=== PATIENT | male | born 1965 | race Hispanic/Latino ===

== ENCOUNTER 2016-11-30 11:39 | Emergency (ER) | payer MEDICARE ==
[2016-11-30 12:13] VITALS: TEMP 98.6; O2SAT 97; BMI 21.6
[2016-11-30] MEDS ORDERED: Albuterol-Ipratrop 3 mg / 0.5 (3 ml) UD IH STA ×2 (12:16→12:18)
[2016-11-30] MEDS ORDERED: Albuterol-Ipratrop 3 mg / 0.5 (3 ml) UD INH STA (12:16)
[2016-11-30] MEDS ORDERED: Sodium Chloride 0.9% 1,000 ML IV STA (12:16)
--- NOTE | 2016-11-30 12:21 | ED PDOC ---
HPI: SOB/CHF/COPD Time Seen by Provider: 11/30/16 11:58 Chief Complaint (Nursing): Chest Pain Chief Complaint (Provider): Chest pain and dyspnea History Per: Patient History/Exam Limitations: no limitations Onset/Duration Of Symptoms: Days (yesterday) Current Symptoms Are (Timing): Still Present Additional Complaint(s): Chest pain to the right. Dyspnea. Cough. No weakness, headaches, dizziness. Has green phlegm. No leg pain. No abd pain, nausea, vomit. Past Medical History Reviewed: Nursing Documentation, Vital Signs Vital Signs: Last Vital Signs Temp 98.6 F 11/30/16 12:10 Pulse 98 H 11/30/16 12:13 Resp 18 11/30/16 12:13 BP 120/60 11/30/16 12:13 Pulse Ox 97 11/30/16 12:27 - Medical History PMH: Arthritis (bilat knee), Diabetes (type II), HTN - Family History Family History: States: Unknown Family Hx - Social History Current smoker - smoking cessation education provided: No Alcohol: None - Immunization History Hx Tetanus Toxoid Vaccination: No Hx Influenza Vaccination: No Hx Pneumococcal Vaccination: No - Home Medications Home Medications: Ambulatory Orders Medication Instructions Recorded Insulin Lispro Protamin/Lispro 100 unit SQ ASDIR #5 insuln.pen 11/25/15 [Humalog Mix 75-25 Kwikpen] Naproxen 500 mg PO Q12 #15 tab 05/07/16 Tobramycin [Tobrex] 5 ml OP QID #1 bottle 07/30/16 Naproxen [Naprosyn] 500 mg PO BID PRN #15 tablet 09/08/16 Sulfamethoxazole/Trimethoprim 1 tab PO BID #19 tab 09/08/16 [Bactrim DS 800 mg-160 mg] Cephalexin [Keflex] 500 mg PO BID #14 capsule 11/09/16 - Allergies Allergies/Adverse Reactions: Allergies Allergy/AdvReac Type Severity Reaction Status Date / Time acetaminophen [From Percocet] Allergy RASH Verified 11/21/15 19:37 codeine Allergy RASH Verified 11/21/15 19:37 oxycodone HCl [From Percocet] Allergy RASH Verified 11/21/15 19:37 Review of Systems ROS Statement: Except As Marked, All Systems Reviewed And Found Negative Cardiovascular: Positive for: Chest Pain Respiratory: Positive for: Cough, Shortness of Breath, Sputum Physical Exam - Reviewed Nursing Documentation Reviewed: Yes Vital Signs Reviewed: Yes - Physical Exam Appears: Positive for: Uncomfortable Head Exam: Positive for: ATRAUMATIC, NORMAL INSPECTION, NORMOCEPHALIC Skin: Positive for: Normal Color, Warm, DRY Eye Exam: Positive for: EOMI, Normal appearance, PERRL ENT: Positive for: Normal ENT Inspection. Negative for: Nasal Congestion, Pharyngeal Erythema Neck: Positive for: Normal, Painless ROM, Supple Cardiovascular/Chest: Positive for: Regular Rate, Rhythm. Negative for: Chest Non Tender (r mid lateral chest mild), Edema Respiratory: Positive for: Decreased Breath Sounds. Negative for: Wheezing Gastrointestinal/Abdominal: Positive for: Normal Exam, Bowel Sounds, Soft. Negative for: Tenderness Back: Positive for: Normal Inspection. Negative for: L CVA Tenderness, R CVA Tenderness Extremity: Positive for: Normal ROM. Negative for: Tenderness, Pedal Edema Neurologic/Psych: Positive for: Alert, Oriented - Laboratory Results Result Diagrams: 11/30/16 12:43 11/30/16 12:43 Interpretation Of Abn Labs: 17 wbc, 2.1 lactate, 7.33 ph, 653 glucose - ECG ECG: Positive for: Interpreted By Me, Viewed By Me ECG Rhythm: Positive for: Normal QRS, Normal ST Segment, Sinus Rhythm O2 Sat by Pulse Oximetry: 97 Pulse Ox Interpretation: Normal - Progress ED Course And Treament: Pt. refusing to get further treatment or evaluation. Aware of possible or decreased functioning. Mom at bedside and understands pt. is at risk and needs treatment. Pt. is aaox3. Has capacity to make decisions. In no distress. No dyspnea. Speaking in full sentences. Will ama. Mini mental status exam intact. - Critical Care Total Time (In Min): 30 Documented Critical Care: Time excludes all time spent performint seperately billable procedures Disposition - Clinical Impression Clinical Impression: DKA (diabetic ketoacidoses), Dyspnea - Patient ED Disposition Is Patient to be Admitted: No Counseled Patient/Family Regarding: Studies Performed, Diagnosis - Disposition Referrals: [facility] [Outside] - 11/30/16 Disposition: Against Medical Advice Disposition Time: 14:28 Condition: FAIR Additional Instructions: You are going against medical advice. You can or have decreased functioning from your breathing issues and high blood sugar. You should return right away for further evaluation and treatment. Instructions: Diabetic Ketoacidosis (ED), Dyspnea (ED)
[2016-11-30] MEDS ORDERED: Albuterol-Ipratrop 3 mg / 0.5 (3 ml) UD ONE (12:34)
[2016-11-30 13:01] LABS: BASO % 0.3 % (0.0-2.0); EOS % 0.3 % (0.0-4.0); HEMATOCRIT 43.1 % (35.0-51.0); LYMPH # 1.7 K/uL (1.0-4.3); LYMPH % 9.8 % (20.0-40.0); MEAN CELL VOLUME 85.1 fl (80.0-94.0); MEAN CORPUSCULAR HEMOGLOBIN 27.8 pg (27.0-31.0); MEAN CORPUSCULAR HGB CONC 32.7 g/dL (33.0-37.0); MEAN PLATELET VOLUME 8.7 fl (7.2-11.7); MONO # 0.9 K/uL (0.0-0.8); MONO % 5.5 % (0.0-10.0); NEUT # 14.3 K/uL (1.8-7.0); NEUT % 84.1 % (50.0-75.0); NRBC % 0.1 % (0.0-0.0); PLATELET COUNT 329 K/uL (130-400); RED CELL DISTRIBUTION WIDTH 14.8 % (11.5-14.5)
[2016-11-30 13:16] LABS: ALB/GLOB RATIO 1.4 (1.0-2.1); ALCOHOL SERUM < 10 mg/dl (0-10); ALKALINE PHOSPHATASE 116 U/L (38-126); ALT/SGPT 21 U/L (21-72); AST/SGOT 14 U/L (17-59); BILIRUBIN,TOTAL 0.5 mg/dl (0.2-1.3); BLOOD UREA NITROGEN 14 mg/dl (9-20); CALCIUM 9.6 mg/dL (8.4-10.2); CARBON DIOXIDE 20 mmol/L (22-30); CHLORIDE 92 mmol/L (98-107); GFR AFRICAN-AMERICAN > 60; PHOSPHOROUS 3.4 mg/dl (2.5-4.5); POTASSIUM 4.9 MMOL/L (3.6-5.0); SODIUM 130 mmol/l (132-148); TOTAL PROTEIN 7.3 G/DL (6.3-8.2)
[2016-11-30 13:17] LABS: PARTIAL THROMBOPLASTIN TIME 28.7 SECONDS (23.3-32.5)
[2016-11-30 13:34] LABS: GLUCOSE,RANDOM 653 mg/dL (75-110)
[2016-11-30 13:44] VITALS: BP 120/60; PULSE 98; RESP 18
--- NOTE | 2016-11-30 13:51 | RAD ---
HISTORY: Sepsis Patient COMPARISON: Mild basilar atelectasis FINDINGS: LUNGS: No active pulmonary disease. PLEURA: No significant pleural effusion identified, no pneumothorax apparent. CARDIOVASCULAR: Normal. OSSEOUS STRUCTURES: No significant abnormalities. VISUALIZED UPPER ABDOMEN: Normal. OTHER FINDINGS: None. IMPRESSION: Mild basilar atelectasis
[2016-11-30 13:56] LABS: NEUTROPHIL 84 % (42-75); TOTAL CELLS COUNTED 100
[2016-11-30 14:09] LABS: ABG ALLEN TEST YES; ARTERIAL BLOOD GAS HCO3 18.6 mmol/L (21-28); ARTERIAL BLOOD GAS PH 7.33 (7.35-7.45); ARTERIAL BLOOD GAS PO2 96 mm/Hg (80-100)
--- NOTE | 2016-12-03 19:08 | CARD ---
APPROVED REPORT EKG Measurement Heart [id number] CO [id number] <Conclusion> Normal sinus rhythm Right atrial enlargement Possible Inferior infarct, age undetermined Abnormal ECG
== END 2016-11-30 14:35 | disposition left against medical advice (07) ==
LOC: H.ER 11:39
DX: R06.00 Dyspnea, unspecified (principal); E13.10 Other specified diabetes mellitus with ketoacidosis without coma; I10 Essential (primary) hypertension; Z79.4 Long term (current) use of insulin; R07.89 Other chest pain
CPT/HCPCS: 36600; 71010; 80053; 82803; 82948; 83735; 83880; 84100; 84484; 85025; 85610; 85730; 87040; 87804; 93005; 94640; 96374; 96375; 99283; G0480; J1885; J2930; J7040

== ENCOUNTER 2016-12-02 20:58 | Inpatient (IN) | payer MEDICARE ==
[2016-12-02 20:58] VITALS: BMI 21.6
[2016-12-02] MEDS ORDERED: Sodium Chloride 0.9% 2,000 ML IV STA (21:31)
--- NOTE | 2016-12-02 21:49 | ED PDOC ---
HPI: Chest Pain Time Seen by Provider: 12/02/16 21:14 Chief Complaint (Nursing): Shortness Of Breath Chief Complaint (Provider): Chest pain History Per: Patient History/Exam Limitations: no limitations Onset/Duration Of Symptoms: Days (5x days) Current Symptoms Are (Timing): Still Present Severity: Moderate Associated Symptoms: Other (cough productive of green phlegm) Additional Complaint(s): 51 year old male with a pertinent medical history of IDDM presents to the ED with complaints of right sided chest pain that started 5x days ago with associated symptoms of a cough productive of green phlegm and hyperglycemia. He reports that his glucose levels are never normal and always in the 300-500 rang despite using insulin. He reports that he came to the ED with the same complaints but left AMA because he was not being fed. He denies having a fever and chills. PMD: [facility] Past Medical History Reviewed: Historical Data, Nursing Documentation, Vital Signs Vital Signs: Last Vital Signs Temp 98.0 F 12/02/16 21:06 Pulse 84 12/02/16 21:06 Resp 20 12/02/16 21:15 BP 115/68 12/02/16 21:06 Pulse Ox 98 12/02/16 21:58 - Medical History PMH: Arthritis (bilat knee), Diabetes (type II), HTN - Surgical History Surgical History: Hernia Repair (umbilical) - Family History Family History: States: Unknown Family Hx, Diabetes (Father) - Social History Current smoker - smoking cessation education provided: Yes Alcohol: None Drugs: Denies - Immunization History Hx Tetanus Toxoid Vaccination: No Hx Influenza Vaccination: No Hx Pneumococcal Vaccination: No - Home Medications Home Medications: Ambulatory Orders Medication Instructions Recorded Insulin Lispro Protamin/Lispro 35 unit SQ ACHS 12/02/16 [Humalog Mix 75-25 Kwikpen] - Allergies Allergies/Adverse Reactions: Allergies Allergy/AdvReac Type Severity Reaction Status Date / Time acetaminophen [From Percocet] Allergy RASH Verified 12/02/16 22:56 codeine Allergy RASH Verified 12/02/16 22:56 oxycodone HCl [From Percocet] Allergy RASH Verified 12/02/16 22:56 Review of Systems ROS Statement: Except As Marked, All Systems Reviewed And Found Negative Constitutional: Negative for: Fever, Chills Cardiovascular: Positive for: Chest Pain (right sided) Respiratory: Positive for: Cough (productive of green phlegm) Physical Exam - Reviewed Nursing Documentation Reviewed: Yes Vital Signs Reviewed: Yes - Physical Exam Appears: Positive for: Non-toxic, No Acute Distress. Negative for: Well ( dissheveled, cachectic) Head Exam: Positive for: ATRAUMATIC, NORMOCEPHALIC Skin: Positive for: Normal Color, Warm, Dry Eye Exam: Positive for: Normal appearance Neck: Positive for: Normal Cardiovascular/Chest: Positive for: Regular Rate, Rhythm. Negative for: Chest Non Tender (right side chest tenderness to palpation) Respiratory: Positive for: Crackles (scattered crackles). Negative for: Respiratory Distress Neurologic/Psych: Positive for: Alert, Oriented (3x) - Laboratory Results Result Diagrams: 12/02/16 21:50 12/02/16 21:50 - ECG O2 Sat by Pulse Oximetry: 98 (RA) Pulse Ox Interpretation: Normal Medical Decision Making Medical Decision Makin:14 Initial impression: 51 year old male with right sided chest pain and a cough. Differential diagnoses include but are not limited to musculoskeletal chest pain with possible DKA. Initial plan: * VBG shock panel * CMP * drug screen urinary * ketone serum * lipase * troponin I * CBC * pt/ptt * XRay chest 1 view * IV NS 2,000ml IV 1,000mls/hr * toradol 15mg IVP * urinalysis * reevaluation 2330: Pt improving. Not in DKA (ketones in urine likely 2/2 to dehdration), no anion gap or acidosis. Pt. developing R sided consolidation, will treat for CAP and admit for IV Abx, IVF. Spoke with Dr. Brandy Mitchell regarding admission. Scribe Attestation: Documented by Radha Barrientos, acting as a scribe for Amandeep Tabares MD. Provider Scribe Attestation: All medical record entries made by the Scribe were at my direction and personally dictated by me. I have reviewed the chart and agree that the record accurately reflects my personal performance of the history, physical exam, medical decision making, and the department course for this patient. I have also personally directed, reviewed, and agree with the discharge instructions and disposition. Disposition - Clinical Impression Clinical Impression: Pneumonia, Hyperglycemia - Patient ED Disposition Is Patient to be Admitted: No - Disposition Disposition Time: 23:30 Condition: STABLE
[2016-12-02 22:02] LABS: BASO # 0.1 K/uL (0.0-0.2); BASO % 0.5 % (0.0-2.0); EOS # 0.1 K/uL (0.0-0.7); EOS % 0.6 % (0.0-4.0); LYMPH # 1.3 K/uL (1.0-4.3); LYMPH % 11.1 % (20.0-40.0); MEAN CELL VOLUME 83.7 fl (80.0-94.0); MEAN CORPUSCULAR HEMOGLOBIN 27.4 pg (27.0-31.0); MEAN CORPUSCULAR HGB CONC 32.7 g/dL (33.0-37.0); MEAN PLATELET VOLUME 8.1 fl (7.2-11.7); MONO # 0.5 K/uL (0.0-0.8); MONO % 4.3 % (0.0-10.0); NEUT # 9.6 K/uL (1.8-7.0); NEUT % 83.5 % (50.0-75.0); RED CELL DISTRIBUTION WIDTH 14.4 % (11.5-14.5); WHITE BLOOD COUNT 11.5 K/uL (4.8-10.8)
[2016-12-02 22:03] LABS: VENOUS BLOOD GAS BASE EXCESS 3.9 mmol/L (0.0-2.0); VENOUS BLOOD GAS PCO2 51 mmHg (40-60); VENOUS BLOOD PH 7.38 (7.32-7.43)
[2016-12-02 22:19] LABS: ALB/GLOB RATIO 1.3 (1.0-2.1); ALKALINE PHOSPHATASE 119 U/L (38-126); ALT/SGPT 26 U/L (21-72); AST/SGOT 17 U/L (17-59); BILIRUBIN,TOTAL 0.3 mg/dl (0.2-1.3); BLOOD UREA NITROGEN 11 mg/dl (9-20); CALCIUM 9.2 mg/dL (8.4-10.2); CARBON DIOXIDE 26 mmol/L (22-30); CHLORIDE 90 mmol/L (98-107); GFR AFRICAN-AMERICAN > 60; LIPASE 80 U/L (23-300); PARTIAL THROMBOPLASTIN TIME 25.5 SECONDS (23.3-32.5); POTASSIUM 5.5 MMOL/L (3.6-5.0); SODIUM 129 mmol/l (132-148); TOTAL PROTEIN 6.6 G/DL (6.3-8.2)
[2016-12-02 22:22] LABS: GLUCOSE,RANDOM 592 mg/dL (75-110)
[2016-12-02] MEDS ORDERED: Insulin Regular 100 units/ml IV STA (22:23)
[2016-12-02 22:30] LABS: RBC URINE 3 /hpf (0-3); URINE BACTERIA FEW (<OCC); URINE BILIRUBIN NEGATIVE (NEGATIVE); URINE BLOOD NEGATIVE (NEGATIVE); URINE COLOR STRAW (YELLOW); URINE GLUCOSE (UA) >=500 mg/dL (Normal); URINE KETONE 20 mg/dL (NEGATIVE); URINE LEUKOCYTE ESTERASE NEG Leu/uL (Negative); URINE PROTEIN NEGATIVE (NEGATIVE); URINE UROBILINOGEN 0.2-1.0 mg/dL (0.2-1.0)
[2016-12-02] MEDS ORDERED: Azithromycin 500 MG in Sodium Chloride 0.9% 250 ML IVPB STA (22:48)
[2016-12-03] MEDS ORDERED: Dextrose 50% SYRINGE Inj (50 ml) IV PRN (00:42)
[2016-12-03] MEDS ORDERED: Glucagon Recombinant 1 mg Inj IM PRN (00:42)
[2016-12-03] MEDS ORDERED: Insulin Regular 100 units/ml ONE (00:59)
[2016-12-03] MEDS ORDERED: Sodium Chloride 0.9% 1,000 ML IV SCH (01:00)
--- NOTE | 2016-12-03 01:00 | CP.PCM.HP ---
History of Present Illness - History of Present Illness History of Present Illness: 51 y/o male with history of IDDM presented to ED with complaints of right sided chest pain that started 5x days ago with associated symptoms of a cough productive of green phlegm and hyperglycemia. He reports that his glucose levels are never normal and always in the 300-500 rang despite using insulin. He reports that he came to the ED with the same complaints but left AMA because he was not being fed. Went to see and examine pt at bedside on med-surge, reports he feels fine now and does not want stay in the hospital. reports ED nurse told him his sugar is now down to 300 and he no longer have chest pain, does not want to stay at the hospital and as a matter of fact he made a mistake coming to the ED in the first place. Present on Admission - Present on Admission Any Indicators Present on Admission: Yes History of Uncontrolled Diabetes: Yes Review of Systems - Review of Systems All systems: reviewed and no additional remarkable complaints except Review of Systems: per HPI Past Patient History - Infectious Disease Hx of Infectious Diseases: None - Past Social History Alcohol: None Drugs: Denies - CARDIAC Hx Hypertension: Yes - ENDOCRINE/METABOLIC Hx Diabetes Mellitus Type 2: Yes - INTEGUMENTARY Hx Eczema: Yes - MUSCULOSKELETAL/RHEUMATOLOGICAL Hx Arthritis: Yes (bilat knee) - PSYCHIATRIC Hx Substance Use: No (quit 20+ years ago) - SURGICAL HISTORY Hx Herniorrhaphy: Yes Other/Comment: Left 5th toe. Right knee - ANESTHESIA Hx Anesthesia: Yes Hx Anesthesia Reactions: No Hx Malignant Hyperthermia: No Meds Allergies/Adverse Reactions: Allergies Allergy/AdvReac Type Severity Reaction Status Date / Time acetaminophen [From Percocet] Allergy RASH Verified 12/02/16 22:56 codeine Allergy RASH Verified 12/02/16 22:56 oxycodone HCl [From Percocet] Allergy RASH Verified 12/02/16 22:56 Physical Exam - Constitutional Appears: No Acute Distress - Head Exam Head Exam: NORMOCEPHALIC - ENT Exam ENT Exam: Mucous Membranes Dry - Respiratory Exam Respiratory Exam: Rales, NORMAL BREATHING PATTERN. absent: Wheezes, Respiratory Distress - Cardiovascular Exam Cardiovascular Exam: REGULAR RHYTHM, +S1, +S2 - GI/Abdominal Exam GI & Abdominal Exam: Normal Bowel Sounds, Soft. absent: Tenderness - Extremities Exam Extremities exam: Negative for: calf tenderness, pedal edema - Neurological Exam Neurological exam: Alert, Oriented x3 Results - Vital Signs Recent Vital Signs: Last Vital Signs Temp 98.0 F 12/02/16 21:06 Pulse 84 12/02/16 21:06 Resp 20 12/02/16 21:15 BP 115/68 12/02/16 21:06 Pulse Ox 98 12/02/16 23:49 - Labs Result Diagrams: 12/02/16 21:50 12/02/16 21:50 Assessment & Plan - Assessment and Plan (Free Text) Assessment: 51 y/o male with pmhx of IDDM being admitted for hyperglycemia and pneumonia Plan: Risk associated with leaving against medical advised addressed with pt. pt expressed understanding. AMA formed signed at 03:21am pt escorted off floor Initial plan as ordered Hyperglycemia: Not in DKA SSI accucheck IVF Pneumonia ceftriaxone plus Azithromycin f/u blood culture
[2016-12-03 01:06] VITALS: BP 112/57; PULSE 67; RESP 16; TEMP 98.2; O2SAT 97
[2016-12-03] MEDS ORDERED: Insulin Regular 100 units/ml SC SCH (07:30)
[2016-12-03] MEDS ORDERED: Azithromycin 500 MG in Sodium Chloride 0.9% 250 ML IVPB SCH (09:00)
[2016-12-03] MEDS ORDERED: Enoxaparin 40 mg Syringe SC SCH (09:00)
[2016-12-03] MEDS ORDERED: cefTRIAXone 2 GM in Sodium Chloride 0.9% 100 ML IVPB SCH (09:00)
--- NOTE | 2016-12-03 09:29 | RAD ---
PROCEDURE: CHEST RADIOGRAPH, 1 VIEW HISTORY: R sided CP COMPARISON: Comparison made with prior study 11/30/2016 FINDINGS: LUNGS: Patchy right lower lobe infiltrate. Mild left basilar atelectasis questionable small left-sided effusions. PLEURA: No no apparent pneumothorax CARDIOVASCULAR: Normal. OSSEOUS STRUCTURES: No significant abnormalities. VISUALIZED UPPER ABDOMEN: Normal. OTHER FINDINGS: None. IMPRESSION: Patchy right lower lobe infiltrate. Mild left basilar atelectasis questionable small left-sided effusions. This report was placed in PA review folder for followup
--- NOTE | 2016-12-03 18:43 | CARD ---
APPROVED REPORT EKG Measurement Heart [id number] <Conclusion> Sinus rhythm with short DE Otherwise normal ECG
== END 2016-12-03 03:35 | disposition left against medical advice (07) | DRG 637 ==
LOC: H.ER 20:58 → H.ERHOLD 23:35 → H.MEDSURG1 12-03 03:03
PROVIDERS: ADMIT Family Medicine; ATTEND Family Medicine
DX: E11.65 Type 2 diabetes mellitus with hyperglycemia (principal); J18.9 Pneumonia, unspecified organism; I10 Essential (primary) hypertension; Z79.4 Long term (current) use of insulin; Z88.6 Allergy status to analgesic agent; Z88.5 Allergy status to narcotic agent; M17.0 Bilateral primary osteoarthritis of knee

== ENCOUNTER 2016-12-20 17:09 | Emergency (ER) | payer MEDICARE ==
[2016-12-20 17:09] VITALS: BMI 21.6
[2016-12-20 17:24] VITALS: BP 108/67; PULSE 92; RESP 18; TEMP 99; O2SAT 95
[2016-12-20] MEDS ORDERED: Sodium Chloride 0.9% 1,000 ML IV STA (17:49)
--- NOTE | 2016-12-20 17:59 | ED PDOC ---
HPI: General Adult Time Seen by Provider: 12/20/16 17:35 Chief Complaint (Nursing): Med Refill Chief Complaint (Provider): Med Refill History Per: Patient History/Exam Limitations: no limitations Onset/Duration Of Symptoms: Days (x21) Additional Complaint(s): Braxton Villarreal, 51 year old male presents to the ED on 12/20/16 for a medication refill. The patient reports a couple of weeks ago his doctor changed his insulin dosage and administered Metformin. When the patient went to corn picker his insulin, he found out that his insurance didn't cover his insulin and went without insulin for 3 weeks. The patient has been taking 500 mg of Metformin BID and reports increased urination and thirst. He was told by his clinic to come to the ED today due to his symptoms. Past Medical History Reviewed: Historical Data, Nursing Documentation, Vital Signs Vital Signs: Last Vital Signs Temp 99 F 12/20/16 17:20 Pulse 92 H 12/20/16 17:20 Resp 18 12/20/16 17:20 BP 108/67 12/20/16 17:20 Pulse Ox 95 12/20/16 18:14 - Medical History PMH: Arthritis (bilat knee), Diabetes (type II), HTN, Rheumatoid Arthritis - Surgical History Surgical History: Hernia Repair (umbilical) - Family History Family History: States: Unknown Family Hx, Diabetes (Father) - Immunization History Hx Tetanus Toxoid Vaccination: No Hx Influenza Vaccination: No Hx Pneumococcal Vaccination: No - Home Medications Home Medications: Ambulatory Orders Medication Instructions Recorded Insulin Lispro Protamin/Lispro 35 unit SQ ACHS 12/02/16 [Humalog Mix 75-25 Kwikpen] - Allergies Allergies/Adverse Reactions: Allergies Allergy/AdvReac Type Severity Reaction Status Date / Time acetaminophen [From Percocet] Allergy RASH Verified 12/02/16 22:56 codeine Allergy RASH Verified 12/02/16 22:56 oxycodone HCl [From Percocet] Allergy RASH Verified 12/02/16 22:56 Review of Systems ROS Statement: Except As Marked, All Systems Reviewed And Found Negative ENT: Positive for: Other (increased thirst ) Genitourinary Male: Positive for: Other (increased urination) Physical Exam - Reviewed Nursing Documentation Reviewed: Yes Vital Signs Reviewed: Yes - Physical Exam Appears: Positive for: Non-toxic, No Acute Distress Head Exam: Positive for: ATRAUMATIC, NORMOCEPHALIC Neurologic/Psych: Positive for: Alert, Oriented (x3) - ECG O2 Sat by Pulse Oximetry: 95 (RA) Pulse Ox Interpretation: Normal Medical Decision Making Medical Decision Making: Initial Impression: Medication Refill Initial Plan: * COMP Metabolic Panel Stat-declined due to time constraints * CBC (With Differential) Sta-declined due to time constraints * Sodium Chloride 0.9% 1,000 ml IV 1,000 mls/hr-declined due to time constraints * Urinalysis Stat -no evidence of Ketones. * Insulin Human Regular 8 units SC Stat * Reevaluation- FS improved after 15 mins of medication admin, however still over 400. Pt made strictly aware that BS is still eleated however pt states that he will get insulin from the pharmacy and refuses to stay longer for treatment. pt denies dizziness, SOB, [place], abd pain or vision changes. no N/V upon d./c The Midlevel Provider contacted the [facility] and spoke to Dr. Rodriguez to plan administration and treatment with an appropriate and affordable insulin dosage for the patient. The patient is resistant to wait for full lab results but is willing to give urine for a urinalysis. The patient is willing to undergo a repeat finger stick and agrees to treatment with an insulin injection. adivsed to continue metformin. Pt made aware that he has an insurance deductible that needs to be met. pt will contact insurance. Scribe Attestation: Documented by Gavi Ruffin, acting as a scribe for Christie Rodrigues PA-C. Provider Scribe Attestation: All medical record entries made by the Scribe were at my direction and personally dictated by me. I have reviewed the chart and agree that the record accurately reflects my personal performance of the history, physical exam, medical decision making, and the department course for this patient. I have also personally directed, reviewed, and agree with the discharge instructions and disposition. Disposition - Clinical Impression Clinical Impression: Hyperglycemia - Patient ED Disposition Is Patient to be Admitted: No Counseled Patient/Family Regarding: Need For Followup - Disposition Disposition: Routine/Home Disposition Time: 18:26 Condition: FAIR Instructions: How to Check Your Blood Sugar (ED), Diabetic Ketoacidosis (ED)
[2016-12-20] MEDS ORDERED: Insulin Regular 100 units/ml SC STA (18:05)
[2016-12-20 18:14] LABS: RBC URINE 7 /hpf (0-3); URINE BILIRUBIN NEGATIVE (NEGATIVE); URINE BLOOD SMALL (NEGATIVE); URINE COLOR YELLOW (YELLOW); URINE GLUCOSE (UA) >=500 mg/dL (Normal); URINE KETONE NEGATIVE (NEGATIVE); URINE LEUKOCYTE ESTERASE NEG Leu/uL (Negative); URINE PROTEIN NEGATIVE (NEGATIVE); URINE UROBILINOGEN 0.2-1.0 mg/dL (0.2-1.0)
== END 2016-12-20 18:31 | disposition home or self-care (01) ==
LOC: H.ER 17:09
DX: E11.9 Type 2 diabetes mellitus without complications (principal); I10 Essential (primary) hypertension

== ENCOUNTER 2017-04-23 17:05 | Inpatient (IN) | payer MEDICARE ==
[2017-04-23 17:06] VITALS: BMI 21.6
[2017-04-23 17:16] VITALS: TEMP 97.9
[2017-04-23] MEDS ORDERED: Sodium Chloride 0.9% 1,000 ML IV STA ×2 (17:29→19:00)
[2017-04-23] MEDS ORDERED: Iohexol 240 (50 ml) PO ONE (17:39)
[2017-04-23] MEDS ORDERED: Iohexol 240 (50 ml) ONE (17:48)
[2017-04-23 17:53] LABS: BASO # 0.1 K/uL (0.0-0.2); BASO % 0.7 % (0.0-2.0); EOS # 0.4 K/uL (0.0-0.7); EOS % 4.6 % (0.0-4.0); HEMATOCRIT 44.1 % (35.0-51.0); LYMPH # 2.1 K/uL (1.0-4.3); LYMPH % 24.6 % (20.0-40.0); MEAN CORPUSCULAR HEMOGLOBIN 28.3 pg (27.0-31.0); MEAN CORPUSCULAR HGB CONC 33.7 g/dL (33.0-37.0); MEAN PLATELET VOLUME 8.8 fl (7.2-11.7); MONO # 0.3 K/uL (0.0-0.8); MONO % 3.9 % (0.0-10.0); NEUT # 5.5 K/uL (1.8-7.0); NEUT % 66.2 % (50.0-75.0); RED CELL DISTRIBUTION WIDTH 14.5 % (11.5-14.5); WHITE BLOOD COUNT 8.4 K/uL (4.8-10.8)
[2017-04-23 17:59] LABS: VENOUS BLOOD GAS BASE EXCESS 2.5 mmol/L (0.0-2.0); VENOUS BLOOD GAS PCO2 37 mmHg (40-60); VENOUS BLOOD PH 7.46 (7.32-7.43)
[2017-04-23 17:59] LABS: ALB/GLOB RATIO 1.6 (1.0-2.1); ALKALINE PHOSPHATASE 93 U/L (38-126); ALT/SGPT 25 U/L (21-72); AST/SGOT 14 U/L (17-59); BILIRUBIN,TOTAL 0.4 mg/dl (0.2-1.3); BLOOD UREA NITROGEN 20 mg/dl (9-20); CALCIUM 9.1 mg/dL (8.4-10.2); CARBON DIOXIDE 24 mmol/L (22-30); CHLORIDE 97 mmol/L (98-107); GFR AFRICAN-AMERICAN > 60; POTASSIUM 4.9 MMOL/L (3.6-5.0); SODIUM 133 mmol/l (132-148); TOTAL PROTEIN 6.5 G/DL (6.3-8.2)
[2017-04-23 18:07] LABS: GLUCOSE,RANDOM 578 mg/dL (75-110)
[2017-04-23] MEDS ORDERED: Insulin Regular 100 units/ml SC STA (18:10)
--- NOTE | 2017-04-23 18:20 | ED PDOC ---
Hyperglycemia/Hypoglycemia Time Seen by Provider: 04/23/17 17:28 Chief Complaint (Nursing): High Blood Sugar : The patient does not have any of the infectious symptoms listed except for those marked. Additional Complaint(s): 51yo M in ED with DM neuropathy and DM hx of DKA and PNA in ED with "couple days " of uncontrolled BP with associated increased blurred vision. states he is complaint with metoformin and insulin regimen. denies nausea vomiting fever dizziness or abd pain. Against Medical Advice - AMA Patient Left Against Medical Advice: The patient declines admission to the hospital and wishes to leave the Emergency Department. This action is against my medical advice. This decision was made with informed refusal. The patient was told that admission to the hospital is necessary. Explanation of the reasons why were discussed. The risks of leaving were explained to the patient and include, but are not limited to, worsening of known or currently unknown conditions, permanent disability and from undiagnosed or untreated conditions. The patient has the capacity to make this informed decision and understands my explanation of the current medical problem and risks of leaving. The patient voluntarily accepts these risks and signed an AMA form documenting our conversation. The patient was given the opportunity to ask questions and reconsider. The patient was encouraged to return to the Emergency Department at any time for further care. Past Medical History Reviewed: Historical Data, Nursing Documentation, Vital Signs Vital Signs: Last Vital Signs Temp 97.9 F 04/23/17 17:14 Pulse 109 H 04/23/17 17:14 Resp 18 04/23/17 17:14 BP 117/85 04/23/17 17:14 Pulse Ox 99 04/23/17 17:14 - Medical History PMH: Arthritis (bilat knee), Diabetes (type II), HTN, Rheumatoid Arthritis - Surgical History Surgical History: Hernia Repair (umbilical) - Family History Family History: States: Unknown Family Hx, Diabetes (Father) - Immunization History Hx Tetanus Toxoid Vaccination: No Hx Influenza Vaccination: No Hx Pneumococcal Vaccination: No - Home Medications Home Medications: Ambulatory Orders Medication Instructions Recorded Insulin Lispro Protamin/Lispro 35 unit SQ ACHS 12/02/16 [Humalog Mix 75-25 Kwikpen] - Allergies Allergies/Adverse Reactions: Allergies Allergy/AdvReac Type Severity Reaction Status Date / Time acetaminophen [From Percocet] Allergy RASH Verified 12/02/16 22:56 codeine Allergy RASH Verified 12/02/16 22:56 oxycodone HCl [From Percocet] Allergy RASH Verified 12/02/16 22:56 Review of Systems ROS Statement: Except As Marked, All Systems Reviewed And Found Negative Constitutional: Positive for: Weakness Gastrointestinal: Negative for: Nausea, Vomiting, Abdominal Pain Musculoskeletal: Positive for: Foot Pain Physical Exam - Reviewed Nursing Documentation Reviewed: Yes Vital Signs Reviewed: Yes - Physical Exam Appears: Positive for: Non-toxic, No Acute Distress, Uncomfortable Skin: Positive for: Normal Color, Warm, DRY Eye Exam: Positive for: EOMI, PERRL, Other (dec vision, ) ENT: Positive for: Normal ENT Inspection Neck: Positive for: Normal, Painless ROM Cardiovascular/Chest: Positive for: Regular Rate, Rhythm Respiratory: Positive for: CNT, Normal Breath Sounds Gastrointestinal/Abdominal: Positive for: Bowel Sounds, Soft, Tenderness (LLQ tenderess with gaurding), Guarding. Negative for: Distended Back: Positive for: Normal Inspection. Negative for: L CVA Tenderness, R CVA Tenderness Extremity: Positive for: Normal ROM Neurologic/Psych: Positive for: Alert, Oriented - Laboratory Results Result Diagrams: 04/23/17 17:45 04/23/17 17:45 - ECG O2 Sat by Pulse Oximetry: 99 - Radiology X-Ray: Interpreted by Nd X-Ray Interpretation: Infiltrates (mild right middle lobe-improved from previous xray) - Progress ED Course And Treament: PT with elevated FS in ED >450. PT given IV fluids and CBC/CMP(pt refused ABG), VBG. VBG shows no acidosis however lactate is elevated Pt given insulin provided to pt. with repeat FS/CMP/Lacate. PT will get CT scab of abd and chest xray. morhpine for pain Orders Category Date Time Status ARTERIAL BLOOD GAS SHOCK PANEL Stat BG 04/23/17 17:30 Stop Req VBG Shock Panel [VENOUS BLOOD GAS SHOCK PANEL] Stat BG 04/23/17 17:50 Completed ABD PELVIS PO & IV CONTRAST [CT] Stat CT 04/23/17 17:41 Ordered ELECTROCARDIOGRAM Stat Cardiology 04/23/17 17:36 Ordered COMP METABOLIC PANEL Stat Chem 04/23/17 17:45 Completed COMP METABOLIC PANEL Stat Chem 04/23/17 20:17 Uncollected LACT ACID, PLASMA Stat Chem 04/23/17 22:17 Uncollected OSMOLALITY,SERUM Stat Chem 04/23/17 18:17 Uncollected EKG-ED [EDNURTX] STAT ED Care 04/23/17 17:37 Active CHEST TWO VIEWS (PA/LAT) [RAD] Stat Exams 04/23/17 17:39 Ordered CBC (WITH DIFFERENTIAL) Stat WAYNE 04/23/17 17:45 Completed Insulin Human Regular [HumuLIN R] Med 04/23/17 18:10 Stat 5.4431 units SC STAT STA Iohexol [Omnipaque 240 (50 ML)] Med 04/23/17 17:48 Discontinued 50 ml .ROUTE .STK-MED ONE Iohexol [Omnipaque 240 (50 ML)] Med 04/23/17 17:39 Discontinued 50 ml PO ONCE ONE Ketorolac [Toradol] Med 04/23/17 18:15 Stat 30 mg IVP STAT STA Sodium Chloride 0.9% 1,000 ml Med 04/23/17 17:29 Active IV 1,000 mls/hr Copyist ONCE NURSING 04/23/17 17:37 Active IV Insertion (Saline Lock) ONCE NURSING 04/23/17 17:37 Active Glucose, Blood, POC ACCU-CHECK Pt Care 04/23/17 18:35 Ordered Glucose, Blood, POC STAT Pt Care 04/23/17 17:29 Active Medical Decision Making Medical Decision Makin pt will be admitted to family medicine, Brunilda huerta MD , MD Paxton now here to evaluate pt. Pt was admitted however, decided to AMA attempts made to have pt stay admitted explained the risks of leave AMA, but declined and signed out AMA. not willing to get CT scan or furhter insulin in ER or as an inpt. MD Phylicia came to AMA pt. pt is AA0x3 no intoxication. Disposition - Clinical Impression Clinical Impression: Hyperglycemia - Patient ED Disposition Is Patient to be Admitted: No - Disposition Disposition: Against Medical Advice Disposition Time: 19:54 Condition: UNKNOWN - POA Present On Arrival: Poor Glycemic Control
[2017-04-23] MEDS ORDERED: Insulin Regular 100 units/ml IVP STA (18:37)
[2017-04-23 18:58] VITALS: BP 122/79; PULSE 79; RESP 25
--- NOTE | 2017-04-23 19:26 | CP.PCM.HP ---
Past Patient History - Infectious Disease Hx of Infectious Diseases: None - Past Social History Smoking Status: Heavy Smoker > 10 Cigarettes Daily - CARDIAC Hx Hypertension: Yes - ENDOCRINE/METABOLIC Hx Diabetes Mellitus Type 2: Yes - INTEGUMENTARY Hx Eczema: Yes - MUSCULOSKELETAL/RHEUMATOLOGICAL Hx Arthritis: Yes (bilat knee) Hx Rheumatoid Arthritis: Yes - PSYCHIATRIC Hx Substance Use: No (quit 20+ years ago) - SURGICAL HISTORY Hx Surgeries: Yes Hx Herniorrhaphy: Yes Other/Comment: Left 5th toe. Right knee - ANESTHESIA Hx Anesthesia: Yes Hx Anesthesia Reactions: No Hx Malignant Hyperthermia: No Meds Allergies/Adverse Reactions: Allergies Allergy/AdvReac Type Severity Reaction Status Date / Time acetaminophen [From Percocet] Allergy RASH Verified 12/02/16 22:56 codeine Allergy RASH Verified 12/02/16 22:56 oxycodone HCl [From Percocet] Allergy RASH Verified 12/02/16 22:56 Results - Vital Signs Recent Vital Signs: Last Vital Signs Temp 97.9 F 04/23/17 17:14 Pulse 79 04/23/17 18:57 Resp 25 H 04/23/17 18:57 BP 122/79 04/23/17 18:57 Pulse Ox 96 04/23/17 18:57 - Labs Result Diagrams: 04/23/17 17:45 04/23/17 17:45 Labs: Laboratory Results - last 24 hr 04/23/17 04/23/17 04/23/17 17:30 17:45 17:45 WBC 8.4 RBC 5.25 Hgb 14.9 D Hct 44.1 MCV 84.0 MCH 28.3 MCHC 33.7 RDW 14.5 Plt Count 278 MPV 8.8 Neut % (Auto) 66.2 Lymph % (Auto) 24.6 [place] % (Auto) 3.9 Eos % (Auto) 4.6 H Baso % (Auto) 0.7 Neut # 5.5 Lymph # 2.1 [place] # 0.3 Eos # 0.4 Baso # 0.1 pO2 VBG pH VBG pCO2 VBG HCO3 VBG Total CO2 VBG O2 Sat (Calc) VBG Base Excess Glucose Lactate FiO2 Crit Value Called To Crit Value Called By Crit Value Read Back Blood Gas Notified Time Sodium 133 Potassium 4.9 Chloride 97 L Carbon Dioxide 24 Anion Gap 17 BUN 20 Creatinine 0.7 L Est GFR ( Amer) > 60 Est GFR (Non-Af Amer) > 60 POC Glucose (mg/dL) 494 H* Random Glucose 578 H* Calcium 9.1 Total Bilirubin 0.4 AST 14 L ALT 25 Alkaline Phosphatase 93 Total Protein 6.5 Albumin 4.0 Globulin 2.5 Albumin/Globulin Ratio 1.6 04/23/17 17:50 WBC RBC Hgb Hct MCV MCH MCHC RDW Plt Count MPV Neut % (Auto) Lymph % (Auto) [place] % (Auto) Eos % (Auto) Baso % (Auto) Neut # Lymph # [place] # Eos # Baso # pO2 23 L VBG pH 7.46 H VBG pCO2 37 L VBG HCO3 25.4 VBG Total CO2 27.4 VBG O2 Sat (Calc) 56.1 VBG Base Excess 2.5 H Glucose 588 H* Lactate 4.0 H* FiO2 21.0 Crit Value Called To Nadine mac Crit Value Called By Rt Crit Value Read Back Y Blood Gas Notified Time 1758 Sodium 174.0 H* Potassium Chloride 112.0 H Carbon Dioxide Anion Gap BUN Creatinine Est GFR ( Amer) Est GFR (Non-Af Amer) POC Glucose (mg/dL) Random Glucose Calcium Total Bilirubin AST ALT Alkaline Phosphatase Total Protein Albumin Globulin Albumin/Globulin Ratio
[2017-04-23 19:34] VITALS: O2SAT 99
[2017-04-23] MEDS ORDERED: Dextrose 50% SYRINGE Inj (50 ml) IV PRN (19:35)
[2017-04-23] MEDS ORDERED: Glucagon Recombinant 1 mg Inj IM PRN (19:35)
--- NOTE | 2017-04-23 19:56 | CP.PCM.PCO ---
Physician Communication Note - Physician Communication Note Physician Communication Note: AAOX3, pt signed out AMA after all risks and consequences discussed.
[2017-04-23] MEDS ORDERED: Insulin Lispro Mix 75/25 100 units/ml (HumaLog) 10ml SC SCH (22:00)
[2017-04-23] MEDS ORDERED: Insulin Regular 100 units/ml SC SCH (23:00)
[2017-04-23] MEDS ORDERED: Sodium Chloride 0.9% 50 ML IV ONE (23:17)
[2017-04-23] MEDS ORDERED: Iohexol 300 100 ML IJ ONE (23:17)
--- NOTE | 2017-04-24 00:41 | CT ---
EXAM: CT Abdomen and Pelvis With Intravenous Contrast CLINICAL HISTORY: 51 years old, male; Pain; Abdominal pain; Tenderness; Left lower quadrant (llq); Additional info: Left sided abdominal pain TECHNIQUE: Axial computed tomography images of the abdomen and pelvis with intravenous contrast. All CT scans at this facility use one or more dose reduction techniques, viz.: automated exposure control; ma/kV adjustment per patient size (including targeted exams where dose is matched to indication; i.e. head); or iterative reconstruction technique. Coronal and sagittal reformatted images were created and reviewed. CONTRAST: 95 mL of omnipaque 300mg administered intravenously. COMPARISON: No relevant prior studies available. FINDINGS: Lower thorax: Small hiatal hernia. ABDOMEN: Liver: Unremarkable. No mass. Gallbladder and bile ducts: Unremarkable. No calcified stones. No ductal dilation. Pancreas: Unremarkable. No mass. No ductal dilation. Spleen: Unremarkable. No splenomegaly. Adrenals: Calcified right adrenal gland. Left adrenal gland is unremarkable. Kidneys and ureters: Unremarkable. No solid mass. No hydronephrosis. Stomach and bowel: Large amount of retained stool in colon. Correlate for constipation. Appendix: No findings to suggest acute appendicitis. PELVIS: Bladder: Unremarkable. No mass. Reproductive: Unremarkable as visualized. ABDOMEN and PELVIS: Intraperitoneal space: Unremarkable. No free air. No significant fluid collection. Bones/joints: No acute fracture. No dislocation. Soft tissues: Unremarkable. Vasculature: Atherosclerotic vascular disease. No abdominal aortic aneurysm. Lymph nodes: Unremarkable. No enlarged lymph nodes. IMPRESSION: 1. Large amount of retained stool in colon. Correlate for constipation. 2. Remainder of findings as above.
[2017-04-24] MEDS ORDERED: Enoxaparin 40 mg Syringe SC SCH (09:00)
--- NOTE | 2017-04-24 09:38 | RAD ---
HISTORY: cough COMPARISON: 12/02/2016 TECHNIQUE: Chest PA and lateral FINDINGS: LUNGS: There is interval resolution of previously identified infiltrate at the right lung base and subsegmental atelectasis at the left lung base. No new infiltrate is appreciated. PLEURA: No significant pleural effusion identified. No pneumothorax apparent. CARDIOVASCULAR: Normal. OSSEOUS STRUCTURES: No significant abnormalities. VISUALIZED UPPER ABDOMEN: Normal. OTHER FINDINGS: None. IMPRESSION: Resolution of right lung infiltrate. No new infiltrate or active cardiopulmonary disease.
--- NOTE | 2017-04-25 10:51 | CARD ---
APPROVED REPORT EKG Measurement Heart [id number] 130P72 [id number] <Conclusion> Normal sinus rhythm Possible Left atrial enlargement Borderline ECG
== END 2017-04-23 19:56 | disposition left against medical advice (07) | DRG 639 ==
LOC: H.ER 17:05 → H.ERHOLD 18:38
PROVIDERS: ADMIT Family Medicine Geriatric Medicine; ATTEND Family Medicine Geriatric Medicine
DX: E11.65 Type 2 diabetes mellitus with hyperglycemia (principal); E11.40 Type 2 diabetes mellitus with diabetic neuropathy, unspecified; I10 Essential (primary) hypertension; M06.9 Rheumatoid arthritis, unspecified; M17.0 Bilateral primary osteoarthritis of knee; Z88.6 Allergy status to analgesic agent; Z88.5 Allergy status to narcotic agent

== ENCOUNTER 2017-04-23 21:04 | Observation (INO) | payer MEDICARE ==
[2017-04-23 21:05] VITALS: BMI 21.6
[2017-04-23] MEDS ORDERED: Sodium Chloride 0.9% 1,000 ML IV STA (21:14)
[2017-04-23 21:46] LABS: VENOUS BLOOD GAS BASE EXCESS 2.5 mmol/L (0.0-2.0); VENOUS BLOOD GAS PCO2 45 mmHg (40-60)
[2017-04-23 21:48] LABS: BASO # 0.1 K/uL (0.0-0.2); BASO % 0.9 % (0.0-2.0); EOS # 0.4 K/uL (0.0-0.7); EOS % 4.7 % (0.0-4.0); HEMATOCRIT 42.8 % (35.0-51.0); LYMPH # 2.8 K/uL (1.0-4.3); LYMPH % 29.6 % (20.0-40.0); MEAN CELL VOLUME 84.1 fl (80.0-94.0); MEAN CORPUSCULAR HEMOGLOBIN 28.1 pg (27.0-31.0); MEAN CORPUSCULAR HGB CONC 33.5 g/dL (33.0-37.0); MEAN PLATELET VOLUME 8.5 fl (7.2-11.7); MONO # 0.4 K/uL (0.0-0.8); MONO % 4.5 % (0.0-10.0); NEUT # 5.7 K/uL (1.8-7.0); NEUT % 60.3 % (50.0-75.0); NRBC % 0.1 % (0.0-0.0); RED CELL DISTRIBUTION WIDTH 14.8 % (11.5-14.5); WHITE BLOOD COUNT 9.4 K/uL (4.8-10.8)
[2017-04-23 22:06] LABS: ALB/GLOB RATIO 1.6 (1.0-2.1); ALCOHOL SERUM < 10 mg/dl (0-10); ALKALINE PHOSPHATASE 74 U/L (38-126); ALT/SGPT 25 U/L (21-72); AST/SGOT 16 U/L (17-59); BILIRUBIN,TOTAL 0.4 mg/dl (0.2-1.3); BLOOD UREA NITROGEN 18 mg/dl (9-20); CALCIUM 9.3 mg/dL (8.4-10.2); CARBON DIOXIDE 24 mmol/L (22-30); CHLORIDE 101 mmol/L (98-107); CHOLESTEROL 243 mg/dL (0-199); GFR AFRICAN-AMERICAN > 60; GLUCOSE,RANDOM 307 mg/dL (75-110); LIPASE 113 U/L (23-300); MAGNESIUM 1.7 MG/DL (1.6-2.3); POTASSIUM 4.2 MMOL/L (3.6-5.0); SODIUM 136 mmol/l (132-148); TOTAL PROTEIN 6.7 G/DL (6.3-8.2)
[2017-04-23] MEDS ORDERED: Insulin Regular 100 units/ml SC STA (22:49)
--- NOTE | 2017-04-23 23:06 | ED PDOC ---
Syncope/Near Syncope/Dizziness Time Seen by Provider: 04/23/17 21:11 Chief Complaint (Nursing): High Blood Sugar Chief Complaint (Provider): Syncope Fall Associated With With Symptoms: Yes, Positive Injury (head) Additional Complaint(s): Pt just left hospital AMA, was supposed to be admitted for hyperglycemia. Pt reports that when he got home he had a syncopal episode PMD [facility] Past Medical History Reviewed: Historical Data, Nursing Documentation, Vital Signs Vital Signs: Last Vital Signs Temp 98.6 F 04/23/17 21:08 Pulse 90 04/23/17 21:08 Resp 16 04/23/17 21:08 BP 123/73 04/23/17 21:08 Pulse Ox 99 04/23/17 21:08 - Medical History PMH: Arthritis (bilat knee), Diabetes (type II), HTN, Rheumatoid Arthritis - Surgical History Surgical History: Hernia Repair (umbilical) - Family History Family History: States: Unknown Family Hx, Diabetes (Father) - Immunization History Hx Tetanus Toxoid Vaccination: No Hx Influenza Vaccination: No Hx Pneumococcal Vaccination: No - Home Medications Home Medications: Ambulatory Orders Medication Instructions Recorded Insulin Lispro Protamin/Lispro 35 unit SQ ACHS 12/02/16 [Humalog Mix 75-25 Kwikpen] MetFORMIN [glucOPHAGE] 1,000 mg PO BID 04/23/17 - Allergies Allergies/Adverse Reactions: Allergies Allergy/AdvReac Type Severity Reaction Status Date / Time acetaminophen [From Percocet] Allergy RASH Verified 12/02/16 22:56 codeine Allergy RASH Verified 12/02/16 22:56 oxycodone HCl [From Percocet] Allergy RASH Verified 12/02/16 22:56 Review of Systems ROS Statement: Except As Marked, All Systems Reviewed And Found Negative (and as per HPI) Constitutional: Positive for: Chills, Weakness, Malaise. Negative for: Fever Gastrointestinal: Negative for: Nausea, Vomiting Neurological: Positive for: Headache, Dizziness Physical Exam - Reviewed Nursing Documentation Reviewed: Yes Vital Signs Reviewed: Yes - Physical Exam Appears: Positive for: Non-toxic, No Acute Distress Head Exam: Positive for: NORMOCEPHALIC Skin: Positive for: Warm, Dry Eye Exam: Positive for: EOMI, PERRL ENT: Positive for: Other (dry mucus membranes) Neck: Positive for: Painless ROM, Supple Cardiovascular/Chest: Positive for: Regular Rate, Rhythm, Chest Non Tender. Negative for: Murmur Respiratory: Positive for: Normal Breath Sounds. Negative for: Respiratory Distress Gastrointestinal/Abdominal: Positive for: Soft. Negative for: Tenderness Back: Positive for: Normal Inspection. Negative for: Decreased ROM Extremity: Positive for: Normal ROM. Negative for: Deformity Lymphatic: Negative for: Adenopathy Neurologic/Psych: Positive for: Alert. Negative for: Motor/Sensory Deficits - Laboratory Results Result Diagrams: 04/23/17 21:42 04/23/17 21:42 - ECG O2 Sat by Pulse Oximetry: 99 Disposition - Clinical Impression Clinical Impression: Hyperglycemia, Syncope Discussed With : Brian Green Comment: FP resident Doctor Will See Patient In The: ED Counseled Patient/Family Regarding: Studies Performed, Diagnosis - Disposition Disposition Time: 21:00 Condition: GUARDED - Pt Status Changed To: Hospital Disposition Of: Observation - POA Present On Arrival: Falls Or Trauma, Poor Glycemic Control
[2017-04-23 23:09] LABS: RBC URINE < 1 /hpf (0-3); URINE BILIRUBIN NEGATIVE (NEGATIVE); URINE BLOOD NEGATIVE (NEGATIVE); URINE COLOR STRAW (YELLOW); URINE GLUCOSE (UA) >=500 mg/dL (Normal); URINE KETONE NEGATIVE (NEGATIVE); URINE LEUKOCYTE ESTERASE NEG Leu/uL (Negative); URINE PROTEIN NEGATIVE (NEGATIVE); URINE UROBILINOGEN 0.2-1.0 mg/dL (0.2-1.0); WBC URINE < 1 /hpf (0-5)
[2017-04-24] MEDS ORDERED: Dextrose 50% SYRINGE Inj (50 ml) IV PRN (00:33)
[2017-04-24] MEDS ORDERED: Glucagon Recombinant 1 mg Inj IM PRN (00:33)
--- NOTE | 2017-04-24 00:35 | CP.PCM.HP ---
History of Present Illness - History of Present Illness History of Present Illness: 51 y/o male with a PMHx remarkable for IDDM2 and heroin abuse returns to [facility] ED s/p syncopal episode. Pt was originally at [facility] ED for hyperglycemia secondary to medication noncompliance but signed out AMA. Upon returning to his building, he reports he had syncopal episode and passed out in his lobby. Reports he was out for several minutes before being woken up by EMS. Does not remember if he hit his head or not. Denies urinary/bowel incontinence. No other complaints. Pt reports he had syncopal episode last week where he passed out in the bathroom and was woken up by his mother but didnt feel it was neccessary to get checked out. -pt was also seen earlier this evening in the ED, for symptomatic hyperglycemia. Pt reports a 1 week history of polyuria and polydipisa associated with nausea and weakness. Pt reports he was not very compliant with his medication regime. Pt was complaining of his chronic peripheral neuropathy pain, was given 2mg Morphine IVP and signed out AMA shortly afterwards. ROS: 12 points reviewed, found to be negative. PMD: [facility] PMHx: IDDM2, heroin abuse Meds: as per med rec ALL: NKDA PHospHx: admission of pneumonia 2017 SocialHx: 1 ppd tobacco abuse >25 years, denies ETOH, heroin abuse, last usage yesterday, 5 bags as per pt. Mother Anita is POA. Discussed rescusition if need be, patient wishes to be DNR/DNI. FamilyHx: denies any family hx of cancer, mi, stroke ED COURSE: Vitals on presentation: 98.6, HR 90, BP 123/73, RR 16, POX 99% RA Labs 1st arrival: CBC/CMP/Trop/Lactate/VBG 2nd arrival: CBC/CMP/Trop/Lipase/VBG/Lactate/Lipid panel/Utox/UA/Serum Alc Imaging: EKG Head CT ABD CT CXR Admitted to [facility] for further evaluation Present on Admission - Present on Admission Any Indicators Present on Admission: No Past Patient History - Infectious Disease Hx of Infectious Diseases: None - Past Social History Smoking Status: Heavy Smoker > 10 Cigarettes Daily - CARDIAC Hx Hypertension: Yes - ENDOCRINE/METABOLIC Hx Diabetes Mellitus Type 2: Yes - INTEGUMENTARY Hx Eczema: Yes - MUSCULOSKELETAL/RHEUMATOLOGICAL Hx Arthritis: Yes (bilat knee) Hx Rheumatoid Arthritis: Yes - PSYCHIATRIC Hx Substance Use: No (quit 20+ years ago) - SURGICAL HISTORY Hx Surgeries: Yes Hx Herniorrhaphy: Yes Other/Comment: Left 5th toe. Right knee - ANESTHESIA Hx Anesthesia: Yes Hx Anesthesia Reactions: No Hx Malignant Hyperthermia: No Meds Allergies/Adverse Reactions: Allergies Allergy/AdvReac Type Severity Reaction Status Date / Time acetaminophen [From Percocet] Allergy RASH Verified 12/02/16 22:56 codeine Allergy RASH Verified 12/02/16 22:56 oxycodone HCl [From Percocet] Allergy RASH Verified 12/02/16 22:56 Physical Exam - Constitutional Appears: Non-toxic, No Acute Distress, Older Than Stated Age, Chronically Ill - Head Exam Head Exam: ATRAUMATIC, NORMAL INSPECTION, NORMOCEPHALIC - Eye Exam Eye Exam: EOMI. absent: Conjunctival injection, Scleral icterus Pupil Exam: PERRL - ENT Exam ENT Exam: Mucous Membranes Moist - Respiratory Exam Respiratory Exam: Clear to Auscultation Bilateral, NORMAL BREATHING PATTERN. absent: Rales, Rhonchi, Wheezes - Cardiovascular Exam Cardiovascular Exam: REGULAR RHYTHM, RRR, +S1, +S2. absent: JVD, Rubs - GI/Abdominal Exam GI & Abdominal Exam: Normal Bowel Sounds, Soft. absent: Diminished Bowel Sounds , Distended, Firm, Guarding, Rigid, Tenderness - Extremities Exam Extremities exam: Positive for: normal inspection, pedal pulses present. Negative for: calf tenderness, pedal edema Additional comments: healing ulcer, right foot, at the great toe, on the plantar aspect - Neurological Exam Neurological exam: Alert, CN II-XII Intact, Oriented x3, Reflexes Normal - Psychiatric Exam Psychiatric exam: Normal Affect, Normal Mood - Skin Skin Exam: Dry, Intact, Normal Color, Warm Additional comments: large amounts of tattoos throughout Results - Vital Signs Recent Vital Signs: Last Vital Signs Temp 98.6 F 04/23/17 21:08 Pulse 90 04/23/17 21:08 Resp 16 04/23/17 21:08 BP 123/73 04/23/17 21:08 Pulse Ox 99 04/23/17 23:17 - Labs Result Diagrams: 04/23/17 21:42 04/23/17 21:42 Labs: Laboratory Results - last 24 hr 04/23/17 04/23/17 04/23/17 21:24 21:40 21:42 WBC 9.4 RBC 5.09 Hgb 14.3 Hct 42.8 MCV 84.1 MCH 28.1 MCHC 33.5 RDW 14.8 H Plt Count 269 MPV 8.5 Neut % (Auto) 60.3 Lymph % (Auto) 29.6 [place] % (Auto) 4.5 Eos % (Auto) 4.7 H Baso % (Auto) 0.9 Neut # 5.7 Lymph # 2.8 [place] # 0.4 Eos # 0.4 Baso # 0.1 pO2 14 L VBG pH 7.40 VBG pCO2 45 VBG HCO3 24.7 VBG Total CO2 29.3 H VBG O2 Sat (Calc) 29.4 L VBG Base Excess 2.5 H VBG Potassium 4.2 Sodium 133.0 Chloride 101.0 Glucose 341 H Lactate 1.9 FiO2 21.0 Potassium Carbon Dioxide Anion Gap BUN Creatinine Est GFR ( Amer) Est GFR (Non-Af Amer) POC Glucose (mg/dL) 349 H Random Glucose Serum Osmolality Calcium Phosphorus Magnesium Total Bilirubin AST ALT Alkaline Phosphatase Troponin I Total Protein Albumin Globulin Albumin/Globulin Ratio Triglycerides Cholesterol LDL Cholesterol Direct HDL Cholesterol Lipase Venous Blood Potassium 4.2 Urine Color Urine Clarity Urine pH Ur Specific [place] Urine Protein Urine Glucose (UA) Urine Ketones Urine Blood Urine Nitrate Urine Bilirubin Urine Urobilinogen Ur Leukocyte Esterase Urine RBC (Auto) Urine Microscopic WBC Urine Opiates Screen Urine Methadone Screen Ur Barbiturates Screen Ur Phencyclidine Scrn Ur Amphetamines Screen U Benzodiazepines Scrn U Oth Cocaine Metabols U Cannabinoids Screen Alcohol, Quantitative 04/23/17 04/23/17 04/23/17 21:42 21:42 22:37 WBC RBC Hgb Hct MCV MCH MCHC RDW Plt Count MPV Neut % (Auto) Lymph % (Auto) [place] % (Auto) Eos % (Auto) Baso % (Auto) Neut # Lymph # [place] # Eos # Baso # pO2 VBG pH VBG pCO2 VBG HCO3 VBG Total CO2 VBG O2 Sat (Calc) VBG Base Excess VBG Potassium Sodium 136 Chloride 101 Glucose Lactate FiO2 Potassium 4.2 Carbon Dioxide 24 Anion Gap 16 BUN 18 Creatinine 0.7 L Est GFR ( Amer) > 60 Est GFR (Non-Af Amer) > 60 POC Glucose (mg/dL) 353 H Random Glucose 307 H Serum Osmolality 297 Calcium 9.3 Phosphorus 3.0 Magnesium 1.7 Total Bilirubin 0.4 AST 16 L ALT 25 Alkaline Phosphatase 74 Troponin I < 0.0120 Total Protein 6.7 Albumin 4.1 Globulin 2.6 Albumin/Globulin Ratio 1.6 Triglycerides 225 H Cholesterol 243 H LDL Cholesterol Direct 174 H HDL Cholesterol 47 Lipase 113 Venous Blood Potassium Urine Color Urine Clarity Urine pH Ur Specific [place] Urine Protein Urine Glucose (UA) Urine Ketones Urine Blood Urine Nitrate Urine Bilirubin Urine Urobilinogen Ur Leukocyte Esterase Urine RBC (Auto) Urine Microscopic WBC Urine Opiates Screen Urine Methadone Screen Ur Barbiturates Screen Ur Phencyclidine Scrn Ur Amphetamines Screen U Benzodiazepines Scrn U Oth Cocaine Metabols U Cannabinoids Screen Alcohol, Quantitative < 10 04/23/17 04/23/17 23:03 23:03 WBC RBC Hgb Hct MCV MCH MCHC RDW Plt Count MPV Neut % (Auto) Lymph % (Auto) [place] % (Auto) Eos % (Auto) Baso % (Auto) Neut # Lymph # [place] # Eos # Baso # pO2 VBG pH VBG pCO2 VBG HCO3 VBG Total CO2 VBG O2 Sat (Calc) VBG Base Excess VBG Potassium Sodium Chloride Glucose Lactate FiO2 Potassium Carbon Dioxide Anion Gap BUN Creatinine Est GFR ( Amer) Est GFR (Non-Af Amer) POC Glucose (mg/dL) Random Glucose Serum Osmolality Calcium Phosphorus Magnesium Total Bilirubin AST ALT Alkaline Phosphatase Troponin I Total Protein Albumin Globulin Albumin/Globulin Ratio Triglycerides Cholesterol LDL Cholesterol Direct HDL Cholesterol Lipase Venous Blood Potassium Urine Color Straw Urine Clarity Clear Urine pH 6.0 Ur Specific [place] 1.012 Urine Protein Negative Urine Glucose (UA) >=500 Urine Ketones Negative Urine Blood Negative Urine Nitrate Negative Urine Bilirubin Negative Urine Urobilinogen 0.2-1.0 Ur Leukocyte Esterase Neg Urine RBC (Auto) < 1 Urine Microscopic WBC < 1 Urine Opiates Screen Positive H Urine Methadone Screen Negative Ur Barbiturates Screen Negative Ur Phencyclidine Scrn Negative Ur Amphetamines Screen Negative U Benzodiazepines Scrn Negative U Oth Cocaine Metabols Negative U Cannabinoids Screen Negative Alcohol, Quantitative Assessment & Plan (1) Syncope Assessment and Plan: labs thus far wnl strict glycmeic control ECHO ordered carotid/vertebral duplex ordered fall precautions low carb diet will continue to monitor. Status: Acute (2) Hyperglycemia Assessment and Plan: secondary to uncontrolled IDDM2 No DKA and HSS as per labs resume home meds insulin lispro coverage scale Status: Acute (3) Diabetic ulcer of right foot Assessment and Plan: healing podiatry consult appreciated Status: Chronic (4) Prophylactic measure Assessment and Plan: Lovenox 40mg SC QD SCDs Status: Acute
[2017-04-24 02:47] VITALS: RESP 18
[2017-04-24 04:51] VITALS: BP 125/83; PULSE 68; TEMP 98.4; O2SAT 95
[2017-04-24] MEDS ORDERED: Influenza Vaccine 18yr & older 0.5 ML/45 MCG SYR IM ONE (06:00)
[2017-04-24] MEDS ORDERED: Pneumococcal 23-Valent Vaccine IM ONE (06:00)
[2017-04-24] MEDS ORDERED: Insulin Lispro (humaLOG) 100 Units/ml Inj SC SCH (07:00)
[2017-04-24] MEDS ORDERED: INSULIN LISPRO PROTAMIN SQ SCH (07:30)
[2017-04-24] MEDS ORDERED: LISPRO SQ SCH (07:30)
[2017-04-24] MEDS ORDERED: Insulin Lispro Mix 75/25 100 units/ml (HumaLog) 10ml SC SCH (07:30)
--- NOTE | 2017-04-24 07:59 | CP.PCM.PCO ---
Physician Communication Note - Physician Communication Note Physician Communication Note: AAOx3, unintoxicated. signed out AMA. second time in 12 hours.
[2017-04-24] MEDS ORDERED: Enoxaparin 40 mg Syringe SC SCH (09:00)
--- NOTE | 2017-04-25 10:48 | CARD ---
APPROVED REPORT EKG Measurement Heart [id number] [place] 130P59 [id number] <Conclusion> Normal sinus rhythm Normal ECG
== END 2017-04-24 07:50 | disposition left against medical advice (07) ==
LOC: H.ER 21:04 → H.ERHOLD 21:18 → H.TEL 04-24 00:23
PROVIDERS: ADMIT Family Medicine Geriatric Medicine; ATTEND Family Medicine Geriatric Medicine
DX: R55 Syncope and collapse (principal); E11.65 Type 2 diabetes mellitus with hyperglycemia; E11.621 Type 2 diabetes mellitus with foot ulcer; L97.519 Non-pressure chronic ulcer of other part of right foot with unspecified severity; E11.42 Type 2 diabetes mellitus with diabetic polyneuropathy; I10 Essential (primary) hypertension; M06.9 Rheumatoid arthritis, unspecified; Z66 Do not resuscitate; Z72.0 Tobacco use; Z79.4 Long term (current) use of insulin; Z91.14 Patient's other noncompliance with medication regimen; F11.10 Opioid abuse, uncomplicated; L30.9 Dermatitis, unspecified; M19.90 Unspecified osteoarthritis, unspecified site; Z79.84 Long term (current) use of oral hypoglycemic drugs; Z23 Encounter for immunization
CPT/HCPCS: 80053; 80061; 81003; 82803; 82948; 83036; 83690; 83735; 83930; 84100; 84484; 85025; 90732; 93005; 96372; 99283; G0008; G0009; G0378; G0480; J1885; J2270; J7040; Q2035

== ENCOUNTER 2017-04-26 00:40 | Emergency (ER) | payer MEDICARE ==
[2017-04-26 00:41] VITALS: BMI 21.6
[2017-04-26 00:55] VITALS: BP 119/85; PULSE 102; RESP 18; TEMP 98.6; O2SAT 98
--- NOTE | 2017-04-26 01:21 | ED PDOC ---
Lower Extremity Pain/Injury Time Seen by Provider: 04/26/17 01:01 Chief Complaint (Nursing): Lower Extremity Problem/Injury Chief Complaint (Provider): FOOT PAIN History Per: Patient (51 Y/O MALE H/O IDDM HERE WITH CHRONIC BILATERAL FOOT PAIN ONGOING. PATIENT TOOK ALLEVE PRIOR TO ARRIVAL. REQUESTS STRONGER MEDICATION FOR PAIN MANAGMENT. ) Past Medical History Reviewed: Historical Data, Nursing Documentation, Vital Signs Vital Signs: Last Vital Signs Temp 98.6 F 04/26/17 00:51 Pulse 102 H 04/26/17 00:51 Resp 18 04/26/17 00:51 BP 119/85 04/26/17 00:51 Pulse Ox 98 04/26/17 00:51 - Medical History PMH: Arthritis (bilat knee), Diabetes (type II), HTN, Rheumatoid Arthritis - Surgical History Surgical History: Hernia Repair (umbilical) - Family History Family History: States: Unknown Family Hx, Diabetes (Father) - Social History Drugs: Other (HEROINE ABUSE) - Immunization History Hx Tetanus Toxoid Vaccination: No Hx Influenza Vaccination: No Hx Pneumococcal Vaccination: No - Home Medications Home Medications: Ambulatory Orders Medication Instructions Recorded Insulin Lispro Protamin/Lispro 35 unit SQ ACHS 12/02/16 [Humalog Mix 75-25 Kwikpen] MetFORMIN [glucOPHAGE] 1,000 mg PO BID 04/23/17 - Allergies Allergies/Adverse Reactions: Allergies Allergy/AdvReac Type Severity Reaction Status Date / Time acetaminophen [From Percocet] Allergy RASH Verified 12/02/16 22:56 codeine Allergy RASH Verified 12/02/16 22:56 oxycodone HCl [From Percocet] Allergy RASH Verified 12/02/16 22:56 Review of Systems ROS Statement: Except As Marked, All Systems Reviewed And Found Negative Physical Exam - Reviewed Nursing Documentation Reviewed: Yes Vital Signs Reviewed: Yes - Physical Exam Appears: Positive for: Well, Non-toxic, No Acute Distress Head Exam: Positive for: ATRAUMATIC, NORMAL INSPECTION, NORMOCEPHALIC Skin: Positive for: Normal Color, Warm, DRY Eye Exam: Positive for: EOMI, Normal appearance, PERRL ENT: Positive for: Normal ENT Inspection Neck: Positive for: Normal, Painless ROM Cardiovascular/Chest: Positive for: Regular Rate, Rhythm Respiratory: Positive for: CNT, Normal Breath Sounds Gastrointestinal/Abdominal: Positive for: Normal Exam, Bowel Sounds, Soft Back: Positive for: Normal Inspection Extremity: Positive for: Normal ROM, Other (SMALL 1 CM HEALING WOUND NOTED PLANTAR REGION OF FOOT.) Neurologic/Psych: Positive for: Alert, Oriented - ECG O2 Sat by Pulse Oximetry: 98 - Progress ED Course And Treament: PATIENT LEFT PRIOR TO ACCUCHECK. WAS OFFERED TYLENOL AND RECOMMENDED F/U WITH PMD FOR FURTHER MANAGEMENT OF DIABETIC NEUROPATHY Disposition - Clinical Impression Clinical Impression: Diabetic neuropathy - Patient ED Disposition Is Patient to be Admitted: No - Disposition Disposition: Left W/O Treatment Disposition Time: 01:35 Condition: STABLE Instructions: Diabetic Neuropathy (ED) Forms: [facility] Connect (Spanish)
== END 2017-04-26 01:37 | disposition left against medical advice (07) ==
LOC: H.ER 00:40
DX: E11.40 Type 2 diabetes mellitus with diabetic neuropathy, unspecified (principal); I10 Essential (primary) hypertension; M06.9 Rheumatoid arthritis, unspecified; Z79.4 Long term (current) use of insulin

== ENCOUNTER 2017-05-05 23:01 | Emergency (ER) | payer MEDICARE ==
[2017-05-05 23:02] VITALS: BMI 21.6
[2017-05-05 23:09] VITALS: BP 131/71; PULSE 85; RESP 18; TEMP 98; O2SAT 95
--- NOTE | 2017-05-05 23:21 | ED PDOC ---
HPI: General Adult Time Seen by Provider: 05/05/17 23:20 Chief Complaint (Nursing): Med Refill Chief Complaint (Provider): OUT OF SYRINGE History Per: Patient (51 Y/O MALE IDDM STATES HE RAN OUT OF INSULIN SYRINGE THIS MORNING AND GAVE LAST DOSE OF 70/20 HUMOLOG IN AM. HAS TAKEN METFORMIN PRESCRIBED. NOTES BS WAS ELEVATED ON GLUCOMETER.) Past Medical History Reviewed: Historical Data, Nursing Documentation, Vital Signs Vital Signs: Last Vital Signs Temp 98 F 05/05/17 23:07 Pulse 85 05/05/17 23:07 Resp 18 05/05/17 23:07 BP 131/71 05/05/17 23:07 Pulse Ox 95 05/05/17 23:21 - Medical History PMH: Arthritis (bilat knee), Diabetes (type II), Rheumatoid Arthritis Denies: HTN (denies 04/30/17) - Surgical History Surgical History: Hernia Repair (umbilical) - Family History Family History: States: Unknown Family Hx, Diabetes (Father) - Immunization History Hx Tetanus Toxoid Vaccination: No Hx Influenza Vaccination: No Hx Pneumococcal Vaccination: No - Home Medications Home Medications: Ambulatory Orders Medication Instructions Recorded Insulin Lispro Protamin/Lispro 35 unit SQ ACHS 12/02/16 [Humalog Mix 75-25 Kwikpen] MetFORMIN [glucOPHAGE] 1,000 mg PO BID 04/23/17 Syring-Needl,Disp,Insul,0.3 ml 1 each MC BID PRN #60 disp.syrin 05/05/17 [Insulin Syringe] - Allergies Allergies/Adverse Reactions: Allergies Allergy/AdvReac Type Severity Reaction Status Date / Time acetaminophen [From Percocet] Allergy RASH Verified 04/30/17 07:24 codeine Allergy RASH Verified 04/30/17 07:24 oxycodone HCl [From Percocet] Allergy RASH Verified 04/30/17 07:24 Review of Systems ROS Statement: Except As Marked, All Systems Reviewed And Found Negative Physical Exam - Reviewed Nursing Documentation Reviewed: Yes Vital Signs Reviewed: Yes - Physical Exam Appears: Positive for: Well, Non-toxic, No Acute Distress Head Exam: Positive for: ATRAUMATIC, NORMAL INSPECTION, NORMOCEPHALIC Skin: Positive for: Normal Color, Warm, DRY Eye Exam: Positive for: EOMI, Normal appearance, PERRL ENT: Positive for: Normal ENT Inspection Neck: Positive for: Normal, Painless ROM Cardiovascular/Chest: Positive for: Regular Rate, Rhythm Respiratory: Positive for: CNT, Normal Breath Sounds Gastrointestinal/Abdominal: Positive for: Normal Exam, Bowel Sounds, Soft Back: Positive for: Normal Inspection Extremity: Positive for: Normal ROM Neurologic/Psych: Positive for: Alert, Oriented - ECG O2 Sat by Pulse Oximetry: 95 Disposition - Clinical Impression Clinical Impression: Medication refill - Patient ED Disposition Is Patient to be Admitted: No - Disposition Referrals: Uriel Chaparro MD [Primary Care Provider] - Disposition: Routine/Home Disposition Time: 23:48 Condition: FAIR Prescriptions: Syring-Needl,Disp,Insul,0.3 ml [Insulin Syringe] 1 each MC BID PRN #60 disp.syrin PRN Reason: Other Instructions: How to Check Your Blood Sugar (ED) Forms: [employer] Connect (Arabic)
[2017-05-05] MEDS ORDERED: Sodium Chloride 0.9% 1,000 ML IV STA (23:25)
== END 2017-05-06 00:04 | disposition home or self-care (01) ==
LOC: H.ER 23:01
DX: Z76.0 Encounter for issue of repeat prescription (principal); E11.9 Type 2 diabetes mellitus without complications; Z79.4 Long term (current) use of insulin; M06.9 Rheumatoid arthritis, unspecified

== ENCOUNTER 2017-09-13 19:41 | Emergency (ER) | payer MEDICARE, OTHER ==
[2017-09-13 19:41] VITALS: BMI 21.6
[2017-09-13 19:48] VITALS: BP 135/69; PULSE 76; RESP 18; TEMP 97.5; O2SAT 98
== END 2017-09-13 20:20 | disposition left against medical advice (07) ==
LOC: H.ER 19:41
DX: Z02.89 Encounter for other administrative examinations (principal)

== ENCOUNTER 2017-09-14 12:50 | Emergency (ER) | payer MEDICARE ==
[2017-09-14 13:02] VITALS: BMI 18.2
[2017-09-14 13:04] VITALS: BP 95/64; PULSE 86; TEMP 97.8; O2SAT 99
[2017-09-14 13:08] VITALS: RESP 18
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
== END 2017-09-14 14:33 | disposition home or self-care (01) ==
LOC: H.ER 12:50
DX: E11.40 Type 2 diabetes mellitus with diabetic neuropathy, unspecified (principal); M79.672 Pain in left foot; M79.671 Pain in right foot; Z79.4 Long term (current) use of insulin; Z88.5 Allergy status to narcotic agent; M06.9 Rheumatoid arthritis, unspecified

== ENCOUNTER 2017-09-18 20:49 | Emergency (ER) | payer MEDICARE ==
[2017-09-18 20:49] VITALS: BMI 18.2
== END 2017-09-18 21:26 | disposition left against medical advice (07) ==
LOC: H.ER 20:49
DX: Z02.89 Encounter for other administrative examinations (principal)

== ENCOUNTER 2017-11-04 02:44 | Emergency (ER) | payer MEDICARE ==
[2017-11-04 02:44] VITALS: BMI 18.2
[2017-11-04 03:13] VITALS: BP 111/78; PULSE 71; RESP 17; TEMP 97.9; O2SAT 99
== END 2017-11-04 03:30 | disposition left against medical advice (07) ==
LOC: H.ER 02:44
DX: Z02.89 Encounter for other administrative examinations (principal)

== ENCOUNTER 2017-11-04 16:17 | Emergency (ER) | payer MEDICARE ==
[2017-11-04 16:17] VITALS: BMI 18.2
[2017-11-04 16:24] VITALS: BP 124/84; PULSE 69; RESP 16; O2SAT 96
== END 2017-11-04 17:00 | disposition left against medical advice (07) ==
LOC: H.ER 16:17
DX: Z02.89 Encounter for other administrative examinations (principal)

== ENCOUNTER 2017-12-26 22:29 | Emergency (ER) | payer MEDICARE ==
[2017-12-26 22:30] VITALS: BMI 18.2
[2017-12-26 22:38] VITALS: BP 117/77; PULSE 89; RESP 16; TEMP 98.3; O2SAT 100
== END 2017-12-26 23:40 | disposition left against medical advice (07) ==
LOC: H.ER 22:29
DX: Z02.89 Encounter for other administrative examinations (principal)
CPT/HCPCS: 72HRC; LWBS0

== ENCOUNTER 2017-12-27 15:30 | Inpatient (IN) | payer MEDICARE ==
[2017-12-27 15:30] VITALS: BMI 18.2
[2017-12-27] MEDS ORDERED: Piperacillin/Tazobact 3.375 GM in Sodium Chloride 0.9% 100 ML IVPB STA (15:44)
[2017-12-27] MEDS ORDERED: Piperacillin/Tazobact 3.375 gm Inj IVPB ONE (16:04)
--- NOTE | 2017-12-27 16:15 | ED PDOC ---
Lower Extremity Pain/Injury Time Seen by Provider: 12/27/17 15:38 Chief Complaint (Nursing): Wound Check Chief Complaint (Provider): Wound Check History Per: Patient History/Exam Limitations: no limitations Onset/Duration Of Symptoms: Days (x2) Current Symptoms Are (Timing): Still Present Additional Complaint(s): 52 year old male presents to the ED for evaluation of a painful wound on his right foot and leg that developed two days ago. Patient states he is uncertain how he sustained the wound, denying trauma. After changing his mind about coming into the ED yesterday, patient reports seeing Dr. Betancourt earlier today in wound clinic who informed him he had a 100.9 deg F fever and should come into the ED. Patient notes that the redness on his right leg and foot has worsened since onset. PMD: Mallika Anderson Past Medical History Reviewed: Historical Data, Nursing Documentation, Vital Signs Vital Signs: Last Vital Signs Temp 98.4 F 12/27/17 15:34 Pulse 98 H 12/27/17 15:34 Resp 16 12/27/17 15:34 BP 126/83 12/27/17 15:34 Pulse Ox 100 12/27/17 15:34 - Medical History PMH: Arthritis (bilat knee), Diabetes (type II), Rheumatoid Arthritis Denies: HTN (denies 04/30/17) Other PMH: testicular cancer, in remission - Surgical History Surgical History: Hernia Repair (umbilical) - Family History Family History: States: Diabetes (Father) - Immunization History Hx Tetanus Toxoid Vaccination: No Hx Influenza Vaccination: No Hx Pneumococcal Vaccination: No - Home Medications Home Medications: Ambulatory Orders Medication Instructions Recorded Insulin Lispro Protamin/Lispro 10 - 12 unit SQ ACTID 12/02/16 [Humalog Mix 75-25 Kwikpen] MetFORMIN [glucOPHAGE] 1,000 mg PO BID 04/23/17 Gabapentin [Neurontin] 800 mg PO TID #30 tab 09/14/17 - Allergies Allergies/Adverse Reactions: Allergies Allergy/AdvReac Type Severity Reaction Status Date / Time acetaminophen [From Percocet] Allergy RASH Verified 12/26/17 22:33 codeine Allergy RASH Verified 12/26/17 22:33 oxycodone HCl [From Percocet] Allergy RASH Verified 12/26/17 22:33 Review of Systems ROS Statement: Except As Marked, All Systems Reviewed And Found Negative Constitutional: Positive for: Fever. Negative for: Other (trauma) Skin: Positive for: Other (painful wound on right foot and leg, redness worsening) Physical Exam - Reviewed Nursing Documentation Reviewed: Yes Vital Signs Reviewed: Yes - Physical Exam Appears: Positive for: No Acute Distress Head Exam: Positive for: ATRAUMATIC Skin: Positive for: Warm, Dry Eye Exam: Positive for: Normal appearance ENT: Positive for: Normal ENT Inspection Neck: Positive for: Normal, Painless ROM, Supple Cardiovascular/Chest: Positive for: Regular Rate, Rhythm. Negative for: Murmur Respiratory: Positive for: Normal Breath Sounds. Negative for: Accessory Muscle Use, Respiratory Distress Pulses-Dorsalis Pedis (L): 2+ Pulses-Dorsalis Pedis (R): 2+ Gastrointestinal/Abdominal: Positive for: Normal Exam, Soft. Negative for: Tenderness Back: Positive for: Normal Inspection. Negative for: L CVA Tenderness, R CVA Tenderness Extremity: Positive for: Normal ROM, Other (superficial wound on dorsal rt foot and anterior distal rt leg with moderate surrounding erythema and streaking going up past right knee). Negative for: Calf Tenderness (bilaterally) Neurologic/Psych: Positive for: Alert, Oriented (x3). Negative for: Motor/ Sensory Deficits - Laboratory Results Result Diagrams: 12/27/17 15:55 12/27/17 18:00 - ECG O2 Sat by Pulse Oximetry: 100 (RA) Pulse Ox Interpretation: Normal Medical Decision Making Medical Decision Making: Initial Impression: cellulitis Time: 15:44 Initial Plan: --VBG Shock Panel --CMP --CBC with differential --Vancomycin 1gm Sodium Chloride 0.9% 250 ml IVPB --Zosyn 3.375gm Sodium Chloride 0.9% 100 ml IVPB --Blood culture --Right foot XR --Right tibia fibula XR Time: 16:46 Right tibia fibula XR FINDINGS: BONES: No fracture or destructive lesion. JOINT SPACES: Incompletely visualize/severe degenerative changes right knee and findings of osteochondromatosis. OTHER FINDINGS: None. IMPRESSION: No acute findings related to/accounting for the clinical presentation. Time: 16:47 Right foot XR FINDINGS: BONES: Small plantar calcaneal spur. . No fracture. JOINTS: Normal. SOFT TISSUES: Normal. OTHER FINDINGS: None. IMPRESSION: No acute findings related to/accounting for the clinical presentation. 15:[address] Sears, podiatry resident, who recommended XR, blood work, and zosyn/vanco. Case also discussed with Dr. Khan who made arrangements for admission. Scribe Attestation: Documented by Rita Payne, acting as a scribe for Shaheed Dia PA-C. Provider Scribe Attestation: All medical entries made by the Scribe were at my direction and personally dictated by me. I have reviewed the chart and agree that the record accurately reflects my personal performance of the history, physical exam, medical decision making, and the department course for this patient. I have also personally directed, reviewed, and agree with the discharge instructions and disposition. Disposition - Clinical Impression Clinical Impression: Hyperglycemia, Cellulitis - Patient ED Disposition Is Patient to be Admitted: Yes Doctor Will See Patient In The: Hospital - Disposition Disposition Time: 15:44 Condition: STABLE - Pt Status Changed To: Hospital Disposition Of: Inpatient - Admit Certification Admit to Inpatient:: After my assessment, the patient will require hospitalization for at least two midnights. This is because of the severity of symptoms shown, intensity of services needed, and/or the medical risk in this patient being treated as an outpatient.
[2017-12-27 16:21] LABS: VENOUS BLOOD GAS BASE EXCESS 0.8 mmol/L (0.0-2.0); VENOUS BLOOD GAS PCO2 49 mmHg (40-60); VENOUS BLOOD GAS PO2 13 mm/Hg (30-55); VENOUS BLOOD PH 7.35 (7.32-7.43)
[2017-12-27 16:26] LABS: BASO # 0.1 K/uL (0.0-0.2); BASO % 1.3 % (0.0-2.0); EOS # 0.3 K/uL (0.0-0.7); EOS % 2.6 % (0.0-4.0); LYMPH # 1.8 K/uL (1.0-4.3); LYMPH % 16.3 % (20.0-40.0); MEAN CORPUSCULAR HEMOGLOBIN 27.6 pg (27.0-31.0); MEAN CORPUSCULAR HGB CONC 33.2 g/dL (33.0-37.0); MEAN PLATELET VOLUME 8.8 fl (7.2-11.7); MONO # 0.5 K/uL (0.0-0.8); MONO % 4.7 % (0.0-10.0); NEUT # 8.3 K/uL (1.8-7.0); NEUT % 75.1 % (50.0-75.0); RBC 4.36 Mil/uL (4.40-5.90); RED CELL DISTRIBUTION WIDTH 14.2 % (11.5-14.5)
--- NOTE | 2017-12-27 16:48 | RAD ---
PROCEDURE: Radiographs of the right tibia and fibula. HISTORY: skin infection COMPARISON: None available. TECHNIQUE: Frontal and lateral views obtained. FINDINGS: BONES: No fracture or destructive lesion. JOINT SPACES: Incompletely visualize/severe degenerative changes right knee and findings of osteochondromatosis. OTHER FINDINGS: None. IMPRESSION: No acute findings related to/accounting for the clinical presentation.
--- NOTE | 2017-12-27 16:48 | RAD ---
PROCEDURE: Right Foot Radiographs. HISTORY: Skin infection, site unknown. COMPARISON: None. FINDINGS: BONES: Small plantar calcaneal spur. . No fracture. JOINTS: Normal. SOFT TISSUES: Normal. OTHER FINDINGS: None. IMPRESSION: No acute findings related to/accounting for the clinical presentation.
[2017-12-27 17:35] LABS: URINE BILIRUBIN NEGATIVE (NEGATIVE); URINE BLOOD NEGATIVE (NEGATIVE); URINE CLARITY CLEAR (Clear); URINE COLOR STRAW (YELLOW); URINE GLUCOSE (UA) >=500 mg/dL (Normal); URINE LEUKOCYTE ESTERASE NEG Leu/uL (Negative); URINE PROTEIN NEGATIVE (NEGATIVE); URINE UROBILINOGEN 0.2-1.0 mg/dL (0.2-1.0)
[2017-12-27] MEDS ORDERED: Sodium Chloride 0.9% 1,000 ML IV STA (17:44)
[2017-12-27 18:25] LABS: ALBUMIN 3.4 g/dL (3.5-5.0); ALT/SGPT 16 U/L (21-72); AST/SGOT 11 U/L (17-59); BLOOD UREA NITROGEN 12 mg/dl (9-20); CALCIUM 8.6 mg/dL (8.4-10.2); GFR AFRICAN-AMERICAN > 60; GFR NON-AFRICAN AMERICAN > 60
[2017-12-27] MEDS ORDERED: Insulin Regular 100 units/ml IVP STA (18:30)
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
[2017-12-27] MEDS ORDERED: Sodium Chloride 0.9% 1,000 ML IV SCH (19:15)
[2017-12-27] MEDS ORDERED: Dextrose 50% SYRINGE Inj (50 ml) IV PRN (19:22)
[2017-12-27] MEDS ORDERED: Glucagon Recombinant 1 mg Inj IM PRN (19:22)
[2017-12-27] MEDS ORDERED: Insulin Regular 100 units/ml IV STA (20:07)
--- NOTE | 2017-12-27 20:30 | CP.PCM.HP ---
History of Present Illness - History of Present Illness History of Present Illness: CC: right leg pain HPI: 52 y/o man w/ pmh of IDDM2 presents to the ED w/ right leg pain. Patient was being seen for follow up in wound clinic when patient was sent to ED due to worsening pain w/ pus and bloody discharge. Patient reports pain worsening over the past 2 days, noticed streaking red going up to his knee, and having fever. Patient denies trauma but unsure. Patient denies headache, chest pain, SOB, abdominal pain, nausea, vomiting, diarrhea, or dysuria. Patient reports he took tylenol prior to ED arrival. ED course: vitals: 98.4 F, 98 beats/min, 126/83 mm Hg, resp 16, O2 100% room air CBC: 11.0>12.0/36.2<429 CMP: 132/4.2, 96/23, 12/0.5, glucose 385, AST 11, ALT 16, alk phos 89 VBG: pH 7.35, PCo2 49, HCO3 23.3, pO2 13, lactate 1.4 UA: ketones 20, glucose >500, negative nitrate and leukocyte esterase XR foot: no acute findings XR tibia/fibula: no acute findings given insulin human regular 6 units and then 4 units IVF NS 1L bolus IVF NS 1 L @ 90 mL/hr start zosyn 3.375 gm IV Q6h start vancomycin 1 gm IV Q12h MRI lower extremity ordered Infectious Disease consult ordered Podiatry recommendations appreciated PMD: Dr. Anderson PMH: IDDM2 meds: see med list allergies: acetaminophen, codeine, oxycodone HCl, patient reports taking morphine in the past w/o issue PSH: umbilical hernia, right knee arthroscopy, 5th digit left foot pin Fam: father DM2 SOC: smokes 1 pack for 1.5 days over 25-30 years, denies alcohol, reports last use of marijuana 8 months ago ROS: 12 points assessed and negative unless otherwise reported in HPI Present on Admission - Present on Admission Any Indicators Present on Admission: Yes History of DVT/PE: No History of Uncontrolled Diabetes: Yes Urinary Catheter: No Decubitus Ulcer Present: No Review of Systems - Review of Systems All systems: reviewed and no additional remarkable complaints except - Constitutional Constitutional: As Per HPI, Fever. absent: Chills - EENT Eyes: absent: Change in Vision - Cardiovascular Cardiovascular: absent: Chest Pain - Respiratory Respiratory: absent: Dyspnea - Gastrointestinal Gastrointestinal: absent: Abdominal Pain, Nausea, Vomiting - Genitourinary Genitourinary: absent: Dysuria - Integumentary Integumentary: As Per HPI, Rash, Skin Ulcer - Neurological Neurological: absent: Dizziness, Headaches Past Patient History - Infectious Disease Hx of Infectious Diseases: None - Past Medical History & Family History Past Medical History?: Yes - Past Social History Smoking Status: Heavy Smoker > 10 Cigarettes Daily - CARDIAC Hx Hypertension: No (denies 04/30/17) - ENDOCRINE/METABOLIC Hx Diabetes Mellitus Type 2: Yes - INTEGUMENTARY Hx Eczema: Yes - MUSCULOSKELETAL/RHEUMATOLOGICAL Hx Arthritis: Yes (bilat knee) Hx Rheumatoid Arthritis: Yes - PSYCHIATRIC Hx Substance Use: No (quit 20+ years ago) - SURGICAL HISTORY Hx Surgeries: Yes Hx Herniorrhaphy: Yes Hx Orthopedic Surgery: Yes Other/Comment: Left 5th toe. Right knee - ANESTHESIA Hx Anesthesia: Yes Hx Anesthesia Reactions: No Hx Malignant Hyperthermia: No Meds Allergies/Adverse Reactions: Allergies Allergy/AdvReac Type Severity Reaction Status Date / Time acetaminophen [From Percocet] Allergy RASH Verified 12/26/17 22:33 codeine Allergy RASH Verified 12/26/17 22:33 oxycodone HCl [From Percocet] Allergy RASH Verified 12/26/17 22:33 Physical Exam - Constitutional Appears: Non-toxic, No Acute Distress - Head Exam Head Exam: ATRAUMATIC, NORMAL INSPECTION, NORMOCEPHALIC - Eye Exam Eye Exam: Normal appearance - ENT Exam ENT Exam: Mucous Membranes Moist - Neck Exam Neck exam: Positive for: Full Rom. Negative for: Tenderness - Respiratory Exam Respiratory Exam: Clear to Auscultation Bilateral. absent: Accessory Muscle Use , Decreased Breath Sounds, Rales, Rhonchi, Wheezes, Respiratory Distress - Cardiovascular Exam Cardiovascular Exam: REGULAR RHYTHM. absent: Tachycardia - GI/Abdominal Exam GI & Abdominal Exam: Normal Bowel Sounds, Soft. absent: Distended, Tenderness - Extremities Exam Extremities exam: Negative for: calf tenderness Additional comments: right anterior tibia dressed c/d/i, edematous, erythema visible, streaking seen up to knee left leg normal - Neurological Exam Neurological exam: Alert, Oriented x3 - Skin Skin Exam: Dry, Warm Results - Vital Signs Recent Vital Signs: Last Vital Signs Temp 98.4 F 12/27/17 15:34 Pulse 98 H 12/27/17 15:34 Resp 16 12/27/17 15:34 BP 126/83 12/27/17 15:34 Pulse Ox 100 12/27/17 18:43 - Labs Result Diagrams: 12/27/17 15:55 12/27/17 18:00 Labs: Laboratory Results - last 24 hr 12/27/17 12/27/17 12/27/17 15:55 16:15 17:17 WBC 11.0 H RBC 4.36 L Hgb 12.0 D Hct 36.2 MCV 83.0 MCH 27.6 MCHC 33.2 RDW 14.2 Plt Count 429 H D MPV 8.8 Neut % (Auto) 75.1 H Lymph % (Auto) 16.3 L [place] % (Auto) 4.7 Eos % (Auto) 2.6 Baso % (Auto) 1.3 Neut # (Auto) 8.3 H Lymph # (Auto) 1.8 [place] # (Auto) 0.5 Eos # (Auto) 0.3 Baso # (Auto) 0.1 pO2 13 L VBG pH 7.35 VBG pCO2 49 VBG HCO3 23.3 VBG Total CO2 28.6 H VBG O2 Sat (Calc) 20.1 L VBG Base Excess 0.8 VBG Potassium 4.7 Sodium 130.0 L Chloride 93.0 L Glucose 508 H* D Lactate 1.4 FiO2 21.0 Crit Value Called To Ifeoma garcia Crit Value Called By 333 Crit Value Read Back Y Blood Gas Notified Time 1620 Potassium Carbon Dioxide Anion Gap BUN Creatinine Est GFR ( Amer) Est GFR (Non-Af Amer) POC Glucose (mg/dL) Random Glucose Calcium Total Bilirubin AST ALT Alkaline Phosphatase Total Protein Albumin Globulin Albumin/Globulin Ratio Venous Blood Potassium 4.7 Urine Color Straw Urine Clarity Clear Urine pH 6.0 Ur Specific [place] 1.036 H Urine Protein Negative Urine Glucose (UA) >=500 Urine Ketones 20 Urine Blood Negative Urine Nitrate Negative Urine Bilirubin Negative Urine Urobilinogen 0.2-1.0 Ur Leukocyte Esterase Neg Urine RBC (Auto) 3 12/27/17 12/27/17 18:00 20:02 WBC RBC Hgb Hct MCV MCH MCHC RDW Plt Count MPV Neut % (Auto) Lymph % (Auto) [place] % (Auto) Eos % (Auto) Baso % (Auto) Neut # (Auto) Lymph # (Auto) [place] # (Auto) Eos # (Auto) Baso # (Auto) pO2 VBG pH VBG pCO2 VBG HCO3 VBG Total CO2 VBG O2 Sat (Calc) VBG Base Excess VBG Potassium Sodium 132 Chloride 96 L Glucose Lactate FiO2 Crit Value Called To Crit Value Called By Crit Value Read Back Blood Gas Notified Time Potassium 4.2 Carbon Dioxide 23 Anion Gap 17 BUN 12 Creatinine 0.5 L Est GFR ( Amer) > 60 Est GFR (Non-Af Amer) > 60 POC Glucose (mg/dL) 416 H* Random Glucose 385 H Calcium 8.6 Total Bilirubin 0.7 AST 11 L D ALT 16 L D Alkaline Phosphatase 89 Total Protein 6.9 Albumin 3.4 L Globulin 3.5 Albumin/Globulin Ratio 1.0 Venous Blood Potassium Urine Color Urine Clarity Urine pH Ur Specific [place] Urine Protein Urine Glucose (UA) Urine Ketones Urine Blood Urine Nitrate Urine Bilirubin Urine Urobilinogen Ur Leukocyte Esterase Urine RBC (Auto) Assessment & Plan - Assessment and Plan (Free Text) Assessment: 52 y/o man w/ pmh of IDDM2 presents to the ED w/ right leg pain Plan: Right leg pain - most likely due to abscess of lower extremity rule out osteomyelitis - patient reports wound was milked for pus discharge - vitals: 98.4 F, 98 beats/min, 126/83 mm Hg, resp 16, O2 100% room air - CBC: 11.0>12.0/36.2<429 - CMP: 132/4.2, 96/23, 12/0.5, glucose 385, AST 11, ALT 16, alk phos 89 - VBG: pH 7.35, PCo2 49, HCO3 23.3, pO2 13, lactate 1.4 - UA: ketones 20, glucose >500, negative nitrate and leukocyte esterase - XR foot: no acute findings - XR tibia/fibula: no acute findings - given insulin human regular 6 units and then 4 units - IVF NS 1L bolus - IVF NS 1 L @ 90 mL/hr - start zosyn 3.375 gm IV Q6h - start vancomycin 1 gm IV Q12h - MRI lower extremity ordered, follow up results - Infectious Disease consult ordered - Podiatry recommendations appreciated - monitor for acute changes - admit to Telemetry IDDM2 - uncontrolled - last HbA1c 14.0% (04/23/2017) - home meds: insulin lispro 10-12 units SQ ACTID, metformin 1000 mg PO BID, gabapentin 800 mg PO TID - insulin correction scale - hypoglycemic protocol - accucheck ACHS Prophylactic measures - DVT lovenox 40 mg SC daily
[2017-12-27] MEDS ORDERED: Insulin Lispro (humaLOG) 100 Units/ml Inj SC SCH (22:00)
[2017-12-27] MEDS ORDERED: Piperacillin/Tazobact 3.375 GM in Sodium Chloride 0.9% 100 ML IVPB SCH (22:00)
[2017-12-27 22:35] VITALS: BP 100/57; PULSE 69; RESP 17; TEMP 98.5
[2017-12-27 23:29] VITALS: O2SAT 100
[2017-12-28] MEDS ORDERED: Enoxaparin 40 mg Syringe SC SCH (09:00)
--- NOTE | 2017-12-28 09:23 | CARD ---
APPROVED REPORT EKG Measurement Heart [id number] <Conclusion> Normal sinus rhythm Normal ECG
--- NOTE | 2017-12-28 11:04 | CP.PCM.CON ---
Past Patient History - Infectious Disease Hx of Infectious Diseases: None - Past Medical History & Family History Past Medical History?: Yes - Past Social History Smoking Status: Heavy Smoker > 10 Cigarettes Daily - CARDIAC Hx Hypertension: No (denies 04/30/17) - PULMONARY Hx Respiratory Disorders: No - NEUROLOGICAL Hx Neurological Disorder: No - HEENT Hx HEENT Problems: No - RENAL Hx Chronic Kidney Disease: No - ENDOCRINE/METABOLIC Hx Endocrine Disorders: Yes (DM) - HEMATOLOGICAL/ONCOLOGICAL Hx Blood Disorders: No - INTEGUMENTARY Hx Dermatological Problems: No - MUSCULOSKELETAL/RHEUMATOLOGICAL Hx Arthritis: Yes (bilat knee) Hx Rheumatoid Arthritis: Yes - GENITOURINARY/GYNECOLOGICAL Hx Genitourinary Disorders: No - PSYCHIATRIC Hx Psychophysiologic Disorder: Yes - SURGICAL HISTORY Hx Surgeries: Yes Hx Herniorrhaphy: Yes Hx Orthopedic Surgery: Yes Other/Comment: Left 5th toe. Right knee - ANESTHESIA Hx Anesthesia: Yes Hx Anesthesia Reactions: No Hx Malignant Hyperthermia: No Meds Allergies/Adverse Reactions: Allergies Allergy/AdvReac Type Severity Reaction Status Date / Time acetaminophen [From Percocet] Allergy RASH Verified 12/26/17 22:33 codeine Allergy RASH Verified 12/26/17 22:33 oxycodone HCl [From Percocet] Allergy RASH Verified 12/26/17 22:33 Results - Vital Signs Recent Vital Signs: Last Vital Signs Temp 98.5 F 12/27/17 22:35 Pulse 69 12/27/17 22:35 Resp 17 12/27/17 22:35 BP 100/57 L 12/27/17 22:35 Pulse Ox 100 12/27/17 23:29 - Labs Result Diagrams: 12/27/17 15:55 12/27/17 18:00 Labs: Laboratory Results - last 24 hr 12/27/17 12/27/17 12/27/17 15:55 16:15 17:17 WBC 11.0 H RBC 4.36 L Hgb 12.0 D Hct 36.2 MCV 83.0 MCH 27.6 MCHC 33.2 RDW 14.2 Plt Count 429 H D MPV 8.8 Neut % (Auto) 75.1 H Lymph % (Auto) 16.3 L [place] % (Auto) 4.7 Eos % (Auto) 2.6 Baso % (Auto) 1.3 Neut # (Auto) 8.3 H Lymph # (Auto) 1.8 [place] # (Auto) 0.5 Eos # (Auto) 0.3 Baso # (Auto) 0.1 pO2 13 L VBG pH 7.35 VBG pCO2 49 VBG HCO3 23.3 VBG Total CO2 28.6 H VBG O2 Sat (Calc) 20.1 L VBG Base Excess 0.8 VBG Potassium 4.7 Sodium 130.0 L Chloride 93.0 L Glucose 508 H* D Lactate 1.4 FiO2 21.0 Crit Value Called To Ifeoma garcia Crit Value Called By 333 Crit Value Read Back Y Blood Gas Notified Time 1620 Potassium Carbon Dioxide Anion Gap BUN Creatinine Est GFR ( Amer) Est GFR (Non-Af Amer) POC Glucose (mg/dL) Random Glucose Calcium Total Bilirubin AST ALT Alkaline Phosphatase Total Protein Albumin Globulin Albumin/Globulin Ratio Venous Blood Potassium 4.7 Urine Color Straw Urine Clarity Clear Urine pH 6.0 Ur Specific [place] 1.036 H Urine Protein Negative Urine Glucose (UA) >=500 Urine Ketones 20 Urine Blood Negative Urine Nitrate Negative Urine Bilirubin Negative Urine Urobilinogen 0.2-1.0 Ur Leukocyte Esterase Neg Urine RBC (Auto) 3 12/27/17 12/27/17 18:00 20:02 WBC RBC Hgb Hct MCV MCH MCHC RDW Plt Count MPV Neut % (Auto) Lymph % (Auto) [place] % (Auto) Eos % (Auto) Baso % (Auto) Neut # (Auto) Lymph # (Auto) [place] # (Auto) Eos # (Auto) Baso # (Auto) pO2 VBG pH VBG pCO2 VBG HCO3 VBG Total CO2 VBG O2 Sat (Calc) VBG Base Excess VBG Potassium Sodium 132 Chloride 96 L Glucose Lactate FiO2 Crit Value Called To Crit Value Called By Crit Value Read Back Blood Gas Notified Time Potassium 4.2 Carbon Dioxide 23 Anion Gap 17 BUN 12 Creatinine 0.5 L Est GFR ( Amer) > 60 Est GFR (Non-Af Amer) > 60 POC Glucose (mg/dL) 416 H* Random Glucose 385 H Calcium 8.6 Total Bilirubin 0.7 AST 11 L D ALT 16 L D Alkaline Phosphatase 89 Total Protein 6.9 Albumin 3.4 L Globulin 3.5 Albumin/Globulin Ratio 1.0 Venous Blood Potassium Urine Color Urine Clarity Urine pH Ur Specific [place] Urine Protein Urine Glucose (UA) Urine Ketones Urine Blood Urine Nitrate Urine Bilirubin Urine Urobilinogen Ur Leukocyte Esterase Urine RBC (Auto)
== END 2017-12-27 21:30 | disposition left against medical advice (07) | DRG 638 ==
LOC: H.ER 15:30 → H.ERHOLD 18:35 → H.TEL 20:44
PROVIDERS: ADMIT Family Medicine Geriatric Medicine; ATTEND Family Medicine Geriatric Medicine
DX: E11.622 Type 2 diabetes mellitus with other skin ulcer (principal); L97.819 Non-pressure chronic ulcer of other part of right lower leg with unspecified severity; L02.415 Cutaneous abscess of right lower limb; E11.65 Type 2 diabetes mellitus with hyperglycemia; F17.210 Nicotine dependence, cigarettes, uncomplicated; M06.9 Rheumatoid arthritis, unspecified; Z79.4 Long term (current) use of insulin; Z79.899 Other long term (current) drug therapy; Z83.3 Family history of diabetes mellitus; Z85.47 Personal history of malignant neoplasm of testis; K42.9 Umbilical hernia without obstruction or gangrene; L30.9 Dermatitis, unspecified; M17.0 Bilateral primary osteoarthritis of knee; M79.604 Pain in right leg; E11.621 Type 2 diabetes mellitus with foot ulcer; L97.519 Non-pressure chronic ulcer of other part of right foot with unspecified severity

== ENCOUNTER 2017-12-28 17:02 | Inpatient (IN) | payer MEDICARE ==
[2017-12-28 17:02] VITALS: BMI 18.2
[2017-12-28] MEDS ORDERED: Sodium Chloride 0.9% 1,000 ML IV STA (18:11)
[2017-12-28 19:24] LABS: BASO # 0.1 K/uL (0.0-0.2); BASO % 0.6 % (0.0-2.0); EOS # 0.6 K/uL (0.0-0.7); EOS % 5.5 % (0.0-4.0); HEMOGLOBIN 12.6 g/dL (12.0-18.0); LYMPH # 2.1 K/uL (1.0-4.3); LYMPH % 20.5 % (20.0-40.0); MEAN CELL VOLUME 83.5 fl (80.0-94.0); MEAN CORPUSCULAR HEMOGLOBIN 27.9 pg (27.0-31.0); MEAN CORPUSCULAR HGB CONC 33.4 g/dL (33.0-37.0); MEAN PLATELET VOLUME 8.3 fl (7.2-11.7); MONO # 0.5 K/uL (0.0-0.8); MONO % 4.7 % (0.0-10.0); NEUT # 7.1 K/uL (1.8-7.0); NEUT % 68.7 % (50.0-75.0); RBC 4.53 Mil/uL (4.40-5.90); RED CELL DISTRIBUTION WIDTH 14.4 % (11.5-14.5); WHITE BLOOD COUNT 10.3 K/uL (4.8-10.8)
[2017-12-28 19:27] LABS: VENOUS BLOOD GAS BASE EXCESS 5.7 mmol/L (0.0-2.0); VENOUS BLOOD GAS PCO2 53 mmHg (40-60); VENOUS BLOOD GAS PO2 11 mm/Hg (30-55); VENOUS BLOOD PH 7.39 (7.32-7.43)
[2017-12-28 19:46] LABS: ALBUMIN 3.6 g/dL (3.5-5.0); ALT/SGPT 19 U/L (21-72); AST/SGOT 23 U/L (17-59); BLOOD UREA NITROGEN 11 mg/dl (9-20); CALCIUM 9.1 mg/dL (8.4-10.2); GFR AFRICAN-AMERICAN > 60; GFR NON-AFRICAN AMERICAN > 60
[2017-12-28] MEDS ORDERED: Insulin Regular 100 units/ml IV STA (19:46)
[2017-12-28] MEDS ORDERED: Insulin Regular 100 units/ml SC STA (19:46)
[2017-12-28] MEDS ORDERED: Insulin Regular 100 units/ml ONE (20:10)
--- NOTE | 2017-12-28 20:18 | ED PDOC ---
Lower Extremity Pain/Injury Time Seen by Provider: 12/28/17 17:52 Chief Complaint (Nursing): Lower Extremity Problem/Injury Chief Complaint (Provider): Right lower leg ulcer History Per: Patient History/Exam Limitations: no limitations Onset/Duration Of Symptoms: Days Current Symptoms Are (Timing): Still Present Severity: Moderate Pain Scale Rating Of: 5 Past Medical History Vital Signs: Last Vital Signs Temp 98.6 F 12/28/17 18:23 Pulse 76 12/28/17 18:23 Resp 18 12/28/17 18:23 BP 111/65 12/28/17 18:23 Pulse Ox 96 12/28/17 18:23 - Medical History PMH: Arthritis (bilat knee), Diabetes (type II), Rheumatoid Arthritis Denies: HTN (denies 04/30/17), Chronic Kidney Disease - Surgical History Surgical History: Hernia Repair (umbilical) - Family History Family History: States: Unknown Family Hx, Diabetes (Father) - Immunization History Hx Tetanus Toxoid Vaccination: No Hx Influenza Vaccination: No Hx Pneumococcal Vaccination: No - Home Medications Home Medications: Ambulatory Orders Medication Instructions Recorded Insulin Lispro Protamin/Lispro 10 - 12 unit SQ ACTID 12/02/16 [Humalog Mix 75-25 Kwikpen] MetFORMIN [glucOPHAGE] 1,000 mg PO BID 04/23/17 Gabapentin [Neurontin] 800 mg PO TID #30 tab 09/14/17 - Allergies Allergies/Adverse Reactions: Allergies Allergy/AdvReac Type Severity Reaction Status Date / Time acetaminophen [From Percocet] Allergy RASH Verified 12/26/17 22:33 codeine Allergy RASH Verified 12/26/17 22:33 oxycodone HCl [From Percocet] Allergy RASH Verified 12/26/17 22:33 - Laboratory Results Result Diagrams: 12/28/17 19:01 12/28/17 19:01 - ECG O2 Sat by Pulse Oximetry: 96 Disposition - Clinical Impression Clinical Impression: Diabetic foot ulcer, Type 2 diabetes mellitus, Cellulitis - Patient ED Disposition Is Patient to be Admitted: Yes - Disposition Disposition Time: 20:17 Condition: STABLE Forms: [employer] ([place]) - Pt Status Changed To: Hospital Disposition Of: Inpatient - Admit Certification Admit to Inpatient:: After my assessment, the patient will require hospitalization for at least two midnights. This is because of the severity of symptoms shown, intensity of services needed, and/or the medical risk in this patient being treated as an outpatient. - POA Present On Arrival: None
[2017-12-28] MEDS ORDERED: Piperacillin/Tazobact 3.375 GM in Sodium Chloride 0.9% 100 ML IV ONE (20:19)
[2017-12-28] MEDS ORDERED: Piperacillin/Tazobact 3.375 gm Inj IVPB ONE (21:29)
--- NOTE | 2017-12-28 21:30 | CP.PCM.CON ---
History of Present Illness - History of Present Illness History of Present Illness: Podiatry Consult Note: Dr. Betancourt 52 year old male with PMHx IDDM was seen and evaluated in ED for right leg wound. Patient was admitted to the floors yesterday for the same reason but patient reports that he signed out AMA this morning because he was upset with the nurse. Patient reports that he came to the hospital yesterday after being sent from wound care center by Dr. Betancourt. Patient states that the wound to his right leg has been present for several weeks and began to get increasingly painful and red over the last few days. Patient denies noticing any drainage or malodor from the site. He is AAOx3 and NAD at time of examination. Denies any further pedal complaints at this time. Denies any recent N/V/F/C/CP/SOB/D/ posterior calf pain when squeezed. Denies any other pedal complains at this time. PMH: IDDM PSH: L fifth digit after traumatic incident FHx: Diabetes (father) SHx: 0.5 ppd smoker x 25 years, denies alcohol, smokes marijuana every 5-6 months Meds: See SEP All: Acetaminophen, Codeine, Oxycodone Review of Systems - Constitutional Constitutional: As Per HPI Past Patient History - Infectious Disease Hx of Infectious Diseases: None - Past Medical History & Family History Past Medical History?: Yes - Past Social History Smoking Status: Heavy Smoker > 10 Cigarettes Daily - CARDIAC Hx Hypertension: No (denies 04/30/17) - PULMONARY Hx Respiratory Disorders: No - NEUROLOGICAL Hx Neurological Disorder: No - HEENT Hx HEENT Problems: No - RENAL Hx Chronic Kidney Disease: No - ENDOCRINE/METABOLIC Hx Endocrine Disorders: Yes (DM) Hx Diabetes Mellitus Type 2: Yes - HEMATOLOGICAL/ONCOLOGICAL Hx Blood Disorders: No - INTEGUMENTARY Hx Dermatological Problems: No - MUSCULOSKELETAL/RHEUMATOLOGICAL Hx Arthritis: Yes (bilat knee) Hx Rheumatoid Arthritis: Yes - GENITOURINARY/GYNECOLOGICAL Hx Genitourinary Disorders: No - PSYCHIATRIC Hx Psychophysiologic Disorder: Yes Hx Substance Use: No (quit 20+ years ago) - SURGICAL HISTORY Hx Surgeries: Yes Hx Herniorrhaphy: Yes Hx Orthopedic Surgery: Yes Other/Comment: Left 5th toe. Right knee - ANESTHESIA Hx Anesthesia: Yes Hx Anesthesia Reactions: No Hx Malignant Hyperthermia: No Meds Allergies/Adverse Reactions: Allergies Allergy/AdvReac Type Severity Reaction Status Date / Time acetaminophen [From Percocet] Allergy RASH Verified 12/26/17 22:33 codeine Allergy RASH Verified 12/26/17 22:33 oxycodone HCl [From Percocet] Allergy RASH Verified 12/26/17 22:33 - Medications Medications: Current Medications Vancomycin HCl 1 gm/ Sodium (Chloride) 250 mls @ 166.667 mls/hr IVPB DAILY HUMA PRN Reason: Protocol Physical Exam - Constitutional Appears: Well, Non-toxic, No Acute Distress - Extremities Exam Additional comments: LE focused exam: Vasc: DP/PT pulses palpable 2/4 b/l. Skin temperature mildly increased to erythematous anterior leg extending outward from anterior leg wound. Cap refill time: < 3 seconds to all digits. Moderate edema noted surrounding anterior leg wound Derm: Approximately 2 cm x 2 cm x 0.1 cm circular eschar with necro-fibrotic base noted to anterior leg with erythema to the periwound area. Area is fluctuant and approximately 2 cc of brown, purulent fluid is expressed from ulcer site. No tracking, tunneling or undermining is appreciated. No malodor noted. Second, similar sized ulceration noted to dorsal midfoot without any clinical signs of infection. Fibronecrotic base appreciated. No tracking, tunneling or undermining noted. Neuro: Epicritic and protective sensation grossly intact b/l MSK: POP to anterior leg ulceration. No gross deformities noted - Neurological Exam Neurological exam: Alert, Oriented x3 - Psychiatric Exam Psychiatric exam: Normal Affect, Normal Mood Results - Vital Signs Recent Vital Signs: Last Vital Signs Temp 98.6 F 12/28/17 18:23 Pulse 76 12/28/17 18:23 Resp 18 12/28/17 18:23 BP 111/65 12/28/17 18:23 Pulse Ox 96 12/28/17 20:23 - Labs Result Diagrams: 12/28/17 19:01 12/28/17 19:01 Labs: Laboratory Results - last 24 hr 12/28/17 12/28/17 12/28/17 19:01 19:01 19:20 WBC 10.3 RBC 4.53 Hgb 12.6 Hct 37.9 MCV 83.5 MCH 27.9 MCHC 33.4 RDW 14.4 Plt Count 440 H MPV 8.3 Neut % (Auto) 68.7 Lymph % (Auto) 20.5 [place] % (Auto) 4.7 Eos % (Auto) 5.5 H Baso % (Auto) 0.6 Neut # (Auto) 7.1 H Lymph # (Auto) 2.1 [place] # (Auto) 0.5 Eos # (Auto) 0.6 Baso # (Auto) 0.1 pO2 11 L VBG pH 7.39 VBG pCO2 53 VBG HCO3 27.0 VBG Total CO2 33.7 H VBG O2 Sat (Calc) 17.7 L VBG Base Excess 5.7 H VBG Potassium 5.0 Glucose 568 H* Lactate 1.4 FiO2 21.0 Crit Value Called To Ritika garcia Crit Value Called By Navjot Crit Value Read Back Y Blood Gas Notified Time 1924 Sodium 132 130.0 L Potassium 4.3 Chloride 92 L 94.0 L Carbon Dioxide 30 Anion Gap 14 BUN 11 Creatinine 0.6 L Est GFR ( Amer) > 60 Est GFR (Non-Af Amer) > 60 POC Glucose (mg/dL) Random Glucose 607 H* D Calcium 9.1 Total Bilirubin 0.5 AST 23 ALT 19 L Alkaline Phosphatase 109 Total Protein 7.0 Albumin 3.6 Globulin 3.4 Albumin/Globulin Ratio 1.0 Venous Blood Potassium 5.0 12/28/17 21:04 WBC RBC Hgb Hct MCV MCH MCHC RDW Plt Count MPV Neut % (Auto) Lymph % (Auto) [place] % (Auto) Eos % (Auto) Baso % (Auto) Neut # (Auto) Lymph # (Auto) [place] # (Auto) Eos # (Auto) Baso # (Auto) pO2 VBG pH VBG pCO2 VBG HCO3 VBG Total CO2 VBG O2 Sat (Calc) VBG Base Excess VBG Potassium Glucose Lactate FiO2 Crit Value Called To Crit Value Called By Crit Value Read Back Blood Gas Notified Time Sodium Potassium Chloride Carbon Dioxide Anion Gap BUN Creatinine Est GFR ( Amer) Est GFR (Non-Af Amer) POC Glucose (mg/dL) 299 H Random Glucose Calcium Total Bilirubin AST ALT Alkaline Phosphatase Total Protein Albumin Globulin Albumin/Globulin Ratio Venous Blood Potassium Assessment & Plan - Assessment and Plan (Free Text) Assessment: 52 year old male seen and evaluated for infected right anterior leg ulceration with underlying abscess Plan: Patient seen and evaluated Plan discussed with attending Dr. Betancourt Afebrile, WBC 10.3 Wound cx from yesterday's visit - pending Tib fib and foot xray: No acute findings related to/accounting for the clinical presentation MRI ordered to r/o abscess - f/u results ID consult - recs appreciated Wound drained continuously until no more purulent drainage was expressed Wound cleaned using saline and dressing applied to the wounds with DSD, ABD, DSD Per Dr. Betancourt, will treat patient with IV abx and local wound care at this time Patient appears to be responding to the treatment Thank you for the podiatry consult and allowing to take part in patient care Podiatry will continue to follow while patient in house - Date & Time Date: 12/28/17 Time: 21:38
[2017-12-28] MEDS ORDERED: Sodium Chloride 0.9% 1,000 ML IV SCH (22:30)
[2017-12-28 22:39] LABS: URINE BILIRUBIN NEGATIVE (NEGATIVE); URINE BLOOD NEGATIVE (NEGATIVE); URINE CLARITY CLEAR (Clear); URINE COLOR STRAW (YELLOW); URINE GLUCOSE (UA) >=500 mg/dL (Normal); URINE LEUKOCYTE ESTERASE NEG Leu/uL (Negative); URINE PROTEIN NEGATIVE (NEGATIVE); URINE UROBILINOGEN 0.2-1.0 mg/dL (0.2-1.0)
--- NOTE | 2017-12-28 23:06 | CP.PCM.HP ---
History of Present Illness - History of Present Illness History of Present Illness: CC: right leg pain HPI: 52 y/o man w/ pmh of IDDM2 presents to the ED w/ right leg pain. Patient was admitted yesterday for the same reason but signed out AMA because he was upset with staff. Patient now agreeable to continuing treatment. Patient was being seen for follow up in wound clinic when patient was sent to ED due to worsening pain w/ pus and bloody discharge. Patient reports pain worsening over the past 2 days, noticed streaking red going up to his knee, and having fever. Patient denies trauma but unsure. Patient currently denies headache, chest pain, SOB, abdominal pain, nausea, vomiting, diarrhea, dysuria, or fever. ED course: vitals: 98.6 F, 76 beats/min, 111/65 mm Hg, resp 18, O2 96% room air CBC: 10.3>12.6/37.9<440 CMP: 132/4.3, 92/30, 11/0.6, glucose 607, AST 23, ALT 19, alk phos 109 VBG: pH 7.39, PCO2 53, HCO3 27.0, pO2 11, lactate 1.4 UA: glucose >500, negative ketones, nitrates, and leukocyte esterase XR foot: no acute findings XR tibia/fibula: no acute findings given insulin human regular 10 units IVF NS 1L bolus IVF NS 1 L @ 100 mL/hr start zosyn 3.375 gm IV Q6h start vancomycin 1 gm IV Q12h Infectious Disease consult ordered Podiatry recommendations appreciated PMD: Dr. Anderson PMH: IDDM2 meds: see med list allergies: acetaminophen, codeine, oxycodone HCl, patient reports taking morphine in the past w/o issue PSH: umbilical hernia, right knee arthroscopy, 5th digit left foot pin Fam: father DM2 SOC: smokes 1 pack for 1.5 days over 25-30 years, denies alcohol, reports last use of marijuana 8 months ago ROS: 12 points assessed and negative unless otherwise reported in HPI Present on Admission - Present on Admission Any Indicators Present on Admission: Yes History of DVT/PE: No History of Uncontrolled Diabetes: Yes Urinary Catheter: No Decubitus Ulcer Present: No Review of Systems - Review of Systems All systems: reviewed and no additional remarkable complaints except - Constitutional Constitutional: absent: Chills, Fever - EENT Eyes: absent: Change in Vision - Cardiovascular Cardiovascular: absent: Chest Pain - Respiratory Respiratory: absent: Dyspnea - Gastrointestinal Gastrointestinal: absent: Abdominal Pain, Diarrhea, Nausea, Vomiting - Genitourinary Genitourinary: absent: Dysuria - Integumentary Integumentary: Erythema, Rash, Skin Ulcer - Neurological Neurological: absent: Dizziness, Headaches Past Patient History - Infectious Disease Hx of Infectious Diseases: None - Past Medical History & Family History Past Medical History?: Yes - Past Social History Smoking Status: Heavy Smoker > 10 Cigarettes Daily - CARDIAC Hx Hypertension: No (denies 04/30/17) - PULMONARY Hx Respiratory Disorders: No - NEUROLOGICAL Hx Neurological Disorder: No - HEENT Hx HEENT Problems: No - RENAL Hx Chronic Kidney Disease: No - ENDOCRINE/METABOLIC Hx Endocrine Disorders: Yes (DM) Hx Diabetes Mellitus Type 2: Yes - HEMATOLOGICAL/ONCOLOGICAL Hx Blood Disorders: No - INTEGUMENTARY Hx Dermatological Problems: No - MUSCULOSKELETAL/RHEUMATOLOGICAL Hx Arthritis: Yes (bilat knee) Hx Rheumatoid Arthritis: Yes - GENITOURINARY/GYNECOLOGICAL Hx Genitourinary Disorders: No - PSYCHIATRIC Hx Psychophysiologic Disorder: Yes Hx Substance Use: No (quit 20+ years ago) - SURGICAL HISTORY Hx Surgeries: Yes Hx Herniorrhaphy: Yes Hx Orthopedic Surgery: Yes Other/Comment: Left 5th toe. Right knee - ANESTHESIA Hx Anesthesia: Yes Hx Anesthesia Reactions: No Hx Malignant Hyperthermia: No Meds Allergies/Adverse Reactions: Allergies Allergy/AdvReac Type Severity Reaction Status Date / Time acetaminophen [From Percocet] Allergy RASH Verified 12/26/17 22:33 codeine Allergy RASH Verified 12/26/17 22:33 oxycodone HCl [From Percocet] Allergy RASH Verified 12/26/17 22:33 Physical Exam - Constitutional Appears: Non-toxic, No Acute Distress - Head Exam Head Exam: ATRAUMATIC, NORMAL INSPECTION, NORMOCEPHALIC - Eye Exam Eye Exam: Normal appearance - ENT Exam ENT Exam: Mucous Membranes Moist - Neck Exam Neck exam: Positive for: Full Rom. Negative for: Tenderness - Respiratory Exam Respiratory Exam: Clear to Auscultation Bilateral. absent: Accessory Muscle Use , Decreased Breath Sounds, Rales, Rhonchi, Wheezes, Respiratory Distress - Cardiovascular Exam Cardiovascular Exam: REGULAR RHYTHM. absent: Tachycardia - GI/Abdominal Exam GI & Abdominal Exam: Normal Bowel Sounds, Soft. absent: Distended, Tenderness - Extremities Exam Extremities exam: Negative for: calf tenderness Additional comments: right anterior tibia dressed c/d/i, edematous, erythema visible, streaking seen up to knee left leg normal - Neurological Exam Neurological exam: Alert, Oriented x3 - Skin Skin Exam: Dry, Warm Results - Vital Signs Recent Vital Signs: Last Vital Signs Temp 98.6 F 12/28/17 18:23 Pulse 72 12/28/17 21:46 Resp 16 12/28/17 21:46 BP 100/58 L 12/28/17 21:46 Pulse Ox 96 12/28/17 21:46 - Labs Result Diagrams: 12/28/17 19:01 12/28/17 19:01 Labs: Laboratory Results - last 24 hr 12/28/17 12/28/17 12/28/17 19:01 19:01 19:20 WBC 10.3 RBC 4.53 Hgb 12.6 Hct 37.9 MCV 83.5 MCH 27.9 MCHC 33.4 RDW 14.4 Plt Count 440 H MPV 8.3 Neut % (Auto) 68.7 Lymph % (Auto) 20.5 Hood % (Auto) 4.7 Eos % (Auto) 5.5 H Baso % (Auto) 0.6 Neut # (Auto) 7.1 H Lymph # (Auto) 2.1 Hood # (Auto) 0.5 Eos # (Auto) 0.6 Baso # (Auto) 0.1 pO2 11 L VBG pH 7.39 VBG pCO2 53 VBG HCO3 27.0 VBG Total CO2 33.7 H VBG O2 Sat (Calc) 17.7 L VBG Base Excess 5.7 H VBG Potassium 5.0 Glucose 568 H* Lactate 1.4 FiO2 21.0 Crit Value Called To Ritika garcia Crit Value Called By 333 Crit Value Read Back Y Blood Gas Notified Time 1924 Sodium 132 130.0 L Potassium 4.3 Chloride 92 L 94.0 L Carbon Dioxide 30 Anion Gap 14 BUN 11 Creatinine 0.6 L Est GFR ( Amer) > 60 Est GFR (Non-Af Amer) > 60 POC Glucose (mg/dL) Random Glucose 607 H* D Calcium 9.1 Total Bilirubin 0.5 AST 23 ALT 19 L Alkaline Phosphatase 109 Total Protein 7.0 Albumin 3.6 Globulin 3.4 Albumin/Globulin Ratio 1.0 Venous Blood Potassium 5.0 Urine Color Urine Clarity Urine pH Ur Specific [place] Urine Protein Urine Glucose (UA) Urine Ketones Urine Blood Urine Nitrate Urine Bilirubin Urine Urobilinogen Ur Leukocyte Esterase Urine RBC (Auto) 12/28/17 12/28/17 12/28/17 21:04 22:30 22:51 WBC RBC Hgb Hct MCV MCH MCHC RDW Plt Count MPV Neut % (Auto) Lymph % (Auto) Hood % (Auto) Eos % (Auto) Baso % (Auto) Neut # (Auto) Lymph # (Auto) Hood # (Auto) Eos # (Auto) Baso # (Auto) pO2 VBG pH VBG pCO2 VBG HCO3 VBG Total CO2 VBG O2 Sat (Calc) VBG Base Excess VBG Potassium Glucose Lactate FiO2 Crit Value Called To Crit Value Called By Crit Value Read Back Blood Gas Notified Time Sodium Potassium Chloride Carbon Dioxide Anion Gap BUN Creatinine Est GFR ( Amer) Est GFR (Non-Af Amer) POC Glucose (mg/dL) 299 H 225 H Random Glucose Calcium Total Bilirubin AST ALT Alkaline Phosphatase Total Protein Albumin Globulin Albumin/Globulin Ratio Venous Blood Potassium Urine Color Straw Urine Clarity Clear Urine pH 7.0 Ur Specific [place] 1.035 H Urine Protein Negative Urine Glucose (UA) >=500 Urine Ketones Negative Urine Blood Negative Urine Nitrate Negative Urine Bilirubin Negative Urine Urobilinogen 0.2-1.0 Ur Leukocyte Esterase Neg Urine RBC (Auto) 1 Assessment & Plan - Assessment and Plan (Free Text) Assessment: 52 y/o man w/ pmh of IDDM2 seen and evaluated for infected right anterior leg ulceration with underlying abscess Plan: Right leg pain - most likely due to abscess of lower extremity rule out osteomyelitis - less pus milked from wound tonight - vitals: 98.6 F, 76 beats/min, 111/65 mm Hg, resp 18, O2 96% room air - CBC: 10.3>12.6/37.9<440 - CMP: 132/4.3, 92/30, 11/0.6, glucose 607, AST 23, ALT 19, alk phos 109 - VBG: pH 7.39, PCO2 53, HCO3 27.0, pO2 11, lactate 1.4 - UA: glucose >500, negative ketones, nitrates, and leukocyte esterase - XR foot: no acute findings - XR tibia/fibula: no acute findings - given insulin human regular 10 units - IVF NS 1L bolus - IVF NS 1 L @ 100 mL/hr - start zosyn 3.375 gm IV Q6h - start vancomycin 1 gm IV Q12h - Infectious Disease consult ordered - Podiatry recommendations appreciated - monitor for acute changes - admit to Med/Surg IDDM2 - uncontrolled - last HbA1c 14.0% (04/23/2017) - home meds: insulin lispro 10-12 units SQ ACTID, metformin 1000 mg PO BID, gabapentin 800 mg PO TID - insulin correction scale - hypoglycemic protocol - accucheck ACHS Prophylactic measures - DVT lovenox 40 mg SC daily
[2017-12-28] MEDS ORDERED: Glucagon Recombinant 1 mg Inj IM PRN (23:24)
[2017-12-28] MEDS ORDERED: Dextrose 50% SYRINGE Inj (50 ml) IV PRN (23:24)
[2017-12-28 23:53] VITALS: RESP 20
[2017-12-29] MEDS: Piperacillin/Tazobact 3.375 GM in Sodium Chloride 0.9% 100 ML IVPB SCH ×2 (03:08→14:45)
[2017-12-29] MEDS ORDERED: Insulin Regular 100 units/ml SC STA (05:45)
[2017-12-29] MEDS: Insulin Lispro (humaLOG) 100 Units/ml Inj SC SCH ×4 (06:57→12:39)
[2017-12-29] MEDS ORDERED: Insulin Lispro (humaLOG) 100 Units/ml Inj SC SCH (07:30)
--- NOTE | 2017-12-29 08:04 | CARD ---
APPROVED REPORT EKG Measurement Heart [id number] <Conclusion> Normal sinus rhythm ST & T wave abnormality, consider inferolateral ischemia Abnormal ECG
[2017-12-29 08:06] VITALS: BP 114/74; PULSE 62; TEMP 98.3; O2SAT 95
[2017-12-29] MEDS ORDERED: Enoxaparin 40 mg Syringe SC SCH (09:00)
[2017-12-29] MEDS ORDERED: Lactobacillus Acidophilus 500 MU Cap PO SCH (09:00)
--- NOTE | 2017-12-29 09:22 | CP.PCM.PN ---
Subjective - Date & Time of Evaluation Date of Evaluation: 12/29/17 Time of Evaluation: 09:19 - Subjective Subjective: Podiatry progress note for Dr. Betancourt 52 year old male with PMHx IDDM with right anterior leg wounds. Patient was admitted to the floors two days ago for the same reason but patient reports that he signed out AMA because he was upset with the nurse. Patient states he was sent to the hospital from the wound care center per Dr. Betancourt. Patient states that the wound to his right leg has been present for several weeks and began to get increasingly painful and red over the last few days. Patient denies noticing any drainage or malodor from the site. Denies any recent N/V/F/C /CP/SOB/D/posterior calf pain when squeezed. Patient is AAOx3 and NAD. Denies any other pedal complains at this time. Objective - Vital Signs/Intake and Output Vital Signs (last 24 hours): Temp Pulse Resp BP Pulse Ox 98.3 F 62 20 114/74 95 12/29/17 08:05 12/29/17 08:05 12/29/17 08:05 12/29/17 08:05 12/29/17 08:05 - Medications Medications: Current Medications Dextrose (Dextrose 50% Inj) 0 ml IV STAT PRN; Protocol PRN Reason: Hypoglycemia Protocol Dextrose (Glutose 15) 0 gm PO ONCE PRN; Protocol PRN Reason: Hypoglycemia Protocol Enoxaparin Sodium (Lovenox) 40 mg SC DAILY HUMA PRN Reason: Protocol Last Admin: 12/29/17 08:37 Dose: 40 mg Glucagon (Glucagen Diagnostic Kit) 0 mg IM STAT PRN; Protocol PRN Reason: Hypoglycemia Protocol Sodium Chloride (Sodium Chloride 0.9%) 1,000 mls @ 100 mls/hr IV .Q10H HUMA Last Admin: 12/28/17 23:02 Dose: 100 mls/hr Vancomycin HCl 1 gm/ Sodium (Chloride) 250 mls @ 166.667 mls/hr IVPB Q12 HUMA PRN Reason: Protocol Piperacillin Sod/Tazobactam (Sod 3.375 gm/ Sodium Chloride) 100 mls @ 100 mls/ hr IVPB Q6 HUMA PRN Reason: Protocol Last Admin: 12/29/17 03:08 Dose: 100 mls/hr Insulin Detemir (Levemir) 9 units SC HS HUMA Insulin Human Lispro (Humalog) 0 units SC ACHS HUMA PRN Reason: Protocol Last Admin: 12/29/17 06:57 Dose: 12 unit Insulin Human Lispro (Humalog) 3 units SC ACTID [facility] Last Admin: 12/29/17 08:35 Dose: 3 u Ketorolac Tromethamine (Toradol) 30 mg IVP Q6 PRN PRN Reason: Pain, severe (8-10) Lactobacillus Acidophilus (Bacid Acidophilus) 1 cap PO BID HUMA Last Admin: 12/29/17 08:35 Dose: 1 cap - Labs Labs: 12/28/17 19:01 12/28/17 19:01 - Constitutional Appears: Well, Non-toxic, No Acute Distress - Head Exam Head Exam: ATRAUMATIC, NORMOCEPHALIC - Extremities Exam Additional comments: LE focused exam: Vasc: DP/PT pulses palpable 2/4 b/l. Skin temperature mildly increased to erythematous anterior leg extending outward from anterior leg wound. Cap refill time: < 3 seconds to all digits. Moderate edema noted surrounding anterior leg wound, mild edema surrounding wound on dorsum of right foot. Derm: Approximately 2 cm x 2 cm x 0.1 cm circular eschar with necro-fibrotic base noted to anterior leg with erythema to the periwound area. Area is fluctuant and approximately 2 cc of brown, purulent fluid is expressed from ulcer site. No tracking, tunneling appreciated proximally 1.5 cm. No malodor noted. Second, similar sized ulceration noted to dorsal midfoot without any clinical signs of infection. Fibronecrotic base appreciated. No tracking, tunneling or undermining noted, no serous or sanguinous drainage appreciated, otherwise no other lesions present. Neuro: Epicritic and protective sensation grossly intact b/l MSK: POP to anterior leg ulceration. No gross deformities noted - Neurological Exam Neurological Exam: Alert, Awake, Oriented x3 - Psychiatric Exam Psychiatric exam: Normal Affect, Normal Mood Assessment and Plan - Assessment and Plan (Free Text) Assessment: 52 yo male seen and evaluated for infected right anterior leg ulceration with underlying abscess Plan: Patient seen and evaluated Plan discussed with attending Dr. Betancourt Afebrile, WBC 10.3 Wound cx - MRSA Tib fib and foot xray: No acute findings related to/accounting for the clinical presentation MRI ordered to r/o abscess and MRI- f/u results ID consult - recs appreciated Wound drained continuously until no more purulent drainage was expressed Wound cleaned using saline and dressing applied to the wounds with DSD, KALPANA, eagle Per Dr. Betancourt, will treat patient with IV abx and local wound care at this time Erythema demarcated on anterior right leg with marking pen Podiatry will continue to follow while patient in house
[2017-12-29] MEDS ORDERED: HYDROmorphone 0.5 mg/0.5 ml ISec IVP PRN (09:51)
--- NOTE | 2017-12-29 10:10 | CP.PCM.PN ---
Subjective - Date & Time of Evaluation Date of Evaluation: 12/29/17 Time of Evaluation: 07:40 - Subjective Subjective: Patient seen and examined this morning at bedside. Patient was little anxious, reports right wound pain, denies any chest pain, SOB, dizziness, blurred vision , urinary symptoms, f/c/n/v or weakness. Patient states he is hungry. Objective - Vital Signs/Intake and Output Vital Signs (last 24 hours): Temp Pulse Resp BP Pulse Ox 98.3 F 62 20 114/74 95 12/29/17 08:05 12/29/17 08:05 12/29/17 08:05 12/29/17 08:05 12/29/17 08:05 - Medications Medications: Current Medications Dextrose (Dextrose 50% Inj) 0 ml IV STAT PRN; Protocol PRN Reason: Hypoglycemia Protocol Dextrose (Glutose 15) 0 gm PO ONCE PRN; Protocol PRN Reason: Hypoglycemia Protocol Enoxaparin Sodium (Lovenox) 40 mg SC DAILY HUMA PRN Reason: Protocol Last Admin: 12/29/17 08:37 Dose: 40 mg Glucagon (Glucagen Diagnostic Kit) 0 mg IM STAT PRN; Protocol PRN Reason: Hypoglycemia Protocol Hydromorphone HCl (Dilaudid) 0.5 mg IVP Q6H PRN PRN Reason: Pain, severe (8-10) Last Admin: 12/29/17 10:02 Dose: 0.5 mg Sodium Chloride (Sodium Chloride 0.9%) 1,000 mls @ 100 mls/hr IV .Q10H HUMA Last Admin: 12/28/17 23:02 Dose: 100 mls/hr Vancomycin HCl 1 gm/ Sodium (Chloride) 250 mls @ 166.667 mls/hr IVPB Q12 HUMA PRN Reason: Protocol Piperacillin Sod/Tazobactam (Sod 3.375 gm/ Sodium Chloride) 100 mls @ 100 mls/ hr IVPB Q6 HUMA PRN Reason: Protocol Last Admin: 12/29/17 03:08 Dose: 100 mls/hr Insulin Detemir (Levemir) 9 units SC HS HUMA Insulin Human Lispro (Humalog) 0 units SC ACHS HUMA PRN Reason: Protocol Last Admin: 12/29/17 06:57 Dose: 12 unit Insulin Human Lispro (Humalog) 3 units SC ACTID [facility] Last Admin: 12/29/17 08:35 Dose: 3 u Ketorolac Tromethamine (Toradol) 30 mg IVP Q6 PRN PRN Reason: Pain, severe (8-10) Lactobacillus Acidophilus (Bacid Acidophilus) 1 cap PO BID HUMA Last Admin: 12/29/17 08:35 Dose: 1 cap - Labs Labs: 12/28/17 19:01 12/28/17 19:01 - Constitutional Appears: Non-toxic, No Acute Distress - Head Exam Head Exam: NORMAL INSPECTION - Eye Exam Eye Exam: Normal appearance Pupil Exam: NORMAL ACCOMODATION - ENT Exam ENT Exam: Mucous Membranes Moist - Neck Exam Neck Exam: Normal Inspection - Respiratory Exam Respiratory Exam: Clear to Ausculation Bilateral, NORMAL BREATHING PATTERN. absent: Rhonchi, Wheezes - Cardiovascular Exam Cardiovascular Exam: REGULAR RHYTHM, +S1, +S2 - GI/Abdominal Exam GI & Abdominal Exam: Soft, Normal Bowel Sounds. absent: Tenderness - Extremities Exam Additional comments: right anterior tibia dressed c/d/i, edematous, erythema visible, streaking seen up to knee left leg normal - Back Exam Back Exam: absent: CVA tenderness (L), CVA tenderness (R) - Neurological Exam Neurological Exam: Alert, Awake, Oriented x3 - Psychiatric Exam Psychiatric exam: Agitated - Skin Skin Exam: Dry, Intact, Normal Color, Warm Assessment and Plan - Assessment and Plan (Free Text) Assessment: A/P: 52 y/o man w/ pmh of IDDM2 seen and evaluated for infected right anterior leg ulceration with underlying abscess Right leg pain - most likely due to abscess of lower extremity rule out osteomyelitis - zosyn 3.375 gm IV Q6h, day 1 (12/29/17) - vancomycin 1 gm IV Q12h, day 1 (12/29/17) - ID consult, Dr. Quesada, will follow recs - Podiatry, Dr. Flores recommendations appreciated - monitor for acute changes - Follow up Podiatry recs - MRI ordered to r/o abscess, follow up IDDM2 - uncontrolled - last HbA1c 14.0% (04/23/2017) - home meds: insulin lispro 10-12 units SQ ACTID, metformin 1000 mg PO BID, gabapentin 800 mg PO TID - C/w insulin - insulin correction scale - hypoglycemic protocol - accucheck ACHS Prophylactic measures - DVT lovenox 40 mg SC daily
[2017-12-29 11:38] LABS: BASO # 0.1 K/uL (0.0-0.2); BASO % 0.5 % (0.0-2.0); EOS # 0.7 K/uL (0.0-0.7); EOS % 7.1 % (0.0-4.0); LYMPH % 29.1 % (20.0-40.0); MEAN CELL VOLUME 81.3 fl (80.0-94.0); MEAN CORPUSCULAR HGB CONC 34.4 g/dL (33.0-37.0); MEAN PLATELET VOLUME 8.1 fl (7.2-11.7); MONO # 0.5 K/uL (0.0-0.8); MONO % 4.6 % (0.0-10.0); NEUT # 6.1 K/uL (1.8-7.0); NEUT % 58.7 % (50.0-75.0); RBC 3.94 Mil/uL (4.40-5.90); RED CELL DISTRIBUTION WIDTH 14.3 % (11.5-14.5); WHITE BLOOD COUNT 10.3 K/uL (4.8-10.8)
[2017-12-29 12:25] LABS: ALB/GLOB RATIO 0.9 (1.0-2.1); ALBUMIN 2.7 g/dL (3.5-5.0); ALT/SGPT 17 U/L (21-72); AST/SGOT 14 U/L (17-59); BLOOD UREA NITROGEN 13 mg/dl (9-20); CALCIUM 8.5 mg/dL (8.4-10.2); GFR AFRICAN-AMERICAN > 60; GFR NON-AFRICAN AMERICAN > 60
--- NOTE | 2017-12-29 16:40 | CP.PCM.DIS ---
Provider - Provider Date of Admission: 12/28/17 20:22 Attending physician: Katherine Wood MD Primary care physician: Dr. Anderson Consults: Podiatry, Dr. Sandra FERNANDEZ, Dr. Quesada Time Spent in preparation of Discharge (in minutes): 30 Diagnosis - Discharge Diagnosis (1) Cellulitis Status: Acute Comment: Right foot/ Possible Osteomylitis (2) Diabetic ulcer of right foot Status: Acute Hospital Course - Lab Results Lab Results: Most Recent Lab Values WBC 10.3 K/uL (4.8-10.8) 12/29/17 10:55 RBC 3.94 Mil/uL (4.40-5.90) L 12/29/17 10:55 Hgb 11.0 g/dL (12.0-18.0) L 12/29/17 10:55 Hct 32.0 % (35.0-51.0) L 12/29/17 10:55 MCV 81.3 fl (80.0-94.0) D 12/29/17 10:55 MCH 28.0 pg (27.0-31.0) 12/29/17 10:55 MCHC 34.4 g/dL (33.0-37.0) 12/29/17 10:55 RDW 14.3 % (11.5-14.5) 12/29/17 10:55 Plt Count 375 K/uL (130-400) 12/29/17 10:55 MPV 8.1 fl (7.2-11.7) 12/29/17 10:55 Neut % (Auto) 58.7 % (50.0-75.0) 12/29/17 10:55 Lymph % (Auto) 29.1 % (20.0-40.0) 12/29/17 10:55 [place] % (Auto) 4.6 % (0.0-10.0) 12/29/17 10:55 Eos % (Auto) 7.1 % (0.0-4.0) H 12/29/17 10:55 Baso % (Auto) 0.5 % (0.0-2.0) 12/29/17 10:55 Neut # (Auto) 6.1 K/uL (1.8-7.0) 12/29/17 10:55 Lymph # (Auto) 3.0 K/uL (1.0-4.3) 12/29/17 10:55 [place] # (Auto) 0.5 K/uL (0.0-0.8) 12/29/17 10:55 Eos # (Auto) 0.7 K/uL (0.0-0.7) 12/29/17 10:55 Baso # (Auto) 0.1 K/uL (0.0-0.2) 12/29/17 10:55 ESR 31 mm/hr (0-20) H 12/29/17 10:55 pO2 11 mm/Hg (30-55) L 12/28/17 19:20 VBG pH 7.39 (7.32-7.43) 12/28/17 19:20 VBG pCO2 53 mmHg (40-60) 12/28/17 19:20 VBG HCO3 27.0 mmol/L 12/28/17 19:20 VBG Total CO2 33.7 mmol/L (22-28) H 12/28/17 19:20 VBG O2 Sat (Calc) 17.7 % (40-65) L 12/28/17 19:20 VBG Base Excess 5.7 mmol/L (0.0-2.0) H 12/28/17 19:20 VBG Potassium 5.0 mmol/L (3.6-5.2) 12/28/17 19:20 Sodium 130.0 mmol/L (132-148) L 12/28/17 19:20 Chloride 94.0 mmol/L (98-107) L 12/28/17 19:20 Glucose 568 mg/dL (75-110) H* 12/28/17 19:20 Lactate 1.4 mmol/L (0.7-2.1) 12/28/17 19:20 FiO2 21.0 % 12/28/17 19:20 Crit Value Called To Ritika garcia 12/28/17 19:20 Crit Value Called By Navjot 12/28/17 19:20 Crit Value Read Back Y 12/28/17 19:20 Blood Gas Notified Time 192412/28/17 19:20 Sodium 135 mmol/l (132-148) 12/29/17 10:55 Potassium 4.2 MMOL/L (3.6-5.0) 12/29/17 10:55 Chloride 101 mmol/L (98-107) 12/29/17 10:55 Carbon Dioxide 30 mmol/L (22-30) 12/29/17 10:55 Anion Gap 8 (10-20) L 12/29/17 10:55 BUN 13 mg/dl (9-20) 12/29/17 10:55 Creatinine 0.6 mg/dl (0.8-1.5) L 12/29/17 10:55 Est GFR ( Amer) > 60 12/29/17 10:55 Est GFR (Non-Af Amer) > 60 12/29/17 10:55 POC Glucose (mg/dL) 228 mg/dL (65-110) H 12/29/17 10:53 Random Glucose 196 mg/dL (75-110) H 12/29/17 10:55 Calcium 8.5 mg/dL (8.4-10.2) 12/29/17 10:55 Total Bilirubin 0.3 mg/dl (0.2-1.3) 12/29/17 10:55 AST 14 U/L (17-59) L D 12/29/17 10:55 ALT 17 U/L (21-72) L 12/29/17 10:55 Alkaline Phosphatase 75 U/L (38-126) 12/29/17 10:55 Total Protein 5.7 G/DL (6.3-8.2) L 12/29/17 10:55 Albumin 2.7 g/dL (3.5-5.0) L D 12/29/17 10:55 Globulin 3.0 gm/dL (2.2-3.9) 12/29/17 10:55 Albumin/Globulin Ratio 0.9 (1.0-2.1) L 12/29/17 10:55 Venous Blood Potassium 5.0 mmol/L (3.6-5.2) 12/28/17 19:20 Urine Color Straw (YELLOW) 12/28/17 22:30 Urine Clarity Clear (Clear) 12/28/17 22:30 Urine pH 7.0 (5.0-8.0) 12/28/17 22:30 Ur Specific [place] 1.035 (1.003-1.030) H 12/28/17 22:30 Urine Protein Negative mg/dL (NEGATIVE) 12/28/17 22:30 Urine Glucose (UA) >=500 mg/dL (Normal) 12/28/17 22:30 Urine Ketones Negative mg/dL (NEGATIVE) 12/28/17 22:30 Urine Blood Negative (NEGATIVE) 12/28/17 22:30 Urine Nitrate Negative (NEGATIVE) 12/28/17 22:30 Urine Bilirubin Negative (NEGATIVE) 12/28/17 22:30 Urine Urobilinogen 0.2-1.0 mg/dL (0.2-1.0) 12/28/17 22:30 Ur Leukocyte Esterase Neg Tamanna/uL (Negative) 12/28/17 22:30 Urine RBC (Auto) 1 /hpf (0-3) 12/28/17 22:30 - Hospital Course Hospital Course: - Patient signed AMA 52 y/o man w/ pmh of IDDM2 admitted to [facility] for infected right anterior leg ulceration with underlying abscess/ possible osteomylitis. patient found to have elevated ESR, MRI of right foot ordered, pain management started with Toradol and Dilaudid, Podiatry was consulted, Dr. Flores, IV Abx was started and no surgical interventions today as per Podiatry. Patient signed AMA b/c he doesn't want to spend a night in hospital for IV Abx. Patient was explained risks of his illness, all the questions were answered. Patient signed AMA before MRI, and ID consult. Patient was sent home with Bactrim DS for 7 days. ER precautions discussed with patient. Discharge Exam - Head Exam Head Exam: ATRAUMATIC, NORMOCEPHALIC - Eye Exam Eye Exam: Normal appearance - ENT Exam ENT Exam: Mucous Membranes Moist - Respiratory Exam Respiratory Exam: Clear to PA & Lateral, NORMAL BREATHING PATTERN. absent: Wheezes, Respiratory Distress - Cardiovascular Exam Cardiovascular Exam: REGULAR RHYTHM, +S1, +S2 - GI/Abdominal Exam GI & Abdominal Exam: Normal Bowel Sounds, Soft. absent: Distended, Guarding, Tenderness - Extremities Exam Additional comments: right anterior tibia dressed c/d/i, edematous, erythema visible, streaking seen up to knee left leg normal - Back Exam Back exam: NORMAL INSPECTION. absent: CVA tenderness (L), CVA tenderness (R) - Neurological Exam Neurological exam: Alert, CN II-XII Intact, Oriented x3 - Psychiatric Exam Psychiatric exam: Normal Affect - Skin Skin Exam: Normal Color Discharge Plan - Follow Up Plan Condition: STABLE Disposition: AGAINST MEDICAL ADVICE Instructions: Cellulitis (DC) Additional Instructions: RX given to patient. Follow up in wound care center with Dr. Flores.
[2017-12-29] MEDS ORDERED: Insulin Detemir 100 Units/ml Inj SC SCH (22:00)
[2017-12-30] MEDS ORDERED: Lidocaine 5% Patch TD SCH (09:00)
== END 2017-12-29 16:09 | disposition left against medical advice (07) | DRG 638 ==
LOC: H.ER 17:02 → H.ERHOLD 20:22 → H.MEDSURG1 23:09
PROVIDERS: ADMIT Family Medicine Geriatric Medicine; ATTEND Family Medicine Geriatric Medicine
DX: E11.621 Type 2 diabetes mellitus with foot ulcer (principal); L03.115 Cellulitis of right lower limb; L97.813 Non-pressure chronic ulcer of other part of right lower leg with necrosis of muscle; L02.415 Cutaneous abscess of right lower limb; L97.513 Non-pressure chronic ulcer of other part of right foot with necrosis of muscle; E11.622 Type 2 diabetes mellitus with other skin ulcer; E11.51 Type 2 diabetes mellitus with diabetic peripheral angiopathy without gangrene; E11.65 Type 2 diabetes mellitus with hyperglycemia; Z79.4 Long term (current) use of insulin; M17.0 Bilateral primary osteoarthritis of knee; M06.9 Rheumatoid arthritis, unspecified; R70.0 Elevated erythrocyte sedimentation rate; F17.210 Nicotine dependence, cigarettes, uncomplicated; Z79.84 Long term (current) use of oral hypoglycemic drugs; Z79.899 Other long term (current) drug therapy; Z88.6 Allergy status to analgesic agent; Z83.3 Family history of diabetes mellitus

== ENCOUNTER 2018-01-06 15:34 | Emergency (ER) | payer MEDICARE ==
[2018-01-06 15:34] VITALS: BMI 18.2
[2018-01-06 15:50] VITALS: RESP 21; O2SAT 98
[2018-01-06 16:37] LABS: VENOUS BLOOD GAS BASE EXCESS 1.7 mmol/L (0.0-2.0); VENOUS BLOOD GAS PCO2 51 mmHg (40-60); VENOUS BLOOD GAS PO2 40 mm/Hg (30-55); VENOUS BLOOD PH 7.35 (7.32-7.43)
[2018-01-06 16:43] LABS: ALB/GLOB RATIO 1.2 (1.0-2.1); ALBUMIN 4.3 g/dL (3.5-5.0); ALT/SGPT 30 U/L (21-72); AST/SGOT 16 U/L (17-59); BLOOD UREA NITROGEN 10 mg/dl (9-20); CALCIUM 9.9 mg/dL (8.4-10.2); GFR AFRICAN-AMERICAN > 60; GFR NON-AFRICAN AMERICAN > 60
[2018-01-06 16:47] LABS: INR 1.1 (0.9-1.2)
--- NOTE | 2018-01-06 16:53 | ED PDOC ---
Lower Extremity Pain/Injury Time Seen by Provider: 01/06/18 15:52 Chief Complaint (Nursing): Lower Extremity Problem/Injury Chief Complaint (Provider): Hyperglycemia, Ulcer History Per: Patient History/Exam Limitations: no limitations Onset/Duration Of Symptoms: Days (x6 months) Current Symptoms Are (Timing): Still Present Additional Complaint(s): 52 year old male presents to the ED for evaluation of his hyperglycemia and diabetic ulcer on his right leg after just being referred to come here by a clinic. Before arrival, he reports taking insulin. Patient notes that the pain in his leg has worsened since its onset six months ago. Otherwise, denies fever but does state he has increased thirst. Of note, patient usually leaves AMA prior to his treatments being completed. PMD: Mallika Anderson Past Medical History Reviewed: Historical Data, Nursing Documentation, Vital Signs Vital Signs: Last Vital Signs Temp 98.8 F 01/06/18 15:50 Pulse 76 01/06/18 15:49 Resp 21 01/06/18 15:49 BP 106/78 01/06/18 15:49 Pulse Ox 98 01/06/18 15:49 - Medical History PMH: Arthritis (bilat knee), Diabetes (type II), Rheumatoid Arthritis Denies: HTN (denies 04/30/17), Chronic Kidney Disease - Surgical History Surgical History: Hernia Repair (umbilical) - Family History Family History: States: Diabetes (Father) - Social History Current smoker - smoking cessation education provided: Yes Alcohol: None Drugs: Denies - Immunization History Hx Tetanus Toxoid Vaccination: No Hx Influenza Vaccination: No Hx Pneumococcal Vaccination: No - Home Medications Home Medications: Ambulatory Orders Medication Instructions Recorded Insulin Lispro Protamin/Lispro 10 - 12 unit SQ ACTID 12/02/16 [Humalog Mix 75-25 Kwikpen] MetFORMIN [glucOPHAGE] 1,000 mg PO BID 04/23/17 Gabapentin [Neurontin] 800 mg PO TID #30 tab 09/14/17 - Allergies Allergies/Adverse Reactions: Allergies Allergy/AdvReac Type Severity Reaction Status Date / Time acetaminophen [From Percocet] Allergy RASH Verified 01/07/18 18:26 codeine Allergy RASH Verified 01/07/18 18:26 oxycodone HCl [From Percocet] Allergy RASH Verified 01/07/18 18:26 Review of Systems ROS Statement: Except As Marked, All Systems Reviewed And Found Negative Constitutional: Positive for: Other (hyperglycemia). Negative for: Fever Gastrointestinal: Positive for: Other (increased thirst) Musculoskeletal: Positive for: Leg Pain (right leg) Skin: Positive for: Other (ulcer on right leg) Physical Exam - Reviewed Nursing Documentation Reviewed: Yes Vital Signs Reviewed: Yes - Physical Exam Appears: Positive for: No Acute Distress Skin: Positive for: Warm, Dry, Pallor Eye Exam: Positive for: EOMI, PERRL ENT: Positive for: Other (mucous membranes dry) Neck: Positive for: Painless ROM, Supple Cardiovascular/Chest: Positive for: Regular Rate, Rhythm. Negative for: Murmur Respiratory: Negative for: Accessory Muscle Use, Respiratory Distress Gastrointestinal/Abdominal: Positive for: Soft. Negative for: Tenderness Back: Positive for: Normal Inspection. Negative for: Decreased ROM Extremity: Positive for: Other (Large lesion on right anterior tibia, well demarcated ) Neurologic/Psych: Positive for: Alert. Negative for: Motor/Sensory Deficits - Laboratory Results Result Diagrams: 01/06/18 16:16 01/06/18 16:16 - ECG O2 Sat by Pulse Oximetry: 98 (RA) Pulse Ox Interpretation: Normal Medical Decision Making Medical Decision Making: Initial Impression: hyperglycemia, diabetic foot ulcer Time: 15:57 Initial Plan: --VBG Shock panel --EKG --CMP --Magnesium --Phosphorus --Urine dipstick --CBC with differential --PT / PTT --CXR --MRI Lower Ext OT THN JNT w/o RT --Blood culture 16:[address] Khan, the family practice resident, and patient is to be hospitalized for further treatment. Scribe Attestation: Documented by Rita Payne, acting as a scribe for Jerica Burroughs MD. Provider Scribe Attestation: All medical entries made by the Scribe were at my direction and personally dictated by me. I have reviewed the chart and agree that the record accurately reflects my personal performance of the history, physical exam, medical decision making, and the department course for this patient. I have also personally directed, reviewed, and agree with the discharge instructions and disposition. Disposition - Clinical Impression Clinical Impression: Diabetic foot ulcer - Disposition Disposition Time: 16:35 Condition: FAIR - Pt Status Changed To: Hospital Disposition Of: Inpatient - Admit Certification Admit to Inpatient:: After my assessment, the patient will require hospitalization for at least two midnights. This is because of the severity of symptoms shown, intensity of services needed, and/or the medical risk in this patient being treated as an outpatient. - POA Present On Arrival: Poor Glycemic Control
--- NOTE | 2018-01-06 17:00 | RAD ---
HISTORY: diabetes infection COMPARISON: 04/23/2017. FINDINGS: LUNGS: The lungs are well inflated and clear. PLEURA: No significant pleural effusion identified, no pneumothorax apparent. CARDIOVASCULAR: Normal. OSSEOUS STRUCTURES: No significant abnormalities. VISUALIZED UPPER ABDOMEN: Normal. OTHER FINDINGS: None. IMPRESSION: No active pulmonary disease.
[2018-01-06 17:06] LABS: BASO % 0.5 % (0.0-2.0); EOS # 0.2 K/uL (0.0-0.7); EOS % 1.8 % (0.0-4.0); HEMOGLOBIN 12.9 g/dL (12.0-18.0); LYMPH # 3.2 K/uL (1.0-4.3); LYMPH % 32.1 % (20.0-40.0); MEAN CORPUSCULAR HEMOGLOBIN 28.7 pg (27.0-31.0); MEAN CORPUSCULAR HGB CONC 34.3 g/dL (33.0-37.0); MEAN PLATELET VOLUME 7.6 fl (7.2-11.7); MONO # 0.5 K/uL (0.0-0.8); MONO % 4.9 % (0.0-10.0); NEUT # 6.1 K/uL (1.8-7.0); NEUT % 60.7 % (50.0-75.0); RBC 4.49 Mil/uL (4.40-5.90); RED CELL DISTRIBUTION WIDTH 14.4 % (11.5-14.5); WHITE BLOOD COUNT 10.1 K/uL (4.8-10.8)
--- NOTE | 2018-01-06 17:10 | CP.PCM.HP ---
Addendum entered and electronically signed by Amira Moore MD 01/06/18 17:33: Of note: @ 17:33 pt was taken to get MRI of RLE and refused Additionally, pt refused to be admitted to the hospital, refused all medical interventions Original Note: <Amira Moore - Last Filed: 01/06/18 17:22> History of Present Illness - History of Present Illness History of Present Illness: CC: R leg pain HPI: 52 YO Male with PMHx of IDDM2 presents to the ED with right leg pain. Patient was told to come to the ED by PMD for R leg pain, and ulcerations. Pt states that he has had the ulceration for months now, but it has been draining pus. Denies trauma, n/v/d/c, dysuria, dyspnea, chills and fever. PMD: Dr. Anderson PMHx: IDDM2 PSHx: umbilical hernia, right knee arthroscopy Fam: father DM2 SOC: smokes 1 pack for 1.5 days over 25-30 years, denies alcohol, hx of marijuana use Meds: see med list Allergies: acetaminophen, codeine, oxycodone HCl--generalized rash Code: Full code Present on Admission - Present on Admission Any Indicators Present on Admission: No Review of Systems - Constitutional Constitutional: absent: Chills, Fever, Night Sweats - EENT Eyes: absent: Change in Vision - Cardiovascular Cardiovascular: absent: Chest Pain, Claudication - Respiratory Respiratory: absent: Dyspnea - Gastrointestinal Gastrointestinal: absent: Abdominal Pain, Diarrhea - Genitourinary Genitourinary: absent: Change in Urinary Stream, Difficulty Urinating, Dysuria - Musculoskeletal Musculoskeletal: absent: Muscle Weakness - Neurological Neurological: absent: Dizziness, Numbness - Psychiatric Psychiatric: absent: Anxiety Past Patient History - Infectious Disease Hx of Infectious Diseases: None - Past Medical History & Family History Past Medical History?: Yes - Past Social History Smoking Status: Current Some Days Smoker Alcohol: None Drugs: Denies - CARDIAC Hx Hypertension: No (denies 04/30/17) - PULMONARY Hx Respiratory Disorders: No - NEUROLOGICAL Hx Neurological Disorder: No - HEENT Hx HEENT Problems: Yes Other/Comment: uses eye glasses - RENAL Hx Chronic Kidney Disease: No - ENDOCRINE/METABOLIC Hx Endocrine Disorders: Yes (DM) Hx Diabetes Mellitus Type 2: Yes - HEMATOLOGICAL/ONCOLOGICAL Hx Blood Disorders: No - INTEGUMENTARY Hx Dermatological Problems: No - MUSCULOSKELETAL/RHEUMATOLOGICAL Hx Arthritis: Yes (bilat knee) Hx Rheumatoid Arthritis: Yes - GASTROINTESTINAL Hx Gastrointestinal Disorders: No - GENITOURINARY/GYNECOLOGICAL Hx Genitourinary Disorders: No - PSYCHIATRIC Hx Psychophysiologic Disorder: No Hx Substance Use: No - SURGICAL HISTORY Hx Surgeries: Yes Hx Herniorrhaphy: Yes Hx Orthopedic Surgery: Yes Other/Comment: Left 5th toe. Right knee - ANESTHESIA Hx Anesthesia: Yes Hx Anesthesia Reactions: No Hx Malignant Hyperthermia: No Meds Allergies/Adverse Reactions: Allergies Allergy/AdvReac Type Severity Reaction Status Date / Time acetaminophen [From Percocet] Allergy RASH Verified 12/26/17 22:33 codeine Allergy RASH Verified 12/26/17 22:33 oxycodone HCl [From Percocet] Allergy RASH Verified 12/26/17 22:33 Physical Exam - Constitutional Appears: No Acute Distress - Head Exam Head Exam: ATRAUMATIC, NORMAL INSPECTION Additional comments: teardrop tattoo in L eye Heart tattoo in L side of neck, green - Eye Exam Eye Exam: EOMI, Normal appearance - ENT Exam ENT Exam: Mucous Membranes Moist - Respiratory Exam Respiratory Exam: Clear to Auscultation Bilateral, NORMAL BREATHING PATTERN. absent: Wheezes - Cardiovascular Exam Cardiovascular Exam: REGULAR RHYTHM, +S1, +S2 - GI/Abdominal Exam GI & Abdominal Exam: Normal Bowel Sounds, Soft. absent: Tenderness - Extremities Exam Extremities exam: Negative for: calf tenderness, pedal edema Additional comments: Dime sized ulcer in the R foot Larger 4x2in ulceration in R izaguirre, dressing with pus-no drainage, no fluctuations. Mild erythema surrounding the ulceration, mild warmth No pedal edema b/l Multiple tattoos throughout the body - Back Exam Back exam: NORMAL INSPECTION - Neurological Exam Neurological exam: Alert, Oriented x3 - Psychiatric Exam Psychiatric exam: Normal Affect, Normal Mood - Skin Skin Exam: Normal Color Results - Vital Signs Recent Vital Signs: Last Vital Signs Temp 98.8 F 01/06/18 15:50 Pulse 76 01/06/18 15:49 Resp 21 01/06/18 15:49 BP 106/78 01/06/18 15:49 Pulse Ox 98 01/06/18 16:52 - Labs Result Diagrams: 01/06/18 16:16 01/06/18 16:16 Labs: Laboratory Results - last 24 hr 01/06/18 01/06/18 01/06/18 16:16 16:16 16:28 PT 12.0 INR 1.1 APTT 32.0 pO2 40 VBG pH 7.35 VBG pCO2 51 VBG HCO3 25.6 VBG Total CO2 29.8 H VBG O2 Sat (Calc) 84.6 H VBG Base Excess 1.7 VBG Potassium 3.6 Glucose 182 H Lactate 3.1 H FiO2 21.0 Crit Value Called To crystal Burroughs md Crit Value Called By Chemo [email or web address] Crit Value Read Back Y Blood Gas Notified Time 1637 Sodium 139 136.0 Potassium 3.6 Chloride 100 102.0 Carbon Dioxide 22 Anion Gap 21 H BUN 10 Creatinine 0.9 Est GFR ( Amer) > 60 Est GFR (Non-Af Amer) > 60 Random Glucose 168 H Calcium 9.9 Phosphorus 4.0 Magnesium 1.9 Total Bilirubin 0.4 AST 16 L ALT 30 Alkaline Phosphatase 66 Total Protein 7.9 Albumin 4.3 Globulin 3.6 Albumin/Globulin Ratio 1.2 Venous Blood Potassium 3.6 Assessment & Plan - Assessment and Plan (Free Text) Assessment: Assessment/Plan: 52 YO Male with no sig PMHx of IDDM is admitted for R leg pain and ulcerations. Right leg pain, Ulceration -likely 2/2 to diabetic neuropathy -rule out osteomyelitis -blood work wnl -MRI pending -Bactrim at home, Vanc IV -Podiatry consult IDDM2 -uncontrolled -home meds: insulin lispro 10-12 units SQ ACTID, metformin 1000 mg PO BID, gabapentin 800 mg PO TID -insulin correction scale -hypoglycemic protocol -accucheck ACHS Smoking Abuse -nicotine patch Prophylactic measures -DVT lovenox 40 mg SC daily <Maria A Francisco - Last Filed: 01/07/18 09:13> Results - Vital Signs Recent Vital Signs: Last Vital Signs Temp 98.3 F 01/06/18 17:30 Pulse 88 01/06/18 17:30 Resp 21 01/06/18 15:49 BP 110/70 01/06/18 17:30 Pulse Ox 98 01/06/18 17:30 - Labs Result Diagrams: 01/06/18 16:16 01/06/18 16:16 Labs: Laboratory Results - last 24 hr 01/06/18 01/06/18 01/06/18 15:52 16:16 16:16 WBC 10.1 RBC 4.49 Hgb 12.9 Hct 37.5 MCV 83.6 D MCH 28.7 MCHC 34.3 RDW 14.4 Plt Count 547 H D MPV 7.6 Neut % (Auto) 60.7 Lymph % (Auto) 32.1 [place] % (Auto) 4.9 Eos % (Auto) 1.8 Baso % (Auto) 0.5 Neut # (Auto) 6.1 Lymph # (Auto) 3.2 [place] # (Auto) 0.5 Eos # (Auto) 0.2 Baso # (Auto) 0.0 PT INR APTT pO2 VBG pH VBG pCO2 VBG HCO3 VBG Total CO2 VBG O2 Sat (Calc) VBG Base Excess VBG Potassium Glucose Lactate FiO2 Crit Value Called To Crit Value Called By Crit Value Read Back Blood Gas Notified Time Sodium 139 Potassium 3.6 Chloride 100 Carbon Dioxide 22 Anion Gap 21 H BUN 10 Creatinine 0.9 Est GFR ( Amer) > 60 Est GFR (Non-Af Amer) > 60 POC Glucose (mg/dL) 169 H Random Glucose 168 H Calcium 9.9 Phosphorus 4.0 Magnesium 1.9 Total Bilirubin 0.4 AST 16 L ALT 30 Alkaline Phosphatase 66 Total Protein 7.9 Albumin 4.3 Globulin 3.6 Albumin/Globulin Ratio 1.2 Venous Blood Potassium 01/06/18 01/06/18 16:16 16:28 WBC RBC Hgb Hct MCV MCH MCHC RDW Plt Count MPV Neut % (Auto) Lymph % (Auto) [place] % (Auto) Eos % (Auto) Baso % (Auto) Neut # (Auto) Lymph # (Auto) [place] # (Auto) Eos # (Auto) Baso # (Auto) PT 12.0 INR 1.1 APTT 32.0 pO2 40 VBG pH 7.35 VBG pCO2 51 VBG HCO3 25.6 VBG Total CO2 29.8 H VBG O2 Sat (Calc) 84.6 H VBG Base Excess 1.7 VBG Potassium 3.6 Glucose 182 H Lactate 3.1 H FiO2 21.0 Crit Value Called To crystal Burroughs md Crit Value Called By raghu Crit Value Read Back Y Blood Gas Notified Time 1637 Sodium 136.0 Potassium Chloride 102.0 Carbon Dioxide Anion Gap BUN Creatinine Est GFR ( Amer) Est GFR (Non-Af Amer) POC Glucose (mg/dL) Random Glucose Calcium Phosphorus Magnesium Total Bilirubin AST ALT Alkaline Phosphatase Total Protein Albumin Globulin Albumin/Globulin Ratio Venous Blood Potassium 3.6 Attending/Attestation - Attestation I have personally seen and examined this patient.: Yes I have fully participated in the care of the patient.: Yes I have reviewed all pertinent clinical information: Yes
[2018-01-06] MEDS ORDERED: Dextrose 50% SYRINGE Inj (50 ml) IV PRN (17:13)
[2018-01-06] MEDS ORDERED: Glucagon Recombinant 1 mg Inj IM PRN (17:13)
[2018-01-06 17:16] LABS: MEAN CELL VOLUME 83.6 fl (80.0-94.0)
[2018-01-06] MEDS ORDERED: Enoxaparin 40 mg Syringe SC SCH (17:30)
[2018-01-06 17:55] VITALS: BP 110/70; PULSE 88; TEMP 98.3
[2018-01-07] MEDS ORDERED: Insulin Lispro Mix 75/25 100 units/ml (HumaLog) 10ml SC SCH (07:30)
--- NOTE | 2018-01-07 12:56 | CARD ---
APPROVED REPORT EKG Measurement Heart [id number] <Conclusion> Normal sinus rhythm Possible Left atrial enlargement Borderline ECG
== END 2018-01-06 17:53 | disposition left against medical advice (07) ==
LOC: H.ER 15:34 → UNDOADMIN 16:00 → H.ERHOLD 16:00 → UNDODISIN 17:30
DX: E11.628 Type 2 diabetes mellitus with other skin complications (principal); L97.509 Non-pressure chronic ulcer of other part of unspecified foot with unspecified severity

== ENCOUNTER 2018-01-07 18:24 | Inpatient (IN) | payer MEDICARE ==
[2018-01-07 18:24] VITALS: BMI 18.2
--- NOTE | 2018-01-07 18:54 | ED PDOC ---
Lower Extremity Pain/Injury Time Seen by Provider: 01/07/18 18:45 Chief Complaint (Nursing): Abnormal Skin Integrity Chief Complaint (Provider): leg ulcer History Per: Patient History/Exam Limitations: no limitations Onset/Duration Of Symptoms: Days (weeks) Additional Complaint(s): 52 year old male presents to the ED for evaluation of his hyperglycemia and diabetic ulcer on his right leg. Before arrival, he reports taking insulin. Patient notes that the pain in his leg has worsened since its onset six months ago. Otherwise, denies fever but does state he has increased thirst. Of note, patient usually leaves AMA prior to his treatments being completed. AMA yesterday despite needing admit for ulcer. He had an emergency he had to address yesterday. Past Medical History Vital Signs: Last Vital Signs Temp 98.6 F 01/07/18 18:27 Pulse 107 H 01/07/18 18:27 Resp 16 01/07/18 18:27 BP 117/77 01/07/18 18:27 Pulse Ox 100 01/07/18 18:27 - Medical History PMH: Arthritis (bilat knee), Diabetes (type II), Rheumatoid Arthritis Denies: HTN (denies 04/30/17), Chronic Kidney Disease - Surgical History Surgical History: Hernia Repair (umbilical) - Family History Family History: States: Unknown Family Hx, Diabetes (Father) - Immunization History Hx Tetanus Toxoid Vaccination: No Hx Influenza Vaccination: No Hx Pneumococcal Vaccination: No - Home Medications Home Medications: Ambulatory Orders Medication Instructions Recorded Insulin Lispro Protamin/Lispro 10 - 12 unit SQ ACTID 12/02/16 [Humalog Mix 75-25 Kwikpen] MetFORMIN [glucOPHAGE] 1,000 mg PO BID 04/23/17 Gabapentin [Neurontin] 800 mg PO TID #30 tab 09/14/17 - Allergies Allergies/Adverse Reactions: Allergies Allergy/AdvReac Type Severity Reaction Status Date / Time acetaminophen [From Percocet] Allergy RASH Verified 01/07/18 18:26 codeine Allergy RASH Verified 01/07/18 18:26 oxycodone HCl [From Percocet] Allergy RASH Verified 01/07/18 18:26 Review of Systems ROS Statement: Except As Marked, All Systems Reviewed And Found Negative Musculoskeletal: Positive for: Leg Pain Physical Exam - Reviewed Nursing Documentation Reviewed: Yes Vital Signs Reviewed: Yes - Physical Exam Appears: Positive for: Non-toxic, No Acute Distress Head Exam: Positive for: ATRAUMATIC, NORMAL INSPECTION, NORMOCEPHALIC Skin: Positive for: Normal Color, Warm, DRY Eye Exam: Positive for: EOMI, Normal appearance, PERRL ENT: Positive for: Normal ENT Inspection Neck: Positive for: Normal, Painless ROM Cardiovascular/Chest: Positive for: Regular Rate, Rhythm Respiratory: Positive for: CNT, Normal Breath Sounds Gastrointestinal/Abdominal: Positive for: Normal Exam, Soft Back: Positive for: Normal Inspection Extremity: Positive for: Normal ROM, Tenderness (R anterior tibia with large ulcer) Neurologic/Psych: Positive for: Alert, Oriented - ECG O2 Sat by Pulse Oximetry: 100 Pulse Ox Interpretation: Normal - Progress ED Course And Treament: 1909: Stable. AAOx3. Will stay for admit. [facility] resident aware and podiatry aware. Disposition - Clinical Impression Clinical Impression: Ulcer, Cellulitis - Patient ED Disposition Is Patient to be Admitted: Yes Counseled Patient/Family Regarding: Studies Performed, Diagnosis - Disposition Disposition Time: 19:15 Condition: FAIR - Pt Status Changed To: Hospital Disposition Of: Inpatient - Admit Certification Admit to Inpatient:: After my assessment, the patient will require hospitalization for at least two midnights. This is because of the severity of symptoms shown, intensity of services needed, and/or the medical risk in this patient being treated as an outpatient.
[2018-01-07] MEDS ORDERED: Sodium Chloride 0.9% 1,000 ML IV SCH (19:15)
[2018-01-07 19:25] VITALS: RESP 18
[2018-01-07 19:26] LABS: BASO # 0.1 K/uL (0.0-0.2); BASO % 0.5 % (0.0-2.0); EOS # 0.5 K/uL (0.0-0.7); EOS % 5.6 % (0.0-4.0); HEMOGLOBIN 12.7 g/dL (12.0-18.0); LYMPH # 2.8 K/uL (1.0-4.3); LYMPH % 30.1 % (20.0-40.0); MEAN CELL VOLUME 83.3 fl (80.0-94.0); MEAN CORPUSCULAR HEMOGLOBIN 27.9 pg (27.0-31.0); MEAN CORPUSCULAR HGB CONC 33.5 g/dL (33.0-37.0); MEAN PLATELET VOLUME 7.5 fl (7.2-11.7); MONO # 0.4 K/uL (0.0-0.8); MONO % 4.6 % (0.0-10.0); NEUT # 5.6 K/uL (1.8-7.0); NEUT % 59.2 % (50.0-75.0); RBC 4.55 Mil/uL (4.40-5.90); RED CELL DISTRIBUTION WIDTH 14.4 % (11.5-14.5); WHITE BLOOD COUNT 9.5 K/uL (4.8-10.8)
[2018-01-07 19:30] LABS: VENOUS BLOOD GAS BASE EXCESS 2.2 mmol/L (0.0-2.0); VENOUS BLOOD GAS PCO2 49 mmHg (40-60); VENOUS BLOOD GAS PO2 36 mm/Hg (30-55); VENOUS BLOOD PH 7.37 (7.32-7.43)
[2018-01-07 19:39] LABS: ALB/GLOB RATIO 1.2 (1.0-2.1); ALBUMIN 4.1 g/dL (3.5-5.0); ALT/SGPT 26 U/L (21-72); AST/SGOT 24 U/L (17-59); BLOOD UREA NITROGEN 12 mg/dl (9-20); CALCIUM 9.8 mg/dL (8.4-10.2); GFR AFRICAN-AMERICAN > 60; GFR NON-AFRICAN AMERICAN > 60
[2018-01-07] MEDS ORDERED: Morphine 4 MG/ML VIAL ONE (19:45)
--- NOTE | 2018-01-07 20:09 | CP.PCM.CON ---
History of Present Illness - History of Present Illness History of Present Illness: Podiatry Consult Note: Dr. Betancourt 52 y/o male with PMHx of IDDM was seen and evaluated in ED for right leg wound. Pt is known to Dr. Betancourt's wound care service and was recently admitted last week for his right leg ulcer but decided to sign out AMA. States he never got an MRI but understands now that he needs to to ensure he does not have bone infection. Patient states that the wound to his right leg has been present for over a month now and is tender to touch. Patient denies noticing any drainage or malodor from the site. States he has been taking Bactrim because he knows he has MRSA. Admits to changing his dressing daily with Telfa. He is AAOx3 and NAD at time of examination. Denies any further pedal complaints at this time. Denies any recent N/V/F/C/CP/SOB/D/posterior calf pain when squeezed. 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 FHx: Diabetes (father) SocHx: 1/2 PPD smoker x 25 years; denies EtOH; smokes marijuana every 5-6 months Meds: See MAR All: Acetaminophen, Codeine, Oxycodone Review of Systems - Review of Systems All systems: reviewed and no additional remarkable complaints except (per HPI) Past Patient History - Infectious Disease Hx of Infectious Diseases: None - Past Medical History & Family History Past Medical History?: Yes - Past Social History Smoking Status: Current Some Days Smoker - CARDIAC Hx Hypertension: No (denies 04/30/17) - PULMONARY Hx Respiratory Disorders: No - NEUROLOGICAL Hx Neurological Disorder: No - HEENT Hx HEENT Problems: Yes Other/Comment: uses eye glasses - RENAL Hx Chronic Kidney Disease: No - ENDOCRINE/METABOLIC Hx Endocrine Disorders: Yes (DM) Hx Diabetes Mellitus Type 2: Yes - HEMATOLOGICAL/ONCOLOGICAL Hx Blood Disorders: No - INTEGUMENTARY Hx Dermatological Problems: No - MUSCULOSKELETAL/RHEUMATOLOGICAL Hx Arthritis: Yes (bilat knee) Hx Rheumatoid Arthritis: Yes - GASTROINTESTINAL Hx Gastrointestinal Disorders: No - GENITOURINARY/GYNECOLOGICAL Hx Genitourinary Disorders: No - PSYCHIATRIC Hx Psychophysiologic Disorder: No Hx Substance Use: No - SURGICAL HISTORY Hx Surgeries: Yes Hx Herniorrhaphy: Yes Hx Orthopedic Surgery: Yes Other/Comment: Left 5th toe. Right knee - ANESTHESIA Hx Anesthesia: Yes Hx Anesthesia Reactions: No Hx Malignant Hyperthermia: No Meds Allergies/Adverse Reactions: Allergies Allergy/AdvReac Type Severity Reaction Status Date / Time acetaminophen [From Percocet] Allergy RASH Verified 01/07/18 18:26 codeine Allergy RASH Verified 01/07/18 18:26 oxycodone HCl [From Percocet] Allergy RASH Verified 01/07/18 18:26 - Medications Medications: Current Medications Sodium Chloride (Sodium Chloride 0.9%) 1,000 mls @ 150 mls/hr IV .[id number] HUMA Last Admin: 01/07/18 19:33 Dose: 150 mls/hr Physical Exam - Constitutional Appears: Well, Non-toxic, No Acute Distress - Extremities Exam Additional comments: LE focused exam: Vasc: DP/PT pulses palpable 2/4 B/L. Skin temperature warm to warm, with mild increase noted to erythematous anterior leg extending outward from anterior leg wound. Cap refill time: < 3 seconds to all digits. Moderate edema noted surrounding anterior leg wound Derm: Approximately 2 cm x 2 cm x 0.1 cm circular eschar with necro-fibrotic base noted to anterior leg with mild erythema to the periwound area. Area is mildly fluctuant with blanching of rochelle wound skin and tenting noted. No tracking, tunneling or undermining is appreciated. No malodor noted. Additional similar ulceration noted to dorsal midfoot without any clinical signs of infection. Fibronecrotic base appreciated. No tracking, tunneling or undermining noted. Neuro: Epicritic and protective sensation grossly intact B/L Ortho: tenderness to palpation to anterior leg ulceration. No gross deformities noted - Neurological Exam Neurological exam: Alert, Oriented x3 - Psychiatric Exam Psychiatric exam: Normal Affect, Normal Mood Results - Vital Signs Recent Vital Signs: Last Vital Signs Temp 98.6 F 01/07/18 18:27 Pulse 84 01/07/18 19:25 Resp 18 01/07/18 19:25 BP 120/70 01/07/18 19:25 Pulse Ox 97 01/07/18 19:25 - Labs Result Diagrams: 01/07/18 19:19 01/07/18 19:19 Labs: Laboratory Results - last 24 hr 01/07/18 01/07/18 01/07/18 18:57 19:19 19:19 WBC 9.5 RBC 4.55 Hgb 12.7 Hct 37.9 MCV 83.3 MCH 27.9 MCHC 33.5 RDW 14.4 Plt Count 533 H MPV 7.5 Neut % (Auto) 59.2 Lymph % (Auto) 30.1 [place] % (Auto) 4.6 Eos % (Auto) 5.6 H Baso % (Auto) 0.5 Neut # (Auto) 5.6 Lymph # (Auto) 2.8 [place] # (Auto) 0.4 Eos # (Auto) 0.5 Baso # (Auto) 0.1 pO2 VBG pH VBG pCO2 VBG HCO3 VBG Total CO2 VBG O2 Sat (Calc) VBG Base Excess VBG Potassium Glucose Lactate FiO2 Sodium 140 Potassium 3.6 Chloride 100 Carbon Dioxide 26 Anion Gap 18 BUN 12 Creatinine 0.7 L Est GFR ( Amer) > 60 Est GFR (Non-Af Amer) > 60 POC Glucose (mg/dL) 81 Random Glucose 69 L Calcium 9.8 Phosphorus 3.8 Magnesium 1.9 Total Bilirubin 0.3 AST 24 ALT 26 Alkaline Phosphatase 68 Total Protein 7.5 Albumin 4.1 Globulin 3.4 Albumin/Globulin Ratio 1.2 Venous Blood Potassium 01/07/18 19:26 WBC RBC Hgb Hct MCV MCH MCHC RDW Plt Count MPV Neut % (Auto) Lymph % (Auto) [place] % (Auto) Eos % (Auto) Baso % (Auto) Neut # (Auto) Lymph # (Auto) [place] # (Auto) Eos # (Auto) Baso # (Auto) pO2 36 VBG pH 7.37 VBG pCO2 49 VBG HCO3 25.8 VBG Total CO2 29.8 H VBG O2 Sat (Calc) 77.4 H VBG Base Excess 2.2 H VBG Potassium 3.7 Glucose 75 Lactate 1.9 FiO2 21.0 Sodium 138.0 Potassium Chloride 103.0 Carbon Dioxide Anion Gap BUN Creatinine Est GFR ( Amer) Est GFR (Non-Af Amer) POC Glucose (mg/dL) Random Glucose Calcium Phosphorus Magnesium Total Bilirubin AST ALT Alkaline Phosphatase Total Protein Albumin Globulin Albumin/Globulin Ratio Venous Blood Potassium 3.7 Assessment & Plan - Assessment and Plan (Free Text) Assessment: 52 year old male seen and evaluated for infected right anterior leg ulceration with possible underlying abscess Plan: Patient seen and evaluated in ED Plan discussed with attending Dr. Betancourt Afebrile, WBC 9.5 Wound cx taken on last visit 12/27/17 shows growth of MRSA Tib fib and foot xrays taken on last visit (-) for any acute osseous abnormalities MRI ordered to r/o abscess - f/u results, r/o osteomyelitis Pt to be admitted for observation and IV abx for MRSA Wound cleaned using saline and dressing applied to the wounds with bacitracin, Telfa, DSD Per Dr. Betancourt, will treat patient with IV abx and local wound care at this time Thank you for the podiatry consult and allowing to take part in patient care Podiatry will continue to follow while patient in house
[2018-01-07] MEDS ORDERED: Piperacillin/Tazobact 3.375 GM in Sodium Chloride 0.9% 100 ML IV STA (20:17)
[2018-01-07 20:36] LABS: PARTIAL THROMBOPLASTIN TIME 29.1 Seconds (25.6-37.1); PROTHROMBIN TIME 11.5 Seconds (9.8-13.1)
[2018-01-07] MEDS ORDERED: Piperacillin/Tazobact 3.375 gm Inj IVPB ONE (20:42)
[2018-01-07 20:47] VITALS: O2SAT 99
--- NOTE | 2018-01-07 20:51 | CP.PCM.HP ---
<Mila Bernabe - Last Filed: 01/08/18 00:16> History of Present Illness - History of Present Illness History of Present Illness: 52 yr old M presented to ED with complaint of right lower extremity pain and ulcer. Patient reports he has come to the ED/[facility] several times this month but had to leave against medical advice for various reasons including a family emergency. PMHx includes IDDM type 2 and chronic non-healing RLE ulcer. Denies fevers, chills, nausea, vomiting or weakness. PMD: Dr. Anderson Wound care: Dr. Betancourt PMHx: IDDM type 2 and chronic non-healing RLE ulcer SurgHx: left foot-5th digit pin, umbilical hernia repair, right knee arthroscopy FMHx: father DM type 2 SocHx: tobacco abuse 7 cig daily x 30 yrs (10.5 pack yrs), denies Etoh, last use of cannabis over 8 months ago Medications: Insulin lispro 11 units SQ ACTID, Metformin 1,000 mg PO BID, Gabapentin 800 mg PO TID Allergies: acetaminophen, codeine, oxycodone HCl ED course: BP 117/77 mmHg , HR 107, Resp 16, O2 sat 100% on room air, Temp 98.6 F -EKG: NSR at HR 79bpm -CBC: plts 533, rest within normal limits -PT/PTT and INR within normal limits -VBG within normal limits -CMP: within normal limits -blood culture -ED treatment: Morphine 4mg IV once, NS 1L at 150 mls/hr, Zosyn 3.375 gm IV once , Present on Admission - Present on Admission Any Indicators Present on Admission: No History of DVT/PE: No History of Uncontrolled Diabetes: No Urinary Catheter: No Decubitus Ulcer Present: No History Surgical Site Infection Following: None Review of Systems - Constitutional Constitutional: absent: Chills, Fever, Weakness - EENT Eyes: absent: Change in Vision Nose/Mouth/Throat: absent: Sore Throat - Cardiovascular Cardiovascular: absent: Chest Pain - Respiratory Respiratory: absent: Cough, Dyspnea, Hemoptysis - Gastrointestinal Gastrointestinal: absent: Abdominal Pain, Nausea, Vomiting - Genitourinary Genitourinary: absent: Difficulty Urinating, Dysuria - Musculoskeletal Musculoskeletal: Other (chronic RLE pain). absent: Numbness, Tingling - Integumentary Integumentary: Skin Ulcer (chronic RLE ulcer) - Neurological Neurological: absent: Dizziness, Syncope, Weakness - Endocrine Endocrine: absent: Polydipsia, Polyphagia, Polyuria - Hematologic/Lymphatic Hematologic: absent: Easy Bleeding, Easy Bruising Past Patient History - Infectious Disease Hx of Infectious Diseases: None - Past Medical History & Family History Past Medical History?: Yes - Past Social History Smoking Status: Current Some Days Smoker - CARDIAC Hx Hypertension: No (denies 04/30/17) - PULMONARY Hx Respiratory Disorders: No - NEUROLOGICAL Hx Neurological Disorder: No - HEENT Hx HEENT Problems: Yes Other/Comment: uses eye glasses - RENAL Hx Chronic Kidney Disease: No - ENDOCRINE/METABOLIC Hx Endocrine Disorders: Yes (DM) Hx Diabetes Mellitus Type 2: Yes - HEMATOLOGICAL/ONCOLOGICAL Hx Blood Disorders: No - INTEGUMENTARY Hx Dermatological Problems: No - MUSCULOSKELETAL/RHEUMATOLOGICAL Hx Arthritis: Yes (bilat knee) Hx Rheumatoid Arthritis: Yes - GASTROINTESTINAL Hx Gastrointestinal Disorders: No - GENITOURINARY/GYNECOLOGICAL Hx Genitourinary Disorders: No - PSYCHIATRIC Hx Psychophysiologic Disorder: No Hx Substance Use: No - SURGICAL HISTORY Hx Surgeries: Yes Hx Herniorrhaphy: Yes Hx Orthopedic Surgery: Yes Other/Comment: Left 5th toe. Right knee - ANESTHESIA Hx Anesthesia: Yes Hx Anesthesia Reactions: No Hx Malignant Hyperthermia: No Meds Allergies/Adverse Reactions: Allergies Allergy/AdvReac Type Severity Reaction Status Date / Time acetaminophen [From Percocet] Allergy RASH Verified 01/07/18 18:26 codeine Allergy RASH Verified 01/07/18 18:26 oxycodone HCl [From Percocet] Allergy RASH Verified 01/07/18 18:26 Physical Exam - Constitutional Appears: No Acute Distress - Head Exam Head Exam: ATRAUMATIC, NORMOCEPHALIC - Eye Exam Eye Exam: EOMI - ENT Exam ENT Exam: Mucous Membranes Moist - Respiratory Exam Respiratory Exam: Clear to Auscultation Bilateral, NORMAL BREATHING PATTERN - Cardiovascular Exam Cardiovascular Exam: REGULAR RHYTHM, +S1, +S2 - GI/Abdominal Exam GI & Abdominal Exam: Normal Bowel Sounds, Soft. absent: Tenderness - Extremities Exam Extremities exam: Positive for: full ROM. Negative for: normal inspection ( right distal LE anterior 2x2 cm eschar with fibronecrotixc base, mild erythema surrounding ulcer, no malodor) - Neurological Exam Neurological exam: Alert, CN II-XII Intact (grossly intact), Oriented x3 - Psychiatric Exam Psychiatric exam: Flat Affect, Normal Mood - Skin Skin Exam: Dry, Warm Results - Vital Signs Recent Vital Signs: Last Vital Signs Temp 98.6 F 01/07/18 18:27 Pulse 78 01/07/18 20:46 Resp 18 01/07/18 20:46 BP 100/63 01/07/18 20:46 Pulse Ox 99 01/07/18 20:46 - Labs Result Diagrams: 01/07/18 19:19 01/07/18 19:19 Labs: Laboratory Results - last 24 hr 01/07/18 01/07/18 01/07/18 18:57 19:19 19:19 WBC 9.5 RBC 4.55 Hgb 12.7 Hct 37.9 MCV 83.3 MCH 27.9 MCHC 33.5 RDW 14.4 Plt Count 533 H MPV 7.5 Neut % (Auto) 59.2 Lymph % (Auto) 30.1 Lewis % (Auto) 4.6 Eos % (Auto) 5.6 H Baso % (Auto) 0.5 Neut # (Auto) 5.6 Lymph # (Auto) 2.8 Lewis # (Auto) 0.4 Eos # (Auto) 0.5 Baso # (Auto) 0.1 PT INR APTT pO2 VBG pH VBG pCO2 VBG HCO3 VBG Total CO2 VBG O2 Sat (Calc) VBG Base Excess VBG Potassium Glucose Lactate FiO2 Sodium 140 Potassium 3.6 Chloride 100 Carbon Dioxide 26 Anion Gap 18 BUN 12 Creatinine 0.7 L Est GFR ( Amer) > 60 Est GFR (Non-Af Amer) > 60 POC Glucose (mg/dL) 81 Random Glucose 69 L Calcium 9.8 Phosphorus 3.8 Magnesium 1.9 Total Bilirubin 0.3 AST 24 ALT 26 Alkaline Phosphatase 68 Total Protein 7.5 Albumin 4.1 Globulin 3.4 Albumin/Globulin Ratio 1.2 Venous Blood Potassium 01/07/18 01/07/18 19:19 19:26 WBC RBC Hgb Hct MCV MCH MCHC RDW Plt Count MPV Neut % (Auto) Lymph % (Auto) Lewis % (Auto) Eos % (Auto) Baso % (Auto) Neut # (Auto) Lymph # (Auto) Lewis # (Auto) Eos # (Auto) Baso # (Auto) PT 11.5 INR 1.0 APTT 29.1 pO2 36 VBG pH 7.37 VBG pCO2 49 VBG HCO3 25.8 VBG Total CO2 29.8 H VBG O2 Sat (Calc) 77.4 H VBG Base Excess 2.2 H VBG Potassium 3.7 Glucose 75 Lactate 1.9 FiO2 21.0 Sodium 138.0 Potassium Chloride 103.0 Carbon Dioxide Anion Gap BUN Creatinine Est GFR ( Amer) Est GFR (Non-Af Amer) POC Glucose (mg/dL) Random Glucose Calcium Phosphorus Magnesium Total Bilirubin AST ALT Alkaline Phosphatase Total Protein Albumin Globulin Albumin/Globulin Ratio Venous Blood Potassium 3.7 Assessment & Plan - Assessment and Plan (Free Text) Assessment: 52 yr old M admitted for infected right anterior leg ulcer with possible underlying abscess, wound culture from 12/27/17 positive for MRSA. Plan: 1. Right lower extremity ulcer -admit to telemetry -IV antibiotics -Podiatry consult appreciated: Zosyn 3.375 Q6 , MRI to rule out abscess 2. IDDM type 2 -uncontrolled, HbA1c 14.0 on 04/23/17 -continue home medications Metformin and Gabapentin -high dose coverage scale -hypoglycemia protocol -POC glucose ACHS -Low carbohydrate diet 3. Tobacco dependance -less than 10 cig daily -Nicoderm patch TD QD 7mg/24hr 4. DVT prophylaxis -Lovenox 40mg SC QD - Date & Time Date: 01/07/18 Time: 20:50 <Maria A Francisco - Last Filed: 01/08/18 08:43> Results - Vital Signs Recent Vital Signs: Last Vital Signs Temp 97.7 F 01/07/18 21:35 Pulse 79 01/07/18 21:35 Resp 18 01/07/18 21:35 BP 108/66 01/07/18 21:35 Pulse Ox 99 01/07/18 21:35 - Labs Result Diagrams: 01/07/18 19:19 01/07/18 19:19 Labs: Laboratory Results - last 24 hr 01/07/18 01/07/18 01/07/18 18:57 19:19 19:19 WBC 9.5 RBC 4.55 Hgb 12.7 Hct 37.9 MCV 83.3 MCH 27.9 MCHC 33.5 RDW 14.4 Plt Count 533 H MPV 7.5 Neut % (Auto) 59.2 Lymph % (Auto) 30.1 Lewis % (Auto) 4.6 Eos % (Auto) 5.6 H Baso % (Auto) 0.5 Neut # (Auto) 5.6 Lymph # (Auto) 2.8 Lewis # (Auto) 0.4 Eos # (Auto) 0.5 Baso # (Auto) 0.1 PT INR APTT pO2 VBG pH VBG pCO2 VBG HCO3 VBG Total CO2 VBG O2 Sat (Calc) VBG Base Excess VBG Potassium Glucose Lactate FiO2 Sodium 140 Potassium 3.6 Chloride 100 Carbon Dioxide 26 Anion Gap 18 BUN 12 Creatinine 0.7 L Est GFR ( Amer) > 60 Est GFR (Non-Af Amer) > 60 POC Glucose (mg/dL) 81 Random Glucose 69 L Calcium 9.8 Phosphorus 3.8 Magnesium 1.9 Total Bilirubin 0.3 AST 24 ALT 26 Alkaline Phosphatase 68 Total Protein 7.5 Albumin 4.1 Globulin 3.4 Albumin/Globulin Ratio 1.2 Venous Blood Potassium 01/07/18 01/07/18 01/07/18 19:19 19:26 21:23 WBC RBC Hgb Hct MCV MCH MCHC RDW Plt Count MPV Neut % (Auto) Lymph % (Auto) Lewis % (Auto) Eos % (Auto) Baso % (Auto) Neut # (Auto) Lymph # (Auto) Lewis # (Auto) Eos # (Auto) Baso # (Auto) PT 11.5 INR 1.0 APTT 29.1 pO2 36 VBG pH 7.37 VBG pCO2 49 VBG HCO3 25.8 VBG Total CO2 29.8 H VBG O2 Sat (Calc) 77.4 H VBG Base Excess 2.2 H VBG Potassium 3.7 Glucose 75 Lactate 1.9 FiO2 21.0 Sodium 138.0 Potassium Chloride 103.0 Carbon Dioxide Anion Gap BUN Creatinine Est GFR ( Amer) Est GFR (Non-Af Amer) POC Glucose (mg/dL) 117 H Random Glucose Calcium Phosphorus Magnesium Total Bilirubin AST ALT Alkaline Phosphatase Total Protein Albumin Globulin Albumin/Globulin Ratio Venous Blood Potassium 3.7 Attending/Attestation - Attestation Notes (Text): 01/08/18 08:42 Patient admitted but left AMA before I was able to examined. He has been admitted and signed out AMA before treatment multiple times over past week.
[2018-01-07] MEDS ORDERED: Dextrose 50% SYRINGE Inj (50 ml) IV PRN (21:22)
[2018-01-07] MEDS ORDERED: Glucagon Recombinant 1 mg Inj IM PRN (21:22)
[2018-01-07 21:35] VITALS: BP 108/66; PULSE 79; TEMP 97.7
[2018-01-07] MEDS ORDERED: Insulin Lispro Mix 75/25 100 units/ml (HumaLog) 10ml SC SCH ×2 (22:00)
--- NOTE | 2018-01-07 23:26 | CP.PCM.PCO ---
Physician Communication Note - Physician Communication Note Physician Communication Note: paged by nurse patient wants medicine to sleep Assessment/Plan - Assessment and Plan (Free Text) Assessment: Patient is not on medication to sleep at home. Patient has history of tobacco dependance and drug use. -asked nurse to please provide patient with Quiet kit to aid in sleep ( includes eye mask and ear plugs) - Date & Time Date: 01/07/18 Time: 21:00
[2018-01-08] MEDS ORDERED: Enoxaparin 40 mg Syringe SC SCH (09:00)
--- NOTE | 2018-01-08 10:08 | CARD ---
APPROVED REPORT EKG Measurement Heart [id number] CO 124P65 [id number] <Conclusion> Normal sinus rhythm Possible Left atrial enlargement Borderline ECG
== END 2018-01-07 23:20 | disposition left against medical advice (07) | DRG 603 ==
LOC: H.ER 18:24 → H.ERHOLD 19:08 → H.TEL 21:21
PROVIDERS: ADMIT Family Medicine Geriatric Medicine; ATTEND Family Medicine Geriatric Medicine
DX: L03.115 Cellulitis of right lower limb (principal); L97.819 Non-pressure chronic ulcer of other part of right lower leg with unspecified severity; E11.622 Type 2 diabetes mellitus with other skin ulcer; E11.65 Type 2 diabetes mellitus with hyperglycemia; B95.62 Methicillin resistant Staphylococcus aureus infection as the cause of diseases classified elsewhere; M06.9 Rheumatoid arthritis, unspecified; M17.0 Bilateral primary osteoarthritis of knee; F17.210 Nicotine dependence, cigarettes, uncomplicated; Z79.4 Long term (current) use of insulin; Z79.84 Long term (current) use of oral hypoglycemic drugs; Z89.422 Acquired absence of other left toe(s); Z88.6 Allergy status to analgesic agent

== ENCOUNTER 2018-02-21 17:18 | Emergency (ER) | payer MEDICARE, OTHER ==
[2018-02-21 17:18] VITALS: BMI 18.2
[2018-02-21 17:23] VITALS: BP 116/68; PULSE 93; RESP 16; TEMP 100.4; O2SAT 94
[2018-02-21] MEDS ORDERED: Sodium Chloride 0.9% 1,000 ML IV STA (17:38)
[2018-02-21] MEDS ORDERED: Piperacillin/Tazobact 3.375 GM in Sodium Chloride 0.9% 100 ML IVPB STA (17:41)
[2018-02-21] MEDS ORDERED: Vancomycin 1 g Inj ONE (18:05)
[2018-02-21] MEDS ORDERED: Piperacillin/Tazobact 3.375 gm Inj IVPB ONE (18:05)
--- NOTE | 2018-02-21 18:13 | RAD ---
Date of service: 02/21/2018 HISTORY: cough COMPARISON: 01/06/2018. TECHNIQUE: Chest PA and lateral FINDINGS: LUNGS: Hyperinflation, manifestations of COPD. No active pulmonary disease. PLEURA: No significant pleural effusion identified. No pneumothorax apparent. CARDIOVASCULAR: No radiographic findings to suggest acute or significant cardiovascular disease. OSSEOUS STRUCTURES: No significant abnormalities. VISUALIZED UPPER ABDOMEN: Normal. OTHER FINDINGS: None. IMPRESSION: No active disease. No significant interval change compared to the prior examination(s).
--- NOTE | 2018-02-21 18:15 | RAD ---
Date of service: 02/21/2018 PROCEDURE: Right Foot Radiographs. HISTORY: great toe ulcer COMPARISON: Comparison is made with 12/27/2017 FINDINGS: BONES: No evidence of new erosion or destruction. No fracture. JOINTS: Normal. SOFT TISSUES: Soft tissue swelling noted at the right big toe OTHER FINDINGS: None. IMPRESSION: No radiographic evidence of osteomyelitis. Soft tissue swelling .
--- NOTE | 2018-02-21 19:04 | ED PDOC ---
HPI: Wound Care - HPI Time Seen by Provider: 02/21/18 17:23 Chief Complaint (Nursing): Wound Check Chief Complaint (Provider): Wound Check History Per: Patient Additional Complaint(s): Patient is a 52 y/o insulin dependent diabetic male who presents to the ED for evaluation of a healing ulcer on right lower leg that was treated by bactrim. Patient reports that he was changing the dressing and the wound began to bleed uncontrollably. While patient was cleaning the wound he states he noticed another wound on his right great toe and that he had redness and warmth to the top of the right foot. Patient reports he had cough and congestion for x2 days. He denies chest pain, shortness of breath, fever, hemoptysis, discharge, numbness or tingling. Against Medical Advice - AMA Patient Left Against Medical Advice: The patient declines admission to the hospital and wishes to leave the Emergency Department. This action is against my medical advice. This decision was made with informed refusal. The patient was told that admission to the hospital is necessary. Explanation of the reasons why were discussed. The risks of leaving were explained to the patient and include, but are not limited to, worsening of known or currently unknown conditions, permanent disability and from undiagnosed or untreated conditions. The patient has the capacity to make this informed decision and understands my explanation of the current medical problem and risks of leaving. The patient voluntarily accepts these risks and signed an AMA form documenting our conversation. The patient was given the opportunity to ask questions and reconsider. The patient was encouraged to return to the Emergency Department at any time for further care. Past Medical History Reviewed: Historical Data, Nursing Documentation, Vital Signs Vital Signs: Last Vital Signs Temp 100.4 F H 02/21/18 17:20 Pulse 93 H 02/21/18 17:20 Resp 16 02/21/18 17:20 BP 116/68 02/21/18 17:20 Pulse Ox 94 L 02/21/18 17:20 - Medical History PMH: Arthritis (bilateral knee), Diabetes (type II), Rheumatoid Arthritis Denies: HTN (denies 04/30/17), Chronic Kidney Disease - Surgical History Surgical History: Hernia Repair (umbilical) - Family History Family History: States: Unknown Family Hx, Diabetes (Father) - Immunization History Hx Tetanus Toxoid Vaccination: No Hx Influenza Vaccination: No Hx Pneumococcal Vaccination: No - Home Medications Home Medications: Ambulatory Orders Medication Instructions Recorded Insulin Lispro Protamin/Lispro 10 - 12 unit SQ ACTID 12/02/16 [Humalog Mix 75-25 Kwikpen] MetFORMIN [glucOPHAGE] 1,000 mg PO BID 04/23/17 Gabapentin [Neurontin] 800 mg PO TID #30 tab 09/14/17 - Allergies Allergies/Adverse Reactions: Allergies Allergy/AdvReac Type Severity Reaction Status Date / Time acetaminophen [From Percocet] Allergy RASH Verified 01/07/18 18:26 codeine Allergy RASH Verified 01/07/18 18:26 oxycodone HCl [From Percocet] Allergy RASH Verified 01/07/18 18:26 Review of Systems ROS Statement: Except As Marked, All Systems Reviewed And Found Negative Cardiovascular: Negative for: Chest Pain Respiratory: Positive for: Cough, Other (congestion). Negative for: Shortness of Breath, Hemoptysis Skin: Positive for: Lesions (ulcers). Negative for: Other (discharge) Neurological: Negative for: Numbness, Other (tingling) Physical Exam - Reviewed Nursing Documentation Reviewed: Yes Vital Signs Reviewed: Yes - Physical Exam Appears: Positive for: Non-toxic, No Acute Distress Head Exam: Positive for: ATRAUMATIC, NORMOCEPHALIC Skin: Positive for: Normal Color, Warm, Dry Eye Exam: Positive for: EOMI, Normal appearance, PERRL Neck: Positive for: Normal, Painless ROM, Supple Cardiovascular/Chest: Positive for: Regular Rate, Rhythm. Negative for: Murmur Respiratory: Positive for: Normal Breath Sounds. Negative for: Respiratory Distress Gastrointestinal/Abdominal: Positive for: Normal Exam, Soft. Negative for: Tenderness Back: Positive for: Normal Inspection. Negative for: L CVA Tenderness, R CVA Tenderness Extremity: Positive for: Other (right anterior distal leg has healed ulcer w/ non-pulsatile active bleeding; dorsum of right foot has warmth and erythema extending from plantar surface of right great toe, has shallow ulcer) Neurologic/Psych: Positive for: Alert, Oriented. Negative for: Motor/Sensory Deficits - ECG O2 Sat by Pulse Oximetry: 94 (RA) Pulse Ox Interpretation: Abnormal Medical Decision Making Medical Decision Making: Time: 17:38 Impression: Wound check Initial Plan: --VBG --CMP --CBC w/ diff --CXR --Zosyn ----- Scribe Attestation: Documented by Pedro Luis Johnston, acting as a scribe for Shaheed Dia PA-C Provider Scribe Attestation: All medical record entries made by the Scribe were at my direction and personally dictated by me. I have reviewed the chart and agree that the record accurately reflects my personal performance of the history, physical exam, medical decision making, and the department course for this patient. I have also personally directed, reviewed, and agree with the discharge instructions and disposition. Disposition - Clinical Impression Clinical Impression: Bleeding from wound, Diabetic foot ulcer, Cellulitis, Fever, Hypoxia, Left against medical advice, Hypoglycemia - Disposition Referrals: Mallika Anderson MD [Family Provider] - Condition: UNKNOWN Instructions: Diabetic Foot Ulcer (DC), Low Blood Sugar, Adult (DC), Wound Care (DC), Cough, Adult (DC), Fever, Adult (DC), Leaving Against Medical Advice Forms: new test company (Chinese)
== END 2018-02-21 19:13 | disposition left against medical advice (07) ==
LOC: H.ER 17:18
DX: E11.621 Type 2 diabetes mellitus with foot ulcer (principal); R50.9 Fever, unspecified; Z88.5 Allergy status to narcotic agent; M06.9 Rheumatoid arthritis, unspecified; R09.02 Hypoxemia; Z79.4 Long term (current) use of insulin

== ENCOUNTER 2018-02-27 15:45 | Emergency (ER) | payer MEDICARE ==
[2018-02-27 15:45] VITALS: BMI 18.2
[2018-02-27 16:24] VITALS: BP 107/73; PULSE 86; RESP 17; TEMP 97.7; O2SAT 99
--- NOTE | 2018-02-27 16:49 | ED PDOC ---
HPI: Wound Care - HPI Time Seen by Provider: 02/27/18 16:33 Chief Complaint (Nursing): Wound Check Chief Complaint (Provider): Wound Check History Per: Patient Exam Limitations: no limitations Onset/Duration Of Symptoms: Persistent Current Symptoms Are (Timing): Still Present Additional Complaint(s): 52 year old male arrives to ED for evaluation of chronic ulcers to his right lower leg, right great toe and left foot. Patient reports completing Rx for Bactrim 1 month ago, however, wounds recently began to "open up again". States that he was following up with Dr Betancourt from wound care center and has never seen a yard general car supervisor for his ulcers. Reports no fever, chills, trauma, injury, swelling, redness or d/c from his ulcers. Has no other complaints. PMD: Dr. Mallika Anderson Wound care: Dr. Carlton Harmon Past Medical History Reviewed: Historical Data, Nursing Documentation, Vital Signs Vital Signs: Last Vital Signs Temp 97.7 F 02/27/18 16:16 Pulse 86 02/27/18 16:16 Resp 17 02/27/18 16:16 BP 107/73 02/27/18 16:16 Pulse Ox 99 02/27/18 16:16 - Medical History PMH: Arthritis (bilateral knee), Diabetes (type II), Rheumatoid Arthritis Denies: HTN (denies 04/30/17), Chronic Kidney Disease - Surgical History Surgical History: Hernia Repair (umbilical) - Family History Family History: States: Unknown Family Hx, Diabetes (Father) - Immunization History Hx Tetanus Toxoid Vaccination: No Hx Influenza Vaccination: No Hx Pneumococcal Vaccination: No - Home Medications Home Medications: Ambulatory Orders Medication Instructions Recorded Insulin Lispro Protamin/Lispro 10 - 12 unit SQ ACTID 12/02/16 [Humalog Mix 75-25 Kwikpen] MetFORMIN [glucOPHAGE] 1,000 mg PO BID 04/23/17 Gabapentin [Neurontin] 800 mg PO TID #30 tab 09/14/17 - Allergies Allergies/Adverse Reactions: Allergies Allergy/AdvReac Type Severity Reaction Status Date / Time acetaminophen [From Percocet] Allergy RASH Verified 01/07/18 18:26 codeine Allergy RASH Verified 01/07/18 18:26 oxycodone HCl [From Percocet] Allergy RASH Verified 01/07/18 18:26 Review of Systems ROS Statement: Except As Marked, All Systems Reviewed And Found Negative Constitutional: Negative for: Fever, Chills Musculoskeletal: Positive for: Leg Pain (lower right ulcer), Foot Pain (right great toe ulcer; left foot) Physical Exam - Reviewed Nursing Documentation Reviewed: Yes Vital Signs Reviewed: Yes - Physical Exam Comments: GENERAL APPEARANCE: Patient is awake, alert, oriented x 3, in no painful distress. Skin: warm and dry. Pulmonary: lungs clear, no rhonchi, no wheezing. Cardiac: regular rate and rhythm, no murmur, no gallop. Abdomen: soft, nontender. Extremities: no deformity, full range of motion, no tenderness. +4x5cm superficial ulcer without evidence of infection to anterior R lower leg; +3x3cm deep ulcer without evidence of infection, redness or drainage to plantar aspect of right great toe; +3x3cm superficial ulcer to dorsal lateral aspect of left foot without evidence of infection. - ECG O2 Sat by Pulse Oximetry: 99 (RA) Pulse Ox Interpretation: Normal Medical Decision Making Medical Decision Making: Time: 1644 --Podiatry consult --Patient left before completion of treatment and prior to podiatry consultation. Scribe Attestation: Documented by Wendi Laboy, acting as a scribe for Caitlyn García PA-C. Provider Scribe Attestation: All medical record entries made by the Scribe were at my direction and personally dictated by me. I have reviewed the chart and agree that the record accurately reflects my personal performance of the history, physical exam, medical decision making, and the department course for this patient. I have also personally directed, reviewed, and agree with the discharge instructions and disposition. Disposition - Clinical Impression Clinical Impression: Diabetic foot ulcer Counseled Patient/Family Regarding: Diagnosis, Need For Followup - Disposition Disposition: Left W/O Treatment Disposition Time: 16:54 Condition: UNKNOWN Forms: [employer] (French) - PA / INSULATION BOARD BACK TENDER / Resident Statement MD/DO has reviewed & agrees with the documentation as recorded.
== END 2018-02-27 16:55 | disposition left against medical advice (07) ==
LOC: H.ER 15:45
DX: E11.621 Type 2 diabetes mellitus with foot ulcer (principal); Z79.4 Long term (current) use of insulin

== ENCOUNTER 2018-04-03 23:48 | Emergency (ER) | payer MEDICARE, OTHER ==
[2018-04-03 23:49] VITALS: BMI 18.2
[2018-04-03 23:59] VITALS: BP 116/77; PULSE 88; RESP 18; TEMP 98.1; O2SAT 98
--- NOTE | 2018-04-04 00:36 | ED PDOC ---
Lower Extremity Pain/Injury Time Seen by Provider: 04/04/18 00:02 Chief Complaint (Nursing): Lower Extremity Problem/Injury Chief Complaint (Provider): right leg ulcer bleeding History Per: Patient History/Exam Limitations: no limitations Onset/Duration Of Symptoms: Hrs Current Symptoms Are (Timing): Gone Now Additional Complaint(s): 52 y/o male history of uncontrolled type I diabetes, RA presents for evaluation of bleeding to right leg ulcer x 1 hour. Patient states he was watching TV when he noticed his right lower leg ulcer was bleeding. Patient states he put a pressure dressing on it and went through 3 since then. Bleeding improved in ED when getting up onto stretcher. Denies fever, headache, dizziness, nausea/vomiting, drainage from ulcer, pain to ulcer. Past Medical History Reviewed: Historical Data, Nursing Documentation, Vital Signs Vital Signs: Last Vital Signs Temp 98.1 F 04/03/18 23:57 Pulse 88 04/03/18 23:57 Resp 18 04/03/18 23:57 BP 116/77 04/03/18 23:57 Pulse Ox 98 04/03/18 23:57 - Medical History PMH: Arthritis (bilateral knee), Diabetes (type II), Rheumatoid Arthritis Denies: HTN (denies 04/30/17), Chronic Kidney Disease - Surgical History Surgical History: Hernia Repair (umbilical) - Family History Family History: States: Unknown Family Hx, Diabetes (Father) - Immunization History Hx Tetanus Toxoid Vaccination: No Hx Influenza Vaccination: No Hx Pneumococcal Vaccination: No - Home Medications Home Medications: Ambulatory Orders Medication Instructions Recorded Insulin Lispro Protamin/Lispro 10 - 12 unit SQ ACTID 12/02/16 [Humalog Mix 75-25 Kwikpen] MetFORMIN [glucOPHAGE] 1,000 mg PO BID 04/23/17 Gabapentin [Neurontin] 800 mg PO TID #30 tab 09/14/17 - Allergies Allergies/Adverse Reactions: Allergies Allergy/AdvReac Type Severity Reaction Status Date / Time acetaminophen [From Percocet] Allergy RASH Verified 01/07/18 18:26 codeine Allergy RASH Verified 01/07/18 18:26 oxycodone HCl [From Percocet] Allergy RASH Verified 01/07/18 18:26 Review of Systems ROS Statement: Except As Marked, All Systems Reviewed And Found Negative Skin: Positive for: Other (bleeding from leg ulcer) Physical Exam - Reviewed Nursing Documentation Reviewed: Yes Vital Signs Reviewed: Yes - Physical Exam Appears: Positive for: Well, Non-toxic, No Acute Distress Head Exam: Positive for: ATRAUMATIC, NORMAL INSPECTION, NORMOCEPHALIC Skin: Positive for: Normal Color Cardiovascular/Chest: Positive for: Regular Rate, Rhythm Respiratory: Positive for: Normal Breath Sounds Pulses-Dorsalis Pedis (L): 2+ Pulses-Dorsalis Pedis (R): 2+ Pulses-Post. Tibialis (L): 2+ Pulses-Post. Tibialis (R): 2+ Extremity: Positive for: Normal ROM, Capillary Refill, Other ([id number] ulceration anterior aspect right lower leg, no active bleeding, surrounding erythema, drainage or temp change noted. dry small ulcerations noted plantar surface right great toe and plantar right heel; no drainage, erythema, odor noted). Negative for: Calf Tenderness, Deformity Neurologic/Psych: Positive for: Alert, Oriented (x3). Negative for: Motor/Sensory Deficits - ECG O2 Sat by Pulse Oximetry: 98 - Progress ED Course And Treament: Area cleaned with NS, accucheck ordered 00:45 Top of ulceration active oozing, skin above ulcer split open Patient actively scratching area Ice applied, Benadryl PO ordered 1:10 Bleeding stopped Gelfoam applied to wound, telfa/cling applied, RICKIE applied Patient was advised to elevate leg tonight Follow up wound care center Return precautions given Patient demonstrates full understanding of discharge instructions Patient requires no further intervention in the ED and is stable for discharge at this time Disposition - Clinical Impression Clinical Impression: Bleeding from wound, Diabetic foot ulcer - Patient ED Disposition Is Patient to be Admitted: No - Disposition Referrals: Mallika Anderson MD [Primary Care Provider] - [facility] [Outside] Disposition: Routine/Home Disposition Time: 01:30 Condition: IMPROVED Instructions: Wound Care Forms: [employer] (Montenegrin)
[2018-04-04] MEDS ORDERED: Absorbable Gelatin Sponge Size 12-7 ONE (01:14)
== END 2018-04-04 01:12 | disposition home or self-care (01) ==
LOC: H.ER 23:48
DX: E11.621 Type 2 diabetes mellitus with foot ulcer (principal); S81.802A Unspecified open wound, left lower leg, initial encounter; Z79.4 Long term (current) use of insulin; Z88.5 Allergy status to narcotic agent
CPT/HCPCS: 82948; 96372; 99281; J1885

== ENCOUNTER 2018-07-07 02:20 | Emergency (ER) | payer MEDICARE ==
[2018-07-07 02:20] VITALS: BMI 18.2
[2018-07-07 02:35] VITALS: BP 108/77; PULSE 82; RESP 18; TEMP 98.5; O2SAT 100
--- NOTE | 2018-07-07 02:57 | ED PDOC ---
HPI: General Adult Time Seen by Provider: 07/07/18 02:36 Chief Complaint (Nursing): Psychiatric Evaluation Chief Complaint (Provider): Difficulty Sleeping History Per: Patient History/Exam Limitations: no limitations Onset/Duration Of Symptoms: Days (x4) Current Symptoms Are (Timing): Still Present Additional Complaint(s): 52 year old male presents to the ED for evaluation of difficulty sleeping over the past four days, only getting about five hours in total since onset. Patient notes that four days ago, he heard news that one of his close friends in [place], and believes this to be the cause of his insomnia, as he is very upset about the information. Denies depression, suicidal / homicidal ideation, alcohol /drug use. PMD: none provided Past Medical History Reviewed: Historical Data, Nursing Documentation, Vital Signs Vital Signs: Last Vital Signs Temp 98.5 F 07/07/18 02:31 Pulse 82 07/07/18 02:31 Resp 18 07/07/18 02:31 BP 108/77 07/07/18 02:31 Pulse Ox 100 07/07/18 02:31 - Medical History PMH: Arthritis (bilateral knee), Diabetes (type II), Rheumatoid Arthritis Denies: HTN (denies 04/30/17), Chronic Kidney Disease - Surgical History Surgical History: Hernia Repair (umbilical) - Family History Family History: States: Diabetes (Father) - Social History Current smoker - smoking cessation education provided: No Alcohol: None Drugs: Denies - Immunization History Hx Tetanus Toxoid Vaccination: No Hx Influenza Vaccination: No Hx Pneumococcal Vaccination: No - Home Medications Home Medications: Ambulatory Orders Medication Instructions Recorded Insulin Lispro Protamin/Lispro 10 - 12 unit SQ ACTID 12/02/16 [Humalog Mix 75-25 Kwikpen] MetFORMIN [glucOPHAGE] 1,000 mg PO BID 04/23/17 RX: Gabapentin [Neurontin] 800 mg PO TID #30 tab 09/14/17 - Allergies Allergies/Adverse Reactions: Allergies Allergy/AdvReac Type Severity Reaction Status Date / Time acetaminophen [From Percocet] Allergy RASH Verified 01/07/18 18:26 codeine Allergy RASH Verified 01/07/18 18:26 oxycodone HCl [From Percocet] Allergy RASH Verified 01/07/18 18:26 Review of Systems ROS Statement: Except As Marked, All Systems Reviewed And Found Negative Psych: Negative for: Depression, Suicidal ideation (or homicidal) Physical Exam - Reviewed Nursing Documentation Reviewed: Yes Vital Signs Reviewed: Yes - Physical Exam Appears: Positive for: No Acute Distress Head Exam: Positive for: ATRAUMATIC, NORMOCEPHALIC Skin: Positive for: Normal Color, Warm Eye Exam: Positive for: Normal appearance, EOMI, PERRL Extremity: Positive for: Normal ROM. Negative for: Tenderness, Swelling Neurologic/Psych: Positive for: Alert, Oriented (x3) - ECG O2 Sat by Pulse Oximetry: 100 (RA) Pulse Ox Interpretation: Normal Medical Decision Making Medical Decision Making: Time: 241 Initial Impression: insomnia, grieving Initial Plan: --At this time, there is no criteria for further evaluation in the ED, medically or psychiatrically. Patient given Ambien 5mg PO and is stable for discharge. Scribe Attestation: Documented by Rita Payne, acting as a scribe for Sergio Boo MD. Provider Scribe Attestation: All medical record entries made by the Scribe were at my direction and personally dictated by me. I have reviewed the chart and agree that the record accurately reflects my personal performance of the history, physical exam, medical decision making, and the department course for this patient. I have also personally directed, reviewed, and agree with the discharge instructions and disposition. Disposition - Clinical Impression Clinical Impression: Insomnia - Patient ED Disposition Is Patient to be Admitted: No Doctor Will See Patient In The: Office Counseled Patient/Family Regarding: Studies Performed, Diagnosis, Need For Followup - Disposition Referrals: [facility] [Outside] Disposition: Routine/Home Disposition Time: 02:40 Condition: GOOD Additional Instructions: NASRIN CAI, thank you for letting us take care of you today. Your provider was Sergio Boo MD and you were treated for CAN'T SLEEP FOR 3 DAYS. The emergency medical care you received today was directed at your acute symptoms. If you were prescribed any medication, please fill it and take as dir ected. It may take several days for your symptoms to resolve. Return to the Emergency Department if your symptoms worsen, do not improve, or if you have any other problems. Please contact your doctor or call one of the physicians/clinics you have been referred to that are listed on the Patient Visit Information form that is included in your discharge packet. Bring any paperwork you were given at discharge with you along with any medications you are taking to your follow up visit. Our treatment cannot replace ongoing medical care by a primary care provider outside of the emergency department. Thank you for allowing the [facility] team to be part of your care today. If you had an X-Ray or CT scan: A Radiologist will review the ED reading if any change in treatment is needed we will contact you. If you had a blood, urine, or wound culture: It will take several days for the results, if any change in treatment is needed we will contact you. If you had an STI test: It will take 48 hours for the results. Please call after 1 week if you have not heard back. Instructions: Insomnia
== END 2018-07-07 03:30 | disposition home or self-care (01) ==
LOC: H.ER 02:20
DX: G47.00 Insomnia, unspecified (principal); E11.9 Type 2 diabetes mellitus without complications; Z79.4 Long term (current) use of insulin

== ENCOUNTER 2018-07-25 01:56 | Emergency (ER) | payer MEDICARE ==
[2018-07-25 01:56] VITALS: BMI 18.2
[2018-07-25 02:13] VITALS: BP 111/58; PULSE 82; RESP 16; TEMP 98.2; O2SAT 99
--- NOTE | 2018-07-25 03:42 | ED PDOC ---
Syncope/Near Syncope/Dizziness Time Seen by Provider: 07/25/18 02:13 Chief Complaint (Nursing): Dizziness/Lightheaded History Per: Patient History/Exam Limitations: no limitations Current Symptoms Are (Timing): Still Present Additional Complaint(s): Hx of DM, RA presenting with nausea, vomiting, diarrhea today, states he vomited several times, non-bloody non-bilious with watery diarrhea, states he felt faint while going to the bathroom and "passed out". States he also had a high FS earlier today of greater than 400, states he took 20 units of insulin. Denies chest pain, shortenes of breath, abdominal pain currently. States he feels better now than he did before. PMD: Dr. Anderson Past Medical History Vital Signs: Last Vital Signs Temp 98.2 F 07/25/18 02:10 Pulse 82 07/25/18 02:10 Resp 16 07/25/18 02:10 BP 111/58 L 07/25/18 02:10 Pulse Ox 99 07/25/18 02:10 - Medical History PMH: Arthritis (bilateral knee), Diabetes (type II), Rheumatoid Arthritis Denies: HTN (denies 04/30/17), Chronic Kidney Disease - Surgical History Surgical History: Hernia Repair (umbilical) - Family History Family History: States: Unknown Family Hx, Diabetes (Father) - Immunization History Hx Tetanus Toxoid Vaccination: No Hx Influenza Vaccination: No Hx Pneumococcal Vaccination: No - Home Medications Home Medications: Ambulatory Orders Medication Instructions Recorded Insulin Lispro Protamin/Lispro 10 - 12 unit SQ ACTID 12/02/16 [Humalog Mix 75-25 Kwikpen] MetFORMIN [glucOPHAGE] 1,000 mg PO BID 04/23/17 Gabapentin [Neurontin] 800 mg PO TID #30 tab 09/14/17 - Allergies Allergies/Adverse Reactions: Allergies Allergy/AdvReac Type Severity Reaction Status Date / Time acetaminophen [From Percocet] Allergy RASH Verified 01/07/18 18:26 codeine Allergy RASH Verified 01/07/18 18:26 oxycodone HCl [From Percocet] Allergy RASH Verified 01/07/18 18:26 Physical Exam - Reviewed Nursing Documentation Reviewed: Yes Vital Signs Reviewed: Yes - Physical Exam Appears: Positive for: Well, Non-toxic, No Acute Distress Head Exam: Positive for: ATRAUMATIC, NORMAL INSPECTION, NORMOCEPHALIC Skin: Positive for: Normal Color, Warm, DRY Eye Exam: Positive for: EOMI, Normal appearance, PERRL ENT: Positive for: Normal ENT Inspection Neck: Positive for: Normal, Painless ROM Cardiovascular/Chest: Positive for: Regular Rate, Rhythm Respiratory: Positive for: CNT, Normal Breath Sounds Gastrointestinal/Abdominal: Positive for: Normal Exam, Soft. Negative for: Tenderness Back: Positive for: Normal Inspection Extremity: Positive for: Normal ROM Neurologic/Psych: Positive for: Alert, Oriented - ECG O2 Sat by Pulse Oximetry: 99 Pulse Ox Interpretation: Normal Medical Decision Making Medical Decision Makin Patient presenting with syncope associated with gastroenteritis --Patient well appearing currently --Will give PO fluids, place on monitor, and recheck vitals 240 --Patient walked out of ER before treatment completed Disposition - Clinical Impression Clinical Impression: Pre-syncope - Disposition Disposition: Left W/O Treatment Disposition Time: 02:40 Condition: UNKNOWN
== END 2018-07-25 02:40 | disposition left against medical advice (07) ==
LOC: H.ER 01:56
DX: R55 Syncope and collapse (principal); E11.9 Type 2 diabetes mellitus without complications; M06.9 Rheumatoid arthritis, unspecified; Z79.4 Long term (current) use of insulin; Z88.5 Allergy status to narcotic agent

== ENCOUNTER 2018-09-01 21:30 | Emergency (ER) | payer MEDICARE ==
[2018-09-01 21:30] VITALS: BMI 18.2
[2018-09-01 21:34] VITALS: BP 136/72; PULSE 90; RESP 18; TEMP 98.2; O2SAT 96
--- NOTE | 2018-09-01 21:43 | ED PDOC ---
Hyperglycemia/Hypoglycemia Time Seen by Provider: 09/01/18 21:36 Chief Complaint (Nursing): Seizure Chief Complaint (Provider): Hypoglycemia History Per: Patient History/Exam Limitations: clinical condition : The patient does not have any of the infectious symptoms listed except for those marked. Past Medical History Reviewed: Historical Data Vital Signs: Last Vital Signs Temp 98.2 F 09/01/18 21:31 Pulse 90 09/01/18 21:31 Resp 18 09/01/18 21:31 BP 136/72 09/01/18 21:31 Pulse Ox 96 09/01/18 21:31 - Medical History PMH: Arthritis (bilateral knee), Diabetes (type II), Rheumatoid Arthritis Denies: HTN (denies 04/30/17), Chronic Kidney Disease - Surgical History Surgical History: Hernia Repair (umbilical) - Family History Family History: States: Unknown Family Hx, Diabetes (Father) - Immunization History Hx Tetanus Toxoid Vaccination: No Hx Influenza Vaccination: No Hx Pneumococcal Vaccination: No - Home Medications Home Medications: Ambulatory Orders Medication Instructions Recorded Insulin Lispro Protamin/Lispro 10 - 12 unit SQ ACTID 12/02/16 [Humalog Mix 75-25 Kwikpen] MetFORMIN [glucOPHAGE] 1,000 mg PO BID 04/23/17 Gabapentin [Neurontin] 800 mg PO TID #30 tab 09/14/17 - Allergies Allergies/Adverse Reactions: Allergies Allergy/AdvReac Type Severity Reaction Status Date / Time acetaminophen [From Percocet] Allergy RASH Verified 01/07/18 18:26 codeine Allergy RASH Verified 01/07/18 18:26 oxycodone HCl [From Percocet] Allergy RASH Verified 01/07/18 18:26 Physical Exam - Reviewed Nursing Documentation Reviewed: Yes Vital Signs Reviewed: Yes - Physical Exam Appears: Positive for: Well, Uncomfortable Head Exam: Positive for: ATRAUMATIC, NORMAL INSPECTION Skin: Positive for: Warm, Dry. Negative for: Normal Color (pt presents pale and non-diaphoretic), Diaphoresis Eye Exam: Positive for: PERRL, Conjunctival injection. Negative for: Nystagmus, Periorbital swelling, Periorbital tenderness ENT: Positive for: Normal ENT Inspection Cardiovascular/Chest: Positive for: Regular Rate, Rhythm Respiratory: Positive for: Normal Breath Sounds Pulses-Carotid (L): 1+ Pulses-Carotid (R): 1+ Pulses-Radial (L): 2+ Pulses-Radial (R): 2+ - ECG O2 Sat by Pulse Oximetry: 96 Medical Decision Making Medical Decision Making: I: Hypoglycemic P: PO nutrition D5 (50ml) EKG CBC CMP Pt took PO nutrtion and refused blood testing and D5 Pt requests to leave hospital at 2200 Pt consumed one sandwich and one apple juice and BG increased to 64; pt continued to reject diagnostic testing and D5 Pt consumed another sandwich, a pack of twizzlers candy and three more apple juices and threatened to leave Pt placed on a 1:1 for patient safety reasons Pt walked past 1:1 personnell and refused to stop when security attempted to stop him Pt left hospital at 2245 Pt gait was steady prior to departure Pt was A&O x 3 prior to departure Pt vitals were stable prior to departure; last glucose level was 64 (prior to candy, more fruit juice and additional sandwich) Disposition - Clinical Impression Clinical Impression: Hypoglycemia - Disposition Disposition: Left W/O Treatment Disposition Time: 22:50 Condition: STABLE Forms: [employer] (Mexican)
== END 2018-09-01 22:35 | disposition left against medical advice (07) ==
LOC: H.ER 21:30
DX: E11.649 Type 2 diabetes mellitus with hypoglycemia without coma (principal); Z79.4 Long term (current) use of insulin; M06.9 Rheumatoid arthritis, unspecified; Z88.5 Allergy status to narcotic agent

== ENCOUNTER 2018-09-19 09:21 | Emergency (ER) | payer MEDICARE ==
[2018-09-19 09:21] VITALS: BMI 18.2
[2018-09-19 09:42] VITALS: BP 117/81; PULSE 80; RESP 18; TEMP 98.6; O2SAT 99
--- NOTE | 2018-09-19 09:57 | ED PDOC ---
Lower Extremity Pain/Injury Time Seen by Provider: 09/19/18 09:34 Chief Complaint (Nursing): Lower Extremity Problem/Injury Chief Complaint (Provider): Left foot painn History Per: Patient Onset/Duration Of Symptoms: Days Current Symptoms Are (Timing): Still Present Additional Complaint(s): 52yo male, with history of diabetes, comes to ER reporting pain and swelling to his left ankle/foot area. Patient states he has a worsening ulcer on his left foot as well. Otherwise, no calf pain, weakness, numbness or tingling. Patient denies any fever, chills, chest pain or shortness of breath as well. He has not take any medications for his symptoms. Pt. spoke with Dr. Seth and showed her the foot via text. She said to come to the hospital for eval. PMD: Dr. Anderson, Dr. Betancourt Past Medical History Reviewed: Historical Data, Nursing Documentation, Vital Signs Vital Signs: Last Vital Signs Temp 98.6 F 09/19/18 09:42 Pulse 80 09/19/18 09:42 Resp 18 09/19/18 09:42 BP 117/81 09/19/18 09:42 Pulse Ox 99 09/19/18 09:42 - Medical History PMH: Arthritis (bilateral knee), Diabetes (type II), Rheumatoid Arthritis Denies: HTN (denies 04/30/17), Chronic Kidney Disease - Surgical History Surgical History: Hernia Repair (umbilical) - Family History Family History: States: Unknown Family Hx, Diabetes (Father) - Social History Current smoker - smoking cessation education provided: No Alcohol: None Drugs: Denies - Immunization History Hx Tetanus Toxoid Vaccination: No Hx Influenza Vaccination: No Hx Pneumococcal Vaccination: No - Home Medications Home Medications: Ambulatory Orders Medication Instructions Recorded MetFORMIN [glucOPHAGE] 1,000 mg PO BID 04/23/17 Insulin Lispro Mix 75/25 [HumaLOG 25 unit SC BID 09/19/18 Mix 75/25] Prazosin HCl [Minipress] 1 mg PO HS 09/19/18 Pregabalin [Lyrica] 50 mg PO Q12 09/19/18 - Allergies Allergies/Adverse Reactions: Allergies Allergy/AdvReac Type Severity Reaction Status Date / Time acetaminophen [From Percocet] Allergy RASH Verified 01/07/18 18:26 codeine Allergy RASH Verified 01/07/18 18:26 oxycodone HCl [From Percocet] Allergy RASH Verified 01/07/18 18:26 Review of Systems ROS Statement: Except As Marked, All Systems Reviewed And Found Negative Constitutional: Negative for: Fever, Chills Cardiovascular: Negative for: Chest Pain Respiratory: Negative for: Shortness of Breath Gastrointestinal: Negative for: Abdominal Pain Musculoskeletal: Positive for: Foot Pain (left) Skin: Positive for: Lesions Neurological: Negative for: Weakness, Numbness Physical Exam - Reviewed Nursing Documentation Reviewed: Yes Vital Signs Reviewed: Yes - Physical Exam Appears: Positive for: No Acute Distress (poor hygeine) Head Exam: Positive for: ATRAUMATIC, NORMAL INSPECTION, NORMOCEPHALIC Skin: Positive for: Normal Color Eye Exam: Positive for: Normal appearance, EOMI, PERRL Neck: Positive for: Normal, Supple Cardiovascular/Chest: Positive for: Regular Rate, Rhythm. Negative for: Tachycardia Respiratory: Positive for: Normal Breath Sounds. Negative for: Wheezing, Respiratory Distress Pulses-Dorsalis Pedis (L): 2+ Pulses-Dorsalis Pedis (R): 2+ Pulses-Post. Tibialis (L): 2+ Pulses-Post. Tibialis (R): 2+ Gastrointestinal/Abdominal: Positive for: Soft. Negative for: Tenderness Back: Positive for: Normal Inspection. Negative for: L CVA Tenderness, R CVA Tenderness Extremity: Positive for: Normal ROM, Tenderness (diffuse tenderness to left foot), Capillary Refill (< 2 seconds), Swelling (diffuse swelling noted to left foot), Other (stage 3 ulcer noted to plantar aspect of right great toe, + weeping noted; stage 2 healing ulcer noted to right izaguirre; stage 2 ulcer, 2in in diameter noted to left foot.). Negative for: Pedal Edema, Calf Tenderness, Deformity Neurological/Psych: Positive for: Awake, Alert, mine wedge sawyer II-XII - ECG O2 Sat by Pulse Oximetry: 99 - Progress ED Course And Treament: 0: Pt. aware will need blood work, IV tx, IV antibiotics, and admission. 2300: Podiatry saw pt. Pt. refusing any workup and treatment and only got x- ray. Podiatry wrapped ulcer of foot. Pt. stating he has to make arrangements at home before anything is to get done. Refusing IV or oral tx. 2310: Pt. not in room. Pt. not found in the ER. Pt. eloped. Last seen was aaox3. Had capacity to make decisions. Disposition - Clinical Impression Clinical Impression: Cellulitis, Foot ulcer, Hyperglycemia - Disposition Disposition: Left W/O Treatment Disposition Time: 11:29 Condition: STABLE
[2018-09-19] MEDS ORDERED: Piperacillin/Tazobact 3.375 GM in Sodium Chloride 0.9% 100 ML IV STA (10:10)
[2018-09-19] MEDS ORDERED: Sodium Chloride 0.9% 1,000 ML IV SCH (10:15)
--- NOTE | 2018-09-19 11:45 | CP.PCM.CON ---
History of Present Illness - History of Present Illness History of Present Illness: Podiatry Consult Note: Dr. Betancourt 52 year old male with PMHx IDDM was seen and evaluated in ED for left ankle wound with red hot swollen left lower extremity. Patient states that 5 days ago his left ankle started to develop an ulceration on the outside. He states that his left leg and ankle started to get swollen and red. He states that the ulcer site is painful /10. He states that it got worse. He states that . Patient states that he used to follow up at the wound care center at [place] with Dr. Betancourt for right leg wound. Patient states that his right leg wound got better. He is AAOx3 and NAD at time of examination. Denies any further pedal complaints at this time. Patient denies any recent N/V/F/C/CP/SOB/D/posterior calf pain when squeezed. Denies any other pedal complains at this time. PMH: IDDM PSH: L fifth digit after traumatic incident. Allergies: Acetaminophen, Codeine, Oxycodone. Social Hx: 0.5 ppd smoker x 25 years, denies alcohol, Denies illicit drug use. Review of Systems - Review of Systems Review of Systems: As per HPI - Constitutional Constitutional: As Per HPI Past Patient History - Infectious Disease Hx of Infectious Diseases: None - Past Medical History & Family History Past Medical History?: Yes - Past Social History Alcohol: None Drugs: Denies - CARDIAC Hx Hypertension: No (denies 04/30/17) - PULMONARY Hx Respiratory Disorders: No - NEUROLOGICAL Hx Neurological Disorder: No - HEENT Hx HEENT Problems: Yes Other/Comment: uses eye glasses - RENAL Hx Chronic Kidney Disease: No - ENDOCRINE/METABOLIC Hx Endocrine Disorders: Yes (DM) Hx Diabetes Mellitus Type 2: Yes - HEMATOLOGICAL/ONCOLOGICAL Hx Blood Disorders: No - INTEGUMENTARY Hx Dermatological Problems: No - MUSCULOSKELETAL/RHEUMATOLOGICAL Hx Arthritis: Yes (bilateral knee) Hx Rheumatoid Arthritis: Yes - GASTROINTESTINAL Hx Gastrointestinal Disorders: No - GENITOURINARY/GYNECOLOGICAL Hx Genitourinary Disorders: No - PSYCHIATRIC Hx Psychophysiologic Disorder: No Hx Substance Use: No - SURGICAL HISTORY Hx Orthopedic Surgery: Yes Other/Comment: Left 5th toe. Right knee - ANESTHESIA Hx Anesthesia: Yes Hx Anesthesia Reactions: No Hx Malignant Hyperthermia: No Meds Allergies/Adverse Reactions: Allergies Allergy/AdvReac Type Severity Reaction Status Date / Time acetaminophen [From Percocet] Allergy RASH Verified 01/07/18 18:26 codeine Allergy RASH Verified 01/07/18 18:26 oxycodone HCl [From Percocet] Allergy RASH Verified 01/07/18 18:26 - Medications Medications: Current Medications Sodium Chloride (Sodium Chloride 0.9%) 1,000 mls @ 1,000 mls/hr IV .Q1H HUMA Vancomycin HCl 1 gm/ Sodium (Chloride) 250 mls @ 166.667 mls/hr IVPB STAT STA; Protocol Stop: 09/19/18 11:40 Physical Exam - Constitutional Appears: Non-toxic, No Acute Distress - Head Exam Head Exam: ATRAUMATIC, NORMOCEPHALIC - Extremities Exam Additional comments: B/L LE focused exam: Vasc: DP/PT pulses palpable 2/4 b/l. Skin temperature mildly increased to erythematous anterior leg extending outward from anterior leg wound. Cap refill time: < 3 seconds to all digits. Moderate non pitting edema noted to the left lower extremity with erythema extending up to the upper 1/3 of the leg Neuro: Epicritic and protective sensation grossly intact b/l Derm: LLE: Approximately 3 cm x 1 cm x 0.1 cm superficial ulcer noted to the left lateral malleolous with moderate periwound non pitting edema and erythema . . No tracking, tunneling or undermining is appreciated. No malodor noted. Minimal serous drainage noted RLE: Approximately 2 cm x 1 cm x 0.1 cm ulcer noted to the right anterior leg with no erythema to the periwound area. Base is granular 100%. No tracking, tunneling or undermining is appreciated. No malodor noted. Second ulceration noted to platar aspect of the big toe, wound edges are hyperkeratotic, base is fibrotic 100%. Positive tracking, positive tunneling and positive undermining undermining noted, No probe to bone noted. MSK: POP to anterior leg ulceration. No gross deformities noted - Neurological Exam Neurological exam: Alert, Oriented x3 - Psychiatric Exam Psychiatric exam: Normal Affect, Normal Mood Results - Vital Signs Recent Vital Signs: Last Vital Signs Temp 98.6 F 09/19/18 09:42 Pulse 80 09/19/18 09:42 Resp 18 09/19/18 09:42 BP 117/81 09/19/18 09:42 Pulse Ox 99 09/19/18 11:25 Assessment & Plan - Assessment and Plan (Free Text) Assessment: 52 year old male with PMHx IDDM was seen and evaluated in ED for left ankle wound with cellulitis of the left lower extremity. Plan: Patient seen and evaluated Plan discussed with attending Dr. Betancourt Charts and vitals reviewed; Afebrile Wound cx collected and sent to the lab. Ordered ESR and CRP Ordered left ankle 3 views X-ray Ordered bactoban to be added to the dressing starting tomorrw. B/L wounds cleaned with saline then dressed using bacitracin and DSD Left ankle X-ray: No signs of OM Patient needs to be admitted and put on IV Abx. Dipensed pair of surgical shoes. Patient to ambulate in the surgical shoes all the times. Patient wants to leave to his home to make arrangements before admission Thank you for the podiatry consult and allowing to take part in patient care Podiatry will continue to follow while patient in house when he got admitted - Date & Time Date: 09/19/18 Time: 11:47
[2018-09-19 13:31] LABS: VENOUS BLOOD GAS BASE EXCESS 5.9 mmol/L (0.0-2.0); VENOUS BLOOD GAS PCO2 57 mmHg (40-60); VENOUS BLOOD GAS PO2 18 mm/Hg (30-55); VENOUS BLOOD PH 7.37 (7.32-7.43)
[2018-09-19] MEDS ORDERED: Vancomycin 1 g Inj ONE (13:31)
[2018-09-19 13:51] LABS: BASO % 0.6 % (0.0-2.0); EOS # 0.5 K/uL (0.0-0.7); EOS % 6.9 % (0.0-4.0); HEMOGLOBIN 13.3 g/dL (12.0-18.0); LYMPH # 1.6 K/uL (1.0-4.3); LYMPH % 20.8 % (20.0-40.0); MEAN CELL VOLUME 82.3 fl (80.0-94.0); MEAN CORPUSCULAR HEMOGLOBIN 27.3 pg (27.0-31.0); MEAN CORPUSCULAR HGB CONC 33.1 g/dL (33.0-37.0); MEAN PLATELET VOLUME 8.5 fl (7.2-11.7); MONO # 0.3 K/uL (0.0-0.8); MONO % 3.4 % (0.0-10.0); NEUT # 5.3 K/uL (1.8-7.0); NEUT % 68.3 % (50.0-75.0); RBC 4.87 Mil/uL (4.40-5.90); RED CELL DISTRIBUTION WIDTH 14.1 % (11.5-14.5); WHITE BLOOD COUNT 7.7 K/uL (4.8-10.8)
[2018-09-19 13:53] LABS: PROTHROMBIN TIME 11.7 Seconds (9.8-13.1)
[2018-09-19 13:55] LABS: PARTIAL THROMBOPLASTIN TIME 33.1 Seconds (25.6-37.1)
[2018-09-19 14:06] LABS: ALB/GLOB RATIO 1.3 (1.0-2.1); ALBUMIN 4.1 g/dL (3.5-5.0); ALT/SGPT 21 U/L (21-72); AST/SGOT 18 U/L (17-59); BLOOD UREA NITROGEN 13 mg/dl (9-20); CALCIUM 9.9 mg/dL (8.4-10.2); GFR NON-AFRICAN AMERICAN > 60
--- NOTE | 2018-09-19 15:14 | RAD ---
Date of service: 09/19/2018 PROCEDURE: Left Ankle Radiographs. HISTORY: left ankle ulceration COMPARISON: None available. FINDINGS: BONES: No evidence of osteomyelitis. JOINTS: Normal. No osteoarthritis. Ankle mortise maintained. Talar dome intact SOFT TISSUES: Extensive soft tissue swelling primarily centered about the distal fibula/lateral malleolus. Soft tissue swelling also identified posteriorly and anteriorly. OTHER FINDINGS: None. IMPRESSION: Soft tissue swelling without acute articular or osseous abnormality.
--- NOTE | 2018-09-19 15:24 | RAD ---
Date of service: 09/19/2018 PROCEDURE: Left Foot Radiographs. HISTORY: Left foot swelling and pain. COMPARISON: None. FINDINGS: BONES: Normal. No fracture. JOINTS: Normal. SOFT TISSUES: Normal. OTHER FINDINGS: None. IMPRESSION: No acute findings related to/ accounting for the clinical presentation.
[2018-09-19] MEDS ORDERED: Mupirocin 2% Oint 1GM UD TOP SCH (17:00)
== END 2018-09-19 10:50 | disposition left against medical advice (07) ==
LOC: H.ER 09:21 → H.ERHOLD 10:12 → UNDOADMIN 10:12 → H.ER 10:50
DX: M25.572 Pain in left ankle and joints of left foot (principal)

== ENCOUNTER 2018-09-19 11:38 | Inpatient (IN) | payer MEDICARE ==
[2018-09-19 11:47] VITALS: BMI 22.1
--- NOTE | 2018-09-19 12:05 | ED PDOC ---
Lower Extremity Pain/Injury Time Seen by Provider: 09/19/18 12:00 Chief Complaint (Nursing): Lower Extremity Problem/Injury Chief Complaint (Provider): left leg pain and swelling History Per: Patient History/Exam Limitations: no limitations Onset/Duration Of Symptoms: Days Current Symptoms Are (Timing): Still Present Additional Complaint(s): 52yo diabetic male, returns to ER for repeat evaluation of left foot and ankle pain, swelling and ulceration. Patient was evaluated by me earlier today, and initially had left prior to treatment being complete. Patient returns stating he is amenable to bloodwork and further treatment. Patient denies any new symptoms, trauma or injury in the period in which he left the ER. Past Medical History Reviewed: Historical Data, Nursing Documentation, Vital Signs Vital Signs: Last Vital Signs Temp 98.9 F 09/19/18 11:43 Pulse 88 09/19/18 11:43 Resp 20 09/19/18 11:43 BP 130/62 09/19/18 11:43 Pulse Ox 97 09/19/18 11:43 - Medical History PMH: Arthritis (bilateral knee), Diabetes (type II), Rheumatoid Arthritis Denies: HTN (denies 04/30/17), Chronic Kidney Disease - Surgical History Surgical History: Hernia Repair (umbilical) - Family History Family History: States: Unknown Family Hx, Diabetes (Father) - Immunization History Hx Tetanus Toxoid Vaccination: No Hx Influenza Vaccination: No Hx Pneumococcal Vaccination: No - Home Medications Home Medications: Ambulatory Orders Medication Instructions Recorded MetFORMIN [glucOPHAGE] 1,000 mg PO BID 04/23/17 Insulin Lispro Mix 75/25 [HumaLOG 25 unit SC BID 09/19/18 Mix 75/25] Prazosin HCl [Minipress] 1 mg PO HS 09/19/18 Pregabalin [Lyrica] 50 mg PO Q12 09/19/18 - Allergies Allergies/Adverse Reactions: Allergies Allergy/AdvReac Type Severity Reaction Status Date / Time acetaminophen [From Percocet] Allergy RASH Verified 01/07/18 18:26 codeine Allergy RASH Verified 01/07/18 18:26 oxycodone HCl [From Percocet] Allergy RASH Verified 01/07/18 18:26 Review of Systems ROS Statement: Except As Marked, All Systems Reviewed And Found Negative Constitutional: Negative for: Fever, Chills Cardiovascular: Negative for: Chest Pain Respiratory: Negative for: Shortness of Breath Musculoskeletal: Positive for: Foot Pain (left) Skin: Positive for: Other (ulcer to left foot) Neurological: Negative for: Weakness, Numbness Physical Exam - Reviewed Nursing Documentation Reviewed: Yes Vital Signs Reviewed: Yes - Physical Exam Appears: Positive for: No Acute Distress Skin: Positive for: Warm, Dry Neck: Positive for: Supple Cardiovascular/Chest: Positive for: Regular Rate, Rhythm. Negative for: Tachycardia Respiratory: Positive for: Normal Breath Sounds. Negative for: Wheezing Pulses-Dorsalis Pedis (L): 2+ Pulses-Dorsalis Pedis (R): 2+ Pulses-Post. Tibialis (L): 2+ Pulses-Post. Tibialis (R): 2+ Extremity: Positive for: Normal ROM, Tenderness (diffuse tenderness to left foot and ankle), Capillary Refill (< 2 seconds), Swelling (left foot and ankle diffuse swelling), Other (stage 3 healing ulceration to plantar aspect right great toe + weeping; stage 2 ulcer 2in in length, right shing; marisa 2 ulcer, 2in in diameter on left ankle). Negative for: Calf Tenderness, Deformity Neurological/Psych: Positive for: Awake, Alert, Oriented (x 3), Motor/Sensory Deficits (loss of sensation right great toe) - ECG O2 Sat by Pulse Oximetry: 97 (RA) Pulse Ox Interpretation: Normal - Progress ED Course And Treament: Admitted to [facility] and Dr. Jacobs. Guerra. Medical Decision Making Medical Decision Making: Impression: Ulcer to left foot Plan: -- Labs Patient returned for repeat evaluation of ulceration, is amenable to labs and further treatment. Scribe Attestation: Documented by Estephania Garza acting as a scribe for Anderson Woodard MD. Provider Attestation: All medical record entries made by the Scribe were at my direction and person ally dictated by me. I have reviewed the chart and agree that the record accurately reflects my personal performance of the history, physical exam, medical decision making, and the department course for this patient. I have also personally directed, reviewed, and agree with the discharge instructions and disposition. Disposition - Clinical Impression Clinical Impression: Cellulitis, Hyperglycemia, Ulcer - Patient ED Disposition Is Patient to be Admitted: Yes Counseled Patient/Family Regarding: Studies Performed, Diagnosis - Disposition Disposition Time: 11:40 Condition: FAIR
[2018-09-19] MEDS ORDERED: Sodium Chloride 0.9% 1,000 ML IV ONE (12:15)
--- NOTE | 2018-09-19 12:58 | CP.PCM.HP ---
History of Present Illness - History of Present Illness History of Present Illness: 52 yr old M pmhx of IDDM type 2, RA, chronic non-healing RLE ulcer presents to the ED with 5 day history of L lower extremity swelling and ulcer draining. Pt states that symptoms presented suddenly. No hx of falls or trauma to lower ex tremities. Of note: RLE: chronic ulcers; treated by Dr. Betancourt; hx of surgery to affected foot 1 year ago. Reports dry, non productive cough for 1 day. Tolerating regular PO diet. Bowel movements are chronically irregular. Denies fevers, chills, nausea, vomiting or weakness. PMD: Dr. Anderson Podiatry: Dr. 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 absent: Dyspnea, Change in Mucous Color - Gastrointestinal Gastrointestinal: absent: Abdominal Pain - Genitourinary Genitourinary: absent: Change in Urinary Stream - Musculoskeletal Musculoskeletal: Abnormal Gait, Muscle Weakness Additional comments: Pt reports chronic numbness of LE digits, ulceration of bilateral LE, erythema of L LE; - Neurological Neurological: Abnormal Gait Past Patient History - Infectious Disease Hx of Infectious Diseases: None - Past Medical History & Family History Past Medical History?: Yes - Past Social History Smoking Status: Heavy Smoker > 10 Cigarettes Daily - CARDIAC Hx Hypertension: No (denies 04/30/17) - PULMONARY Hx Respiratory Disorders: No - NEUROLOGICAL Hx Neurological Disorder: No - HEENT Hx HEENT Problems: Yes Other/Comment: uses eye glasses - RENAL Hx Chronic Kidney Disease: No - ENDOCRINE/METABOLIC Hx Endocrine Disorders: Yes (DM) Hx Diabetes Mellitus Type 2: Yes - HEMATOLOGICAL/ONCOLOGICAL Hx Blood Disorders: No - INTEGUMENTARY Hx Dermatological Problems: No - MUSCULOSKELETAL/RHEUMATOLOGICAL Hx Arthritis: Yes (bilateral knee) Hx Rheumatoid Arthritis: Yes - GASTROINTESTINAL Hx Gastrointestinal Disorders: No - GENITOURINARY/GYNECOLOGICAL Hx Genitourinary Disorders: No - PSYCHIATRIC Hx Psychophysiologic Disorder: No Hx Substance Use: No - SURGICAL HISTORY Hx Orthopedic Surgery: Yes Other/Comment: Left 5th toe. Right knee - ANESTHESIA Hx Anesthesia: Yes Hx Anesthesia Reactions: No Hx Malignant Hyperthermia: No Meds Allergies/Adverse Reactions: Allergies Allergy/AdvReac Type Severity Reaction Status Date / Time acetaminophen [From Percocet] Allergy RASH Verified 01/07/18 18:26 codeine Allergy RASH Verified 01/07/18 18:26 oxycodone HCl [From Percocet] Allergy RASH Verified 01/07/18 18:26 Physical Exam - Constitutional Appears: No Acute Distress - Eye Exam Eye Exam: EOMI - ENT Exam ENT Exam: Mucous Membranes Moist - Neck Exam Neck exam: Positive for: Full Rom - Respiratory Exam Respiratory Exam: Clear to Auscultation Bilateral, NORMAL BREATHING PATTERN. absent: Wheezes - Cardiovascular Exam Cardiovascular Exam: +S1, +S2 - GI/Abdominal Exam GI & Abdominal Exam: Normal Bowel Sounds, Soft. absent: Tenderness - Extremities Exam Extremities exam: Negative for: calf tenderness Additional comments: BL LE wrapped at foot per podiatry: clean and dry. L LE Markings per podiatry, tracing cellulitis caudal to ankle. - Neurological Exam Neurological exam: Abnormal Gait, Alert, CN II-XII Intact, Oriented x3 - Psychiatric Exam Psychiatric exam: Normal Affect, Normal Mood Results - Vital Signs Recent Vital Signs: Last Vital Signs Temp 98.9 F 09/19/18 11:43 Pulse 88 09/19/18 11:43 Resp 20 09/19/18 11:43 BP 130/62 09/19/18 11:43 Pulse Ox 97 09/19/18 12:08 Assessment & Plan - Assessment and Plan (Free Text) Assessment: 52 yr old M pmhx of IDDM type 2, RA, chronic non-healing RLE ulcer presents to the ED with 5 day history of L lower extremity swelling and ulcer draining. Plan: XR LE: -Ankle: pending official report -Foot: pending official report L lower extremity cellulitis with ulceration R Lower extremity ulcerations x 2 -Podiatry: Dr. Betancourt -IVABX: Vancomycin, Zosyn -Surgical shoes -Bactroban dressing in AM -f/u wound/blood cultures, ESR, CRP -Monitor progression of cellulitis compared to markings Diabetes: -Random glucose 367 -cw Insulin Lispro mix 75/25: 25U sc BID -hold Metformin -Hba1c:9.5 (14 on 04/2017) -Accuchck -ICS low dose -hypoglycemia protocol Neuropathy -c/w Lyrica Nightmares: -c/w Prazosin 1 mg PO HS DVT prophylaxis -SCD -Lovenox 40 mg SC daily PT: -eval and treat; gait instability 2/2 leg ulcers/cellulitis Case and plan d/w Dr. Monica Wiggins MD PGY 2 16:00: Pt signed AMA Case and plan d/w Dr. Monica Wiggins MD PGY2
[2018-09-19] MEDS ORDERED: Glucagon Recombinant 1 mg Inj IM PRN (14:59)
[2018-09-19] MEDS ORDERED: Dextrose 50% SYRINGE Inj (50 ml) IV PRN (14:59)
[2018-09-19 16:03] VITALS: BP 117/79; TEMP 98
[2018-09-19] MEDS ORDERED: Insulin Regular 100 units/ml SC SCH (16:30)
[2018-09-19 16:38] VITALS: PULSE 80; RESP 16
[2018-09-19] MEDS ORDERED: Insulin Lispro Mix 75/25 100 units/ml (HumaLog) 10ml SC SCH (17:00)
--- NOTE | 2018-09-20 08:41 | CARD ---
APPROVED REPORT Date of service: 09/19/2018 EKG Measurement Heart [id number] <Conclusion> Normal sinus rhythm Normal ECG
[2018-09-20 09:15] VITALS: O2SAT 97
--- NOTE | 2018-09-22 08:27 | PQF ---
PROVIDER RESPONSE TEXT: RA: Bilateral hands. chronic REVIEWER QUERY TEXT: Rheumatoid Arthritis Specificity Rheumatoid arthritis is documented in the Medical Record. Please clarify the specific site and later ality if known Please also specify any associated conditions if known: i.e. Such as -- Bursitis -- Felty?s syndrome -- Juvenile (Please specify type) -- Myopathy -- Nodule -- Organ involvement (Please indicate organ involved and specific disorder) -- Polyneuropathy -- With Rheumatoid Factor -- Other, please specify H and P includes:Hx Rheumatoid Arthritis: Yes The patient's Clinical Indicators include: --- Query created by: Yasmine Fierro on 09/20/2018 9:16 AM Electronically signed by: Tyrese Wiggins 09/22/2018 8:23 AM
== END 2018-09-19 16:00 | disposition left against medical advice (07) | DRG 638 ==
LOC: H.ER 11:38 → H.ERHOLD 12:01 → H.TEL 15:12
PROVIDERS: ADMIT Family Medicine; ATTEND Family Medicine
DX: E11.621 Type 2 diabetes mellitus with foot ulcer (principal); L03.116 Cellulitis of left lower limb; L97.329 Non-pressure chronic ulcer of left ankle with unspecified severity; L97.819 Non-pressure chronic ulcer of other part of right lower leg with unspecified severity; Z79.4 Long term (current) use of insulin; M06.9 Rheumatoid arthritis, unspecified; R05 Cough; F17.210 Nicotine dependence, cigarettes, uncomplicated; M17.0 Bilateral primary osteoarthritis of knee; Z88.6 Allergy status to analgesic agent; Z88.5 Allergy status to narcotic agent; E11.40 Type 2 diabetes mellitus with diabetic neuropathy, unspecified; F51.5 Nightmare disorder; E11.65 Type 2 diabetes mellitus with hyperglycemia; L97.519 Non-pressure chronic ulcer of other part of right foot with unspecified severity

== ENCOUNTER 2018-09-22 21:50 | Emergency (ER) | payer MEDICARE ==
[2018-09-22 21:50] VITALS: BMI 22.1
[2018-09-22 22:01] VITALS: BP 120/75; PULSE 82; RESP 16; TEMP 98.6; O2SAT 95
--- NOTE | 2018-09-23 12:21 | CARD ---
APPROVED REPORT Date of service: 09/22/2018 EKG Measurement Heart [id number] CT [id number] [id number] <Conclusion> Normal sinus rhythm Normal ECG
== END 2018-09-22 22:15 | disposition left against medical advice (07) ==
LOC: H.ER 21:50
DX: Z02.89 Encounter for other administrative examinations (principal)

== ENCOUNTER 2018-10-01 12:07 | Emergency (ER) | payer MEDICARE ==
[2018-10-01 12:07] VITALS: BMI 22.1
--- NOTE | 2018-10-01 12:36 | ED PDOC ---
Lower Extremity Pain/Injury Time Seen by Provider: 10/01/18 12:19 Chief Complaint (Nursing): Lower Extremity Problem/Injury Chief Complaint (Provider): Lower Extremity Problem/Injury History Per: Patient History/Exam Limitations: no limitations Onset/Duration Of Symptoms: Days (x10) Current Symptoms Are (Timing): Still Present Additional Complaint(s): 52 year old male presents to the ED for evaluation of redness and swelling to his left foot and leg. Patient notes he completed a ten day course of clindamycin and cipro with no improvement. Otherwise, denies fever, calf pain, chest pain, and shortness of breath. PMD: Mallika Anderson Past Medical History Reviewed: Historical Data, Nursing Documentation, Vital Signs Vital Signs: Last Vital Signs Temp 97.3 F L 10/01/18 12:09 Pulse 94 H 10/01/18 12:09 Resp 16 10/01/18 12:09 BP 112/62 10/01/18 12:09 Pulse Ox 100 10/01/18 12:09 - Medical History PMH: Arthritis (bilateral knee), Diabetes (type II), Rheumatoid Arthritis Denies: HTN (denies 04/30/17), Chronic Kidney Disease - Surgical History Surgical History: Hernia Repair (umbilical) - Family History Family History: States: Unknown Family Hx, Diabetes (Father) - Immunization History Hx Tetanus Toxoid Vaccination: No Hx Influenza Vaccination: No Hx Pneumococcal Vaccination: No - Home Medications Home Medications: Ambulatory Orders Medication Instructions Recorded MetFORMIN [glucOPHAGE] 1,000 mg PO BID 04/23/17 Insulin Lispro Mix 75/25 [HumaLOG 25 unit SC BID 09/19/18 Mix 75/25] Prazosin HCl [Minipress] 1 mg PO HS 09/19/18 Pregabalin [Lyrica] 50 mg PO Q12 09/19/18 - Allergies Allergies/Adverse Reactions: Allergies Allergy/AdvReac Type Severity Reaction Status Date / Time acetaminophen [From Percocet] Allergy RASH Verified 10/01/18 12:09 codeine Allergy RASH Verified 10/01/18 12:09 oxycodone HCl [From Percocet] Allergy RASH Verified 10/01/18 12:09 Review of Systems ROS Statement: Except As Marked, All Systems Reviewed And Found Negative Constitutional: Negative for: Fever Cardiovascular: Negative for: Chest Pain Respiratory: Negative for: Shortness of Breath Musculoskeletal: Positive for: Other (redness and swelling to left foot and ankle). Negative for: Leg Pain (bilateral calf) Physical Exam - Reviewed Nursing Documentation Reviewed: Yes Vital Signs Reviewed: Yes - Physical Exam Appears: Positive for: No Acute Distress Head Exam: Positive for: ATRAUMATIC, NORMOCEPHALIC Eye Exam: Positive for: Normal appearance Neck: Positive for: Normal, Painless ROM Cardiovascular/Chest: Positive for: Regular Rate, Rhythm Respiratory: Positive for: Normal Breath Sounds. Negative for: Respiratory Distress Gastrointestinal/Abdominal: Positive for: Normal Exam, Soft. Negative for: Ten derness Extremity: Positive for: Other (left medial malleolus and medial aspect of left foot reveals swelling, warmth, and erythema; blisters noted to posterior left foot) Neurological/Psych: Positive for: Awake, Alert, Oriented (x3) - ECG O2 Sat by Pulse Oximetry: 100 (RA) Pulse Ox Interpretation: Normal Medical Decision Making Medical Decision Making: Time: 1224 Initial Impression: failed outpatient treatment, cellulitis of left foot and a nkle Initial Plan: --As per reviewing old records, patients left foot and ankle wound grew MRSA on 09/19. --IV Vanco and admission for outpatient failure ordered. Patient to be isolated. --Basic labs, blood culture, and VBG shock panel ordered. Scribe Attestation: Documented by Rita Payne, acting as a scribe for Gee Medina MD. Provider Scribe Attestation: All medical record entries made by the Scribe were at my direction and personally dictated by me. I have reviewed the chart and agree that the record accurately reflects my personal performance of the history, physical exam, medical decision making, and the department course for this patient. I have also personally directed, reviewed, and agree with the discharge instructions and disposition. Disposition - Clinical Impression Clinical Impression: Cellulitis, MRSA (methicillin resistant staph aureus) culture positive, Failure of outpatient treatment - Patient ED Disposition Is Patient to be Admitted: Yes - Disposition Disposition Time: 12:47 Condition: FAIR Forms: [facility] (Romanian) - Pt Status Changed To: Hospital Disposition Of: Inpatient - Admit Certification Admit to Inpatient:: After my assessment, the patient will require hospitaliz ation for at least two midnights. This is because of the severity of symptoms shown, intensity of services needed, and/or the medical risk in this patient being treated as an outpatient. - POA Present On Arrival: None
[2018-10-01] MEDS ORDERED: Vancomycin 1 g Inj ONE ×2 (13:00→21:13)
[2018-10-01 13:03] LABS: VENOUS BLOOD GAS BASE EXCESS 1.5 mmol/L (0.0-2.0); VENOUS BLOOD GAS PCO2 43 mmHg (40-60); VENOUS BLOOD GAS PO2 21 mm/Hg (30-55)
[2018-10-01 13:03] LABS: BASO % 0.5 % (0.0-2.0); EOS # 0.3 K/uL (0.0-0.7); EOS % 3.9 % (0.0-4.0); HEMOGLOBIN 12.5 g/dL (12.0-18.0); LYMPH # 1.1 K/uL (1.0-4.3); LYMPH % 12.9 % (20.0-40.0); MEAN CELL VOLUME 81.5 fl (80.0-94.0); MEAN CORPUSCULAR HEMOGLOBIN 27.4 pg (27.0-31.0); MEAN CORPUSCULAR HGB CONC 33.6 g/dL (33.0-37.0); MEAN PLATELET VOLUME 8.9 fl (7.2-11.7); MONO # 0.8 K/uL (0.0-0.8); MONO % 8.8 % (0.0-10.0); NEUT # 6.5 K/uL (1.8-7.0); NEUT % 73.9 % (50.0-75.0); RBC 4.57 Mil/uL (4.40-5.90); RED CELL DISTRIBUTION WIDTH 14.1 % (11.5-14.5); WHITE BLOOD COUNT 8.8 K/uL (4.8-10.8)
[2018-10-01] MEDS ORDERED: Sodium Chloride 0.9% 1,000 ML IV STA (13:17)
[2018-10-01] MEDS ORDERED: Insulin Regular 100 units/ml SC STA (13:17)
[2018-10-01 13:22] LABS: ALB/GLOB RATIO 1.3 (1.0-2.1); ALBUMIN 3.7 g/dL (3.5-5.0); ALT/SGPT 22 U/L (21-72); AST/SGOT 15 U/L (17-59); BLOOD UREA NITROGEN 17 mg/dl (9-20); CALCIUM 9.3 mg/dL (8.4-10.2); GFR NON-AFRICAN AMERICAN > 60
--- NOTE | 2018-10-01 13:34 | CP.PCM.HP ---
<Landry Walsh - Last Filed: 10/01/18 13:39> History of Present Illness - History of Present Illness History of Present Illness: a 52 yo male with uncontrolled DM2 present to ER due to unresolved Skin infection. Patient report celullitis started 3 weeks ago, and was treated with Oral Abx Clinda/cipro for 2 weeks, last treatment was yesterday. Patient report improvement is minimal and his leg still red, swollen and tender to touch. Patient does not remember how the infection started, he just remember waking up one day and finding his leg red and tender. otherwise patient denies chest pain, sob, abd pain, diarrhea, constipation dysuria or polyuria. Allergy: Acetaminophen, codeine, oxycodone PCP: Dr. Seth [facility] [place] Medication: Humulin 70/30, Met 1000 BID, GLipizide 10mg PSH denies Social: Smoke 30 pack a year, denies drink or drug use. In ED course Vitals stable WBC WNL CBC/CMP WNL except for glucose of >400 Patient recieved 1 dose of vanco, and insulin. Basic labs, blood culture, and VBG shock panel ordered. Patient will be admitted for tx of celullitis after failed treatment via PO. Present on Admission - Present on Admission Any Indicators Present on Admission: No Review of Systems - Review of Systems All systems: reviewed and no additional remarkable complaints except Past Patient History - Infectious Disease Hx of Infectious Diseases: None - Past Medical History & Family History Past Medical History?: Yes - Past Social History Smoking Status: Heavy Smoker > 10 Cigarettes Daily - CARDIAC Hx Hypertension: No (denies 04/30/17) - PULMONARY Hx Respiratory Disorders: No - NEUROLOGICAL Hx Neurological Disorder: No - HEENT Hx HEENT Problems: Yes Other/Comment: uses eye glasses - RENAL Hx Chronic Kidney Disease: No - ENDOCRINE/METABOLIC Hx Endocrine Disorders: Yes (DM) Hx Diabetes Mellitus Type 2: Yes - HEMATOLOGICAL/ONCOLOGICAL Hx Blood Disorders: No - INTEGUMENTARY Hx Dermatological Problems: No - MUSCULOSKELETAL/RHEUMATOLOGICAL Hx Arthritis: Yes (bilateral knee) Hx Rheumatoid Arthritis: Yes - GASTROINTESTINAL Hx Gastrointestinal Disorders: No - GENITOURINARY/GYNECOLOGICAL Hx Genitourinary Disorders: No - PSYCHIATRIC Hx Psychophysiologic Disorder: No Hx Substance Use: No - SURGICAL HISTORY Hx Orthopedic Surgery: Yes Other/Comment: Left 5th toe. Right knee. umbilical hernia - ANESTHESIA Hx Anesthesia: Yes Hx Anesthesia Reactions: No Hx Malignant Hyperthermia: No Meds Allergies/Adverse Reactions: Allergies Allergy/AdvReac Type Severity Reaction Status Date / Time acetaminophen [From Percocet] Allergy RASH Verified 10/01/18 12:09 codeine Allergy RASH Verified 10/01/18 12:09 oxycodone HCl [From Percocet] Allergy RASH Verified 10/01/18 12:09 Physical Exam - Constitutional Appears: Well, Non-toxic, No Acute Distress - Head Exam Head Exam: ATRAUMATIC, NORMAL INSPECTION, NORMOCEPHALIC - Eye Exam Eye Exam: EOMI, Normal appearance, PERRL Pupil Exam: NORMAL ACCOMODATION, PERRL - ENT Exam ENT Exam: Mucous Membranes Moist, Normal Exam - Neck Exam Neck exam: Positive for: Normal Inspection - Respiratory Exam Respiratory Exam: Rales, NORMAL BREATHING PATTERN - Cardiovascular Exam Cardiovascular Exam: REGULAR RHYTHM, +S1, +S2 - GI/Abdominal Exam GI & Abdominal Exam: Normal Bowel Sounds, Soft - Extremities Exam Additional comments: LEFT redness/erythema, and tender to palpate of left lower extremeties from knee to toe Blister noted on back of ankle RIGHt: there is 1 ulcer on shaft of the tibia, and 1 inch ulcer on the hallux - Back Exam Back exam: NORMAL INSPECTION - Neurological Exam Neurological exam: Alert, CN II-XII Intact, Oriented x3, Reflexes Normal - Psychiatric Exam Psychiatric exam: Normal Affect, Normal Mood - Skin Skin Exam: Dry, Intact, Normal Color, Warm Results - Vital Signs Recent Vital Signs: Last Vital Signs Temp 97.3 F L 10/01/18 12:09 Pulse 94 H 10/01/18 12:09 Resp 16 10/01/18 12:09 BP 112/62 10/01/18 12:09 Pulse Ox 100 10/01/18 12:47 - Labs Result Diagrams: 10/01/18 12:56 10/01/18 12:56 Labs: Laboratory Results - last 24 hr 10/01/18 10/01/18 10/01/18 12:56 12:56 12:57 WBC 8.8 RBC 4.57 Hgb 12.5 Hct 37.3 MCV 81.5 MCH 27.4 MCHC 33.6 RDW 14.1 Plt Count 278 MPV 8.9 Neut % (Auto) 73.9 Lymph % (Auto) 12.9 L [place] % (Auto) 8.8 Eos % (Auto) 3.9 Baso % (Auto) 0.5 Neut # (Auto) 6.5 Lymph # (Auto) 1.1 [place] # (Auto) 0.8 Eos # (Auto) 0.3 Baso # (Auto) 0.0 pO2 21 L VBG pH 7.40 VBG pCO2 43 VBG HCO3 24.4 VBG Total CO2 27.9 VBG O2 Sat (Calc) 45.0 VBG Base Excess 1.5 VBG Potassium 4.1 Glucose 413 H* Lactate 1.4 FiO2 21.0 Sodium 130 L 129.0 L Potassium 4.1 Chloride 94 L 94.0 L Carbon Dioxide 24 Anion Gap 16 BUN 17 Creatinine 0.8 Est GFR ( Amer) > 60 Est GFR (Non-Af Amer) > 60 Random Glucose 395 H Calcium 9.3 Total Bilirubin 0.6 AST 15 L ALT 22 Alkaline Phosphatase 101 Total Protein 6.7 Albumin 3.7 Globulin 3.0 Albumin/Globulin Ratio 1.3 Venous Blood Potassium 4.1 Assessment & Plan - Assessment and Plan (Free Text) Assessment: 52 yo male with uncontrolled DM2 present to ER due to unresolved Skin infection. Patient will be admitted for treatment of MRSA celullites after failed tx via PO. Plan Cellulites MRSA Afebrile, no leukocytosis S/P Cipro and clinda Po last dose 09/30/18 S/P 1 dose vanco in ER Will start Vancomycin 1gm Q12h Will start Zosyn 2.25gm Q24H Monitor for exacerbation Diabete Chronic, Uncontrolled GLucose>400 On insulin, glipizide and metformin Will continue Insulin 20 unit bid ACCUCHeck Hypoglycemic protocol Endocrinology consult Foot ulcer Hx of uncontrolled Dm Ulcer noted on RIGHT hallux, and shaft of lower extremities Podiatry consult DVT prophylaxis Lovenox 40 sc SCD <Angel Covarrubias D - Last Filed: 10/01/18 13:48> Results - Vital Signs Recent Vital Signs: Last Vital Signs Temp 97.3 F L 10/01/18 12:09 Pulse 94 H 10/01/18 12:09 Resp 16 10/01/18 12:09 BP 112/62 10/01/18 12:09 Pulse Ox 100 10/01/18 12:47 - Labs Result Diagrams: 10/01/18 12:56 10/01/18 12:56 Labs: Laboratory Results - last 24 hr 10/01/18 10/01/18 10/01/18 12:56 12:56 12:57 WBC 8.8 RBC 4.57 Hgb 12.5 Hct 37.3 MCV 81.5 MCH 27.4 MCHC 33.6 RDW 14.1 Plt Count 278 MPV 8.9 Neut % (Auto) 73.9 Lymph % (Auto) 12.9 L [place] % (Auto) 8.8 Eos % (Auto) 3.9 Baso % (Auto) 0.5 Neut # (Auto) 6.5 Lymph # (Auto) 1.1 [place] # (Auto) 0.8 Eos # (Auto) 0.3 Baso # (Auto) 0.0 pO2 21 L VBG pH 7.40 VBG pCO2 43 VBG HCO3 24.4 VBG Total CO2 27.9 VBG O2 Sat (Calc) 45.0 VBG Base Excess 1.5 VBG Potassium 4.1 Glucose 413 H* Lactate 1.4 FiO2 21.0 Sodium 130 L 129.0 L Potassium 4.1 Chloride 94 L 94.0 L Carbon Dioxide 24 Anion Gap 16 BUN 17 Creatinine 0.8 Est GFR ( Amer) > 60 Est GFR (Non-Af Amer) > 60 Random Glucose 395 H Calcium 9.3 Total Bilirubin 0.6 AST 15 L ALT 22 Alkaline Phosphatase 101 Total Protein 6.7 Albumin 3.7 Globulin 3.0 Albumin/Globulin Ratio 1.3 Venous Blood Potassium 4.1 Attending/Attestation - Attestation I have personally seen and examined this patient.: Yes I have fully participated in the care of the patient.: Yes I have reviewed all pertinent clinical information: Yes Notes (Text): 10/01/18 13:46 Patient seen and examined with resident. Case discussed and agreed with assessment and plan of management. Patient is an uncontrolled diabetic with cellulitis of the left leg not responsive to PO Clindamycin and Cipro for 2 weeks.
[2018-10-01] MEDS ORDERED: Insulin Regular 100 units/ml ONE (13:35)
[2018-10-01] MEDS ORDERED: Glucagon Recombinant 1 mg Inj IM PRN (13:51)
[2018-10-01] MEDS ORDERED: Dextrose 50% SYRINGE Inj (50 ml) IV PRN (13:51)
[2018-10-01] MEDS ORDERED: Insulin Lispro Mix 75/25 100 units/ml (HumaLog) 10ml SC SCH (16:30)
[2018-10-01] MEDS ORDERED: Piperacillin/Tazobact 3.375 gm Inj IVPB ONE ×2 (16:34→23:13)
[2018-10-01] MEDS: Piperacillin/Tazobact 3.375 GM in Sodium Chloride 0.9% 100 ML IVPB SCH ×2 (16:36→23:13)
[2018-10-01] MEDS: Insulin Lispro (humaLOG) 100 Units/ml Inj SC SCH ×2 (17:33→23:03)
[2018-10-02 02:29] VITALS: O2SAT 95
--- NOTE | 2018-10-02 04:08 | CON ---
DATE: 10/01/2018 ENDOCRINOLOGY CONSULT LOCATION: [facility]. HISTORY OF PRESENT ILLNESS: This is a 52-year-old male with known history of type 2 insulin-requiring diabetes, presenting here with left leg cellulitis and is being referred now for diabetic evaluation because of persistent hyperglycemic accelerations as noted thereof. PAST MEDICAL HISTORY: History of type 2 insulin-requiring diabetes, on a combination of Humalog 75/25 given as 20 units b.i.d. with metformin given as 1 g b.i.d. and glipizide as 10 mg once daily. History of hypertension and dyslipidemia, history of diabetic polyneuropathy with peripheral vasculopathy. FAMILY HISTORY: Positive for diabetes, hypertension. SOCIAL HISTORY: The patient is an active smoker and uses over a pack a day for over 30 years. No other known substance use, has supportive family otherwise. REVIEW OF SYSTEMS: Admits to generalized body weakness with episodic bouts of dizziness and lightheadedness with occasional bifrontal headaches and visual blurring. No chest pains or palpitations or PND. His oral intake has been variable but otherwise satisfactory with occasional dyspepsia. Also admits to marked polyuria, nocturia and polydipsia. Also admits to lower extremity erythema, tenderness and edema in the left lower extremity for the last 2-3 weeks prior to admission. PHYSICAL EXAMINATION: GENERAL: This is an average built male in no apparent distress. VITAL SIGNS: Blood pressure of 150/90, pulse of 100 beats per minute and regular, temperature 98, respirations 20, height is 5 feet 10 inches. Weight is 154 pounds. HEENT: Head normocephalic. Eyes anicteric with pink conjunctivae. Funduscopy not possible at this time. Ears, nose and throat otherwise normal. NECK: Supple. Thyroid gland is normal size. No carotid bruits, no cervical adenopathy. CARDIOPULMONARY: Some adynamic precordium. S1, S2, is rapid and regular. LUNGS: Clear to auscultation. ABDOMEN: Flat, soft with positive bowel sounds. EXTREMITIES: The left lower extremity shows erythema, edema and excoriations in the left leg from the left knee down to the left foot as noted. Pulses are diminished peripherally. LABORATORY DATA: Chemistry: BUN of 17, sodium 130, potassium 4.1, chloride 94, CO2 of 24, glucose 395 and creatinine 0.8. His white count is 8.8, hemoglobin of 12, hematocrit of 37, MCV 81, platelets 278. ASSESSMENT: This is a 52-year-old male with uncontrolled and decompensated type 2 insulin-requiring diabetes with marked hyperglycemic accelerations related to a subtherapeutic insulin regimen, presenting here with left lower extremity cellulitis with underlying peripheral vasculopathy and polyneuropathy. PLAN OF MANAGEMENT: We will modify his current insulin regimen and switch him to a more physiologic basal and bolus insulin drug combination as ordered. We will start him with Humalog given as 12 units t.i.d. before meals to start tomorrow morning as ordered. We will add basal insulin with Levemir given as 24 units subcu at bedtime daily as ordered. We will also modify the coverage scale to obviate hypoglycemia and detailed orders have been given using Humalog insulin as ordered. We will modify his day to day insulin regimen to optimize metabolic control. A hemoglobin A1c will be done to confirm his prior poor glycemic control, and baseline thyroid function studies and lipid panel will be ordered. We will continue the IV hydration and also obtain serial chemistries accordingly. Wendi Healy MD
[2018-10-02] MEDS: Piperacillin/Tazobact 3.375 GM in Sodium Chloride 0.9% 100 ML IVPB SCH ×2 (06:14→11:33)
[2018-10-02 06:16] VITALS: RESP 16
--- NOTE | 2018-10-02 07:00 | CP.PCM.PN ---
Objective - Vital Signs/Intake and Output Vital Signs (last 24 hours): Temp Pulse Resp BP Pulse Ox 99.3 F 71 16 128/74 95 10/02/18 06:15 10/02/18 06:15 10/02/18 06:15 10/02/18 06:15 10/02/18 06:15 - Medications Medications: Current Medications Dextrose (Dextrose 50% Inj) 0 ml IV STAT PRN; Protocol PRN Reason: Hypoglycemia Protocol Dextrose (Glutose 15) 0 gm PO ONCE PRN; Protocol PRN Reason: Hypoglycemia Protocol Enoxaparin Sodium (Lovenox) 40 mg SC DAILY HUMA; Protocol Glucagon (Glucagen Diagnostic Kit) 0 mg IM STAT PRN; Protocol PRN Reason: Hypoglycemia Protocol Vancomycin HCl 1 gm/ Sodium (Chloride) 250 mls @ 166.667 mls/hr IVPB Q12 HUMA; Protocol Last Admin: 10/01/18 21:14 Dose: 166.667 mls/hr Piperacillin Sod/Tazobactam (Sod 3.375 gm/ Sodium Chloride) 100 mls @ 100 mls/hr IVPB Q6 HUMA; Protocol Last Admin: 10/02/18 06:14 Dose: 100 mls/hr Insulin Detemir (Levemir) 24 units SC HS HUMA Insulin Human Lispro (Humalog) 12 units SC AC HUMA Insulin Human Lispro (Humalog) 0 units SC ACHS HUMA; Protocol Ketorolac Tromethamine (Toradol) 30 mg IVP Q6 PRN PRN Reason: Pain, moderate (4-7) Last Admin: 10/01/18 15:27 Dose: 30 mg Morphine Sulfate (Morphine) 2 mg IVP Q6 PRN PRN Reason: Pain, severe (8-10) Last Admin: 10/02/18 06:04 Dose: 2 mg Prazosin HCl (Minipress) 2 mg PO HS HUMA Last Admin: 10/01/18 23:26 Dose: 2 mg Pregabalin (Lyrica) 50 mg PO Q12H HUMA Last Admin: 10/01/18 23:03 Dose: 50 mg - Labs Labs: 10/01/18 12:56 10/01/18 12:56 Assessment and Plan - Assessment and Plan (Free Text) Assessment: Assessment: 52 yo male with uncontrolled DM2 present to ER due to unresolved Skin infection. Patient will be admitted for treatment of MRSA celullites after failed tx via PO. Plan Cellulites MRSA Afebrile, no leukocytosis S/P Cipro and clinda Po last dose 09/30/18 S/P 1 dose vanco in ER Will start Vancomycin 1gm Q12h Will start Zosyn 2.25gm Q24H Monitor for exacerbation Diabete Chronic, Uncontrolled GLucose>400 On insulin, glipizide and metformin Will continue Insulin 20 unit bid ACCUCHeck Hypoglycemic protocol Endocrinology consult Foot ulcer Hx of uncontrolled Dm Ulcer noted on RIGHT hallux, and shaft of lower extremities Podiatry consult DVT prophylaxis Lovenox 40 sc SCD
[2018-10-02] MEDS: Insulin Lispro (humaLOG) 100 Units/ml Inj SC SCH ×4 (07:33→11:31)
[2018-10-02] MEDS ORDERED: Enoxaparin 40 mg Syringe SC SCH (09:00)
--- NOTE | 2018-10-02 09:07 | CP.PCM.CON ---
History of Present Illness - History of Present Illness History of Present Illness: Podiatry Consult Note: Dr. Betancourt 52 year old male patient with PMHx of DMII, seen and evaluated in the ED for L swollen foot and R hallux ulceration. Patient states that his left foot has been swollen and red for 2 week and he has had his right hallux ulcer for about 9 months. He recently was recently seen in the ED for the same issue and was given PO Clinda/cipro for 2 weeks, however the cellulitis has not resolved. He states that he used to follow up with Dr. Betancourt in wound care center, however he currently does not follow up with a family day care provider. He denies any additional pedal complaints at this time. Denies any nausea/vomiting/fever. PMHx: as above PSHx: L fifth digi All: Acetaminophen, Codeine, Oxycodone. SHx: 0.5 ppd smoker x 25 years Past Patient History - Infectious Disease Hx of Infectious Diseases: None - Past Medical History & Family History Past Medical History?: Yes - Past Social History Smoking Status: Heavy Smoker > 10 Cigarettes Daily - CARDIAC Hx Hypertension: No (denies 04/30/17) - PULMONARY Hx Respiratory Disorders: No - NEUROLOGICAL Hx Neurological Disorder: No - HEENT Hx HEENT Problems: Yes Other/Comment: uses eye glasses - RENAL Hx Chronic Kidney Disease: No - ENDOCRINE/METABOLIC Hx Endocrine Disorders: Yes (DM) Hx Diabetes Mellitus Type 2: Yes - HEMATOLOGICAL/ONCOLOGICAL Hx Blood Disorders: No - INTEGUMENTARY Hx Dermatological Problems: No - MUSCULOSKELETAL/RHEUMATOLOGICAL Hx Arthritis: Yes (bilateral knee) Hx Rheumatoid Arthritis: Yes - GASTROINTESTINAL Hx Gastrointestinal Disorders: No - GENITOURINARY/GYNECOLOGICAL Hx Genitourinary Disorders: No - PSYCHIATRIC Hx Psychophysiologic Disorder: No Hx Substance Use: No - SURGICAL HISTORY Hx Orthopedic Surgery: Yes Other/Comment: Left 5th toe. Right knee. umbilical hernia - ANESTHESIA Hx Anesthesia: Yes Hx Anesthesia Reactions: No Hx Malignant Hyperthermia: No Meds Home Medications: Home Medication List Medication Instructions Recorded Confirmed Type Insulin Detemir [Levemir] 24 units SC HS vial 10/02/18 Rx Vancomycin 1 GM [Vancomycin 1GM in 1 gm IVPB DAILY 12 Days bag 10/02/18 Rx Normal Saline Addvantage] Allergies/Adverse Reactions: Allergies Allergy/AdvReac Type Severity Reaction Status Date / Time acetaminophen [From Percocet] Allergy RASH Verified 10/01/18 12:09 codeine Allergy RASH Verified 10/01/18 12:09 oxycodone HCl [From Percocet] Allergy RASH Verified 10/01/18 12:09 - Medications Medications: Current Medications Dextrose (Dextrose 50% Inj) 0 ml IV STAT PRN; Protocol PRN Reason: Hypoglycemia Protocol Dextrose (Glutose 15) 0 gm PO ONCE PRN; Protocol PRN Reason: Hypoglycemia Protocol Enoxaparin Sodium (Lovenox) 40 mg SC DAILY HUMA; Protocol Last Admin: 10/02/18 08:37 Dose: Not Given Glucagon (Glucagen Diagnostic Kit) 0 mg IM STAT PRN; Protocol PRN Reason: Hypoglycemia Protocol Vancomycin HCl 1 gm/ Sodium (Chloride) 250 mls @ 166.667 mls/hr IVPB Q12 HUMA; Protocol Last Admin: 10/01/18 21:14 Dose: 166.667 mls/hr Piperacillin Sod/Tazobactam (Sod 3.375 gm/ Sodium Chloride) 100 mls @ 100 mls/hr IVPB Q6 HUMA; Protocol Last Admin: 10/02/18 06:14 Dose: 100 mls/hr Insulin Detemir (Levemir) 24 units SC HS HUMA Insulin Human Lispro (Humalog) 12 units SC AC HUMA Last Admin: 10/02/18 07:33 Dose: Not Given Insulin Human Lispro (Humalog) 0 units SC ACHS HUMA; Protocol Last Admin: 10/02/18 07:33 Dose: Not Given Ketorolac Tromethamine (Toradol) 30 mg IVP Q6 PRN PRN Reason: Pain, moderate (4-7) Last Admin: 10/01/18 15:27 Dose: 30 mg Morphine Sulfate (Morphine) 2 mg IVP Q6 PRN PRN Reason: Pain, severe (8-10) Last Admin: 10/02/18 06:04 Dose: 2 mg Prazosin HCl (Minipress) 2 mg PO HS [facility] Last Admin: 10/01/18 23:26 Dose: 2 mg Pregabalin (Lyrica) 50 mg PO Q12H HUMA Last Admin: 10/01/18 23:03 Dose: 50 mg Physical Exam - Constitutional Appears: No Acute Distress - Head Exam Head Exam: ATRAUMATIC, NORMOCEPHALIC - Extremities Exam Additional comments: B/L LE focused exam: Vasc: DP/PT pulses palpable 2/4 b/l. TG warm to warm on right, warmer on left. CFT < 3 seconds to digits. + 2 edema localized to L foot Ortho: No gross deformities appreciated Neuro: Gross sensation intact, protective sensation diminished Derm: RLE: 2cm x 1 cm x .5cm ulceration, secondary to DMII, appreciated to R plantar hallux. Dry granular base with hyperkeratotic rim, no drainage, no purulence, no tunneling no tracking, deep tissue exposed however no exposed bone appreciated. - Neurological Exam Neurological exam: Alert, Oriented x3 - Psychiatric Exam Psychiatric exam: Normal Affect, Normal Mood - Skin Skin Exam: Warm Results - Vital Signs Recent Vital Signs: Last Vital Signs Temp 99.3 F 10/02/18 06:15 Pulse 71 10/02/18 06:15 Resp 16 10/02/18 06:15 BP 128/74 10/02/18 06:15 Pulse Ox 95 10/02/18 06:15 - Labs Result Diagrams: 10/01/18 12:56 10/01/18 12:56 Labs: Laboratory Results - last 24 hr 10/01/18 10/01/18 10/01/18 12:56 12:56 12:57 WBC 8.8 RBC 4.57 Hgb 12.5 Hct 37.3 MCV 81.5 MCH 27.4 MCHC 33.6 RDW 14.1 Plt Count 278 MPV 8.9 Neut % (Auto) 73.9 Lymph % (Auto) 12.9 L [place] % (Auto) 8.8 Eos % (Auto) 3.9 Baso % (Auto) 0.5 Neut # (Auto) 6.5 Lymph # (Auto) 1.1 [place] # (Auto) 0.8 Eos # (Auto) 0.3 Baso # (Auto) 0.0 pO2 21 L VBG pH 7.40 VBG pCO2 43 VBG HCO3 24.4 VBG Total CO2 27.9 VBG O2 Sat (Calc) 45.0 VBG Base Excess 1.5 VBG Potassium 4.1 Glucose 413 H* Lactate 1.4 FiO2 21.0 Sodium 130 L 129.0 L Potassium 4.1 Chloride 94 L 94.0 L Carbon Dioxide 24 Anion Gap 16 BUN 17 Creatinine 0.8 Est GFR ( Amer) > 60 Est GFR (Non-Af Amer) > 60 POC Glucose (mg/dL) Random Glucose 395 H Calcium 9.3 Total Bilirubin 0.6 AST 15 L ALT 22 Alkaline Phosphatase 101 Total Protein 6.7 Albumin 3.7 Globulin 3.0 Albumin/Globulin Ratio 1.3 Venous Blood Potassium 4.1 10/01/18 10/01/18 10/01/18 14:41 17:01 22:40 WBC RBC Hgb Hct MCV MCH MCHC RDW Plt Count MPV Neut % (Auto) Lymph % (Auto) [place] % (Auto) Eos % (Auto) Baso % (Auto) Neut # (Auto) Lymph # (Auto) [place] # (Auto) Eos # (Auto) Baso # (Auto) pO2 VBG pH VBG pCO2 VBG HCO3 VBG Total CO2 VBG O2 Sat (Calc) VBG Base Excess VBG Potassium Glucose Lactate FiO2 Sodium Potassium Chloride Carbon Dioxide Anion Gap BUN Creatinine Est GFR ( Amer) Est GFR (Non-Af Amer) POC Glucose (mg/dL) 389 H 246 H 161 H Random Glucose Calcium Total Bilirubin AST ALT Alkaline Phosphatase Total Protein Albumin Globulin Albumin/Globulin Ratio Venous Blood Potassium 10/02/18 01:19 WBC RBC Hgb Hct MCV MCH MCHC RDW Plt Count MPV Neut % (Auto) Lymph % (Auto) [place] % (Auto) Eos % (Auto) Baso % (Auto) Neut # (Auto) Lymph # (Auto) [place] # (Auto) Eos # (Auto) Baso # (Auto) pO2 VBG pH VBG pCO2 VBG HCO3 VBG Total CO2 VBG O2 Sat (Calc) VBG Base Excess VBG Potassium Glucose Lactate FiO2 Sodium Potassium Chloride Carbon Dioxide Anion Gap BUN Creatinine Est GFR ( Amer) Est GFR (Non-Af Amer) POC Glucose (mg/dL) 152 H Random Glucose Calcium Total Bilirubin AST ALT Alkaline Phosphatase Total Protein Albumin Globulin Albumin/Globulin Ratio Venous Blood Potassium Assessment & Plan - Assessment and Plan (Free Text) Assessment: 52 year old male patient with PMHx of DMII, with R foot ulceration secondary to diabetes and cellulitis to L foot Plan: Patient seen and evaluated Plan discussed with attending, Dr. Betancourt Charts and vitals reviewed; Afebrile, Febrile overnight, WBC 8.8 X-ray taken; pending Wound culture from R hallux taken; pending ID consult; reccs appreciated C/w IV abx ESR, CRP pending Bactroban for R hallux ulceration Will continue to follow - Date & Time Date: 10/02/18 Time: 09:13
[2018-10-02] MEDS ORDERED: Piperacillin/Tazobact 3.375 gm Inj IVPB ONE (11:28)
--- NOTE | 2018-10-02 13:12 | CP.PCM.DIS ---
Provider - Provider Date of Admission: 10/01/18 12:28 Attending physician: Mallika Anderson MD Consults: 10/01/18 13:52 Podiatry Consult Stat Comment: Consulting Provider: Delvis Grewal Consulting Physician: Delvis Grewal Reason for Consult: non-healing right hallux ulcer 10/01/18 13:54 Endocrinology Consult Stat Comment: Consulting Provider: Wendi Healy Consulting Physician: Wendi Healy Reason for Consult: uncontrolled diabetes Time Spent in preparation of Discharge (in minutes): 20 Diagnosis - Discharge Diagnosis (1) Cellulitis Status: Chronic Hospital Course - Lab Results Lab Results: Micro Results 10/01/18 12:49 Blood Blood Culture - Preliminary NO GROWTH AFTER 24 HOURS Most Recent Lab Values WBC 8.8 K/uL (4.8-10.8) 10/01/18 12:56 RBC 4.57 Mil/uL (4.40-5.90) 10/01/18 12:56 Hgb 12.5 g/dL (12.0-18.0) 10/01/18 12:56 Hct 37.3 % (35.0-51.0) 10/01/18 12:56 MCV 81.5 fl (80.0-94.0) 10/01/18 12:56 MCH 27.4 pg (27.0-31.0) 10/01/18 12:56 MCHC 33.6 g/dL (33.0-37.0) 10/01/18 12:56 RDW 14.1 % (11.5-14.5) 10/01/18 12:56 Plt Count 278 K/uL (130-400) 10/01/18 12:56 MPV 8.9 fl (7.2-11.7) 10/01/18 12:56 Neut % (Auto) 73.9 % (50.0-75.0) 10/01/18 12:56 Lymph % (Auto) 12.9 % (20.0-40.0) L 10/01/18 12:56 [place] % (Auto) 8.8 % (0.0-10.0) 10/01/18 12:56 Eos % (Auto) 3.9 % (0.0-4.0) 10/01/18 12:56 Baso % (Auto) 0.5 % (0.0-2.0) 10/01/18 12:56 Neut # (Auto) 6.5 K/uL (1.8-7.0) 10/01/18 12:56 Lymph # (Auto) 1.1 K/uL (1.0-4.3) 10/01/18 12:56 [place] # (Auto) 0.8 K/uL (0.0-0.8) 10/01/18 12:56 Eos # (Auto) 0.3 K/uL (0.0-0.7) 10/01/18 12:56 Baso # (Auto) 0.0 K/uL (0.0-0.2) 10/01/18 12:56 pO2 21 mm/Hg (30-55) L 10/01/18 12:57 VBG pH 7.40 (7.32-7.43) 10/01/18 12:57 VBG pCO2 43 mmHg (40-60) 10/01/18 12:57 VBG HCO3 24.4 mmol/L 10/01/18 12:57 VBG Total CO2 27.9 mmol/L (22-28) 10/01/18 12:57 VBG O2 Sat (Calc) 45.0 % (40-65) 10/01/18 12:57 VBG Base Excess 1.5 mmol/L (0.0-2.0) 10/01/18 12:57 VBG Potassium 4.1 mmol/L (3.6-5.2) 10/01/18 12:57 Sodium 129.0 mmol/L (132-148) L 10/01/18 12:57 Chloride 94.0 mmol/L (98-107) L 10/01/18 12:57 Glucose 413 mg/dL (75-110) H* 10/01/18 12:57 Lactate 1.4 mmol/L (0.7-2.1) 10/01/18 12:57 FiO2 21.0 % 10/01/18 12:57 Sodium 130 mmol/l (132-148) L 10/01/18 12:56 Potassium 4.1 MMOL/L (3.6-5.0) 10/01/18 12:56 Chloride 94 mmol/L (98-107) L 10/01/18 12:56 Carbon Dioxide 24 mmol/L (22-30) 10/01/18 12:56 Anion Gap 16 (10-20) 10/01/18 12:56 BUN 17 mg/dl (9-20) 10/01/18 12:56 Creatinine 0.8 mg/dl (0.8-1.5) 10/01/18 12:56 Est GFR ( Amer) > 60 10/01/18 12:56 Est GFR (Non-Af Amer) > 60 10/01/18 12:56 POC Glucose (mg/dL) 152 mg/dL (65-110) H 10/02/18 01:19 Random Glucose 395 mg/dL (75-110) H 10/01/18 12:56 Calcium 9.3 mg/dL (8.4-10.2) 10/01/18 12:56 Total Bilirubin 0.6 mg/dl (0.2-1.3) 10/01/18 12:56 AST 15 U/L (17-59) L 10/01/18 12:56 ALT 22 U/L (21-72) 10/01/18 12:56 Alkaline Phosphatase 101 U/L (38-126) 10/01/18 12:56 Total Protein 6.7 G/DL (6.3-8.2) 10/01/18 12:56 Albumin 3.7 g/dL (3.5-5.0) 10/01/18 12:56 Globulin 3.0 gm/dL (2.2-3.9) 10/01/18 12:56 Albumin/Globulin Ratio 1.3 (1.0-2.1) 10/01/18 12:56 Venous Blood Potassium 4.1 mmol/L (3.6-5.2) 10/01/18 12:57 - Hospital Course Hospital Course: 52 yo male with uncontrolled DM2 present to ER due to unresolved Skin infection. Patient report cellulites started 3 weeks ago, and was treated with Oral Abx Clinda/cipro for 2 weeks, last treatment was 09/30/18. Patient will be admitted for treatment of MRSA cellulites after failed tx via PO. In ED course Vitals stable WBC WNL CBC/CMP WNL except for glucose of >400 Patient recieved 1 dose of vanco, and insulin. Basic labs, blood culture, and VBG shock panel ordered. Podiatry and Endocrinology were on the case. During his stay patient recieved 2 day of IV Vanco, wanted to leave AMA, patient was advised that he need further treatment and evaluation. Patient report not wanting to stay in the hospital and want to go home. Patient received 2 days of vanco and zosyn On sec day patient refused blood labs, and wanted to be discharged home as AMA. I educated patient about the importance of treatment, and patient still wanted to leave A script of vancomycin IV for 12 days given for patient to follow up in the infusion center and same day surgery for further daily treatment as outpatient Plan discussed with patient, patient agree and will follow up. Patient should follow up with PCP: Dr. Seth in 2-3 days Discharge Exam - Head Exam Head Exam: ATRAUMATIC, NORMOCEPHALIC - Eye Exam Eye Exam: EOMI, Normal appearance, PERRL Pupil Exam: NORMAL ACCOMODATION, PERRL - Respiratory Exam Respiratory Exam: Clear to PA & Lateral, NORMAL BREATHING PATTERN, UNREMARKABLE - Cardiovascular Exam Cardiovascular Exam: REGULAR RHYTHM, +S1, +S2 - GI/Abdominal Exam GI & Abdominal Exam: Normal Bowel Sounds, Unremarkable - Extremities Exam Additional comments: LEFT redness/erythema, and tender to palpate of left lower extremeties from knee to toe Blister noted on back of ankle RIGHt: there is 1 ulcer on shaft of the tibia, and 1 inch ulcer on the hallux - Back Exam Back exam: NORMAL INSPECTION - Neurological Exam Neurological exam: Alert, CN II-XII Intact, Oriented x3, Reflexes Normal - Psychiatric Exam Psychiatric exam: Normal Affect, Normal Mood - Skin Skin Exam: Dry, Intact, Normal Color, Warm Discharge Plan - Discharge Medications Prescriptions: Vancomycin 1 GM [Vancomycin 1GM in Normal Saline Addvantage] 1 gm IVPB DAILY 12 Days bag - Follow Up Plan Condition: FAIR Disposition: HOME/ ROUTINE Instructions: Diabetes and Infections, Foot Care for Diabetics, Diabetes and Diet, Cellulitis (DC), Cellulitis (GEN)
[2018-10-02 13:58] VITALS: BP 118/70; PULSE 66; TEMP 97.9
--- NOTE | 2018-10-02 16:18 | RAD ---
Date of service: 10/02/2018 PROCEDURE: Right Foot Radiographs. HISTORY: R/o hallux OM COMPARISON: None. TECHNIQUE: 3 views obtained. FINDINGS: BONES: Small plantar calcaneal spur. No acute fracture. No osseous erosion or periosteal reaction. JOINTS: Normal. SOFT TISSUES: Normal. OTHER FINDINGS: None. IMPRESSION: No plain radiographic evidence of osteomyelitis.
[2018-10-02] MEDS ORDERED: Insulin Lispro Mix 75/25 100 units/ml (HumaLog) 10ml SC SCH (17:00)
--- NOTE | 2018-10-02 20:10 | PN ---
DATE: 10/02/2018 ENDOCRINOLOGY FOLLOWUP NOTE LOCATION: In ER holding. SUBJECTIVE: This is a 52-year-old male with recent uncontrolled type 2 insulin-requiring diabetes, presenting here with left lower extremity cellulitis and nonhealing neuropathic ulceration and is now being followed closely for metabolic management. His glycemic levels are fluctuating but improved. LABORATORY DATA: The latest chemistry showed a BUN of 17, sodium 130, potassium 4.1, chloride 94, CO2 of 24, glucose 152 and creatinine 0.8. His random glucose levels were still fluctuating and the bedtime glucose was 395 mg/dL. His hemoglobin A1c was reported as 9.5% which is elevated and indicative of suboptimal metabolic control of his diabetic condition. ASSESSMENT: This is a 52-year-old male with left lower extremity cellulitis and also a right hallux infection, underlying diabetic polyneuropathy and vasculopathy and is now being followed closely for metabolic management. PLAN OF MANAGEMENT: We will continue the modified basal and bolus insulin regimen as ordered with Humalog given as 12 units t.i.d. before meals as given. This regimen was actually scheduled to be started today as noted. We will continue the Levemir given as basal insulin again to be started tonight with Levemir at 24 units subcu at bedtime daily as given. We will titrate incrementally as indicated to optimize metabolic control. We will follow and advise accordingly. Wendi Healy MD
[2018-10-02] MEDS ORDERED: Insulin Detemir 100 Units/ml Inj SC SCH (22:00)
== END 2018-10-02 13:30 | disposition home or self-care (01) ==
LOC: H.ER 12:07 → H.ERHOLD 12:28 → UNDOADMIN 12:28 → H.ER 10-02 13:30
DX: L03.116 Cellulitis of left lower limb (principal); E11.649 Type 2 diabetes mellitus with hypoglycemia without coma; F17.210 Nicotine dependence, cigarettes, uncomplicated; I10 Essential (primary) hypertension; E11.42 Type 2 diabetes mellitus with diabetic polyneuropathy; Z79.4 Long term (current) use of insulin; Z83.3 Family history of diabetes mellitus; Z88.5 Allergy status to narcotic agent; E11.621 Type 2 diabetes mellitus with foot ulcer
CPT/HCPCS: 73630; 80053; 82803; 82948; 85025; 87040; 87070; 96365; 96366; 96367; 96375; 96376; 99285; J1885; J2270; J2543; J7030

== ENCOUNTER 2018-10-04 16:18 | Emergency (ER) | payer MEDICARE ==
[2018-10-04 16:18] VITALS: BMI 20.9
[2018-10-04 16:53] VITALS: BP 101/57; PULSE 74; RESP 18; TEMP 98.9; O2SAT 98
[2018-10-04] MEDS ORDERED: Sodium Chloride 0.9% 1,000 ML IV STA ×2 (17:00→17:50)
--- NOTE | 2018-10-04 17:11 | ED PDOC ---
Lower Extremity Pain/Injury Time Seen by Provider: 10/04/18 16:49 Chief Complaint (Nursing): Lower Extremity Problem/Injury Chief Complaint (Provider): Left Lower Extremity Fracture History Per: Patient History/Exam Limitations: no limitations Onset/Duration Of Symptoms: Mins (referred from PMD prior to arrival) Current Symptoms Are (Timing): Still Present Additional Complaint(s): 52 year old male presents to the ED as per PMD referral for evaluation of a fracture dislocation to the left lower extremity. Patient states he does not remember any falls, trauma, or injury, and thought the swelling and redness was from an infection. Of note, patient is diabetic and says he is compliant with his medications, but 45 minutes prior to arrival ate a cheeseburger and iced tea. PMD: Mallika Anderson Against Medical Advice - AMA Patient Left Against Medical Advice: The patient declines admission to the hospital and wishes to leave the Emergency Department. This action is against my medical advice. This decision was made with informed refusal. The patient was told that admission to the hospital is necessary. Explanation of the reasons why were discussed. The risks of leaving were explained to the patient and include, but are not limited to, worsening of known or currently unknown conditions, permanent disability and from undiagnosed or untreated conditions. The patient has the capacity to make this informed decision and understands my explanation of the current medical problem and risks of leaving. The patient voluntarily accepts these risks and signed an AMA form documenting our conversation. The patient was given the opportunity to ask questions and reconsider. The patient was encouraged to return to the Emergency Department at any time for further care. Past Medical History Reviewed: Historical Data, Nursing Documentation, Vital Signs Vital Signs: Last Vital Signs Temp 98.9 F 10/04/18 16:50 Pulse 74 10/04/18 16:50 Resp 18 10/04/18 16:50 BP 101/57 L 10/04/18 16:50 Pulse Ox 98 10/04/18 16:50 - Medical History PMH: Arthritis (bilateral knee), Diabetes (type II), Rheumatoid Arthritis Denies: HTN (denies 04/30/17), Chronic Kidney Disease - Surgical History Surgical History: Hernia Repair (umbilical) - Family History Family History: States: Diabetes (Father) - Social History Current smoker - smoking cessation education provided: Yes Alcohol: None Drugs: Denies - Immunization History Hx Tetanus Toxoid Vaccination: No Hx Influenza Vaccination: No Hx Pneumococcal Vaccination: No - Home Medications Home Medications: Ambulatory Orders Medication Instructions Recorded MetFORMIN [glucoPHAGE] 1,000 mg PO BID 04/23/17 Insulin Lispro Mix 75/25 [HumaLOG 20 unit SC BID 09/19/18 Mix 75/25] Prazosin HCl [Minipress] 2 mg PO HS 09/19/18 Pregabalin [Lyrica] 50 mg PO Q12 09/19/18 GlipiZIDE [Glucotrol] 10 mg PO DAILY 10/01/18 Insulin Detemir [Levemir] 24 units SC HS vial 10/02/18 Vancomycin 1 GM [Vancomycin 1GM in 1 gm IVPB DAILY 12 Days bag 10/02/18 Normal Saline Addvantage] traMADol [Ultram] 50 mg PO BID PRN #6 tab 10/04/18 - Allergies Allergies/Adverse Reactions: Allergies Allergy/AdvReac Type Severity Reaction Status Date / Time acetaminophen [From Percocet] Allergy RASH Verified 10/04/18 20:07 codeine Allergy RASH Verified 10/04/18 20:07 oxycodone HCl [From Percocet] Allergy RASH Verified 10/04/18 20:07 Review of Systems ROS Statement: Except As Marked, All Systems Reviewed And Found Negative Musculoskeletal: Positive for: Other (fracture to left lower extremity with swelling) Skin: Positive for: Other (redness to LLE) Physical Exam - Reviewed Nursing Documentation Reviewed: Yes Vital Signs Reviewed: Yes - Physical Exam Appears: Positive for: No Acute Distress Head Exam: Positive for: ATRAUMATIC, NORMAL INSPECTION, NORMOCEPHALIC Eye Exam: Positive for: Normal appearance Neck: Positive for: Normal, Painless ROM, Supple Cardiovascular/Chest: Positive for: Regular Rate, Rhythm Respiratory: Positive for: Normal Breath Sounds. Negative for: Respiratory Distress Gastrointestinal/Abdominal: Positive for: Normal Exam, Soft. Negative for: Tenderness Extremity: Positive for: Capillary Refill (less than 2 seconds), Swelling (edema from left ankle to distal foot with erythema medially) Neurological/Psych: Positive for: Awake, Alert, Oriented (x3), Other (sensation intact to bilateral lower extremities). 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 Podiatry will perform local block for procedure. 1800 IV line infiltrated, refused additional IV placement. 1820 Podiatry resident planned to admit patient for ORIF at this time, however patient is refusing admission. Scribe Attestation: Documented by Rita Payne, acting as a scribe for Dafne Pena MD. Provider Scribe Attestation: All medical record entries made by the Scribe were at my direction and personally dictated by me. I have reviewed the chart and agree that the record accurately reflects my personal performance of the history, physical exam, medical decision making, and the department course for this patient. I have also personally directed, reviewed, and agree with the discharge instructions and disposition. Disposition - Clinical Impression Clinical Impression: Fracture dislocation of ankle, Hyperglycemia - Disposition Disposition: Against Medical Advice Disposition Time: 18:05 Condition: UNKNOWN Prescriptions: traMADol [Ultram] 50 mg PO BID PRN #6 tab PRN Reason: Pain, Severe (8-10) Forms: [place] [employer] (Algerian)
[2018-10-04] MEDS ORDERED: Bupivacaine 0.25% Inj(30mL) IJ ONE (17:14)
[2018-10-04] MEDS ORDERED: Bupivacaine HCl 0.25% PF (30 ml) Inj ONE (17:21)
[2018-10-04 17:40] LABS: PROTHROMBIN TIME 11.7 Seconds (9.8-13.1)
[2018-10-04 17:46] LABS: ALB/GLOB RATIO 1.1 (1.0-2.1); ALBUMIN 3.3 g/dL (3.5-5.0); ALT/SGPT 12 U/L (21-72); AST/SGOT 22 U/L (17-59); BLOOD UREA NITROGEN 8 mg/dl (9-20); CALCIUM 8.8 mg/dL (8.4-10.2); GFR NON-AFRICAN AMERICAN > 60
--- NOTE | 2018-10-04 18:44 | CP.PCM.CON ---
History of Present Illness - History of Present Illness History of Present Illness: Podiatry Consult Note: Dr. Flores 52 year old male with PMHx IDDM was seen and evaluated in ED for left dislocated ankle with red, swollen left lower extremity. Patient states that a week ago days ago his left ankle started to swell up. Patient denies trauma to the leg, states his blood sugar dropped a week ago and doesn't remember what happened after but his mother found him on the floor. Admits to pain to the left ankle, however states he does not take any pain medications. Patient Denies any further pedal complaints at this time. Patient denies any recent N/V/F/C/CP/SOB/D/posterior calf pain when squeezed. Denies any other pedal complains at this time. States he also has a nonhealing wound to the right big toe that he is currently getting IV infusions for. Patient has seen Dr. Flores in the past for his foot and ankle treatment. PMH: IDDM PSH: L fifth digit after traumatic incident. Allergies: Acetaminophen, Codeine, Oxycodone. Social Hx: 0.5 ppd smoker x 25 years, denies alcohol, Denies illicit drug use. Past Patient History - Infectious Disease Hx of Infectious Diseases: None - Past Medical History & Family History Past Medical History?: Yes - Past Social History Alcohol: None Drugs: Denies - CARDIAC Hx Hypertension: No (denies 04/30/17) - PULMONARY Hx Respiratory Disorders: No - NEUROLOGICAL Hx Neurological Disorder: No - HEENT Hx HEENT Problems: Yes Other/Comment: uses eye glasses - RENAL Hx Chronic Kidney Disease: No - ENDOCRINE/METABOLIC Hx Endocrine Disorders: Yes (DM) Hx Diabetes Mellitus Type 2: Yes - HEMATOLOGICAL/ONCOLOGICAL Hx Blood Disorders: No - INTEGUMENTARY Hx Dermatological Problems: No - MUSCULOSKELETAL/RHEUMATOLOGICAL Hx Arthritis: Yes (bilateral knee) Hx Rheumatoid Arthritis: Yes - GASTROINTESTINAL Hx Gastrointestinal Disorders: No - GENITOURINARY/GYNECOLOGICAL Hx Genitourinary Disorders: No - PSYCHIATRIC Hx Psychophysiologic Disorder: No Hx Substance Use: No - SURGICAL HISTORY Hx Orthopedic Surgery: Yes Other/Comment: Left 5th toe. Right knee. umbilical hernia - ANESTHESIA Hx Anesthesia: Yes Hx Anesthesia Reactions: No Hx Malignant Hyperthermia: No Meds Home Medications: Home Medication List Medication Instructions Recorded Confirmed Type traMADol [Ultram] 50 mg PO BID PRN #6 tab 10/04/18 Rx Allergies/Adverse Reactions: Allergies Allergy/AdvReac Type Severity Reaction Status Date / Time acetaminophen [From Percocet] Allergy RASH Verified 10/04/18 20:07 codeine Allergy RASH Verified 10/04/18 20:07 oxycodone HCl [From Percocet] Allergy RASH Verified 10/04/18 20:07 - Medications Medications: Current Medications Sodium Chloride (Sodium Chloride 0.9%) 1,000 mls @ 1,000 mls/hr IV .Q1H STA Stop: 10/04/18 18:49 Last Admin: 10/04/18 18:03 Dose: Not Given Physical Exam - Constitutional Appears: Well, Non-toxic, No Acute Distress - Head Exam Head Exam: ATRAUMATIC, NORMOCEPHALIC - Eye Exam Eye Exam: Normal appearance Pupil Exam: NORMAL ACCOMODATION - ENT Exam ENT Exam: Mucous Membranes Moist - Respiratory Exam Respiratory Exam: NORMAL BREATHING PATTERN - Cardiovascular Exam Cardiovascular Exam: REGULAR RHYTHM - GI/Abdominal Exam GI & Abdominal Exam: Normal Bowel Sounds - Extremities Exam Extremities exam: Positive for: joint swelling, pedal edema, tenderness, pedal pulses present. Negative for: full ROM Additional comments: Left lower extremity exam: Vascular: Dp/PT faintly palpable secondary to pitting edema, +2 pitting edema noted to the foot and ankle, CFT< 3 secs x 5, TG warm to warm (warmer over the ankle), erythema noted on the foot and ankle extending to mid leg. derm: two scabs noted on the lateral aspect of the ankle measuring .5 cm, serous filled blister noted on the posterior aspect of the left ankle, no other open lesions, dependent erythema noted ortho: pain with ROM of the ankle joint and palpation of the ankle joint, no pain at the base of the fifth met or forefoot, no pain upon calf compression neuro: protective sensation diminished 2/4. Results - Vital Signs Recent Vital Signs: Last Vital Signs Temp 98.9 F 10/04/18 16:50 Pulse 74 10/04/18 16:50 Resp 18 10/04/18 16:50 BP 101/57 L 10/04/18 16:50 Pulse Ox 98 10/04/18 18:25 - Labs Result Diagrams: 10/04/18 17:19 Labs: Laboratory Results - last 24 hr 0310/04/18 10/04/18 16:46 17:19 17:19 PT 11.7 INR 1.0 Sodium 134 Potassium 4.8 Chloride 99 Carbon Dioxide 25 Anion Gap 15 BUN 8 L Creatinine 0.7 L Est GFR ( Amer) > 60 Est GFR (Non-Af Amer) > 60 POC Glucose (mg/dL) 406 H* Random Glucose 386 H Calcium 8.8 Total Bilirubin 0.5 AST 22 ALT 12 L D Alkaline Phosphatase 61 Total Protein 6.3 Albumin 3.3 L Globulin 2.9 Albumin/Globulin Ratio 1.1 Assessment & Plan - Assessment and Plan (Free Text) Assessment: 53 yo male with Pmhx of diabetes seen and evaluated for left dislocated ankle with no open lesions Plan: Patient seen and evaluated chart, labs and vitals reviewed Left ankle x-rays reviewed; anterior dislocation of the ankle joint noted with multiple small fracture fragments dorsal to the talus Consent obtained from the patient after careful of risks, benefits and complications of closed reduction Patient agreeable 20 cc of .25% marcaine used for local anesthesia of the left midleg in a ring block type fashion Closed reduction of the left ankle performed and confirmed using x-rays. Well padded cast applied to the left leg Patient educated on the moth exterminator complications of not having surgery for the left ankle Patient advised to be admitted at this time for further workup; patient refuses. Patient refuses bloodwork and CXR. Patient to follow up with Dr. Flores for further evaluation Crutches dispensed and crutch trained Patient advised to remain NWB to LLE and keep the dressing dry, clean and intact Take pain medications prn THank you for the consult
[2018-10-04 19:39] LABS: PARTIAL THROMBOPLASTIN TIME 20.5 Seconds (25.6-37.1)
--- NOTE | 2018-10-05 11:27 | RAD ---
Date of service: 10/04/2018 PROCEDURE: Left Ankle Radiographs. HISTORY: post reduction COMPARISON: 09/19/2018 plain film radiographs. October 04, 2018. CT left ankle, lower extremity. TECHNIQUE: 3 views obtained. FINDINGS: BONES: Interval improvement in dislocation of the left tibia and fibula relative to the talus. Multiple small fragments likely reflect avulsion fractures. SOFT TISSUES: Soft tissue swelling attests to the acuity of the fracture. OTHER FINDINGS: None. IMPRESSION: Improving postreduction anatomic alignment left ankle. Multiple small fracture fragments particularly about the talus identified.
--- NOTE | 2018-10-05 11:30 | RAD ---
Date of service: 10/04/2018 HISTORY: Admission COMPARISON: No prior. FINDINGS: LUNGS: No active pulmonary disease. PLEURA: No significant pleural effusion identified, no pneumothorax apparent. CARDIOVASCULAR: No atherosclerotic calcification present Normal. OSSEOUS STRUCTURES: No significant abnormalities. VISUALIZED UPPER ABDOMEN: Normal. OTHER FINDINGS: None. IMPRESSION: No active disease.
--- NOTE | 2018-10-05 16:21 | CT ---
Date of service: 10/04/2018 PROCEDURE: CT left lower extremity HISTORY: DISTAL TIB-FIB --> ANKLE PLEASE COMPARISON: Not available TECHNIQUE: 2.5 mm contiguous axial sections were acquired through the left ankle and distal tibia/fibula. Sagittal and coronal images were reformatted from the axial scan. Total exam DLP: 350.32 mGy-cm. This CT exam was performed using 1 or more of the following dose reduction techniques: Automated exposure control, adjustment of the mA and/or kV according to patient size, and/or use of iterative reconstruction technique. FINDINGS: There is posterior dislocation of the tibia on the talus. There is a comminuted displaced fracture of the anteromedial distal tibia. There is no definite fibular fracture identified. There is a 9 mm intra-articular osseous fragment seen immediately distal to the distal tibial articular surface. Numerous intracapsular ossific densities are noted as well. There is no tarsal fracture identified. There is a joint effusion/hemarthrosis with distention of the joint capsule. There is circumferential soft tissue swelling about the ankle. There is curvilinear and bandlike high attenuation material seen about much of the ankle outside of what would be the confines of the joint capsule and both proximal and distal to the confines of the joint capsule. Uncertain significance. Likely the result of chronic inflammation or chronic infection with some heterotopic ossification. Please note that in the posterior lateral soft tissues of the mid tibia/fibula, there is trace subcutaneous emphysema. This raises suspicion of an infectious process with a gas producing organism. Please correlate clinically. IMPRESSION: Posterior dislocation the tibia at the tibiotalar articulation. Comminuted displaced fracture of the distal tibia. Intra-articular osseous fragments. Smaller intracapsular osseous fragments are noted. Probable hemarthrosis. Soft tissue swelling. Trace subcutaneous emphysema raising suspicion of infectious process with a gas producing organism. Unusual curvilinear high attenuation seen about the foot and ankle raising suspicion of chronic infectious or chronic inflammatory process. The preliminary findings for this examination were reported by [facility] at 8:38 p.m. on 10/04/2018. There is discordance of this report with the preliminary findings. The atypical soft tissue calcification about the foot and ankle was described as callus formation. This does not represent callus and is not indicative of the chronicity of this fracture. Please also note that the small amount of subcutaneous emphysema was not noted in the preliminary report of this examination.
== END 2018-10-04 19:07 | disposition left against medical advice (07) ==
LOC: H.ER 16:18
DX: S93.05XA Dislocation of left ankle joint, initial encounter (principal); E11.65 Type 2 diabetes mellitus with hyperglycemia; F17.200 Nicotine dependence, unspecified, uncomplicated; Z79.4 Long term (current) use of insulin; M06.9 Rheumatoid arthritis, unspecified; Z88.5 Allergy status to narcotic agent
CPT/HCPCS: 27840; 71045; 73610; 73700; 80053; 82948; 85610; 85730; 96360; 99285; J7030

== ENCOUNTER 2018-10-04 19:33 | Emergency (ER) | payer MEDICARE ==
[2018-10-04 19:34] VITALS: BMI 20.9
[2018-10-04 20:11] VITALS: BP 144/66; PULSE 82; RESP 16; TEMP 98.2; O2SAT 96
--- NOTE | 2018-10-04 20:50 | ED PDOC ---
Lower Extremity Pain/Injury Chief Complaint (Provider): Lower Extremity Problem/Injury History Per: Patient History/Exam Limitations: no limitations Onset/Duration Of Symptoms: Days Current Symptoms Are (Timing): Still Present Additional Complaint(s): Patient is a 52 y/o male with no significant PMHx who presents to the ED for evaluation of a wound on left lower leg. Patient was previously seen in ED and his left lower extremity was placed in a cast by podiatry after being diagnosed with a left ankle fracture. Patient claims the cast was too tight when he got home. Patient states he attempted to open the cast and noticed a wound on his leg. Patient denies numbness or tingling. PCP: Dr. Mallika Anderson <Shaheed Dia - Last Filed: 10/04/18 23:13> <Carlton Ferreira III - Last Filed: 10/05/18 12:21> Time Seen by Provider: 10/04/18 20:15 Chief Complaint (Nursing): Lower Extremity Problem/Injury Past Medical History Reviewed: Historical Data, Nursing Documentation, Vital Signs Vital Signs: Last Vital Signs Temp 98.2 F 10/04/18 20:08 Pulse 82 10/04/18 20:08 Resp 16 10/04/18 20:08 BP 144/66 10/04/18 20:08 Pulse Ox 96 10/04/18 20:08 - Medical History PMH: Arthritis (bilateral knee), Diabetes (type II), Rheumatoid Arthritis Denies: HTN (denies 04/30/17), Chronic Kidney Disease - Surgical History Surgical History: Hernia Repair (umbilical) - Family History Family History: States: Diabetes (Father) - Immunization History Hx Tetanus Toxoid Vaccination: No Hx Influenza Vaccination: No Hx Pneumococcal Vaccination: No <Shaheed Dia - Last Filed: 10/04/18 23:13> Vital Signs: Last Vital Signs Temp 98.2 F 10/04/18 20:08 Pulse 82 10/04/18 20:08 Resp 16 10/04/18 20:08 BP 144/66 10/04/18 20:08 Pulse Ox 96 10/04/18 23:13 <Carlton Ferreira III - Last Filed: 10/05/18 12:21> - Home Medications Home Medications: Ambulatory Orders Medication Instructions Recorded MetFORMIN [glucoPHAGE] 1,000 mg PO BID 04/23/17 Insulin Lispro Mix 75/25 [HumaLOG 20 unit SC BID 09/19/18 Mix 75/25] Prazosin HCl [Minipress] 2 mg PO HS 09/19/18 Pregabalin [Lyrica] 50 mg PO Q12 09/19/18 GlipiZIDE [Glucotrol] 10 mg PO DAILY 10/01/18 Insulin Detemir [Levemir] 24 units SC HS vial 10/02/18 Vancomycin 1 GM [Vancomycin 1GM in 1 gm IVPB DAILY 12 Days bag 10/02/18 Normal Saline Addvantage] traMADol [Ultram] 50 mg PO BID PRN #6 tab 10/04/18 - Allergies Allergies/Adverse Reactions: Allergies Allergy/AdvReac Type Severity Reaction Status Date / Time acetaminophen [From Percocet] Allergy RASH Verified 10/04/18 20:07 codeine Allergy RASH Verified 10/04/18 20:07 oxycodone HCl [From Percocet] Allergy RASH Verified 10/04/18 20:07 Review of Systems ROS Statement: Except As Marked, All Systems Reviewed And Found Negative Musculoskeletal: Positive for: Other (left ankle fracture with wound on left lower extremity) Neurological: Negative for: Numbness (or tingling) <Shaheed Dia E - Last Filed: 10/04/18 23:13> Physical Exam - Reviewed Nursing Documentation Reviewed: Yes Vital Signs Reviewed: Yes - Physical Exam Appears: Positive for: No Acute Distress Extremity: Positive for: Capillary Refill (less than 2 seconds), Other (left lower extremity: partially broken cast with superficial abrasion on anterior, superior leg; no active bleeding) <Shaheed Dia E - Last Filed: 10/04/18 23:13> - ECG O2 Sat by Pulse Oximetry: 96 (RA) Pulse Ox Interpretation: Normal - Progress ED Course And Treament: Pt. evaluated by Dr. Ruffin, podiatry resident, who saw pt. in ED and removed cast then placed pt. on a posterior splint. Pt. left ED prior to signing discharge papers. <Shaheed Dia E - Last Filed: 10/04/18 23:13> Medical Decision Making Medical Decision Making: Time: 1999 Impression: Ankle pain with fracture s/p cast placement Plan: Pending call back from podiatry. Scribe Attestation: Documented by Mart Alexander, acting as a scribe Mark Dia PA-C. Provider Scribe Attestation: All medical record entries made by the Scribe were at my direction and personal ly dictated by me. I have reviewed the chart and agree that the record accurately reflects my personal performance of the history, physical exam, medical decision making, and the department course for this patient. I have also personally directed, reviewed, and agree with the discharge instructions and disposition. <Shaheed Dia - Last Filed: 10/04/18 23:13> Medical Decision Making: patient warned extensively of risks of removing cast, including loss of ability to walk, loss of leg, chronic pain, gait instability or other complications. Importance of cast placement and maintenance with followup with podiatry was explained at length multiple times. He was alert, oriented and verbalized understanding on repeat encounters. <Carlton Ferreira III - Last Filed: 10/05/18 12:21> Disposition - Patient ED Disposition Is Patient to be Admitted: No - Disposition Disposition: Routine/Home Disposition Time: 23:08 <Shaheed Dia - Last Filed: 10/04/18 23:13> <Carlton Ferreira III - Last Filed: 10/05/18 12:21> - Clinical Impression Clinical Impression: Ankle fracture, Cast discomfort - Disposition Referrals: [facility] [Outside] Condition: STABLE Additional Instructions: FOLLOW UP WITH PODIATRY SCHEDULED RETURN TO ED IMMEDIATELY IF SYMPTOMS WORSEN NASRIN CAI, thank you for letting us take care of you today. Your provider was Carlton Ferreira III, DO and you were treated for LT LEG PAIN. The emergency medical care you received today was directed at your acute symptoms. If you were prescribed any medication, please fill it and take as directed. It may take several days for your symptoms to resolve. Return to the Emergency Department if your symptoms worsen, do not improve, or if you have any other problems. Please contact your doctor or call one of the physicians/clinics you have been referred to that are listed on the Patient Visit Information form that is included in your discharge packet. Bring any paperwork you were given at discharge with you along with any medications you are taking to your follow up visit. Our treatment cannot replace ongoing medical care by a primary care provider outside of the emergency department. Thank you for allowing the [facility] team to be part of your care today. If you had an X-Ray or CT scan: A Radiologist will review the ED reading if any change in treatment is needed we will contact you. If you had a blood, urine, or wound culture: It will take several days for the results, if any change in treatment is needed we will contact you. If you had an STI test: It will take 48 hours for the results. Please call after 1 week if you have not heard back. Instructions: Ankle Fracture (DC) Forms: [employer] (Yoruba)
--- NOTE | 2018-10-05 11:00 | CP.PCM.CON ---
History of Present Illness - History of Present Illness History of Present Illness: Podiatry Consult Note: Dr. Betancourt 52 year old male with PMHx IDDM was seen and evaluated in ED for left dislocated ankle with red, swollen left lower extremity. Patient is known to podiatry and was seen a cople hours ago. Patient is seen with a dirty cast and cast ripped from the leg. Patient states the cast was too tight and he started to open the cast himself. states he wants the cast off and does not want any further treatment at this time. PMH: IDDM PSH: L fifth digit after traumatic incident. Allergies: Acetaminophen, Codeine, Oxycodone. Social Hx: 0.5 ppd smoker x 25 years, denies alcohol, Denies illicit drug use. Past Patient History - Infectious Disease Hx of Infectious Diseases: None - Past Medical History & Family History Past Medical History?: Yes - Past Social History Smoking Status: Heavy Smoker > 10 Cigarettes Daily - CARDIAC Hx Hypertension: No (denies 04/30/17) - PULMONARY Hx Respiratory Disorders: No - NEUROLOGICAL Hx Neurological Disorder: No - HEENT Hx HEENT Problems: Yes Other/Comment: uses eye glasses - RENAL Hx Chronic Kidney Disease: No - ENDOCRINE/METABOLIC Hx Endocrine Disorders: Yes (DM) Hx Diabetes Mellitus Type 2: Yes - HEMATOLOGICAL/ONCOLOGICAL Hx Blood Disorders: No - INTEGUMENTARY Hx Dermatological Problems: No - MUSCULOSKELETAL/RHEUMATOLOGICAL Hx Arthritis: Yes (bilateral knee) Hx Rheumatoid Arthritis: Yes - GASTROINTESTINAL Hx Gastrointestinal Disorders: No - GENITOURINARY/GYNECOLOGICAL Hx Genitourinary Disorders: No - PSYCHIATRIC Hx Psychophysiologic Disorder: No Hx Substance Use: No - SURGICAL HISTORY Hx Orthopedic Surgery: Yes Other/Comment: Left 5th toe. Right knee. umbilical hernia - ANESTHESIA Hx Anesthesia: Yes Hx Anesthesia Reactions: No Hx Malignant Hyperthermia: No Meds Allergies/Adverse Reactions: Allergies Allergy/AdvReac Type Severity Reaction Status Date / Time acetaminophen [From Percocet] Allergy RASH Verified 10/04/18 20:07 codeine Allergy RASH Verified 10/04/18 20:07 oxycodone HCl [From Percocet] Allergy RASH Verified 10/04/18 20:07 Physical Exam - Constitutional Appears: Well, Non-toxic, No Acute Distress - Head Exam Head Exam: ATRAUMATIC, NORMOCEPHALIC - Eye Exam Eye Exam: Normal appearance Pupil Exam: NORMAL ACCOMODATION - ENT Exam ENT Exam: Mucous Membranes Moist - Extremities Exam Extremities exam: Positive for: joint swelling, tenderness Additional comments: Left lower extremity exam: Vascular: Dp/PT faintly palpable secondary to pitting edema, +2 pitting edema noted to the foot and ankle, CFT< 3 secs x 5, TG warm to warm (warmer over the ankle), erythema noted on the foot and ankle extending to mid leg. derm: superficial bleeding wound noted to the anterior aspect of the midleg (states it started a few hours ago) two scabs noted on the lateral aspect of the ankle measuring .5 cm, serous filled blister noted on the posterior aspect of the left ankle, no other open lesions, dependent erythema noted ortho: pain with ROM of the ankle joint and palpation of the ankle joint, no pain at the base of the fifth met or forefoot, no pain upon calf compression neuro: protective sensation diminished 2/4. Results - Vital Signs Recent Vital Signs: Last Vital Signs Temp 98.2 F 10/04/18 20:08 Pulse 82 10/04/18 20:08 Resp 16 10/04/18 20:08 BP 144/66 10/04/18 20:08 Pulse Ox 96 10/04/18 23:13 Assessment & Plan - Assessment and Plan (Free Text) Assessment: 53 yo male with Pmhx of diabetes seen and evaluated for left dislocated ankle with no open lesions Plan: Patient seen and evaluated chart, labs and vitals reviewed Cast removed and posterior splint applied Patient advised to remain NWB to LLE and keep the dressing dry, clean and intact Take pain medications prn Thank you for the consult
== END 2018-10-04 23:00 | disposition home or self-care (01) ==
LOC: H.ER 19:33
DX: S93.05XD Dislocation of left ankle joint, subsequent encounter (principal); E11.9 Type 2 diabetes mellitus without complications; F17.210 Nicotine dependence, cigarettes, uncomplicated; M06.9 Rheumatoid arthritis, unspecified; Z79.4 Long term (current) use of insulin; Z88.5 Allergy status to narcotic agent; S90.822A Blister (nonthermal), left foot, initial encounter

== ENCOUNTER 2018-10-09 11:19 | Observation (INO) | payer MEDICARE ==
[2018-10-09] MEDS ORDERED: Dextrose 50% SYRINGE Inj (50 ml) IV PRN (14:00)
[2018-10-09] MEDS ORDERED: Glucagon Recombinant 1 mg Inj IM PRN (14:00)
[2018-10-09 14:02] VITALS: BMI 24.0
--- NOTE | 2018-10-09 14:06 | CP.PCM.HP ---
History of Present Illness - History of Present Illness History of Present Illness: 53-year-old male with PMH of uncontrolled DM, RA and neuropathy presents for scheduled for surgery tomorrow, 10/10/18 7:45 AM, for left ankle ORIF vs external fixation. He states pain is currently 8/10 with no alleviating factors. He was recently treated for MRSA cellulitis - initially failed PO and was then treated with vanco IV antibiotics as an outpatient at [facility]. Unsure of when trauma occurred to his foot. He has had 3 previous surgeries - left foot, right knee and umbilical hernia - all were same-day and he recovered without any complications. He has been walking wtih crutches and avoiding weight bearing activities on his LLE, at baseline he walks with crutch due to right knee. He denies chest pain and SOB with and without activity, METS >4. Lower extremity CT (10/04): posterior dislocation of the tibia at tibiotalar ar ticulation, comminuted displaced fracture of the distal tibia PMD: Dr Anderson PMH: DM2 (dx 2005), RA, neuropathy Past Surgical Hx: left foot, right knee, umbilical hernia Social: Current smoker - 30 pack years, cut back 3 days ago to 1/3 pack/day, cocaine use in 30's, denies alcohol Allergy: Percocet (rash), codeine (rash) Present on Admission - Present on Admission Any Indicators Present on Admission: Yes History of DVT/PE: No History of Uncontrolled Diabetes: Yes Review of Systems - Constitutional Constitutional: absent: Chills, Fever - Cardiovascular Cardiovascular: absent: Chest Pain, Chest Pain at Rest, Chest Pain with Activity, Claudication - Respiratory Respiratory: absent: Dyspnea, Chest Congestion - Gastrointestinal Gastrointestinal: absent: Abdominal Pain - Genitourinary Genitourinary: absent: Dysuria - Musculoskeletal Musculoskeletal: As Per HPI - Psychiatric Psychiatric: Abnormal Sleep Pattern (improved since Dr Anderson prescribed Prazosin 5mg at bedtime) - Hematologic/Lymphatic Hematologic: absent: Easy Bleeding, Easy Bruising Past Patient History - Infectious Disease Hx of Infectious Diseases: None - Past Medical History & Family History Past Medical History?: Yes - Past Social History Smoking Status: Heavy Smoker > 10 Cigarettes Daily - CARDIAC Hx Hypertension: No (denies 04/30/17) - PULMONARY Hx Respiratory Disorders: No - NEUROLOGICAL Hx Neurological Disorder: No - HEENT Hx HEENT Problems: Yes Other/Comment: uses eye glasses - RENAL Hx Chronic Kidney Disease: No - ENDOCRINE/METABOLIC Hx Endocrine Disorders: Yes (DM) Hx Diabetes Mellitus Type 2: Yes - HEMATOLOGICAL/ONCOLOGICAL Hx Blood Disorders: No - INTEGUMENTARY Hx Dermatological Problems: No - MUSCULOSKELETAL/RHEUMATOLOGICAL Hx Arthritis: Yes (bilateral knee) Hx Rheumatoid Arthritis: Yes - GASTROINTESTINAL Hx Gastrointestinal Disorders: No - GENITOURINARY/GYNECOLOGICAL Hx Genitourinary Disorders: No - PSYCHIATRIC Hx Psychophysiologic Disorder: No Hx Substance Use: No - SURGICAL HISTORY Hx Orthopedic Surgery: Yes Other/Comment: Left 5th toe. Right knee. umbilical hernia - ANESTHESIA Hx Anesthesia: Yes Hx Anesthesia Reactions: No Hx Malignant Hyperthermia: No Meds Allergies/Adverse Reactions: Allergies Allergy/AdvReac Type Severity Reaction Status Date / Time acetaminophen [From Percocet] Allergy RASH Verified 10/04/18 20:07 codeine Allergy RASH Verified 10/04/18 20:07 oxycodone HCl [From Percocet] Allergy RASH Verified 10/04/18 20:07 Physical Exam - Constitutional Appears: Non-toxic, No Acute Distress - Head Exam Head Exam: NORMAL INSPECTION - ENT Exam ENT Exam: Mucous Membranes Moist - Respiratory Exam Respiratory Exam: NORMAL BREATHING PATTERN. absent: Respiratory Distress - Cardiovascular Exam Cardiovascular Exam: REGULAR RHYTHM - GI/Abdominal Exam GI & Abdominal Exam: Soft. absent: Distended, Guarding, Tenderness - Extremities Exam Additional comments: pt using crutches - left lower extremity splinted, dressing dry, clean and intact. - Neurological Exam Neurological exam: Alert, Oriented x3 - Psychiatric Exam Psychiatric exam: Anxious, Normal Affect, Normal Mood - Skin Skin Exam: Dry, Intact, Normal Color, Warm Results - Labs Result Diagrams: 10/09/18 14:05 Assessment & Plan - Assessment and Plan (Free Text) Assessment: 53-year-old male with PMH of uncontrolled DM, RA and neuropathy presents for scheduled for surgery 10/10/18 7:45 AM, for left ankle ORIF vs external fixation. Plan: Left ankle compound fracture -Scheduled for OR tomorrow, 10/10 -Podiatry on-board, input and recs appreciated -NPO after midnight, IV maintenance D5 0.45NS + 20mEq K -f/u EKG, CXR, CBC, CMP, PT/PTT Uncontrolled DM -Insulin-sliding scale -Accuchecks -Glucotrol 10mg BID -f/u HgA1C -f/u Lipid panel -f/u Microalbumin Neuropathy -Lyrica 50 mg BID Nightmares -Prazosin HCl 5mg at bedtime DVT Prophylaxis -SCDs -Pt ambulating on crutches
--- NOTE | 2018-10-09 14:13 | ED PDOC ---
HPI: General Adult Time Seen by Provider: 10/09/18 11:30 Chief Complaint (Provider): ankle pain History Per: Patient History/Exam Limitations: other (poor historian) Current Symptoms Are (Timing): Still Present Severity: Severe Recently: Seen In ED, Treated By A Physician Additional Complaint(s): 53yo male suffered L ankle fracture/dislocation last week, had closed reduction in ED, had cast placed briefly but then refused cast and demanded it be removed. Cast removed by podiatry same day, splint placed, crutch training given and instructed to followup for ORIF. Presents today w persistent ankle pain. Case discussed w PMD Dr Anderson, to admit Obs for ORIF per podiatry team. Past Medical History Reviewed: Historical Data, Nursing Documentation, Vital Signs - Medical History PMH: Arthritis (bilateral knee), Diabetes (type II), Rheumatoid Arthritis Denies: HTN (denies 04/30/17), Chronic Kidney Disease - Surgical History Surgical History: Hernia Repair (umbilical) - Family History Family History: States: Unknown Family Hx, Diabetes (Father) - Immunization History Hx Tetanus Toxoid Vaccination: No Hx Influenza Vaccination: No Hx Pneumococcal Vaccination: No - Home Medications Home Medications: Ambulatory Orders Medication Instructions Recorded MetFORMIN [glucoPHAGE] 1,000 mg PO BID 04/23/17 Prazosin HCl [Minipress] 2 mg PO HS 09/19/18 Pregabalin [Lyrica] 50 mg PO Q8 09/19/18 GlipiZIDE [Glucotrol] 10 mg PO BID 10/01/18 Vancomycin 1 GM [Vancomycin 1GM in 1 gm IVPB DAILY 12 Days bag 10/02/18 Normal Saline Addvantage] traMADol [Ultram] 50 mg PO BID PRN #6 tab 10/04/18 Insulin Human Regular [HumuLIN R] 20 unit SC ACTID 10/09/18 Sulfamethoxazole/Trimethoprim 1 tab PO BID 10/09/18 [Bactrim DS Tab] - Allergies Allergies/Adverse Reactions: Allergies Allergy/AdvReac Type Severity Reaction Status Date / Time acetaminophen [From Percocet] Allergy RASH Verified 10/04/18 20:07 codeine Allergy RASH Verified 10/04/18 20:07 oxycodone HCl [From Percocet] Allergy RASH Verified 10/04/18 20:07 Review of Systems Constitutional: Negative for: Fever Cardiovascular: Negative for: Chest Pain Gastrointestinal: Negative for: Abdominal Pain Genitourinary Male: Negative for: Dysuria Musculoskeletal: Negative for: Neck Pain Skin: Negative for: Rash, Lesions Neurological: Negative for: Weakness, Numbness Psych: Negative for: Depression Physical Exam - Reviewed Nursing Documentation Reviewed: Yes Vital Signs Reviewed: Yes - Physical Exam Appears: Positive for: Well Head Exam: Positive for: ATRAUMATIC, NORMAL INSPECTION, NORMOCEPHALIC Skin: Positive for: Normal Color, Warm, DRY Eye Exam: Positive for: EOMI, Normal appearance, PERRL ENT: Positive for: Normal ENT Inspection Neck: Positive for: Normal, Painless ROM Cardiovascular/Chest: Positive for: Regular Rate, Rhythm Respiratory: Positive for: CNT, Normal Breath Sounds Extremity: Positive for: Swelling, Other (L ankle in splint) Neurological/Psych: Positive for: Awake, Alert, Normal Tone, Oriented Medical Decision Making Medical Decision Making: admit Dr Anderson service. Preop orders placed Care transferred and podiatry/ inpatient service to obtain surgical consult. Disposition - Clinical Impression Clinical Impression: Fracture, ankle - Patient ED Disposition Is Patient to be Admitted: Yes - Disposition Disposition Time: 12:15 Condition: STABLE - Pt Status Changed To: Hospital Disposition Of: Observation - POA Present On Arrival: Falls Or Trauma
--- NOTE | 2018-10-09 14:45 | CP.PCM.CON ---
History of Present Illness - History of Present Illness History of Present Illness: Podiatry consult note - Dr. Flores 53M seen and evaluated in the ED for left ankle fracture/dislocation. Patient well known to podiatry. States that he is aware of his surgery tomorrow with Dr. Flores. States that he has not been putting weight on his left ankle and using crutches or wheelchair. States that he is in 8/10 pain to his left ankle. States he had taken his splint off from when his ankle was close reduced in order to have pictures taken of the skin at his ankle. Denies n/v/f/c today and has no other acute complaints. Patient aware of NPO after midnight tonight. PMHx: IDDM PSHx: L fifth digit after traumatic incident All: acetaminophen, codeine, oxycodone HCl Past Patient History - Infectious Disease Hx of Infectious Diseases: None - Past Medical History & Family History Past Medical History?: Yes - Past Social History Smoking Status: Heavy Smoker > 10 Cigarettes Daily - CARDIAC Hx Hypertension: No (denies 04/30/17) - PULMONARY Hx Respiratory Disorders: No - NEUROLOGICAL Hx Neurological Disorder: No - HEENT Hx HEENT Problems: Yes Other/Comment: uses eye glasses - RENAL Hx Chronic Kidney Disease: No - ENDOCRINE/METABOLIC Hx Endocrine Disorders: Yes (DM) Hx Diabetes Mellitus Type 2: Yes - HEMATOLOGICAL/ONCOLOGICAL Hx Blood Disorders: No - INTEGUMENTARY Hx Dermatological Problems: No - MUSCULOSKELETAL/RHEUMATOLOGICAL Hx Arthritis: Yes (bilateral knee) Hx Rheumatoid Arthritis: Yes - GASTROINTESTINAL Hx Gastrointestinal Disorders: No - GENITOURINARY/GYNECOLOGICAL Hx Genitourinary Disorders: No - PSYCHIATRIC Hx Psychophysiologic Disorder: No Hx Substance Use: No - SURGICAL HISTORY Hx Orthopedic Surgery: Yes Other/Comment: Left 5th toe. Right knee. umbilical hernia - ANESTHESIA Hx Anesthesia: Yes Hx Anesthesia Reactions: No Hx Malignant Hyperthermia: No Meds Allergies/Adverse Reactions: Allergies Allergy/AdvReac Type Severity Reaction Status Date / Time acetaminophen [From Percocet] Allergy RASH Verified 10/04/18 20:07 codeine Allergy RASH Verified 10/04/18 20:07 oxycodone HCl [From Percocet] Allergy RASH Verified 10/04/18 20:07 - Medications Medications: Current Medications Dextrose (Dextrose 50% Inj) 0 ml IV STAT PRN; Protocol PRN Reason: Hypoglycemia Protocol Dextrose (Glutose 15) 0 gm PO ONCE PRN; Protocol PRN Reason: Hypoglycemia Protocol Glucagon (Glucagen Diagnostic Kit) 0 mg IM STAT PRN; Protocol PRN Reason: Hypoglycemia Protocol Insulin Human Lispro (Humalog) 0 units SC ACCU-CHECK [facility]MA; Protocol Nicotine (Nicoderm Cq) 1 patch TD DAILY [facility] Prazosin HCl (Minipress) 5 mg PO HS HUMA Physical Exam - Constitutional Appears: Non-toxic - Head Exam Head Exam: ATRAUMATIC - Extremities Exam Additional comments: LLE dressing and splint left intact Clean and dry No ascending erythema or cellulitis No pain on calf compression - Neurological Exam Neurological exam: Alert, Oriented x3 - Psychiatric Exam Psychiatric exam: Normal Affect Assessment & Plan - Assessment and Plan (Free Text) Assessment: 53M with left ankle fracture/dislocation Plan: Patient seen and evaluated Discussed with Dr. Flroes Dressing left intact NPO after midnight Scheduled for surgery tomorrow 7:45 AM for left ankle ORIF vs external fixation Pain management per primary Medical optimization for surgery tomorrow per medicine, appreciated Physical therapy eval - nonweightbearing to left lower extremity Will continue to follow patient Thank you for the consult - Date & Time Date: 10/09/18 Time: 14:50
[2018-10-09 14:54] LABS: PARTIAL THROMBOPLASTIN TIME 32.1 Seconds (25.6-37.1); PROTHROMBIN TIME 11.8 Seconds (9.8-13.1)
[2018-10-09 15:34] LABS: ALBUMIN 4.1 g/dL (3.5-5.0); GFR NON-AFRICAN AMERICAN > 60
[2018-10-09 15:52] LABS: ALB/GLOB RATIO 1.2 (1.0-2.1); ALT/SGPT 25 U/L (21-72); AST/SGOT 36 U/L (17-59); BLOOD UREA NITROGEN 11 mg/dl (9-20); CALCIUM 9.9 mg/dL (8.4-10.2); HDL CHOLESTEROL 35 MG/DL (30-70)
[2018-10-09 15:54] LABS: LDL CHOLESTEROL 137 mg/dL (0-129)
[2018-10-09] MEDS: Potassium Ch 20mEq in D5-1/2NS 1,000 ML IV SCH ×2 (16:37→22:58)
--- NOTE | 2018-10-09 16:55 | RAD ---
Date of service: 10/09/2018 HISTORY: 30 pack yr smoker, preop COMPARISON: 10/04/2018 TECHNIQUE: Chest PA and lateral views FINDINGS: LUNGS: No active pulmonary disease. PLEURA: No significant pleural effusion identified. No pneumothorax apparent. CARDIOVASCULAR: No aortic atherosclerotic calcification present. Normal cardiac size. No pulmonary vascular congestion. OSSEOUS STRUCTURES: No significant abnormalities. VISUALIZED UPPER ABDOMEN: Normal. OTHER FINDINGS: None. IMPRESSION: No active disease. No significant interval change compared to the prior examination(s).
--- NOTE | 2018-10-09 17:17 | CARD ---
APPROVED REPORT Date of service: 10/09/2018 EKG Measurement Heart [id number] <Conclusion> Normal sinus rhythm Normal ECG
[2018-10-09 18:53] LABS: BASO # 0.1 K/uL (0.0-0.2); BASO % 0.6 % (0.0-2.0); EOS # 0.4 K/uL (0.0-0.7); EOS % 4.2 % (0.0-4.0); HEMOGLOBIN 11.8 g/dL (12.0-18.0); LYMPH # 1.5 K/uL (1.0-4.3); LYMPH % 16.2 % (20.0-40.0); MEAN CELL VOLUME 82.5 fl (80.0-94.0); MEAN CORPUSCULAR HEMOGLOBIN 27.3 pg (27.0-31.0); MEAN CORPUSCULAR HGB CONC 33.1 g/dL (33.0-37.0); MEAN PLATELET VOLUME 9.6 fl (7.2-11.7); MONO # 0.5 K/uL (0.0-0.8); MONO % 5.8 % (0.0-10.0); NEUT # 6.7 K/uL (1.8-7.0); NEUT % 73.2 % (50.0-75.0); RBC 4.32 Mil/uL (4.40-5.90); RED CELL DISTRIBUTION WIDTH 14.7 % (11.5-14.5); WHITE BLOOD COUNT 9.2 K/uL (4.8-10.8)
[2018-10-09] MEDS: Tmp-Smz 800 mg-160 mg DS Tab PO SCH (22:16)
[2018-10-09] MEDS: Insulin Lispro (humaLOG) 100 Units/ml Inj SC SCH (22:58)
[2018-10-10] MEDS ORDERED: Lidocaine 1% Inj (20ml) IJ ONE (07:04)
[2018-10-10] MEDS ORDERED: ceFAZolin 1 GM in Sodium Chloride 0.9% 100 ML IVPB ONE (07:04)
[2018-10-10] MEDS ORDERED: Bupivacaine 0.5% Inj(30mL) IJ ONE (07:04)
--- NOTE | 2018-10-10 07:04 | CP.PCM.PN ---
Subjective - Date & Time of Evaluation Date of Evaluation: 10/10/18 Time of Evaluation: 07:04 - Subjective Subjective: Podiatry progress note - Dr. Flores 53M seen and evaluated at bedside with left ankle fracture/dislocation. States that he is in minimal pain this morning but is refusing to have blood drawn by nurses. After discussion states he is amenable to have blood drawn. Denies n/v/f/c this morning and has no other acute complaints. NPO status is confirmed. Objective - Vital Signs/Intake and Output Vital Signs (last 24 hours): Temp Pulse Resp BP Pulse Ox 98.5 F 68 18 115/72 96 10/10/18 00:34 10/10/18 02:16 10/10/18 02:16 10/10/18 00:34 10/10/18 02:16 - Medications Medications: Current Medications Dextrose (Dextrose 50% Inj) 0 ml IV STAT PRN; Protocol PRN Reason: Hypoglycemia Protocol Dextrose (Glutose 15) 0 gm PO ONCE PRN; Protocol PRN Reason: Hypoglycemia Protocol Glipizide (Glucotrol) 10 mg PO BIDAC [facility] Last Admin: 10/09/18 16:30 Dose: Not Given Glucagon (Glucagen Diagnostic Kit) 0 mg IM STAT PRN; Protocol PRN Reason: Hypoglycemia Protocol Potassium Chloride/Dextrose/Sod Cl (Potassium Chl 20 Meq In D5-1/2ns) 1,000 mls @ 125 mls/hr IV .Q8H [facility] Stop: 10/10/18 15:43 Last Admin: 10/09/18 22:58 Dose: Not Given Insulin Human Lispro (Humalog) 0 units SC ACCU-CHECK HUMA; Protocol Last Admin: 10/09/18 22:58 Dose: Not Given Nicotine (Nicoderm Cq) 1 patch TD DAILY [facility] Last Admin: 10/09/18 15:00 Dose: Not Given Prazosin HCl (Minipress) 5 mg PO HS [facility] Last Admin: 10/09/18 22:16 Dose: Not Given Trimethoprim/Sulfamethoxazole (Bactrim Ds Tab) 1 tab PO Q12 [facility]; Protocol Last Admin: 10/09/18 22:16 Dose: Not Given - Labs Labs: 10/09/18 18:52 10/09/18 14:05 PT 11.8 Seconds (9.8-13.1) 10/09/18 14:05 INR 1.0 10/09/18 14:05 APTT 32.1 Seconds (25.6-37.1) 10/09/18 14:05 - Constitutional Appears: Non-toxic - Head Exam Head Exam: ATRAUMATIC - Extremities Exam Additional comments: LLE focused VASC: DP and PT pulses palpable; cap refill <3 seconds to all digits; temp gradient warm to warm; moderate edema noted globally at the ankle and foot DERM: No open lesions or wounds present; healed scratches noted; mild erythema about the ankle ORTHO: pain on palpation at the ankle joint; ROM not assessed 2/2 dislocation and fracture status; MMT not assessed 2/2 guarding NEURO: gross and protective sensation intact - Neurological Exam Neurological Exam: Alert, Awake, Oriented x3 - Psychiatric Exam Psychiatric exam: Normal Affect, Normal Mood Assessment and Plan - Assessment and Plan (Free Text) Assessment: 53M with left ankle fracture/dislocation Plan: Pt was seen and examined at bedside Pt NPO status was confirmed All pre-op testing and clearance in chart Pt has exhausted all conservative treatment at this time and is opting for surgical intervention Pt was explained procedure and post-operative course All pt's questions were answered to satisfaction No guarantees were made Pt understands all risks, benefits and complications of procedure Pt will follow-up with Dr. Flores within 1 week of surgery
[2018-10-10] MEDS ORDERED: Sodium Chloride 0.9% 1,000 ML IV SCH (07:15)
[2018-10-10] MEDS ORDERED: Propofol 10 mg/ml Inj (20 ML) ONE ×2 (07:24→10:21)
[2018-10-10] MEDS ORDERED: Midazolam 2 MG/2 ML VIAL ONE ×2 (07:25→08:39)
[2018-10-10] MEDS ORDERED: ePHEDrine 50 mg/ml Inj ONE (07:26)
[2018-10-10] MEDS ORDERED: Lidocaine 4% (Laryng-O-Jet) Kit MM ONE (07:26)
[2018-10-10] MEDS ORDERED: Rocuronium 10 mg/ml (5 ml) ONE (07:26)
[2018-10-10] MEDS ORDERED: Ropivacaine 0.5% 30ML IV ONE (07:31)
[2018-10-10] MEDS ORDERED: Succinylcholine 200 mg/10 ml Inj IV ONE (07:32)
[2018-10-10] MEDS ORDERED: Lactated Ringer's 1,000 ML IV ONE ×2 (08:25→10:15)
[2018-10-10] MEDS ORDERED: Bacitracin Ointment 30 GM TUBE ONE (10:13)
[2018-10-10] MEDS ORDERED: Neostigmine 1:1000 (1 mg/ml) Inj ONE (10:20)
[2018-10-10] MEDS ORDERED: HYDROmorphone 0.5 mg/0.5 ml ISec IVP PRN (10:44)
[2018-10-10] MEDS ORDERED: Lactated Ringer's 1,000 ML IV SCH (10:45)
--- NOTE | 2018-10-10 10:56 | PCM.SURG1 ---
Surgeon's Initial Post Op Note - Surgeon's Notes Surgeon: Dr. Flores DPM Shut Off Worker: Dr. Be PGY3, Dr. Lucero PGY3 Type of Anesthesia: General IV Anesthesia Administered By: Leland Pre-Operative Diagnosis: Left ankle fracture/dislocation Operative Findings: see dictation Post-Operative Diagnosis: same Operation Performed: External fixation of left ankle dislocation/fracture Specimen/Specimens Removed: none Estimated Blood Loss: EBL {In ML}: 2 Blood Products Given: N/A Drains Used: No Drains Post-Op Condition: Good Date of Surgery/Procedure: 10/10/18 Time of Surgery/Procedure: 10:56
[2018-10-10] MEDS ORDERED: Insulin Lispro (humaLOG) 100 Units/ml Inj SC ONE (11:35)
[2018-10-10 12:22] VITALS: BP 121/62; PULSE 77; RESP 19; TEMP 97.8; O2SAT 95
--- NOTE | 2018-10-10 13:34 | RAD ---
Date of service: 10/10/2018 PROCEDURE: Intraoperative Fluoroscopy. HISTORY: LEFT ANKLE FIXATION FINDINGS: Fluoroscopic assistance was provided for left ankle fixation. Please refer to the operative report from surgeon performing procedure. 102.8 sec of fluoro time was utilized with a cumulative radiation dose of 4.38 mGy.
--- NOTE | 2018-10-10 13:38 | RAD ---
Date of service: 10/10/2018 PROCEDURE: Radiographs of the left ankle. HISTORY: s/p left leg external fixation COMPARISON: Left ankle radiographs 10/04/2018.. TECHNIQUE: Frontal and lateral views obtained. 2 views obtained. FINDINGS: BONES: Patient has undergone external fixation involving the proximal to mid diaphysis of the left femur with the calcaneus and midfoot stabilizing left ankle. JOINT SPACES: Tiny bone fragments are seen anterior as well as posterior to the tibiotalar joint with heterotopic calcification as well once again. OTHER FINDINGS: None. IMPRESSION: Status post external fixation left ankle as per above. No additional interval findings.
--- NOTE | 2018-10-10 13:39 | RAD ---
Date of service: 10/10/2018 PROCEDURE: Radiographs of the left foot. HISTORY: s/p left leg external fixation COMPARISON: Left foot radiographs 10/04/2018. TECHNIQUE: Frontal and lateral views obtained. 3 views obtained. FINDINGS: BONES: Patient has undergone external fixation involving the proximal to mid diaphysis of the left femur with the calcaneus and midfoot stabilizing left ankle. JOINT SPACES: Tiny bone fragments are seen anterior as well as posterior to the tibiotalar joint with heterotopic calcification as well once again. OTHER FINDINGS: None. IMPRESSION: Status post external fixation left ankle as per above. No additional interval findings.
--- NOTE | 2018-10-10 13:41 | RAD ---
Date of service: 10/10/2018 PROCEDURE: Radiographs of the left tibia and fibula. HISTORY: s/p left leg external fixation COMPARISON: Distal left lower extremity CT 10/04/2018. TECHNIQUE: Frontal and lateral views obtained. 2 views obtained. FINDINGS: BONES: Patient has undergone external fixation involving the proximal to mid diaphysis of the left femur with the calcaneus and midfoot stabilizing left ankle. JOINT SPACES: Tiny bone fragments are seen anterior as well as posterior to the tibiotalar joint with heterotopic calcification as well once again. OTHER FINDINGS: None. IMPRESSION: Status post external fixation left ankle as per above. No additional interval findings.
--- NOTE | 2018-10-10 13:50 | CP.PCM.PN ---
Subjective - Date & Time of Evaluation Date of Evaluation: 10/10/18 Time of Evaluation: 13:45 - Subjective Subjective: Patient seen multiple times post-operatively. He arrived from PACU agitated stating that he would like to go home, removed his IV line, got dressed and threatened to manually remove his external fixation at home. Benefits of remaining under care of the hospital for 24 hours and risks of signing out against medical advice (including but not limited to re-dislocation, hypovolemic shock, osteomyelitis, bone and soft tissue infection, loss of limb, septic shock, loss of life) were thoroughly reviewed with patient. He denies pain, feve r, chills, change in vision, and syncope. Objective - Vital Signs/Intake and Output Vital Signs (last 24 hours): Temp Pulse Resp BP Pulse Ox 97.8 F 77 19 121/62 95 10/10/18 11:50 10/10/18 11:50 10/10/18 11:50 10/10/18 11:50 10/10/18 11:50 Intake and Output: 10/10/18 10/10/18 06:59 18:59 Intake Total 1100 Balance 1100 - Medications Medications: Current Medications Dextrose (Dextrose 50% Inj) 0 ml IV STAT PRN; Protocol PRN Reason: Hypoglycemia Protocol Dextrose (Glutose 15) 0 gm PO ONCE PRN; Protocol PRN Reason: Hypoglycemia Protocol Glipizide (Glucotrol) 10 mg PO BIDAC [facility] Last Admin: 10/09/18 16:30 Dose: Not Given Glucagon (Glucagen Diagnostic Kit) 0 mg IM STAT PRN; Protocol PRN Reason: Hypoglycemia Protocol Hydromorphone HCl (Dilaudid) 0.5 mg IVP Q10M PRN PRN Reason: Pain, moderate (4-7) Last Admin: 10/10/18 11:15 Dose: 0.5 mg Potassium Chloride/Dextrose/Sod Cl (Potassium Chl 20 Meq In D5-1/2ns) 1,000 mls @ 125 mls/hr IV .Q8H [facility] Stop: 10/10/18 15:43 Last Admin: 10/09/18 22:58 Dose: Not Given Sodium Chloride (Sodium Chloride 0.9%) 1,000 mls @ 0 mls/hr IV .Q0M [facility] Stop: 10/11/18 07:05 Lactated Ringer's (Lactated Ringer's) 1,000 mls @ 125 mls/hr IV .Q8H [facility] Insulin Human Lispro (Humalog) 0 units SC ACCU-CHECK [facility]MA; Protocol Last Admin: 10/09/18 22:58 Dose: Not Given Morphine Sulfate (Morphine) 4 mg SC Q6 PRN PRN Reason: pain Nicotine (Nicoderm Cq) 1 patch TD DAILY [facility] Last Admin: 10/09/18 15:00 Dose: Not Given Prazosin HCl (Minipress) 5 mg PO HS [facility] Last Admin: 10/09/18 22:16 Dose: Not Given Trimethoprim/Sulfamethoxazole (Bactrim Ds Tab) 1 tab PO Q12 [facility]; Protocol Last Admin: 10/09/18 22:16 Dose: Not Given - Labs Labs: 10/09/18 18:52 10/09/18 14:05 PT 11.8 Seconds (9.8-13.1) 10/09/18 14:05 INR 1.0 10/09/18 14:05 APTT 32.1 Seconds (25.6-37.1) 10/09/18 14:05 - Constitutional Appears: Non-toxic - Head Exam Head Exam: NORMAL INSPECTION - Eye Exam Eye Exam: Normal appearance - ENT Exam ENT Exam: Mucous Membranes Moist - Respiratory Exam Respiratory Exam: NORMAL BREATHING PATTERN. absent: Respiratory Distress - Cardiovascular Exam Cardiovascular Exam: REGULAR RHYTHM - Extremities Exam Additional comments: external fixation in place on LLE, clean and dry. Assessment and Plan - Assessment and Plan (Free Text) Assessment: 53-year-old male with PMH of uncontrolled DM, RA and neuropathy presented for scheduled surgery of left ankle ORIF vs external fixation. Plan: Left ankle compound fracture -Post-op day 1; left ankle ORIF vs external fixation -Pain control PRN, morphine 4 SC Q6H PRN -Podiatry on-board, input and recs appreciated -EKG wnl -CXR wnl -CBC wnl -CMP wnl -PT/PTT wnl Uncontrolled DM -Insulin-sliding scale -Accuchecks -Glucotrol 10mg BID -f/u HgA1C -Lipids: tri 161, chol 209, LDL 137, HDL 35 -A/G ratio: 1.2 Neuropathy -Lyrica 50 mg BID Nightmares -Prazosin HCl 5mg at bedtime DVT Prophylaxis -SCDs -Pt ambulating on crutches
[2018-10-10] MEDS: Tmp-Smz 800 mg-160 mg DS Tab PO SCH (14:17)
[2018-10-10] MEDS: Insulin Lispro (humaLOG) 100 Units/ml Inj SC SCH (14:18)
[2018-10-10] MEDS ORDERED: Insulin Lispro Mix 75/25 100 units/ml (HumaLog) 10ml SC SCH (17:00)
[2018-10-11] MEDS ORDERED: Insulin Lispro Mix 75/25 100 units/ml (HumaLog) 10ml SC SCH (08:00)
--- NOTE | 2018-10-12 08:15 | OP ---
PROCEDURE DATE: 10/10/2018 PRIMARY SURGEON: Carlton Harmon DPM PRIMARY SEWING MACHINE MAINTENANCE MECHANIC: Hubert Be, PGY-3 SECONDARY SEWING MACHINE MAINTENANCE MECHANIC: Misti Lucero, PGY-3 ANESTHESIA TYPE: General LMA. ANESTHESIOLOGIST: Maddi Ha MD PREOPERATIVE DIAGNOSES: 1. Left distal tibial fracture/comminution, closed, displaced. 2. Left ankle anterior dislocation, closed. POSTOPERATIVE DIAGNOSES: 1. Left distal tibial fracture/comminution. 2. Left ankle anterior dislocation, closed. PROCEDURES PERFORMED: 1. Left ankle open reduction with external fixation. 2. Fluoroscopy. INDICATIONS: The patient is a 53-year-old male who is suffering from the above-stated left ankle dislocation, secondary to non-reported nor re-called traumatic injury within the past two weeks. The patient presents for indicated surgical intervention following failure of closed reduction and cast immobilization. The patient signed the surgical consent after careful explanation of risks, benefits, complications and potential alternatives to the proposed surgical procedure. No guarantees were either given or implied. All the patient's questions were answered to his satisfaction. PREPARATION: The patient's n.p.o. status was confirmed prior to bringing the patient to the operating room. The patient was brought into the operating room and placed on the operating room table in supine position. Once general anesthesia was confirmed to have been achieved, the patient was adequately anesthetized. The patent's left foot and leg up to the level of the knee were then prepped and draped in the usual sterile manner. Left mid thigh well-padded tourniquet was placed to be inflated as indicated during the operative procedure, and the procedure began. DESCRIPTION OF PROCEDURE: Attention was then directed to the patient's left ankle where, under fluoroscopy, manipulation under anesthesia was performed to the left ankle to assess dislocation reducibility under anesthesia as well as predominance and insufficiency of the ankle joint. It was noted at this time that the talus was anteriorly dislocated with no additional planar or coronal dominance appreciated. It was also noted that there was anterior tibial profound comminution, noted that partial medial malleolus fracture was appreciated as with preoperative CT but was reducible with direct manipulation of fragment. At this time, under manipulation under anesthesia, it was noted that the ankle joint anterior dislocation could not be fully reduced without external fixation hardware. At this time, Synthes external fixation kit was utilized and 3.5 mm Steimann pins (x2) was then drilled 6 cm inferior to the tibial tuberosity, 1.5 cm medial to the anterior tibial crest, offset from each other by 4 cm; bicortically in an anterior to posterior fashion. At this time, with the two proximal tibial balancing screws, construction of anterior tibial block of the external fixator was commenced with angulated outriggers completed. At this time, under fluoroscopy, a 3.5 Steinmann pin was drilled from posterior to anterior along the superior one-third on the posterior calcaneus non-violating the subtalar joint articulation. This was utilized for proximal traction to serve as manipulation and secondary fixation point. With this secondary fixation point set up and then it was anchored to a manipulable T-handle, a 4.0 diameter centrally threaded transcalcaneal pin was directed from medial to lateral margin of the posterior plantar calcaneal tubercle. Central threads were fully engaged into the central portion of the calcaneus. Distal pin end was then covered with a pin cap to prevent puncture of gloves and drapes. At this time, trans-calcaneal pin was utilized for fixation of rearfoot components to facilitate the traction and maintaining reduction of ankle. At this time, using a combination of pin-to-bar clamps as well as size 250 to 350 mm bars, ankle was placed within a frame construct with posterior delta configuration was constructed. Under fluoroscopy, reduction and maintenance of rearfoot component deformity was achieved. At this time, tibial and calcaneal clamp were secured and assessed under fluoroscopy and it was found that there was a great improvement of talar component of dislocation with reduction of medial malleolar fracture fragment. It was at this time that a midfoot stabilization component was deemed to be needed upon stressing midtarsal joints to avoid subsequent dislocation and instability of midfoot and rearfoot to tibial component. At this time, a 2.5 mm Steinmann pin was then drilled from dorsomedial surface of the medial cuneiform bicortically. Position checked under fluoroscopy. At this time, using a pin-to-bar orientation midfoot pin was then stabilized to the long axis medial bar, fastened and secured. At this time, construct was stressed and found to be adequate in maintaining reduction and resisting extrinsic stress. Surgical sites were then cleansed with sterile saline. Surgical sites were then dressed with Xeroform, 4 x 4 gauze, ABD pads and Kerlix. The entire external fixation application was then dressed with overlying Saurabh bandage. Tourniquet was not utilized during the entirety of the case. POSTOPERATIVE CONDITION: The patient tolerated the anesthesia and procedure well and was escorted to the recovery room with vital signs stable and neurovascular status intact. Hubert Be DPM Carlton Harmon DPM [facility]
== END 2018-10-10 17:10 | disposition left against medical advice (07) ==
LOC: H.ER 11:19 → H.ERHOLD 18:38 → H.MEDSURG1 21:56
PROVIDERS: ADMIT Family Medicine; ATTEND Family Medicine
DX: S82.302A Unspecified fracture of lower end of left tibia, initial encounter for closed fracture (principal); S93.05XA Dislocation of left ankle joint, initial encounter; Z79.4 Long term (current) use of insulin; Z87.891 Personal history of nicotine dependence; B95.62 Methicillin resistant Staphylococcus aureus infection as the cause of diseases classified elsewhere; L03.90 Cellulitis, unspecified; Z79.84 Long term (current) use of oral hypoglycemic drugs; E11.40 Type 2 diabetes mellitus with diabetic neuropathy, unspecified; M06.9 Rheumatoid arthritis, unspecified; E11.65 Type 2 diabetes mellitus with hyperglycemia; L97.519 Non-pressure chronic ulcer of other part of right foot with unspecified severity; M17.0 Bilateral primary osteoarthritis of knee; X58.XXXA Exposure to other specified factors, initial encounter; Y93.9 Activity, unspecified; Y92.9 Unspecified place or not applicable
CPT/HCPCS: 27848; 71046; 73590; 73600; 73620; 80053; 80061; 82948; 83036; 85025; 85610; 85730; 93005; 99285; C1713; G0378; J0330; J0690; J1170; J2001; J2250; J2270; J2405; J2704; J2710; J3010; J7030; J7120

== ENCOUNTER 2018-10-23 19:30 | Emergency (ER) | payer MEDICARE ==
[2018-10-23 19:30] VITALS: BMI 24.0
[2018-10-23 19:34] VITALS: RESP 20; O2SAT 99
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
[2018-10-23 21:38] VITALS: BP 142/77; PULSE 90; TEMP 98.8
--- NOTE | 2018-10-24 09:26 | RAD ---
Date of service: 10/23/2018 PROCEDURE: Left Ankle Radiographs. HISTORY: fall, external fixator COMPARISON: Left ankle radiographs 10/10/2018. TECHNIQUE: 3 views obtained. FINDINGS: BONES: External fixation hardware not significantly changed in position. Location of the talus is seen anteriorly with placed fracture of the medial malleolus identified more medially with distal fibula appearing unremarkable grossly. Soft tissue edema surrounds the ankle. No suspicious lytic changes. Ankle mortise is completely distorted by dislocation with the talar dome obscured. JOINTS: As above. SOFT TISSUES: As above. OTHER FINDINGS: None. IMPRESSION: Interval fracture dislocation at the tibiotalar joint as discussed above with new fracture involving the medial malleolus identified. External fixators not significantly changed in position.
--- NOTE | 2018-10-24 12:20 | CP.PCM.PCO ---
Physician Communication Note - Physician Communication Note Physician Communication Note: Pt signed out AMA prior to Podiatry evaluation
== END 2018-10-23 21:22 | disposition left against medical advice (07) ==
LOC: H.ER 19:30
DX: S99.912A Unspecified injury of left ankle, initial encounter (principal); Y04.2XXA Assault by strike against or bumped into by another person, initial encounter; E11.9 Type 2 diabetes mellitus without complications; Z79.84 Long term (current) use of oral hypoglycemic drugs; M06.9 Rheumatoid arthritis, unspecified; Z88.5 Allergy status to narcotic agent

== ENCOUNTER 2018-10-26 10:43 | Emergency (ER) | payer MEDICARE ==
[2018-10-26 11:13] VITALS: BMI 22.5
[2018-10-26 11:19] VITALS: RESP 18
[2018-10-26] MEDS ORDERED: Sodium Chloride 0.9% 1,000 ML IV STA (11:29)
--- NOTE | 2018-10-26 11:40 | ED PDOC ---
Lower Extremity Pain/Injury Time Seen by Provider: 10/26/18 11:28 Chief Complaint (Nursing): Lower Extremity Problem/Injury Chief Complaint (Provider): Hardware on foot issues History Per: Patient History/Exam Limitations: no limitations Onset/Duration Of Symptoms: Days (weeks) Additional Complaint(s): Pt. has hardware in the foot/ankle for a repair. He was to get it removed and came to the ER for it. No new pain, weakness, dizziness, chest pain, dyspnea. Past Medical History Reviewed: Nursing Documentation, Vital Signs Vital Signs: Last Vital Signs Temp 98.2 F 10/26/18 11:15 Pulse 91 H 10/26/18 11:15 Resp 18 10/26/18 11:15 BP 112/77 10/26/18 11:15 Pulse Ox 96 10/26/18 11:15 - Medical History PMH: Arthritis, Diabetes (type II), Rheumatoid Arthritis Denies: HTN (denies 04/30/17), Chronic Kidney Disease - Surgical History Surgical History: Hernia Repair (umbilical) - Family History Family History: States: Unknown Family Hx, Diabetes (Father) - Immunization History Hx Tetanus Toxoid Vaccination: No Hx Influenza Vaccination: No Hx Pneumococcal Vaccination: No - Home Medications Home Medications: Ambulatory Orders Medication Instructions Recorded MetFORMIN [glucoPHAGE] 1,000 mg PO BID 04/23/17 Prazosin HCl [Minipress] 2 mg PO HS 09/19/18 Pregabalin [Lyrica] 50 mg PO Q8 09/19/18 GlipiZIDE [Glucotrol] 10 mg PO BID 10/01/18 Vancomycin 1 GM [Vancomycin 1GM in 1 gm IVPB DAILY 12 Days bag 10/02/18 Normal Saline Addvantage] traMADol [Ultram] 50 mg PO BID PRN #6 tab 10/04/18 Insulin Human Regular [HumuLIN R] 20 unit SC ACTID 10/09/18 Sulfamethoxazole/Trimethoprim 1 tab PO BID 10/09/18 [Bactrim DS Tab] Amoxicillin/Clavulanate [Augmentin 1 tab PO BID 10 Days tab 10/26/18 875 MG-125 MG] Ibuprofen [Motrin] 600 mg PO TID 7 Days tab 10/26/18 - Allergies Allergies/Adverse Reactions: Allergies Allergy/AdvReac Type Severity Reaction Status Date / Time acetaminophen [From Percocet] Allergy RASH Verified 10/04/18 20:07 codeine Allergy RASH Verified 10/04/18 20:07 oxycodone HCl [From Percocet] Allergy RASH Verified 10/04/18 20:07 Review of Systems ROS Statement: Except As Marked, All Systems Reviewed And Found Negative Physical Exam - Reviewed Nursing Documentation Reviewed: Yes Vital Signs Reviewed: Yes - Physical Exam Appears: Positive for: Well, Non-toxic, No Acute Distress Head Exam: Positive for: ATRAUMATIC, NORMAL INSPECTION, NORMOCEPHALIC Skin: Positive for: Normal Color, Warm, DRY Eye Exam: Positive for: EOMI, Normal appearance, PERRL ENT: Positive for: Normal ENT Inspection Neck: Positive for: Normal, Painless ROM Cardiovascular/Chest: Positive for: Regular Rate, Rhythm Respiratory: Positive for: CNT, Normal Breath Sounds Gastrointestinal/Abdominal: Positive for: Normal Exam, Soft. Negative for: Tenderness Back: Positive for: Normal Inspection. Negative for: L CVA Tenderness, R CVA Tenderness Extremity: Positive for: Other (left ankle and foot with hardware for external fixation; no gross tenderness; refer to podiatry for further detailed exam of extremity.) Neurological/Psych: Positive for: Awake, Alert, Normal Tone - ECG O2 Sat by Pulse Oximetry: 96 - Progress ED Course And Treament: 1154: Podiatry to remove hardware. Are in the room. Pt. well known to their service. 1410: Stable. Alert. Wants antibiotics on dc. Disposition - Clinical Impression Clinical Impression: Ankle pain - Patient ED Disposition Is Patient to be Admitted: No Counseled Patient/Family Regarding: Diagnosis, Need For Followup, Rx Given - Disposition Referrals: Carlton Flores DPM [Staff Provider] - 10/30/18 Disposition: Routine/Home Disposition Time: 14:12 Condition: STABLE Additional Instructions: Return if not better in 3 days. Prescriptions: Amoxicillin/Clavulanate [Augmentin 875 MG-125 MG] 1 tab PO BID 10 Days tab Ibuprofen [Motrin] 600 mg PO TID 7 Days tab Instructions: Muscle and Bone Pain (DC) Forms: [employer] ([place])
[2018-10-26] MEDS ORDERED: Bupivacaine HCl 0.25% PF (30 ml) Inj ONE (11:51)
[2018-10-26] MEDS ORDERED: Povidone Iodine Topical 10% Sol ONE (12:06)
--- NOTE | 2018-10-26 14:15 | RAD ---
Date of service: 10/26/2018 PROCEDURE: Left Foot Radiographs. HISTORY: removal of ex fix COMPARISON: Left foot radiographs 10/04/2018. TECHNIQUE: 3 views obtained. FINDINGS: BONES: Cast obscures fine bony detail. Lucent defect at the calcaneus reflect removal of prior external fixator with stable tibiotalar dislocation noted. Tibial plafond defect reiterated. Fracture fragments are identified anteriorly as well as posteriorly, relative to the tibiotalar joint. No new fracture grossly appreciable. Midfoot and forefoot bony anatomy is stable and unremarkable. JOINTS: Normal. SOFT TISSUES: Markedly diminished dorsal soft tissue edema. OTHER FINDINGS: None. IMPRESSION: Defects identified at the mid and posterior calcaneus reflect external fixator removal with no new fracture appreciable. Tibiotalar joint dislocation/subluxation reiterated with tibia remaining somewhat posterior to the talar dome and defect of anterior tibial plafond again evident. Small fracture fragments are again seen anteriorly and posteriorly relative to the tibiotalar joint. Markedly diminished dorsal soft tissue edema noted.
[2018-10-26] MEDS ORDERED: Morphine 4 MG/ML VIAL ONE (14:21)
[2018-10-26] MEDS ORDERED: Morphine 4 MG/ML VIAL IM ONE (14:57)
[2018-10-26 15:15] VITALS: BP 118/76; PULSE 87; TEMP 97.9; O2SAT 99
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
== END 2018-10-26 15:00 | disposition home or self-care (01) ==
LOC: H.ER 10:43
DX: B95.2 Enterococcus as the cause of diseases classified elsewhere (principal); B95.61 Methicillin susceptible Staphylococcus aureus infection as the cause of diseases classified elsewhere; E11.9 Type 2 diabetes mellitus without complications; M06.9 Rheumatoid arthritis, unspecified; Z79.4 Long term (current) use of insulin; Z88.5 Allergy status to narcotic agent
CPT/HCPCS: 73630; 87070; 87181; 96372; 99283; J2270

== ENCOUNTER 2018-10-27 13:49 | Emergency (ER) | payer MEDICARE ==
[2018-10-27 13:49] VITALS: BMI 22.5
[2018-10-27 14:16] VITALS: BP 150/72; RESP 19; TEMP 98.7; O2SAT 100
--- NOTE | 2018-10-27 15:24 | ED PDOC ---
Lower Extremity Pain/Injury Time Seen by Provider: 10/27/18 15:04 Chief Complaint (Nursing): Lower Extremity Problem/Injury Chief Complaint (Provider): LEFT leg discharge History Per: Patient Additional Complaint(s): s/p surgery reporting fluid is coming from out of the bottom of the cast pain is at baseline Podiatry: Serafin Past Medical History Reviewed: Historical Data, Nursing Documentation, Vital Signs Vital Signs: Last Vital Signs Temp 98.7 F 10/27/18 14:10 Pulse Resp 19 10/27/18 14:10 BP 150/72 10/27/18 14:10 Pulse Ox 100 10/27/18 14:10 - Medical History PMH: Arthritis, Diabetes (type II), Rheumatoid Arthritis Denies: HTN (denies 04/30/17), Chronic Kidney Disease - Surgical History Surgical History: Hernia Repair (umbilical) - Family History Family History: States: Diabetes (Father) - Immunization History Hx Tetanus Toxoid Vaccination: No Hx Influenza Vaccination: No Hx Pneumococcal Vaccination: No - Home Medications Home Medications: Ambulatory Orders Medication Instructions Recorded MetFORMIN [glucoPHAGE] 1,000 mg PO BID 04/23/17 Prazosin HCl [Minipress] 2 mg PO HS 09/19/18 Pregabalin [Lyrica] 50 mg PO Q8 09/19/18 GlipiZIDE [Glucotrol] 10 mg PO BID 10/01/18 Vancomycin 1 GM [Vancomycin 1GM in 1 gm IVPB DAILY 12 Days bag 10/02/18 Normal Saline Addvantage] traMADol [Ultram] 50 mg PO BID PRN #6 tab 10/04/18 Insulin Human Regular [HumuLIN R] 20 unit SC ACTID 10/09/18 Sulfamethoxazole/Trimethoprim 1 tab PO BID 10/09/18 [Bactrim DS Tab] Amoxicillin/Clavulanate [Augmentin 1 tab PO BID 10 Days tab 10/26/18 875 MG-125 MG] Ibuprofen [Motrin] 600 mg PO TID 7 Days tab 10/26/18 - Allergies Allergies/Adverse Reactions: Allergies Allergy/AdvReac Type Severity Reaction Status Date / Time acetaminophen [From Percocet] Allergy RASH Verified 10/04/18 20:07 codeine Allergy RASH Verified 10/04/18 20:07 oxycodone HCl [From Percocet] Allergy RASH Verified 10/04/18 20:07 Review of Systems ROS Statement: Except As Marked, All Systems Reviewed And Found Negative (as per HPI) Constitutional: Negative for: Fever, Chills Musculoskeletal: Positive for: Leg Pain, Foot Pain Physical Exam - Reviewed Nursing Documentation Reviewed: Yes Vital Signs Reviewed: Yes - Physical Exam Appears: Positive for: Non-toxic, No Acute Distress Head Exam: Positive for: ATRAUMATIC, NORMOCEPHALIC Extremity: Positive for: Other (LLE in leg cast some wet excoriation of skin dorsum of forefoot, full exam pending podiatry) Neurological/Psych: Positive for: Awake, Alert. Negative for: Motor/Sensory Deficits - ECG O2 Sat by Pulse Oximetry: 100 Disposition - Clinical Impression Clinical Impression: Encounter for postoperative wound check - Disposition Disposition: Routine/Home Disposition Time: 15:20 Condition: STABLE Additional Instructions: FOLLOWUP INSTRUCTED BY PODIATRY Instructions: Cast Care, Surgical Wound (DC)
--- NOTE | 2018-10-27 15:44 | CP.PCM.CON ---
History of Present Illness - History of Present Illness History of Present Illness: Podiatry consult note for Dr. Flores Past Patient History - Infectious Disease Hx of Infectious Diseases: None - Past Medical History & Family History Past Medical History?: Yes - Past Social History Smoking Status: Never Smoked - CARDIAC Hx Hypertension: No (denies 04/30/17) - PULMONARY Hx Respiratory Disorders: No - NEUROLOGICAL Hx Neurological Disorder: No - HEENT Hx HEENT Problems: No - RENAL Hx Chronic Kidney Disease: No - ENDOCRINE/METABOLIC Hx Endocrine Disorders: Yes (DM) Hx Diabetes Mellitus Type 2: Yes - HEMATOLOGICAL/ONCOLOGICAL Hx Blood Disorders: No - INTEGUMENTARY Hx Dermatological Problems: No - MUSCULOSKELETAL/RHEUMATOLOGICAL Hx Arthritis: Yes Hx Rheumatoid Arthritis: Yes - GASTROINTESTINAL Hx Gastrointestinal Disorders: No - GENITOURINARY/GYNECOLOGICAL Hx Genitourinary Disorders: No - PSYCHIATRIC Hx Psychophysiologic Disorder: No Hx Substance Use: No - SURGICAL HISTORY Hx Surgeries: Yes Hx Orthopedic Surgery: Yes Other/Comment: Left 5th toe. Right knee. umbilical hernia - ANESTHESIA Hx Anesthesia: Yes Hx Anesthesia Reactions: No Hx Malignant Hyperthermia: No Meds Allergies/Adverse Reactions: Allergies Allergy/AdvReac Type Severity Reaction Status Date / Time acetaminophen [From Percocet] Allergy RASH Verified 10/04/18 20:07 codeine Allergy RASH Verified 10/04/18 20:07 oxycodone HCl [From Percocet] Allergy RASH Verified 10/04/18 20:07 Results - Vital Signs Recent Vital Signs: Last Vital Signs Temp 98.7 F 10/27/18 15:30 Pulse Resp 19 10/27/18 15:30 BP 150/72 10/27/18 15:30 Pulse Ox 100 10/27/18 15:30
== END 2018-10-27 15:30 | disposition home or self-care (01) ==
LOC: H.ER 13:49
DX: Z48.00 Encounter for change or removal of nonsurgical wound dressing (principal); Z98.890 Other specified postprocedural states; E11.9 Type 2 diabetes mellitus without complications; M06.9 Rheumatoid arthritis, unspecified; Z79.84 Long term (current) use of oral hypoglycemic drugs; Z88.5 Allergy status to narcotic agent

== ENCOUNTER 2018-10-31 14:41 | Emergency (ER) | payer MEDICARE ==
[2018-10-31 14:42] VITALS: BMI 22.5
[2018-10-31 14:46] VITALS: BP 115/59; PULSE 83; RESP 17; TEMP 98.2; O2SAT 98
--- NOTE | 2018-10-31 16:30 | CP.PCM.CON ---
History of Present Illness - History of Present Illness History of Present Illness: Podiatry Consult Note: Dr. Flores 52 year old male with PMHx IDDM was seen and evaluated in ED intiially for left dislocated ankle with an external fixator on the left side. Patients ankle was closed reduced and placed in a cast. Patient was weightbearing ont he cast, and ankle dislocated again. On 10/10/2018 an external fixator was placed to realign the ankle jonit, at which point patient walked all over that and the threads were noted to be coming out. Patient presented to ED demanding the exfix to be removed and did not care about the consequences. Ex-fix was removed and patient was placed in a cast. Few days later, patient presented to the ED again to have the cast removed, and did not want any further treatment for the leg. PMH: IDDM PSH: L fifth digit after traumatic incident, external fixation to the left leg 10/10/2018 Allergies: Acetaminophen, Codeine, Oxycodone. Social Hx: 0.5 ppd smoker x 25 years, denies alcohol, Denies illicit drug use. Past Patient History - Infectious Disease Hx of Infectious Diseases: None - Past Medical History & Family History Past Medical History?: Yes - Past Social History Smoking Status: Never Smoked - CARDIAC Hx Hypertension: No (denies 04/30/17) - PULMONARY Hx Respiratory Disorders: No - NEUROLOGICAL Hx Neurological Disorder: No - HEENT Hx HEENT Problems: No - RENAL Hx Chronic Kidney Disease: No - ENDOCRINE/METABOLIC Hx Endocrine Disorders: Yes (DM) Hx Diabetes Mellitus Type 2: Yes - HEMATOLOGICAL/ONCOLOGICAL Hx Blood Disorders: No - INTEGUMENTARY Hx Dermatological Problems: No - MUSCULOSKELETAL/RHEUMATOLOGICAL Hx Arthritis: Yes Hx Rheumatoid Arthritis: Yes - GASTROINTESTINAL Hx Gastrointestinal Disorders: No - GENITOURINARY/GYNECOLOGICAL Hx Genitourinary Disorders: No - PSYCHIATRIC Hx Psychophysiologic Disorder: No Hx Substance Use: No - SURGICAL HISTORY Hx Surgeries: Yes Hx Orthopedic Surgery: Yes Other/Comment: Left 5th toe. Right knee. umbilical hernia - ANESTHESIA Hx Anesthesia: Yes Hx Anesthesia Reactions: No Hx Malignant Hyperthermia: No Meds Allergies/Adverse Reactions: Allergies Allergy/AdvReac Type Severity Reaction Status Date / Time acetaminophen [From Percocet] Allergy RASH Verified 10/04/18 20:07 codeine Allergy RASH Verified 10/04/18 20:07 oxycodone HCl [From Percocet] Allergy RASH Verified 10/04/18 20:07 Physical Exam - Constitutional Appears: Well, Non-toxic - Head Exam Head Exam: ATRAUMATIC, NORMOCEPHALIC - Eye Exam Eye Exam: Normal appearance - ENT Exam ENT Exam: Mucous Membranes Moist - Cardiovascular Exam Cardiovascular Exam: REGULAR RHYTHM - Extremities Exam Additional comments: Left lower extremity exam: Vascular: Dp/PT faintly palpable secondary to pitting edema, +2 pitting edema noted to the foot and ankle, CFT< 3 secs x 5, TG warm to warm (warmer over the ankle), minimal erythema noted on the foot and ankle extending to mid leg. derm: previous pin sites of the external fixator noted to be enlarged, with no purulent drainage at this time, no malodor, erythema noted rochelle-pin sites. two superficial wounds noted on the dorsum of the foot measuring approximately 4 cm x 3cm. gross anterior lateral dislocation of the left ankle is seen ortho: pain with ROM of the ankle joint and palpation of the ankle joint, no pain at the base of the fifth met or forefoot, no pain upon calf compression neuro: protective sensation diminished 2/4. Results - Vital Signs Recent Vital Signs: Last Vital Signs Temp 98.2 F 10/31/18 14:44 Pulse 83 10/31/18 14:44 Resp 17 10/31/18 14:44 BP 115/59 L 10/31/18 14:44 Pulse Ox 98 10/31/18 14:44 Assessment & Plan - Assessment and Plan (Free Text) Assessment: 53 yo male seen and evaluated s/p external fixation to the left leg (10/10/2018) in the ED after removing the Ex-fix and being put in fiber glass cast. Patient wants the cast removed today against medical advice Plan: Patient seen and evaluated chart, labs vitals and x-rays reviewed previosu x-rays reviewed- anterior-lateral dislocation of the left ankle noted. Location of the talus is seen anteriorly with placed fracture of the medial malleolus identified more medially with distal fibula appearing unremarkable grossly. Soft tissue edema surrounds the ankle. No suspicious lytic changes. Ankle mortise is completely distorted by dislocation with the talar dome obscured. Patient educated on the possible risks, and complications of removing fiberglass cast to the leg including but not limited to losing the left leg, never being able to walk again, gangrenous changes to the foot, pain, numbness, swelling, need for further surgical intervention Patient understands the risks and is still hesitant on taking the cast off. Patient continues to repeat "i dont want my leg casted". Patient educated on mcc complications such as loss of leg. Patient advised to continue NWB Advised to finish augmentin course Patient signed AMA form and to be scanned in to the chart by the nurse Patient to follow up with Dr. Flores in his office.
--- NOTE | 2018-10-31 16:40 | ED PDOC ---
Lower Extremity Pain/Injury Time Seen by Provider: 10/31/18 15:01 Chief Complaint (Nursing): Lower Extremity Problem/Injury History Per: Patient Additional Complaint(s): Pt. states earlier this month he had surgery on his L ankle due to a fracture which was done by Dr. Flores. Ankle is currently casted. He contacted Dr. Flores today as he no longer wants to care for the cast and wants it removed. Dr. Flores advised him to come to ED for eval. Denies pain, numbness, tingling, fever. Of note, pt. states he has been taking his prescribed Augmentin. Past Medical History Reviewed: Historical Data, Nursing Documentation, Vital Signs Vital Signs: Last Vital Signs Temp 98.2 F 10/31/18 14:44 Pulse 83 10/31/18 14:44 Resp 17 10/31/18 14:44 BP 115/59 L 10/31/18 14:44 Pulse Ox 98 10/31/18 14:44 - Medical History PMH: Arthritis, Diabetes (type II), Rheumatoid Arthritis Denies: HTN (denies 04/30/17), Chronic Kidney Disease - Surgical History Surgical History: Hernia Repair (umbilical) - Family History Family History: States: Diabetes (Father) - Immunization History Hx Tetanus Toxoid Vaccination: No Hx Influenza Vaccination: No Hx Pneumococcal Vaccination: No - Home Medications Home Medications: Ambulatory Orders Medication Instructions Recorded MetFORMIN [glucoPHAGE] 1,000 mg PO BID 04/23/17 Prazosin HCl [Minipress] 2 mg PO HS 09/19/18 Pregabalin [Lyrica] 50 mg PO Q8 09/19/18 GlipiZIDE [Glucotrol] 10 mg PO BID 10/01/18 Vancomycin 1 GM [Vancomycin 1GM in 1 gm IVPB DAILY 12 Days bag 10/02/18 Normal Saline Addvantage] traMADol [Ultram] 50 mg PO BID PRN #6 tab 10/04/18 Insulin Human Regular [HumuLIN R] 20 unit SC ACTID 10/09/18 Sulfamethoxazole/Trimethoprim 1 tab PO BID 10/09/18 [Bactrim DS Tab] Amoxicillin/Clavulanate [Augmentin 1 tab PO BID 10 Days tab 10/26/18 875 MG-125 MG] Ibuprofen [Motrin] 600 mg PO TID 7 Days tab 10/26/18 - Allergies Allergies/Adverse Reactions: Allergies Allergy/AdvReac Type Severity Reaction Status Date / Time acetaminophen [From Percocet] Allergy RASH Verified 10/04/18 20:07 codeine Allergy RASH Verified 10/04/18 20:07 oxycodone HCl [From Percocet] Allergy RASH Verified 10/04/18 20:07 Review of Systems ROS Statement: Except As Marked, All Systems Reviewed And Found Negative Physical Exam - Physical Exam Appears: Positive for: Well, Non-toxic, No Acute Distress Skin: Positive for: Normal Color, Warm. Negative for: Rash Back: Positive for: Other (L lower extremity in cast; cap refill < 2 seconds to toes on L foot) - ECG O2 Sat by Pulse Oximetry: 98 - Progress ED Course And Treament: Pt. evaluated by Dr. Ruffin, podiatry resident, who spoke with Dr. Flores then removed cast at the patient's request and against podiatry team's recommendation. Pt. left ED prior to me evaluating leg after cast removal. Disposition - Clinical Impression Clinical Impression: Cast removal - Patient ED Disposition Is Patient to be Admitted: No - Disposition Disposition: Left W/O Treatment Disposition Time: 16:10 Condition: UNKNOWN Forms: [email or web address] (Latvian)
== END 2018-10-31 16:10 | disposition left against medical advice (07) ==
LOC: H.ER 14:41
DX: Z48.01 Encounter for change or removal of surgical wound dressing (principal)

== ENCOUNTER 2018-11-09 18:48 | Emergency (ER) | payer MEDICARE ==
[2018-11-09 18:48] VITALS: BMI 22.5
[2018-11-09 19:48] VITALS: BP 102/66; PULSE 79; RESP 18; TEMP 98.8; O2SAT 98
--- NOTE | 2018-11-09 19:53 | CP.PCM.CON ---
History of Present Illness - History of Present Illness History of Present Illness: Podiatry Consult Note - Dr. Flores 53M PMHx IDDM was seen and evaluated in ED for increased drainage in left leg wounds s/p removal of external fixator on 10/26/18. Patient well known to podiatry service; has extensive history of noncompliance despite education on possible risks and complications of not following treatment plan including but not limited to infection, swelling, bleeding, further lower extremity joint dislocation, gangrene, CRPS, inability to ambulate on left lower extermity, loss of limb, loss of life. Patient states he has been performing dressing changes himself daily and about 2 days ago noticed increased drainage from one of the pin sites. Patient states he spends most of his time in a wheelchair with his legs in the dependent position. Patient denies any pain to his left lower extremity. Denies n/v/f/d/c/sob/chao/cp. Offers no other complaints. Patient states he has an appointment in the Podiatry Clinic this upcoming Tuesday. PMH: IDDM PSH: L fifth digit after traumatic incident, external fixation to the left leg 10/10/2018 Allergies: Acetaminophen, Codeine, Oxycodone. Social Hx: 0.5 ppd smoker x 25 years, denies alcohol, Denies illicit drug use. Review of Systems - Review of Systems All systems: reviewed and no additional remarkable complaints except (as per HPI) Past Patient History - Infectious Disease Hx of Infectious Diseases: None - Past Medical History & Family History Past Medical History?: Yes - Past Social History Smoking Status: Never Smoked - CARDIAC Hx Hypertension: No (denies 04/30/17) - PULMONARY Hx Respiratory Disorders: No - NEUROLOGICAL Hx Neurological Disorder: No - HEENT Hx HEENT Problems: No - RENAL Hx Chronic Kidney Disease: No - ENDOCRINE/METABOLIC Hx Endocrine Disorders: Yes (DM) Hx Diabetes Mellitus Type 2: Yes - HEMATOLOGICAL/ONCOLOGICAL Hx Blood Disorders: No - INTEGUMENTARY Hx Dermatological Problems: No - MUSCULOSKELETAL/RHEUMATOLOGICAL Hx Arthritis: Yes Hx Rheumatoid Arthritis: Yes - GASTROINTESTINAL Hx Gastrointestinal Disorders: No - GENITOURINARY/GYNECOLOGICAL Hx Genitourinary Disorders: No - PSYCHIATRIC Hx Psychophysiologic Disorder: No Hx Substance Use: No - SURGICAL HISTORY Hx Surgeries: Yes Hx Orthopedic Surgery: Yes Other/Comment: Left 5th toe. Right knee. umbilical hernia - ANESTHESIA Hx Anesthesia: Yes Hx Anesthesia Reactions: No Hx Malignant Hyperthermia: No Meds Allergies/Adverse Reactions: Allergies Allergy/AdvReac Type Severity Reaction Status Date / Time acetaminophen [From Percocet] Allergy RASH Verified 11/09/18 19:46 codeine Allergy RASH Verified 11/09/18 19:46 oxycodone HCl [From Percocet] Allergy RASH Verified 11/09/18 19:46 Physical Exam - Constitutional Appears: Non-toxic, No Acute Distress - Extremities Exam Additional comments: Left lower extremity exam: Vascular: Dp/PT faintly palpable secondary to pitting edema, +2 pitting edema noted to the foot and ankle, CFT< 3 secs x 5, TG warm to warm with no significant increase in warmth surrounding pin sites. Derm: previous pin sites of the external fixator measuring approximately 1 x 1 x 0.3 cm - two noted along anterior leg with mild serous drainage present; no p urulence; no fluctuance; minimal periwound erythema; no malodor. Superficial wound noted to dorsum of forefoot measuring approximately 4 x 3 cm. Superficial pin site wound noted to posterior calcaneus measuring approximately 0.3 x 0.3 x 0.1 cm - fibrous base, no drainage, no purulence, no fluctuance, no malodor, no erythema. Ortho: gross anterior lateral dislocation of the left ankle is seen; no pain on palpation noted to left lower extremity; no pain upon calf compression Neuro: protective sensation diminished 2/4. - Neurological Exam Neurological exam: Alert, Oriented x3 - Psychiatric Exam Psychiatric exam: Normal Affect, Normal Mood Results - Vital Signs Recent Vital Signs: Last Vital Signs Temp 98.8 F 11/09/18 19:46 Pulse 79 11/09/18 19:46 Resp 18 11/09/18 19:46 BP 102/66 11/09/18 19:46 Pulse Ox 98 11/09/18 19:46 Assessment & Plan - Assessment and Plan (Free Text) Assessment: 53 year old non-compliant male with surgical wounds to left lower leg and foot s/o removal of external fixator against medical advice on 10/26/18, stable Plan: Patient seen and evaluated Discussed with attending, Dr. Flores CBC/CMP ordered Left tib-fib XR ordered Wounds appear stable at this time, serous drainage is likely 2/2 lower extremity edema from legs kept in dependent position as he spends most of his time sitting in a wheelchair -Advised patient to keep legs elevated above heart level Wounds cleansed with saline and dressed with xeroform, dry sterile dressing, and RICKIE Discussed with patient podiatry's recommendation is to cast the LLE as he has inherently unstable joints s/p dislocation in his left lower extremity; patient refusing and requests dry dressing. Patient to remain NWB LLE Dose of Zosyn ordered, to be given while in ED Patient to follow up in the podiatry clinic this 11/13/18 Thank you for the consult
[2018-11-09] MEDS ORDERED: Piperacillin/Tazobact 3.375 GM in Sodium Chloride 0.9% 100 ML IVPB STA (20:05)
--- NOTE | 2018-11-09 20:10 | ED PDOC ---
Lower Extremity Pain/Injury Time Seen by Provider: 11/09/18 19:57 Chief Complaint (Nursing): Lower Extremity Problem/Injury Chief Complaint (Provider): Left Leg Wounds History Per: Patient History/Exam Limitations: no limitations Onset/Duration Of Symptoms: Hrs (x1) Current Symptoms Are (Timing): Still Present Additional Complaint(s): 53 year old male with history of dislocated ankle and external fixator placement presents to the ED for evaluation of purulent discharge from his left leg wounds at the site of where his external fixator was removed on 10/26. Denies fever and chills. Patient spoke to Dr. Betancourt who advised he come in to ED for evaluation. PMD: Dr. Betancourt Past Medical History Reviewed: Historical Data Vital Signs: Last Vital Signs Temp 98.8 F 11/09/18 19:46 Pulse 79 11/09/18 19:46 Resp 18 11/09/18 19:46 BP 102/66 11/09/18 19:46 Pulse Ox 98 11/09/18 19:46 Primary Care Provider: Doctor,Hernando - Medical History PMH: Arthritis, Diabetes (type II), Rheumatoid Arthritis Denies: HTN (denies 04/30/17), Chronic Kidney Disease - Surgical History Surgical History: Hernia Repair (umbilical) Other surgeries: ankle surgeries, external fixator placement / removal - Family History Family History: States: Diabetes (Father) - Immunization History Hx Tetanus Toxoid Vaccination: No Hx Influenza Vaccination: No Hx Pneumococcal Vaccination: No - Home Medications Home Medications: Ambulatory Orders Medication Instructions Recorded MetFORMIN [glucoPHAGE] 1,000 mg PO BID 04/23/17 Prazosin HCl [Minipress] 2 mg PO HS 09/19/18 Pregabalin [Lyrica] 50 mg PO Q8 09/19/18 GlipiZIDE [Glucotrol] 10 mg PO BID 10/01/18 Vancomycin 1 GM [Vancomycin 1GM in 1 gm IVPB DAILY 12 Days bag 10/02/18 Normal Saline Addvantage] traMADol [Ultram] 50 mg PO BID PRN #6 tab 10/04/18 Insulin Human Regular [HumuLIN R] 20 unit SC ACTID 10/09/18 Sulfamethoxazole/Trimethoprim 1 tab PO BID 10/09/18 [Bactrim DS Tab] Amoxicillin/Clavulanate [Augmentin 1 tab PO BID 10 Days tab 10/26/18 875 MG-125 MG] Ibuprofen [Motrin] 600 mg PO TID 7 Days tab 10/26/18 - Allergies Allergies/Adverse Reactions: Allergies Allergy/AdvReac Type Severity Reaction Status Date / Time acetaminophen [From Percocet] Allergy RASH Verified 11/09/18 19:46 codeine Allergy RASH Verified 11/09/18 19:46 oxycodone HCl [From Percocet] Allergy RASH Verified 11/09/18 19:46 Review of Systems ROS Statement: Except As Marked, All Systems Reviewed And Found Negative Constitutional: Negative for: Fever, Chills Musculoskeletal: Positive for: Other (purulent discharge from left leg wounds) Physical Exam - Reviewed Nursing Documentation Reviewed: Yes Vital Signs Reviewed: Yes - Physical Exam Appears: Positive for: No Acute Distress Skin: Positive for: Normal Color, Warm Cardiovascular/Chest: Positive for: Regular Rate, Rhythm Respiratory: Positive for: Normal Breath Sounds. Negative for: Respiratory Distress Extremity: Positive for: Capillary Refill (less than 2 seconds), Other (mild clear discharge noted from wounds to anterior left leg, (-) erythema) Neurological/Psych: Positive for: Awake, Alert, Oriented (x3) - ECG O2 Sat by Pulse Oximetry: 98 (RA) Pulse Ox Interpretation: Normal - Progress ED Course And Treament: SEEN BY PODIATRY RESIDENT PLAN IS TO OBTAIN LABS/XRY AND ZOSYN. PATIENT LEFT PRIOR TO ANY BLOODWORK/XRY/ZOSYN. PODIATRY RESIDENT AWARE Medical Decision Making Medical Decision Making: Time: 1951 Initial Impression: wound care Initial Plan: --Podiatry resident at bedside --VBG --CMP --CBC with differential --Blood culture --Wound culture --Tibia Fibia XR --Zosyn IVPB ScribeAttestation: Documented Sergio Payne acting as a scribe for Setu B Khan, PA-C. Provider ScribeAttestation: All medical record entries made by the Scribe were at my direction and personally dictated by me. I have reviewed the chart and agree that the record accurately reflects my personal performance of the history, physical exam, medical decision making, and the department course for this patient. I have also personally directed, reviewed, and agree with the discharge instructions and disposition. Disposition - Clinical Impression Clinical Impression: Leg wound, left - Patient ED Disposition Is Patient to be Admitted: No - Disposition Disposition: Left W/O Treatment Disposition Time: 21:00 Condition: FAIR
[2018-11-09] MEDS ORDERED: Piperacillin/Tazobact 3.375 gm Inj IVPB ONE (20:32)
== END 2018-11-09 21:03 | disposition left against medical advice (07) ==
LOC: H.ER 18:48
DX: Z48.01 Encounter for change or removal of surgical wound dressing (principal); E11.9 Type 2 diabetes mellitus without complications; M06.9 Rheumatoid arthritis, unspecified; Z79.84 Long term (current) use of oral hypoglycemic drugs; Z88.5 Allergy status to narcotic agent

== ENCOUNTER 2018-12-11 13:19 | Observation (INO) | payer MEDICARE ==
[2018-12-11 13:19] VITALS: BMI 22.5
[2018-12-11] MEDS ORDERED: Povidone Iodine Topical 10% Sol ONE ×2 (14:13→18:47)
[2018-12-11] MEDS ORDERED: Piperacillin/Tazobact 3.375 GM in Sodium Chloride 0.9% 100 ML IVPB STA (14:19)
[2018-12-11] MEDS ORDERED: Vancomycin 1 g Inj ONE (14:40)
--- NOTE | 2018-12-11 14:40 | CP.PCM.CON ---
History of Present Illness - History of Present Illness History of Present Illness: Podiatry Consult Note: Dr. Betancourt 53M patient with DMII, RA, seen and examined in the ED for infected L ankle wound. Patient is well known to podiatry and has a history of non-compliance. Patient presented earlier in the week as well as the weekend however signed out AMA twice to see his mom who [place] patient [place] [facility] [place] Patient states that he is agreeable to being admitted today for IV antibiotics and L ankle wound treatment. He stats that he has noticed increased drainage from the L ankle since his last visit. Denies nausea/vomiting/fever today. PMHx: DMII, RA PSHx: L fifth digit, external fixation to the left leg 10/10/2018 ALL: Acetaminophen, Codeine, Oxycodone. SHx: Half ppd smoker x 25 years, denies alcohol, denies illicit drug use. Review of Systems - Constitutional Constitutional: As Per HPI Past Patient History - Infectious Disease Hx of Infectious Diseases: None - Past Medical History & Family History Past Medical History?: Yes - Past Social History Smoking Status: Never Smoked - CARDIAC Hx Hypertension: No (denies 04/30/17) - PULMONARY Hx Respiratory Disorders: No - NEUROLOGICAL Hx Neurological Disorder: No - HEENT Hx HEENT Problems: No - RENAL Hx Chronic Kidney Disease: No - ENDOCRINE/METABOLIC Hx Endocrine Disorders: Yes (DM) Hx Diabetes Mellitus Type 2: Yes - HEMATOLOGICAL/ONCOLOGICAL Hx Blood Disorders: No - INTEGUMENTARY Hx Dermatological Problems: No - MUSCULOSKELETAL/RHEUMATOLOGICAL Hx Arthritis: Yes Hx Rheumatoid Arthritis: Yes - GASTROINTESTINAL Hx Gastrointestinal Disorders: No - GENITOURINARY/GYNECOLOGICAL Hx Genitourinary Disorders: No - PSYCHIATRIC Hx Psychophysiologic Disorder: No Hx Substance Use: No - SURGICAL HISTORY Hx Surgeries: Yes Hx Orthopedic Surgery: Yes Other/Comment: Left 5th toe. Right knee. umbilical hernia - ANESTHESIA Hx Anesthesia: Yes Hx Anesthesia Reactions: No Hx Malignant Hyperthermia: No Meds Allergies/Adverse Reactions: Allergies Allergy/AdvReac Type Severity Reaction Status Date / Time acetaminophen [From Percocet] Allergy RASH Verified 12/07/18 14:01 codeine Allergy RASH Verified 12/07/18 14:01 oxycodone HCl [From Percocet] Allergy RASH Verified 12/07/18 14:01 - Medications Medications: Current Medications Vancomycin HCl 1 gm/ Sodium (Chloride) 250 mls @ 166.667 mls/hr IVPB STAT STA; Protocol Stop: 12/11/18 15:48 Piperacillin Sod/Tazobactam (Sod 3.375 gm/ Sodium Chloride) 100 mls @ 100 mls/hr IVPB STAT STA; Protocol Stop: 12/11/18 15:18 Vancomycin HCl 1 gm/ Sodium (Chloride) 250 mls @ 166.667 mls/hr IVPB Q12H HUMA; Protocol Physical Exam - Constitutional Appears: Non-toxic, No Acute Distress - Head Exam Head Exam: ATRAUMATIC, NORMOCEPHALIC - Eye Exam Eye Exam: Normal appearance - ENT Exam ENT Exam: Mucous Membranes Moist - Extremities Exam Additional comments: B/L lower extremity exam: Vascular: DP/PT faintly palpable secondary to pitting edema on the left side and palpable 2/4 on the right side, +2 pitting edema noted to the left foot and ankle, Cap refill< 3 secs x 10 Ortho: Gross anterior-lateral dislocation of the left ankle is seen; Mild pain on palpation of the left lateral perimalleolar area Derm: LLE: Previous pin sites of the external fixator measuring approximately 1 x 1 x 0.3 cm - two noted along anterior leg with mild dry serous drainage present; no purulence; no fluctuance; minimal periwound erythema; no malodor. Superficial wound noted to dorsum of forefoot measuring approximately 4 cm x 3 cm. A round ulcer noted to posterior lateral area measuring approximately 1.3 cm in diameter and 1 cm in depth and probes down to bone - mixed fibrous, necrotic and granular base, approximately 10cc of purulence expressed, positive malodor, positive erythema, positive clinical signs of infection. RLE: Superficial wounds noted on anterior aspect of tibia Neuro: protective and gross sensation diminished - Neurological Exam Neurological exam: Alert, Oriented x3 - Psychiatric Exam Psychiatric exam: Normal Mood - Skin Skin Exam: Warm Results - Vital Signs Recent Vital Signs: Last Vital Signs Temp 98.0 F 12/11/18 13:25 Pulse 99 H 12/11/18 13:25 Resp 19 12/11/18 13:25 BP 95/65 L 12/11/18 13:25 Pulse Ox 97 12/11/18 13:25 Assessment & Plan - Assessment and Plan (Free Text) Assessment: 53M, with history of non-compliance, with left lower extremity infection secondary to surgical wound dehiscence and failure of follow up treatment course (Patient s/p removal of external fixator against medical advice on 10/26/18, failure to follow up as outpatient as instructed, multiple sign out AMAs) Plan: Patient seen and evaluated Discussed in detail with Dr. Betancourt Afebrile, ESR 86 (12/10), CRP 384.2 (12/07), F/U CRP from 12/10 Betadine, DSD applied to L ankle wound LLE x-ray ordered; r/o soft tissue emphysema LLE MRI ordered; r/o OM General surgery consult; plan for BKA vs AKA Vascular, Dr. Jennings consult; recs appreciated IV abx per ID recs Discussed with the patient extensively that he needs to be admitted for IV abx and full workup Explained to the patient that he needs to stay in the hospital and to be compliant with the plan of treatment Discussed with patient high likelihood for proximal amputation at this time - Date & Time Date: 12/11/18 Time: 14:40
[2018-12-11] MEDS ORDERED: Gadodiamide 287 MG/ML VIAL (15ML) IV ONE (14:45)
--- NOTE | 2018-12-11 14:46 | ED PDOC ---
Lower Extremity Pain/Injury Time Seen by Provider: 12/11/18 13:45 Chief Complaint (Nursing): Lower Extremity Problem/Injury Chief Complaint (Provider): Lower Extremity Problem/Injury History Per: Patient History/Exam Limitations: no limitations Onset/Duration Of Symptoms: Days Current Symptoms Are (Timing): Still Present Additional Complaint(s): 53 y/o male with a PMHx of HTN, DM and chronic wounds on the legs and feet presents to the ED for admission. Patient was here in this ER yesterday and for evaluation of an infection to his left leg and feet. At both times, patient was offered admission for an infection requiring IV antibiotics and possible surgery but could not stay due to personal issues. Patient signed out AMA on both occasions. Previous charts from yesterday and reviewed and confirm that patient did leave against medical advice. Patient reports of intermittent fevers as well. Patient notes of having discharge and bleeding coming from the open wounds to the left lower leg, left ankle and left foot. Patient states he was supposed to see podiatry in the office but has not been able to. PMD: Mallika Anderson Lieutenant Firefighter: Dr. Flores Past Medical History Reviewed: Historical Data, Nursing Documentation, Vital Signs Vital Signs: Last Vital Signs Temp 98.0 F 12/11/18 13:25 Pulse 99 H 12/11/18 13:25 Resp 19 12/11/18 13:25 BP 95/65 L 12/11/18 13:25 Pulse Ox 97 12/11/18 13:25 Primary Care Provider: Non [facility] Provider, - Medical History PMH: Arthritis, Diabetes (type II), HTN, Rheumatoid Arthritis Denies: Chronic Kidney Disease Other PMH: chronic wounds on legs and feet - Surgical History Surgical History: Hernia Repair (umbilical) - Family History Family History: States: Diabetes (Father) - Immunization History Hx Tetanus Toxoid Vaccination: No Hx Influenza Vaccination: No Hx Pneumococcal Vaccination: No - Home Medications Home Medications: Ambulatory Orders Medication Instructions Recorded MetFORMIN [glucoPHAGE] 1,000 mg PO BID 04/23/17 Pregabalin [Lyrica] 50 mg PO Q8 09/19/18 GlipiZIDE [Glucotrol] 10 mg PO BID 10/01/18 Insulin Lispro Mix 75/25 [HumaLOG TID 12/07/18 Mix 75/25] - Allergies Allergies/Adverse Reactions: Allergies Allergy/AdvReac Type Severity Reaction Status Date / Time acetaminophen [From Percocet] Allergy RASH Verified 12/07/18 14:01 codeine Allergy RASH Verified 12/07/18 14:01 oxycodone HCl [From Percocet] Allergy RASH Verified 12/07/18 14:01 Review of Systems ROS Statement: Except As Marked, All Systems Reviewed And Found Negative Musculoskeletal: Positive for: Leg Pain, Foot Pain Physical Exam - Reviewed Nursing Documentation Reviewed: Yes Vital Signs Reviewed: Yes - Physical Exam Appears: Positive for: No Acute Distress. Negative for: Uncomfortable (comfortable) Head Exam: Positive for: ATRAUMATIC, NORMOCEPHALIC Skin: Positive for: Normal Color, Warm, Dry Eye Exam: Positive for: Normal appearance, EOMI, PERRL Neck: Positive for: Normal, Painless ROM Cardiovascular/Chest: Positive for: Regular Rate, Rhythm. Negative for: Murmur Respiratory: Positive for: Normal Breath Sounds. Negative for: Respiratory Distress Gastrointestinal/Abdominal: Positive for: Normal Exam, Soft. Negative for: Tenderness Extremity: Positive for: Deformity (Multiple open wounds on the left lower leg, ankle and foot. In multiple locations, bloody discharge and purulent discharge is noted. Bone is visible in some areas. ) Neurological/Psych: Positive for: Awake, Alert, Oriented (x3) - ECG O2 Sat by Pulse Oximetry: 97 (RA) Pulse Ox Interpretation: Normal Medical Decision Making Medical Decision Making: Time: 1418 Impression: Wound infection in the left leg and left foot Possible osteomyelitis Plan: -- Immediately contacted family resident to admit patient. Podiatry consult additionally placed. -- Family resident and 3d designer have seen the patient in the ER. Recommendations are appreciated -- BMP -- Infectious Disease Consult -- Podiatry Consult -- CBC with Differentials -- Erythrocyte Sedimentation Rate -- MRI Lower Extremity -- Vancomycin 1 gm Sodium Chloride 250 ml IVPB -- Zosyn 3.375 gm Sodium Chloride 100 ml IVPB -- Blood Culture -- Call ID Consult -- Call Podiatry Consult -- Vital Signs Q8 -- admit to Hospital Scribe Attestation: Documented by Juaquin Sinclair, acting as a scribe for Sergio Boo MD. Provider Scribe Attestation: All medical record entries made by the Scribe were at my direction and personally dictated by me. I have reviewed the chart and agree that the record accurately reflects my personal performance of the history, physical exam, medical decision making, and the department course for this patient. I have also personally directed, reviewed, and agree with the discharge instructions and disposition.
[2018-12-11] MEDS ORDERED: Glucagon Recombinant 1 mg Inj IM PRN (14:48)
[2018-12-11] MEDS ORDERED: Dextrose 50% SYRINGE Inj (50 ml) IV PRN (14:48)
[2018-12-11 14:57] LABS: BLOOD UREA NITROGEN 11 mg/dl (9-20); CALCIUM 9.1 mg/dL (8.4-10.2); GFR NON-AFRICAN AMERICAN > 60
[2018-12-11 15:00] LABS: BASO # 0.1 K/uL (0.0-0.2); BASO % 0.8 % (0.0-2.0); EOS # 0.2 K/uL (0.0-0.7); EOS % 2.5 % (0.0-4.0); HEMOGLOBIN 11.2 g/dL (12.0-18.0); LYMPH # 0.9 K/uL (1.0-4.3); LYMPH % 13.3 % (20.0-40.0); MEAN CORPUSCULAR HEMOGLOBIN 25.6 pg (27.0-31.0); MEAN CORPUSCULAR HGB CONC 32.8 g/dL (33.0-37.0); MEAN PLATELET VOLUME 8.5 fl (7.2-11.7); MONO # 0.6 K/uL (0.0-0.8); MONO % 9.1 % (0.0-10.0); NEUT % 74.3 % (50.0-75.0); PLATELET COUNT 583 K/uL (130-400); RBC 4.39 Mil/uL (4.40-5.90); RED CELL DISTRIBUTION WIDTH 15.9 % (11.5-14.5); WHITE BLOOD COUNT 6.8 K/uL (4.8-10.8)
[2018-12-11] MEDS ORDERED: Insulin Regular 100 units/ml IV STA (15:06)
[2018-12-11] MEDS ORDERED: Insulin Regular 100 units/ml ONE (15:12)
[2018-12-11] MEDS ORDERED: Sodium Chloride 0.9% 1,000 ML IV STA (15:13)
[2018-12-11 15:55] LABS: ERYTHROCYTE SEDIMENTATION RATE 90 mm/hr (0-20)
[2018-12-11] MEDS ORDERED: Piperacillin/Tazobact 3.375 GM in Sodium Chloride 0.9% 100 ML IVPB SCH (16:00)
[2018-12-11 16:28] VITALS: BP 105/60; PULSE 113; TEMP 101; O2SAT 94
[2018-12-11] MEDS ORDERED: Insulin Regular 100 units/ml SC SCH (16:30)
[2018-12-11 16:54] LABS: ANISOCYTOSIS SLIGHT; BANDS 6 % (0-2); EOSINOPHIL 1 % (0-7); LYMPHOCYTE 11 % (20-50); METAMYELOCYTE 3 % (0-0); MONOCYTE 9 % (0-10); MYELOCYTE 1 % (0-0); NEUTROPHIL 69 % (42-75); PLATELET ESTIMATE SLIGHTLY INCREASED (NORMAL); TOTAL CELLS COUNTED 100
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
--- NOTE | 2018-12-11 17:10 | RAD ---
Date of service: 12/11/2018 PROCEDURE: Radiographs of the left tibia and fibula. HISTORY: r/o soft tissue emphysema COMPARISON: 10/10/2018.. TECHNIQUE: Frontal and lateral views obtained. 2 views obtained. FINDINGS: BONES: Status post removal of orthopedic hardware identified in the tibia. JOINT SPACES: Unremarkable. OTHER FINDINGS: Air identified at the site of previously removed hardware and more distally at and above the level of the ankle mortise. IMPRESSION: Air identified soft tissues left lower extremity etiology indeterminate in the absence of relevant history about orthopedic hardware removal. Hardware was in place on the most recent radiographs 10/10/2018.
--- NOTE | 2018-12-11 17:13 | RAD ---
Date of service: 12/11/2018 PROCEDURE: Left Foot Radiographs. HISTORY: r/o soft tissue emphysema COMPARISON: 10/10/2018 left foot radiographs TECHNIQUE: 3 views obtained. FINDINGS: BONES: Postoperative findings following hardware removal. No visible subcutaneous air within soft tissues beyond the level the ankle. Evidence of old fracture 5th metatarsal. JOINTS: Normal. SOFT TISSUES: Normal. OTHER FINDINGS: None. IMPRESSION: No acute findings with respect to left foot radiographs. Known findings, described in greater detail, at and above the ankle.
[2018-12-11] MEDS ORDERED: Lactated Ringer's 1,000 ML IV SCH (17:30)
[2018-12-11 17:45] VITALS: RESP 18
[2018-12-11] MEDS ORDERED: Sodium Chloride 0.9% 1,000 ML IV SCH (17:45)
--- NOTE | 2018-12-11 20:13 | CP.PCM.PCO ---
Against Medical Advice - AMA Patient Left Against Medical Advice: Resident team received page around 6 pm that patient wanted to leave AMA - patient evaluated at bedside with attending Dr. Anderson - discussed with patient that he has a serious skin/bone/tissue infection that may spread, cause widespread damage to his entire leg and rest of his body, and may ultimately cause . Patient was reluctant to stay, however initially agreed to stay for surgical evaluation. Arrangements were made for surgical attending to see patient, followed by possible subsequent surgical intervention; patient was also made aware of this plan. Around 740 pm, received another page from patient's RN - patient smoked cigarette in the bathroom and was refusing to give up his cigarettes to RN. Security was called as well and patient stated he wanted to leave the hospital again. I and Dr. Schmid came to bedside- attempted to discuss with patient again that staying admitted and getting surgical eval is in the best interest of his health, however patient insisted that if he cannot smoke he will not stay. Nursing cytotechnologist/cytology supervisor Debora contacted by Dr. Schmid to inquire about any possibility of patient being able to go outside to smoke, however this is not a possibility. Patient made aware of hospital policy that he cannot leave the building to smoke and cannot smoke inside. Patient insisted on leaving against medical advice despite multiple attempts to redirect and discuss risks of leaving and benefits of staying for treatment. This action is against my medical advice. This decision was made with informed refusal. The patient was told that staying for treatment is necessary. Explanation of the reasons why were discussed (including but not limited to surgical eval and preventing spread of serious, possibly life-threatening infection). The risks of leaving were explained to the patient and include, but are not limited to, worsening of known or currently unknown conditions, permanent disability and from undiagnosed or untreated conditions. The patient has the capacity to make this informed decision and understands my explanation of the current medical problem and risks of leaving. The patient voluntarily accepts these risks and signed an AMA form documenting our conversation. The form was witnessed by Dr. Schmid and also signed by pt's RN. The patient was given the opportunity to ask questions and reconsider. The patient was encouraged to return to the hospital ED at any time for further care.
--- NOTE | 2018-12-12 09:49 | CP.PCM.PCO ---
Assessment & Plan - Assessment and Plan (Free Text) Assessment: was called for routine ID consult on this patient yesterday afternoon at 2 pm. case was d/w resident and the nurse. had advised to start IV vancomycin and to get ECHO to r/o any vegetations. went to see patient this am and was informed that Pt. had signed out AMA yesterday .
--- NOTE | 2018-12-12 09:57 | CP.PCM.PCO ---
Physician Communication Note - Physician Communication Note Physician Communication Note: c Addendum Addendum: 12/12/18 09:55 was called to see this patient yesterday afternoon for routine consult for foot infection and MRSA in last blood cx. cased d/w resident and nurse and had advised to start the appropri antibiotics and to repeat blood cx and check TTE r/o vegetations. came to see patietn this am and was informed that pt. had signed put AMA yesterday.
== END 2018-12-11 20:00 | disposition left against medical advice (07) ==
LOC: H.ER 13:19 → H.ERHOLD 13:57 → H.MEDSURG1 16:07
PROVIDERS: ADMIT Family Medicine; ATTEND Family Medicine
DX: L08.9 Local infection of the skin and subcutaneous tissue, unspecified (principal); M06.9 Rheumatoid arthritis, unspecified; Z83.3 Family history of diabetes mellitus; Z91.19 Patient's noncompliance with other medical treatment and regimen; K42.9 Umbilical hernia without obstruction or gangrene; M19.90 Unspecified osteoarthritis, unspecified site; Z79.84 Long term (current) use of oral hypoglycemic drugs; R50.9 Fever, unspecified; E11.40 Type 2 diabetes mellitus with diabetic neuropathy, unspecified; E11.65 Type 2 diabetes mellitus with hyperglycemia; F17.210 Nicotine dependence, cigarettes, uncomplicated; I10 Essential (primary) hypertension
CPT/HCPCS: 36415; 73590; 73610; 73630; 80048; 82948; 85025; 85651; 87040; 87149; 87205; 99285; G0378; J7030